=== PATIENT | female | born 1990 | race Caucasian/White ===

== ENCOUNTER 2020-09-14 14:03 | Emergency (ER) | payer OTHER, MEDICAID, SELFPAY ==
[2020-09-14 14:18] VITALS: PULSE 98; RESP 16; TEMP 37.3; O2SAT 99
[2020-09-14 14:22] VITALS: BP 128/81
--- NOTE | 2020-09-14 14:50 | ED.FEMALEGU ---
HPI - Female Genitourinary General Chief complaint: Urogenital-Female Stated complaint: UTI Time Seen by Provider: 09/14/20 14:50 Source: patient Mode of arrival: ambulatory Limitations: no limitations History of Present Illness HPI Narrative: Delroy Cabrera is a 29 yo female with no prior medical history who comes to [facility] with complaints of burning and difficulty emptying bladder; she is around 5 weeks ; she knows the accuracy of this because she has abdominal pain and went to the emergency room where they did an ultrasound and hCG to rule out ectopic and could not see the sac or oval yet on an ultrasound but she had positive hCG. She has had no pain since the emergency room visit. Related Data Allergies Allergy/AdvReac Type Severity Reaction Status Date / Time acetaminophen Allergy Mild Nausea and Verified 10/26/18 17:03 Vomiting hydrocodone Allergy Mild Nausea and Verified 10/26/18 17:03 Vomiting latex Allergy Mild Rash Verified 10/26/18 17:03 Review of Systems Review of Systems: Narrative: CONSTITUTIONAL: Denies fever, chills, sweats. EYES: Denies visual changes, redness, discharge. ENT: Denies rhinorrhea, congestion, sore throat, otalgia. CARDIOVASCULAR: Denies chest pain, palpitations, edema. RESPIRATORY: Denies dyspnea, wheezing, cough GASTROINTESTINAL: Denies abdominal pain, nausea, vomiting, diarrhea. GENITOURINARY: Has dysuria, hematuria, abnormal discharge SKIN: Denies rash or itching. NEUROLOGIC: Denies numbness, or focal weakness. PSYCHIATRIC: Denies anxiety or depression. PMFSH Past Medical History Medical History No acute medical problems Family History Family History Other Diabetes mellitus Heart disease Hypertension Social History Social History (Updated 09/14/20 @ 15:00 by Jessica Haines CNP) Smoking status: Former smoker Alcohol intake: former Comments At time of signature, I agree with nursing past medical, surgical, social and family history. There is no relevant family history pertinent to the presenting complaint. Exam Narrative: Exam Narrative: GENERAL: This is a well-nourished, well-developed patient, in mild distress. HEAD: normocephalic, atraumatic. EYES: Sclera clear/white. Vision is grossly intact. EARS: External ears normal,. Hearing grossly intact. NOSE: External nose normal without nasal discharge, nares without redness, no rhinorrhea. THROAT: Mucous membranes moist, NECK: Neck supple, CARDIOVASCULAR: Regular rate and rhythm without murmurs, gallops, or rubs. RESPIRATORY: Clear to auscultation. Breath sounds equal bilaterally. No wheezes, rales, or rhonchi. GASTROINTESTINAL: Abdomen soft, no abdominal pain SKIN: warm, intact with no suspicious lesions or rash, good texture and turgor. NEURO: awake, alert, and oriented to person, place and time. There were no obvious focal neurologic abnormalities. Steady gait EXTREMITIES: Normal range of motion. BACK: Nontender without deformity Course Course Emergency Course: [facility] of dysuria and is 5 weeks Urine dipstick is essentially negative but is being sent for culture Started on Macrobid, intravaginal metronidazole Vital Signs Vital signs: Vital Signs Temperature 99.2 F 09/14/20 14:18 Pulse Rate 98 09/14/20 14:18 Respiratory Rate 16 09/14/20 14:18 Pulse Oximetry 99 09/14/20 14:18 Temperature 99.2 F 09/14/20 14:18 Pulse Rate 98 09/14/20 14:18 Respiratory Rate 16 09/14/20 14:18 Blood Pressure 128/81 09/14/20 14:22 Pulse Oximetry 99 09/14/20 14:18 MDM - Female Genitourinary Differential Diagnosis Differential diagnosis: Likely urinary tract infection, cystitis and other Lab Data Labs: UCG Bedside Result Positive Reference Range
== END 2020-09-14 15:06 | disposition home or self-care (01) ==
PROVIDERS: Emergency Provider Nurse Practitioner
DX: O26.891 Other specified pregnancy related conditions, first trimester (principal); Z3A.01 Less than 8 weeks gestation of pregnancy; Z87.891 Personal history of nicotine dependence
CPT/HCPCS: 81003; 81025; 87086; 99213; G0463

== ENCOUNTER 2020-09-28 17:04 | Emergency (ER) | payer OTHER, MEDICAID, SELFPAY ==
--- NOTE | ~2020-09-28 | US_ITS ---
EXAMINATION: US OB <=14 wk fetus w TV DATE: 09/28/2020 18:46 INDICATION: Vaginal bleeding during first trimester TECHNIQUE: Real-time pelvic transabdominal and transvaginal ultrasound was performed. COMPARISON: None. FINDINGS: The uterus measures 7.2 x 5.5 x 4.4 cm. There is an intrauterine gestational sac. There is a 1.4 x 1.6 x 1.1 cm hypoechoic area adjacent to the gestational sac. A yolk sac is identified. Feta l heart motion is identified measuring 121 beats per minute (bpm) by M-mode Doppler. The crown rump length measures 7 mm , which correlates with an estimated gestational age of 6 weeks and 4 day(s ) (+/-) 4 day(s). The right ovary measures 3.4 x 3.4 x 2.9 cm. The left ovary measures 3.0 x 3.1 x 1.8 cm. There is nor mal vascular flow in the ovaries. There is no free fluid in the pelvis. IMPRESSION: 1. Live intrauterine with an estimated gestational age of 6 weeks and 4 day(s) (+/-) 4 day( s) and an estimated delivery date of 05/20/2021. 2. Small subchorionic hematoma. Reviewed, dictated and finalized at location A. IMPRESSION: 1. Live intrauterine with an estimated gestational age of 6 weeks and 4 day(s) (+/-) 4 day(s) and an estimated delivery date of 05/20/2021. 2. Small subchorionic hematoma.
[2020-09-28 17:22] VITALS: BP 136/80; PULSE 96; RESP 18; TEMP 36.7; O2SAT 100
[2020-09-28 17:43] LABS: Basophils Percent Auto 0.3 % (0.2-1.2); Eosinophils Absolute Auto 0.1 K/mm3 (0-0.3); Eosinophils Percent Auto 0.8 % (0-4.4); Hematocrit 43.2 % (37.0-47.0); Hemoglobin 14.7 g/dL (12.0-15.0); Immature Granulocyte Absolute 0.04 K/mm3 (0.00-0.031); Immature Granulocyte Percent A 0.3 % (0-0.5); Lymphocytes Absolute Auto 2.82 K/mm3 (0.9-3.2); Lymphocytes Percent Auto 24.3 % (18.3-44.2); Mean Corpuscular Volume 91.1 fl (80-100); Monocytes Absolute Auto 0.6 K/mm3 (0.1-0.6); Monocytes Percent Auto 5.2 % (2.6-8.5); Neutrophils Percent Auto 69.1 % (45.5-73.1); Platelet Count Result 316 k/mm3 (150-375); Red Blood Count 4.74 M/mm3 (4.2-5.4); Red Cell Distribution Width 12.3 % (11.5-14.5); White Blood Count 11.6 K/mm3 (4.5-10.0)
[2020-09-28 20:12] LABS: Add Urine Microscopic? YES; Appearance Urine Clear (Clear); Bilirubin Urine Negative (Negative); Blood Urine Negative (Negative); Color Urine Yellow (Yellow); Glucose Urine UA Negative (Negative); Ketones Urine 1+ mg/dL (Negative); Leukocyte Esterase Ur Negative LEU/UL (Negative); Mucus Urine Rare /lpf; Nitrate Urine Negative (Negative); Protein Urine Negative (Negative); RBC Urine 0-2 /hpf (0-2); Specific Grav Ur 1.017 (1.001-1.035); Squamous Epithelial Cell Urine Rare /hpf (Few); Urobilinogen Urine Negative mg/dL (<2.0); WBC Urine 0-3 /hpf
--- NOTE | 2020-09-28 20:12 | ED.FEMALEGU ---
HPI - Female Genitourinary General Chief complaint: [employer] Stated complaint: vag bleeding/6.5 weeks Time Seen by Provider: 09/28/20 17:08 Source: patient Mode of arrival: ambulatory Limitations: no limitations History of Present Illness HPI Narrative: Patient is a 30 year old female who presents with vaginal spotting x 2 days with heavier bleeding and cramping this pm. 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 She reports appointment to see Dr. Foley on Friday. She denies all other complaints at this time. MD elicited complaint: vaginal bleeding Related Data Home Medications Medication Instructions Recorded Confirmed aspirin [Adult Aspirin EC Low 81 mg PO DAILY 09/28/20 Strength] desvenlafaxine succinate mg PO 09/28/20 lisdexamfetamine [Vyvanse] mg 09/28/20 metformin mg 09/28/20 progesterone micronized mg 09/28/20 Allergies Allergy/AdvReac Type Severity Reaction Status Date / Time acetaminophen Allergy Mild Nausea and Verified 10/26/18 17:03 Vomiting hydrocodone Allergy Mild Nausea and Verified 10/26/18 17:03 Vomiting latex Allergy Mild Rash Verified 10/26/18 17:03 nickel Allergy Swelling Verified 09/28/20 20:17 Review of Systems Review of Systems: CONSTITUTIONAL: Denies fever, chills, or sweats. EYES: Denies visual changes, redness, or discharge. ENT: Denies rhinorrhea, congestion, sore throat, or otalgia. CARDIOVASCULAR: Denies chest pain, palpitations, or edema. RESPIRATORY: Denies cough or dyspnea. GASTROINTESTINAL: Denies abdominal pain, nausea, vomiting, or diarrhea. GENITOURINARY: Reports vaginal bleeding SKIN: Denies rash or itching. MUSCULOSKELETAL: Denies back pain, joint pain, or myalgia. NEUROLOGIC: Denies headache, numbness, dizziness, or weakness. PSYCHIATRIC: Denies anxiety or depression. [facility] Past Medical History Medical History No acute medical problems Family History Family History Other Diabetes mellitus Heart disease Hypertension Social History Social History Smoking status: Former smoker Alcohol intake: former Comments At the time of signature, I have reviewed and agree with nursing past medical, surgical, social, and family history unless otherwise noted. Please see nursing chart for further information. There is no relevant family history pertinent to the presenting complaint. Exam Narrative: GENERAL: Well-appearing, well-nourished, and in no acute distress. HEAD: Normocephalic, atraumatic. EYES: EOMI. No redness or drainage. Conjunctiva are normal. ENT: Mucous membranes pink and moist. CHEST: No respiratory distress. Clear to auscultation. HEART: Regular rate and rhythm. No murmur appreciated. Normal peripheral pulses. GI: Soft, nontender without rebound, or guarding. No distention. : Patient declined pelvic exam at this time. MUSCULOSKELETAL: No bony tenderness. EXTREMITIES: Normal range of motion. No edema. SKIN: Warm, dry, no rash. NEURO: No focal deficits. Alert and oriented x3. Gait steady. PSYCH: Normal affect. No signs of depression or anxiety. Course Consultations Consultation #1: Spoke with Dr. Gudino who reports to have patient follow up with the office in the am. Pelvic rest and no lifting over 10 lbs. Vital Signs Vital signs: Vital Signs Temperature 36.7 C 09/28/20 17:22 Pulse Rate 96 09/28/20 17:22 Respiratory Rate 18 09/28/20 17:22 Blood Pressure 136/80 09/28/20 17:22 Pulse Oximetry 100 09/28/20 17:22 Temperature 36.7 C 09/28/20 17:22 Pulse Rate 96 09/28/20 17:22 Respiratory Rate 18 09/28/20 17:22 Blood Pressure 136/80 09/28/20 17:22 Pulse Oximetry 100 09/28/20 17:22 Reviewed-patient is informed that they may have pre-hypertension or hypertension based on a blood pressure reading. I recommend the pat
== END 2020-09-28 20:35 | disposition home or self-care (01) ==
PROVIDERS: Emergency Medicine; Emergency Provider Nurse Practitioner
DX: O20.9 Hemorrhage in early pregnancy, unspecified (principal); O26.891 Other specified pregnancy related conditions, first trimester; R03.0 Elevated blood-pressure reading, without diagnosis of hypertension; O26.21 Pregnancy care for patient with recurrent pregnancy loss, first trimester; Z87.891 Personal history of nicotine dependence; Z3A.01 Less than 8 weeks gestation of pregnancy
CPT/HCPCS: 36415; 76801; 76817; 81001; 84702; 85025; 85461; 99284

== ENCOUNTER 2020-10-15 12:29 | Emergency (ER) | payer OTHER, MEDICAID, SELFPAY ==
--- NOTE | ~2020-10-15 | US_ITS ---
EXAMINATION: US OB <=14 wk fetus w TV DATE: 10/15/2020 15:33 INDICATION: Vaginal bleeding during first trimester TECHNIQUE: Real-time pelvic ultrasound utilizing both a transvaginal and transabdominal probe was pe rformed. The interpreting radiologist was not present for the study. COMPARISON: 09/28/2020 FINDINGS: The uterus measures 10.9 x 6.9 x 5.9 cm. There is an intrauterine gestational sac. A yolk sac and fe eduardo pole are identified. The crown rump length measures 2.4 cm, which correlates with an estimated ge stational age of 9 weeks and 1 days. No evident heart motion with either color or M-mode Dopple r. Small hypoechoic region measuring 1.7 x 1.0 cm on side the gestational sac suggesting small subcho rionic hemorrhage. There is a 3.7 x 2.9 x 2.6 cm or round hyperechoic region which could represent ei ther additional subchorionic hemorrhage or fibroid at the right side of the uterine fundus. The right ovary measures 3.4 x 3.0 x 2.0 cm. The left ovary measures 3.1 x 2.5 x 2.1 cm. Vascular mabel w is identified in both ovaries on color Doppler. There is no free fluid in the pelvis. IMPRESSION: 1. Single fetus with crown-rump length of 2.4 cm but with no heart motion consistent with demise. 2. 1.7 x 1.0 cm subchorionic hematoma. 3. 3.7 cm oral and hypoechoic region at the right side of the fundus which could represent either add itional subchorionic hemorrhage or a uterine fibroid. Reviewed, dictated and finalized at location A. IMPRESSION: 1. Single fetus with crown-rump length of 2.4 cm but with no heart motion consistent with demise. 2. 1.7 x 1.0 cm subchorionic hematoma. 3. 3.7 cm oral and hypoechoic region at the right side of the fundus which coul d represent either additional subchorionic hemorrhage or a uterine fibroid.
[2020-10-15 12:31] VITALS: BP 130/78; PULSE 90; RESP 18; TEMP 36.4; O2SAT 100
[2020-10-15 13:02] LABS: Basophils Percent Auto 0.4 % (0.2-1.2); Eosinophils Absolute Auto 0.1 K/mm3 (0-0.3); Eosinophils Percent Auto 0.9 % (0-4.4); Hematocrit 44.5 % (37.0-47.0); Hemoglobin 15.1 g/dL (12.0-15.0); Immature Granulocyte Absolute 0.05 K/mm3 (0.00-0.031); Immature Granulocyte Percent A 0.5 % (0-0.5); Lymphocytes Absolute Auto 2.34 K/mm3 (0.9-3.2); Lymphocytes Percent Auto 22.3 % (18.3-44.2); Mean Corpuscular HGB Conc 33.9 g/dl (32-36); Mean Corpuscular Hemoglobin 31.5 pg (26-34); Mean Corpuscular Volume 92.9 fl (80-100); Mean Platelet Volume 10.6 fl (7.4-10.4); Monocytes Absolute Auto 0.6 K/mm3 (0.1-0.6); Monocytes Percent Auto 5.5 % (2.6-8.5); Neutrophils Absolute Auto 7.4 K/mm3 (1.3-6.7); Neutrophils Percent Auto 70.4 % (45.5-73.1); Platelet Count Result 303 k/mm3 (150-375); Red Blood Count 4.79 M/mm3 (4.2-5.4); Red Cell Distribution Width 12.3 % (11.5-14.5); White Blood Count 10.5 K/mm3 (4.5-10.0)
[2020-10-15 14:29] VITALS: BP 130/93; PULSE 105; RESP 18; TEMP 36.6; O2SAT 96
--- NOTE | 2020-10-15 15:03 | PC.NURSE ---
To US at this time.
--- NOTE | 2020-10-15 16:09 | ED.ABDPAIN ---
HPI - Abdominal Pain General Chief Complaint: Vaginal Bleeding Stated Complaint: 9 weeks preg/vaginal bleeding Time Seen by Provider: 10/15/20 15:50 History of Present Illness HPI narrative: 30-year-old female presents with concern for miscarriage. She is G5, P1 approximately 9 weeks by LMP. Reports today she felt she urinated self and when she checked there was a lot of vaginal bleeding. Bleeding is associated with abdominal cramping similar to her menstrual cycle. She reports a history of early miscarriages and this feels similar to her priors so she wanted to come in for evaluation. She denies any lightheadedness or dizziness reports the bleeding is slowing she did not note any major blood clots or tissue. Patient ports she has A+ not required RhoGam in the past Related Data Home Medications Medication Instructions Recorded Confirmed aspirin [Adult Aspirin EC Low 81 mg PO DAILY 09/28/20 Strength] desvenlafaxine succinate mg PO 09/28/20 lisdexamfetamine [Vyvanse] mg 09/28/20 metformin mg 09/28/20 progesterone micronized mg 09/28/20 Allergies Allergy/AdvReac Type Severity Reaction Status Date / Time acetaminophen Allergy Mild Nausea and Verified 10/15/20 12:34 Vomiting hydrocodone Allergy Mild Nausea and Verified 10/15/20 12:34 Vomiting latex Allergy Mild Rash Verified 10/15/20 12:34 nickel Allergy Swelling Verified 10/15/20 12:34 Review of Systems Review of Systems: CONSTITUTIONAL: Denies fever, chills, or sweats. EYES: Denies visual changes, redness, or discharge. ENT: Denies rhinorrhea, congestion, sore throat, or otalgia. CARDIOVASCULAR: Denies chest pain, palpitations, or edema. RESPIRATORY: Denies cough or dyspnea. GASTROINTESTINAL: Denies nausea, vomiting, or diarrhea. GENITOURINARY: Denies dysuria or hematuria. SKIN: Denies rash or itching. MUSCULOSKELETAL: Denies back pain, joint pain, or myalgia. NEUROLOGIC: Denies headache, numbness, dizziness, or weakness. PSYCHIATRIC: Denies anxiety or depression. All systems reviewed & are unremarkable except as noted in HPI and below PMFSH Past Medical History Medical History No acute medical problems Family History Family History Other Diabetes mellitus Heart disease Hypertension Social History Social History Smoking status: Former smoker Alcohol intake: former Gender identity (if verbalized by the patient): Female Exam Narrative: GENERAL: Well-appearing, well-nourished, and in no acute distress. Upset HEAD: Normocephalic, atraumatic. EYES: PERRLA and EOMI. ENT: Nares clear, no rhinorrhea or epistaxis. Mucous membranes moist. NECK: Supple. No masses. No JVD ABDOMEN: Mild tenderness palpation in the lower abdomen nondistended, normal active bowel sounds. EXTREMITIES: Normal range of motion. No edema. SKIN: Warm, dry, no rash. NEURO: No focal deficits. Alert and oriented x3. PSYCH: Normal mood and affect. Course Vital Signs Vital signs: Vital Signs Temperature 36.4 C L 10/15/20 12:31 Pulse Rate 90 10/15/20 12:31 Respiratory Rate 18 10/15/20 12:31 Blood Pressure 130/78 10/15/20 12:31 Pulse Oximetry 100 10/15/20 12:31 Temperature 36.6 C 10/15/20 14:29 Pulse Rate 105 H 10/15/20 14:29 Respiratory Rate 18 10/15/20 14:29 Blood Pressure 130/93 H 10/15/20 14:29 Pulse Oximetry 96 10/15/20 14:29 MDM - Abdominal Pain MDM Narrative Medical decision making narrative: H&P as above, vss, pt looks clinically well, exam mild tenderness of the abdomen, labs anemia. Patient is Rh+ img with evidence of demise, additional labs/img considered, symptomatic relief available as needed is made aware of imaging results she said tearful. She reports she has follow-up with her UX MANAGER this week patient counseled on the importance of
== END 2020-10-15 16:32 | disposition home or self-care (01) ==
PROVIDERS: Emergency Medicine; Emergency Provider Emergency Medicine
DX: O03.9 Complete or unspecified spontaneous abortion without complication (principal); Z87.891 Personal history of nicotine dependence
CPT/HCPCS: 36415; 76801; 76817; 84702; 85025; 85461; 99284

== ENCOUNTER 2020-10-20 04:56 | Day surgery (SDC) | payer OTHER, MEDICAID, SELFPAY ==
[2020-10-18 13:35] VITALS: BMI 26.7
--- NOTE | 2020-10-19 11:10 | WPDANESEPPF ---
Anes - Initial Pre Proc Eval Procedure: Operation Date: 10/20/20 07:30 Proposed Procedures p Suction Dilation and Curettage - Allie Foley MD Date/Time: 10/19/20 11:10 Surgeon: Allie Foley MD Pre Op Diagnosis: miss caba Patient Data Age: 30 Gender: F Height: 1.65 m Weight: 73 kg Allergies Allergy/AdvReac Type Severity Reaction Status Date / Time latex Allergy Mild Rash Verified 10/20/20 05:57 nickel Allergy Mild Swelling Verified 10/20/20 05:57 Home Medications Medication Instructions Recorded Confirmed Type lisdexamfetamine [Vyvanse] 30 mg PO QAM 09/28/20 10/20/20 History metformin 500 mg PO BID 09/28/20 10/20/20 History vit-iron fum-folic ac 1 tablet PO DAILY 10/18/20 10/20/20 History [ Vitamin Formula] venlafaxine 37.5 mg PO HS 10/18/20 10/20/20 History Patient hx anesthesia problems: none Family hx anesthesia problems: none PMFSH Past Medical History Medical History (Updated 10/19/20 @ 11:10 by Chapito Mercado MD) Depression No acute medical problems Family History Family History Other Diabetes mellitus Heart disease Hypertension Social History Social History Smoking packs per day: 1 Smoking cigarettes per day: 20.0 Years smoked: 3 Smoking pack-years: 3.00 Smoking status: Former smoker Tobacco type: cigarettes Smoking end date: 08/31/16 Alcohol intake: never Substance use: never Living arrangements: with family Additional living arrangements comments: HUSB & SON Gender identity (if verbalized by the patient): Female Spiritual care concerns: No Anes - Eval Final PreProcedure Day of Procedure 10/19/20 11:10 Patient weight: normal Heart: regular rate and rhythm Lungs: clear to auscultation Airway: Mallampati scale class II Neurological: alert and oriented Last oral intake: >/= 8 hours ASA classification: II Emergent: no Anesthetic plan: proceed Anesthesia type and monitoring: general GIVS and standard monitoring Informed Consent: The patient's anesthetic plan and its attendant risks and benefits were discussed with the patient/family/POA. Questions were solicited and answers provided to the satisfaction of the patient/family/POA.
[2020-10-20 06:12] VITALS: BP 117/68; PULSE 81; RESP 16; TEMP 36.7; O2SAT 98
[2020-10-20] MEDS: ACETAMINOPHEN 500 MG TABLET 1000 MG PO (06:18)
[2020-10-20] MEDS: LACTATED RINGERS 1,000 ML 30 ML IV CONT (06:20)
--- NOTE | 2020-10-20 07:25 | PM.IMHP ---
H&P: HPI History of Present Illness Date/Time: 10/20/20 07:25 Chief Complaint: miscarriage Narrative: Delroy is a 30yo with missed ab at 8-9 weeks. only brown spotting. We are continuing her work up for recurrent miscarriage, and she desires D and C with chromosomes on POC. Review of Systems Review of Systems: All systems reviewed & are unremarkable except as noted in HPI and below PMFSH Past Medical History Medical History (Updated 10/20/20 @ 07:26 by Allie Foley MD) Depression No acute medical problems Family History Family History Other Diabetes mellitus Heart disease Hypertension Social History Social History Smoking packs per day: 1 Smoking cigarettes per day: 20.0 Years smoked: 3 Smoking pack-years: 3.00 Smoking status: Former smoker Tobacco type: cigarettes Smoking end date: 08/31/16 Alcohol intake: never Substance use: never Living arrangements: with family Additional living arrangements comments: HUSB & SON Gender identity (if verbalized by the patient): Female Spiritual care concerns: No Meds Home Medications and Allergies Home Medications Medication Instructions Recorded Confirmed Type lisdexamfetamine [Vyvanse] 30 mg PO QAM 09/28/20 10/20/20 History metformin 500 mg PO BID 09/28/20 10/20/20 History vit-iron fum-folic ac 1 tablet PO DAILY 10/18/20 10/20/20 History [ Vitamin Formula] venlafaxine 37.5 mg PO HS 10/18/20 10/20/20 History Allergies Allergy/AdvReac Type Severity Reaction Status Date / Time latex Allergy Mild Rash Verified 10/20/20 05:57 nickel Allergy Mild Swelling Verified 10/20/20 05:57 Vital Signs Vital Signs - 24 hr 10/20/20 06:12 Temperature 98.1 F Pulse Rate 81 Respiratory Rate 16 Blood Pressure 117/68 Pulse Oximetry 98 Exam Const: General: no acute distress Resp: Effort & Inspection: normal respiratory effort Auscultation: clear to auscultation bilaterally Cardio: Rate: regular rate Rhythm: regular rhythm GI: GI Palp: Yes Soft to palpation Extrem: General: normal to inspection Assessment and Plan Assessment and plan (1) Missed : Code(s): O02.1 - Missed Status: Acute Additional Plan COnsented for suction D and C will send POC for chromosomes continue HUMPHREY for recurrent miscarriage in office. questions answered.
--- NOTE | 2020-10-20 07:27 | WPDHPUPDATE1 ---
History and Physical Update Update Date/Time: 10/20/20 07:27 History and Physical has been reviewed, including an updated exam of the patient. There are NO changes in the patient's condition. Risks, benefits, and alternatives have been discussed and questions answered. Patient agrees to proceed with procedure.
[2020-10-20] MEDS: BUPIVACAINE/EPINEPHRINE 0.25% 10 ML VIAL INFILTRATE (07:51)
[2020-10-20 07:54] VITALS: BP 113/57; PULSE 82; RESP 12; O2SAT 100
--- NOTE | 2020-10-20 07:54 | P.OP_ITS ---
Procedure Note - Detailed Date of Procedure 10/20/20 Pre-op Diagnosis missed Post-op Diagnosis same Procedure Performed suction D and C Surgeon Allie Foley MD Anesthesia MAC Description of Procedure The patient was taken to the OR and placed in supine position in dorsal lithotomy. She received MAC anesthesia and doxycycline. She was prepped and draped in normal fashion. A speculum was placed and the cervix was grasped with a single tooth tenaculum. A paracervical block was placed with 10cc 0.25% marcaine with epinephrine. The cervix was sequentially dilated to 8 martinez. The suction was tested and then the suction catheter was inserted into the uterine cavity. Several passes were made until no further products of conception were obtained. The tenaculum was removed and hemostasis was obtained with pressure and monsel's solution. The speculum was removed. The patient tolerated the pr ocedure well and was taken to the recovery room in stable condition. Drains No Packing No Pathology yes Complications No immediate complications Condition stable Disposition same day
[2020-10-20 08:20] VITALS: BP 109/65; PULSE 70; RESP 20
[2020-10-20] MEDS: oxyCODONE HCL (*CRX) 5 MG TAB IR PO (08:20)
[2020-10-20 08:50] VITALS: BP 109/70; PULSE 68; RESP 20
[2020-10-20] MEDS: fentaNYL CITRATE INJ (*CRX) 100 MCG/2 ML VIAL 25 MCG IV PUSH ×2 (08:58→09:05)
[2020-10-20 09:20] VITALS: BP 119/75; PULSE 76; RESP 20
== END 2020-10-20 09:22 | disposition home or self-care (01) ==
PROVIDERS: Visit Provider Obstetrics & Gynecology
PROC: (CPT 59820; principal; 2020-10-20 07:30)
DX: O02.1 Missed abortion (principal); F32.9 Major depressive disorder, single episode, unspecified; Z87.891 Personal history of nicotine dependence; Z79.84 Long term (current) use of oral hypoglycemic drugs
CPT/HCPCS: 59820; 88233; 88262; 88305; A9270; J1100; J2250; J2405; J2704; J3010; J7120

== ENCOUNTER 2020-10-24 13:49 | Emergency (ER) | payer OTHER, MEDICAID, SELFPAY ==
--- NOTE | ~2020-10-24 | XR_ITS ---
EXAMINATION: XR chest 2V DATE: 10/24/2020 14:02 INDICATION: Chest pain. Shortness of breath. TECHNIQUE: Frontal and lateral views of the chest were obtained. COMPARISON: None. FINDINGS: The chest demonstrates clear lungs without pneumonia, pleural effusion, or pneumothorax. Th e heart size is normal. IMPRESSION: 1. No acute cardiopulmonary disease. Reviewed, dictated and finalized at location A.
--- NOTE | 2020-10-24 13:52 | ECG_ITS ---
Measurements Intervals [place] Rate: 88 P: 62 VT: 148 QRS: 62 QRSD: 88 T: 21 QT: 333 QTc: 405 Interpretive Statements SINUS RHYTHM NORMAL ECG Electronically Signed On 10-24-2020 17:18:09 CDT by Maurice Mckeon D.O.
[2020-10-24 13:56] VITALS: BP 136/85; PULSE 94; RESP 18; TEMP 36.8; O2SAT 100
[2020-10-24 14:31] LABS: Basophils Absolute Auto 0.1 K/mm3 (0.0-0.1); Basophils Percent Auto 0.8 % (0.2-1.2); Eosinophils Absolute Auto 0.1 K/mm3 (0-0.3); Eosinophils Percent Auto 1.1 % (0-4.4); Hematocrit 43.2 % (37.0-47.0); Hemoglobin 14.3 g/dL (12.0-15.0); Immature Granulocyte Absolute 0.04 K/mm3 (0.00-0.031); Immature Granulocyte Percent A 0.5 % (0-0.5); Lymphocytes Absolute Auto 2.24 K/mm3 (0.9-3.2); Mean Corpuscular HGB Conc 33.1 g/dl (32-36); Mean Corpuscular Hemoglobin 31.5 pg (26-34); Mean Corpuscular Volume 95.2 fl (80-100); Mean Platelet Volume 10.3 fl (7.4-10.4); Monocytes Absolute Auto 0.6 K/mm3 (0.1-0.6); Monocytes Percent Auto 6.9 % (2.6-8.5); Neutrophils Percent Auto 62.7 % (45.5-73.1); Platelet Count Result 305 k/mm3 (150-375); Red Blood Count 4.54 M/mm3 (4.2-5.4); Red Cell Distribution Width 12.6 % (11.5-14.5)
[2020-10-24 14:38] LABS: INR 0.9; Prothrombin Time 11.6 Seconds (11.1-14.7)
[2020-10-24 14:39] LABS: Partial Thromboplastin Time 26.4 SECONDS (22.3-36.8)
[2020-10-24 14:43] LABS: Anion Gap 10 mmol/L (8-16); Blood Urea Nitrogen 12 mg/dL (7-17); Calcium 9.9 mg/dL (8.4-10.2); Carbon Dioxide 22 mmol/L (22-30); Chloride 103 mmol/L (98-107); Estimated CRCL calculation 106 ml/min; Estimated Glomerular Filt Rate > 60; Glucose 96 mg/dL (65-110); Potassium 3.6 mmol/L (3.4-5.0); Sodium 135 mmol/L (137-145)
[2020-10-24 14:55] LABS: Troponin I < 0.012 ng/mL (0.000-0.034)
[2020-10-24 17:11] VITALS: BP 136/87; PULSE 92; RESP 18; O2SAT 100
--- NOTE | 2020-10-24 17:42 | ED.GENADULT ---
HPI - General Adult General Chief complaint: Chest Pain Stated complaint: CP/SOB Time Seen by Provider: 10/24/20 17:06 Source: patient and RN notes reviewed Mode of arrival: ambulatory Limitations: no limitations History of Present Illness HPI narrative: Patient is a 30-year-old female who presented with pleuritic chest discomfort that began today. Patient notes sharp pains when she was breathing think she may have had a panic attack did recently get started on medication for anxiety had recent D&C but notes that her bleeding is improved patient notes protein C deficiency but denies history of PE she denies URI symptoms or other complaints and on arrival is resting comfortably in the room in no distress Related Data Home Medications Medication Instructions Recorded Confirmed lisdexamfetamine [Vyvanse] 30 mg PO QAM 09/28/20 10/20/20 metformin 500 mg PO BID 09/28/20 10/20/20 vit-iron fum-folic ac 1 tablet PO DAILY 10/18/20 10/20/20 [ Vitamin Formula] venlafaxine 37.5 mg PO HS 10/18/20 10/20/20 Allergies Allergy/AdvReac Type Severity Reaction Status Date / Time latex Allergy Mild Rash Verified 10/24/20 17:12 nickel Allergy Mild Swelling Verified 10/24/20 17:12 Review of Systems Review of Systems: All systems reviewed & are unremarkable except as noted in HPI and below PMFSH Past Medical History Medical History Depression No acute medical problems Family History Family History Other Diabetes mellitus Heart disease Hypertension Social History Social History Smoking packs per day: 1 Smoking cigarettes per day: 20.0 Years smoked: 3 Smoking pack-years: 3.00 Smoking status: Former smoker Tobacco type: cigarettes Smoking end date: 08/31/16 Alcohol intake: never Substance use: never Additional living arrangements comments: HUSB & SON Gender identity (if verbalized by the patient): Female Spiritual care concerns: No Exam Narrative: GENERAL: Well-appearing, well-nourished, and in no acute distress. HEAD: Normocephalic, atraumatic. EYES: PERRLA and EOMI. ENT: Nares clear, no rhinorrhea or epistaxis. Mucous membranes moist. CHEST: Clear to auscultation. No respiratory distress. No wheezes rales or rhonchi HEART: Regular rate and rhythm. No murmur heard. Normal peripheral pulses. ABDOMEN: Soft, nontender, nondistended EXTREMITIES: Normal range of motion. No edema. SKIN: Warm, dry, no rash. NEURO: No focal deficits. Alert and oriented x3. Cranial nerves II through XII grossly intact PSYCH: Normal mood and affect. Course Course Emergency Course: Patient evaluated in the emergency department no distress no concerning findings felt appropriate for outpatient reevaluation ABCs and vital signs intact and stable nontoxic-appearing no URI symptoms no pneumonia PE felt unlikely felt appropriate Vital Signs Vital signs: Vital Signs Temperature 98.2 F 10/24/20 13:56 Pulse Rate 94 10/24/20 13:56 Respiratory Rate 18 10/24/20 13:56 Blood Pressure 136/85 10/24/20 13:56 Pulse Oximetry 100 10/24/20 13:56 Temperature 98.2 F 10/24/20 13:56 Pulse Rate 93 10/24/20 18:05 Respiratory Rate 16 10/24/20 18:05 Blood Pressure 122/82 10/24/20 18:05 Pulse Oximetry 100 10/24/20 18:05 Medical Decision Making MDM Narrative Medical decision making narrative: Patients EKGs and labs are without significant high risk changes. Cardiac risk factors were reviewed. Patient is felt likely to be low risk for ACS and reasonable for further risk stratification testing as an outpatient. Pain was not sudden or maximal in onset without tearing or ripping. quality. No other signs or symptoms to suggest aortic dissection. A low-risk Wells criteria is noted. PE is felt to be unlikely. No pneumonia or URI
[2020-10-24 18:03] LABS: Troponin I < 0.012 ng/mL (0.000-0.034)
[2020-10-24 18:05] VITALS: BP 122/82; PULSE 93; RESP 16; O2SAT 100
[2020-10-24 18:31] LABS: D Dimer 0.34 ug/mL (<0.48)
== END 2020-10-24 18:53 | disposition home or self-care (01) ==
PROVIDERS: Emergency Medicine; Emergency Medicine Emergency Medical Services; Emergency Provider Emergency Medicine
DX: R07.81 Pleurodynia (principal); F41.9 Anxiety disorder, unspecified; Z79.84 Long term (current) use of oral hypoglycemic drugs; Z87.891 Personal history of nicotine dependence
CPT/HCPCS: 36415; 71046; 80048; 84484; 85025; 85380; 85610; 85730; 93005; 99284

== ENCOUNTER 2021-04-03 10:42 | Emergency (ER) | payer OTHER, MEDICAID, SELFPAY ==
--- NOTE | ~2021-04-03 | XR_ITS ---
EXAMINATION: XR chest 1V DATE: 04/03/2021 12:07 INDICATION: Palpitations. First trimester of . TECHNIQUE: A single frontal view of the chest was obtained. COMPARISON: Chest 2 views 10/24/2020 FINDINGS: The chest demonstrates clear lungs without pneumonia, pleural effusion, or pneumothorax. Th e heart size is normal. IMPRESSION: 1. No acute cardiopulmonary disease. Reviewed, dictated and finalized at location A. [place] SPECIALIST
--- NOTE | 2021-04-03 10:45 | ECG_ITS ---
Measurements Intervals Welcome Rate: 97 P: 66 CA: 145 QRS: 66 QRSD: 92 T: 20 QT: 326 QTc: 416 Interpretive Statements SINUS RHYTHM BASELINE ARTIFACT- I, II, III, AVR, AVL, AVF NORMAL ECG Electronically Signed On 04-03-2021 11:18:51 DIRECTOR OF BUSINESS SERVICES by Maurice Mckeon D.O.
[2021-04-03 10:52] VITALS: BP 120/83; PULSE 100; RESP 18; TEMP 37.4; O2SAT 99
--- NOTE | 2021-04-03 11:55 | ED.ARRPALP ---
HPI - Arrhythmia/Palpitations General Chief Complaint: Arrhythmia/Palpitations Stated Complaint: Palpitations Time Seen by Provider: 04/03/21 11:16 History of Present Illness HPI narrative: Patient is a 30-year-old female who presents the ER with concerns of heart palpitations. She reports her OB wanted to make sure she did not have a blood clot. She has no chest pain or dyspnea. No pain with deep breath. No hemoptysis. She is without lower extremity swelling. No history of blood clots previously. Patient reports over the last week she has been having fluttering a couple times every hour. No dizziness or confusion. Occasionally worse with leaning forward. Patient is 6 weeks . No lower abdominal pain. No bleeding or discharge. Related Data Home Medications Medication Instructions Recorded Confirmed vit-iron fum-folic ac 1 tablet PO DAILY 10/18/20 10/20/20 [ Vitamin Formula] lisdexamfetamine [Vyvanse] mg 04/03/21 metformin mg PO 04/03/21 progesterone micronized mg 04/03/21 progesterone micronized VAGINAL 04/03/21 [Endometrin] progesterone micronized mg 04/03/21 [Prometrium] venlafaxine mg PO 04/03/21 Allergies Allergy/AdvReac Type Severity Reaction Status Date / Time latex Allergy Mild Rash Verified 04/03/21 12:07 nickel Allergy Mild Swelling Verified 04/03/21 12:07 Review of Systems Review of Systems: All systems reviewed & are unremarkable except as noted in HPI and below Constitutional: Constitutional: Denies chills, Denies fever(s) and Denies weakness ENT: Denies nasal congestion and Denies sore throat Cardiovascular: Cardiovascular: Denies chest pain and Denies radiating jaw, neck or arm pain Comments: Palpitations Respiratory: Respiratory: Denies cough, Denies dyspnea and Denies wheezing Gastrointestinal: Gastrointestinal: Denies abdominal pain, Denies nausea and Denies vomiting Neurologic: Denies dizziness, Denies headache(s), Denies focal weakness and Denies numbness PMF Past Medical History Medical History (Updated 04/03/21 @ 13:19 by Michael Ordaz MD) Anxiety Depression No acute medical problems Surgical History Surgical History (Updated 04/03/21 @ 11:58 by Michael Ordaz MD) History of D&C History of knee surgery History of tonsillectomy Family History Family History Other Diabetes mellitus Heart disease Hypertension Social History Social History Smoking packs per day: 1 Smoking cigarettes per day: 20.0 Years smoked: 3 Smoking pack-years: 3.00 Smoking status: Former smoker Tobacco type: cigarettes Smoking end date: 08/31/16 Alcohol intake: never Substance use: never Additional living arrangements comments: HUSB & SON Gender identity (if verbalized by the patient): Female Spiritual care concerns: No Exam Narrative: GENERAL: Well-appearing, well-nourished, and in no acute distress. HEAD: Normocephalic, atraumatic. EYES: PERRL and EOMI. CHEST: Clear to auscultation. No respiratory distress. HEART: Regular rate and rhythm. No murmur heard. Normal peripheral pulses. ABDOMEN: Soft, nontender, nondistended. EXTREMITIES: Normal range of motion. No edema. Negative Homans' sign. SKIN: Warm, dry, no rash. NEURO: Alert and oriented x3. PSYCH: Normal mood and affect. Course Course Emergency Course: Patient resting comfortably. No palpitations while in the ER. Informed of results. Recommend follow-up with primary OB. Patient likely experiencing some PVCs. Patient may require out patient Holter monitoring and echo be ordered by her physician. Also discussed she could be having some withdrawal symptoms from weaning off of her medical marijuana. Vital Signs Vital signs: Vital Signs Temperature 99.3 F 04/03/21 10:52 Pulse Rate 100 04/03/21 10:52 Respiratory Rate 18 02
[2021-04-03 12:01] LABS: Basophils Percent Auto 0.3 % (0.2-1.2); Eosinophils Absolute Auto 0.1 K/mm3 (0-0.3); Eosinophils Percent Auto 0.5 % (0-4.4); Hematocrit 40.3 % (37.0-47.0); Hemoglobin 14.4 g/dL (12.0-15.0); Immature Granulocyte Absolute 0.04 K/mm3 (0.00-0.031); Immature Granulocyte Percent A 0.4 % (0-0.5); Lymphocytes Absolute Auto 2.21 K/mm3 (0.9-3.2); Mean Corpuscular HGB Conc 35.7 g/dl (32-36); Mean Corpuscular Hemoglobin 32.4 pg (26-34); Mean Corpuscular Volume 90.6 fl (80-100); Mean Platelet Volume 10.3 fl (7.4-10.4); Monocytes Absolute Auto 0.5 K/mm3 (0.1-0.6); Monocytes Percent Auto 5.9 % (2.6-8.5); Neutrophils Absolute Auto 6.3 K/mm3 (1.3-6.7); Neutrophils Percent Auto 68.9 % (45.5-73.1); Platelet Count Result 275 k/mm3 (150-375); Red Blood Count 4.45 M/mm3 (4.2-5.4); Red Cell Distribution Width 12.1 % (11.5-14.5); White Blood Count 9.2 K/mm3 (4.5-10.0)
[2021-04-03 12:09] LABS: Alanine Aminotransferase 16 U/L (4-35); Albumin Level 4.4 g/dL (3.5-5.1); Alkaline Phosphatase 40 U/L (38-126); Anion Gap 5 mmol/L (8-16); Aspartate Amino Transferase 20 U/L (14-36); Bilirubin,Total 0.3 mg/dL (0.2-1.3); Blood Urea Nitrogen 9 mg/dL (7-17); Carbon Dioxide 21 mmol/L (22-30); Chloride 110 mmol/L (98-107); Estimated CRCL calculation 109 ml/min; Estimated Glomerular Filt Rate > 60; Glucose 90 mg/dL (65-110); Magnesium 1.9 mg/dL (1.6-2.3); Potassium 3.9 mmol/L (3.4-5.0); Sodium 136 mmol/L (137-145)
[2021-04-03 12:14] LABS: INR 0.9; Prothrombin Time 12.4 Seconds (11.1-14.7)
[2021-04-03 12:15] LABS: Partial Thromboplastin Time 27.6 SECONDS (22.3-36.8)
[2021-04-03 12:35] LABS: D Dimer < 0.22 ug/mL (<0.48)
[2021-04-03 13:11] VITALS: PULSE 93; RESP 18; O2SAT 100
[2021-04-03 13:15] VITALS: BP 126/78; PULSE 83; RESP 12; O2SAT 100
[2021-04-03 13:16] VITALS: PULSE 80; RESP 18; O2SAT 99
[2021-04-03 13:45] VITALS: BP 120/78; PULSE 80; RESP 18; TEMP 37.2; O2SAT 99
== END 2021-04-03 13:46 | disposition home or self-care (01) ==
PROVIDERS: Emergency Provider Emergency Medicine
DX: R00.2 Palpitations (principal); Z87.891 Personal history of nicotine dependence; F41.9 Anxiety disorder, unspecified; F32.9 Major depressive disorder, single episode, unspecified
CPT/HCPCS: 36415; 71045; 80053; 83735; 85025; 85380; 85610; 85730; 93005; 99284

== ENCOUNTER 2022-01-17 09:59 | Emergency (ER) | payer OTHER, MEDICAID, SELFPAY ==
--- NOTE | ~2022-01-17 | XR_ITS ---
XR finger 2nd LT min 2V DATE: 01/17/2022 10:24 INDICATION: Slammed digit intrahepatic. Pain. TECHNIQUE: 3 views of second digit COMPARISON: None FINDINGS: No fracture or dislocation, periosteal reaction or bone destruction, radiopaque soft tissue foreign body or subcutaneous emphysema. IMPRESSION: Negative Reviewed, dictated and finalized at location B. 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
[2022-01-17 10:14] VITALS: BP 115/77; PULSE 106; RESP 18; TEMP 36.6; O2SAT 98
--- NOTE | 2022-01-17 10:29 | ED.UPPEXIN ---
HPI - Extremity Injury (Upper) General Chief Complaint: Extremity Injury, Upper Stated Complaint: Left Hand Pain Time Seen by Provider: 01/17/22 10:20 Source: patient Mode of arrival: ambulatory Limitations: no limitations History of Present Illness HPI narrative: Delroy is a 31-year-old female patient presenting to clinic today with complaints of left 2nd finger injury. She reports that she smashed it in the trunk of her vehicle approximately 30 minutes ago. Her tetanus shot is up-to-date within the last 5 years that she has just had a baby in November. Has a small cut to her finger. Related Data Home Medications Medication Instructions Recorded Confirmed vit with calcium-iron 1 tablet PO DAILY 10/18/20 10/20/20 fum-folic acid 60 mg-0.8 mg tablet lisdexamfetamine 30 mg capsule mg 04/03/21 (Vyvanse) metformin 500 mg tablet,extended mg PO 04/03/21 release 24 hr progesterone micronized 100 mg mg 04/03/21 capsule progesterone micronized 100 mg mg 04/03/21 capsule (Prometrium) progesterone micronized 100 mg vaginal 04/03/21 vaginal insert (Endometrin) venlafaxine 150 mg mg PO 04/03/21 capsule,extended release 24 hr Allergies Allergy/AdvReac Type Severity Reaction Status Date / Time latex Allergy Mild Rash Verified 04/03/21 12:07 nickel Allergy Mild Swelling Verified 04/03/21 12:07 Review of Systems Review of Systems: Pertinent positives per HPI. Patient denies any fever, chills, rash, headache, visual changes, dizziness, cough, runny nose, sore throat, shortness of breath, chest pain, palpitations, nausea, vomiting, diarrhea, constipation, abdominal pain, or any urinary issues. [facility] Past Medical History Medical History Anxiety Depression No acute medical problems Surgical History Surgical History History of D&C History of knee surgery History of tonsillectomy Family History Family History Other Diabetes mellitus Heart disease Hypertension Social History Social History Smoking packs per day: 1 Smoking cigarettes per day: 20.0 Years smoked: 3 Smoking pack-years: 3.00 Smoking status: Former smoker Tobacco type: cigarettes Smoking end date: 08/31/16 Alcohol intake: never Substance use: never Additional living arrangements comments: HUSB & SON Gender identity (if verbalized by the patient): Female Spiritual care concerns: No Comments At the time of my signature, I reviewed and agree with the nursing past medical, surgical, social, and family history. There is no relevant family history pertinent to the patient complaint. Exam Narrative: General: Well-developed, well nourished, in no apparent distress Head: Normocephalic, atraumatic. Cardio: Regular rate and rhythm, s1 and s2 normal, no murmur appreciated. Resp: Clear to auscultation bilaterally, no rhonchi, rales, wheezing or rubs. Musculoskeletal: No deformity, Small 0.5 cm skin tear/laceration to the left 2nd dorsal lateral distal finger, bleeding is controlled, mild swell and tender to palpation over the distal finger, grossly normal range of motion, muscle strength strong and equal, peripheral pulse strong, no cyanosis, normal gait and station Course Course Emergency Course: Portions of this record may have been created with voice recognition software. Level of Care: Express Care Visit Vital Signs Vital signs: Vital Signs Temperature 36.6 C 01/17/22 10:14 Pulse Rate 106 H 01/17/22 10:14 Respiratory Rate 18 01/17/22 10:14 Blood Pressure 115/77 01/17/22 10:14 Pulse Oximetry 98 01/17/22 10:14 Oxygen Delivery Room Air 01/17/22 10:14 Temperature 36.6 C 01/17/22 10:14 Pulse Rate 106 H 01/17/22 10
== END 2022-01-17 10:47 | disposition home or self-care (01) ==
PROVIDERS: Emergency Provider Nurse Practitioner Family
DX: S67.191A Crushing injury of left index finger, initial encounter (principal); S61.211A Laceration without foreign body of left index finger without damage to nail, initial encounter; X58.XXXA Exposure to other specified factors, initial encounter
CPT/HCPCS: 73140; 99213; G0463

== ENCOUNTER 2022-06-12 13:36 | Emergency (ER) | payer OTHER, MEDICAID, SELFPAY ==
[2022-06-12 13:44] VITALS: BP 133/87; PULSE 109; RESP 16; TEMP 37.2; O2SAT 100
--- NOTE | 2022-06-12 13:45 | ED.GENADULT ---
HPI - General Adult General Chief complaint: Allergic Reaction Stated complaint: Allergic Reaction Time Seen by Provider: 06/12/22 13:48 Source: patient Mode of arrival: ambulatory Limitations: no limitations History of Present Illness HPI narrative: 31-year-old female presented for complaint of an allergic reaction, onset today. Endorses she felt that her tongue is swollen, she took Audelia, and improved the symptoms. She states over the last hour the tongue swelling has returned. She has been drinking water without difficulty, talking, and maintaining secretions. States she feels is hard to catch her breath. Reports concern for grass allergy, and her neighbors have been cutting grass. Also states ?I think I am having a panic attack. ? Endorses bilateral hand tingling. Denies lip swelling, rash, itching, n/v/d, cough or wheezing. Related Data Home Medications Medication Instructions Recorded Confirmed vit with calcium-iron 1 tablet PO DAILY 10/18/20 10/20/20 fum-folic acid 60 mg-0.8 mg tablet duloxetine 30 mg capsule,delayed mg PO 06/12/22 06/12/22 release serdexmethylphenidate 52.3 06/12/22 mg-dexmethylphenidate 10.4 mg capsule (Azstarys) Allergies Allergy/AdvReac Type Severity Reaction Status Date / Time latex Allergy Mild Rash Verified 06/12/22 13:45 nickel Allergy Mild Swelling Verified 06/12/22 13:45 Review of Systems Review of Systems: CONSTITUTIONAL: Denies body aches, fever, chills, or sweats. EYES: Denies visual changes, redness, or discharge. ENT: Reports tongue swelling Denies rhinorrhea, congestion, sore throat, or otalgia. CARDIOVASCULAR: Denies chest pain, palpitations, or edema. RESPIRATORY: Denies cough, sob, wheezing. GASTROINTESTINAL: Denies abdominal pain, nausea, vomiting, or diarrhea. GENITOURINARY: Denies dysuria or hematuria. SKIN: Denies rash, itching MUSCULOSKELETAL: Denies back pain, joint pain, or myalgia. NEUROLOGIC: Reports tingling, Denies headache, numbness, or weakness. PSYCH: Reports depression and anxiety. All systems reviewed & are unremarkable except as noted in HPI and below PMFSH Past Medical History Medical History Anxiety Depression No acute medical problems Surgical History Surgical History History of D&C History of knee surgery History of tonsillectomy Family History Family History Other Diabetes mellitus Heart disease Hypertension Social History Social History Smoking packs per day: 1 Smoking cigarettes per day: 20.0 Years smoked: 3 Smoking pack-years: 3.00 Smoking status: Former smoker Tobacco type: cigarettes Smoking end date: 08/31/16 Alcohol intake: never Substance use: never Living arrangements: with family Additional living arrangements comments: HUSB & SON Gender identity (if verbalized by the patient): Female Spiritual care concerns: No Comments At time of signature, I have reviewed and agree with nursing past medical, surgical, social and family history unless otherwise noted. Please see nursing chart for further information. There is no relevant family history pertinent to the presenting complaint Exam Narrative: GENERAL: Well-appearing, in no acute distress. EYES: EOMI. No redness or drainage. Conjunctivae normal. ENT: Mucous membranes pink and moist. No rhinorrhea. TMs normal bilaterally. Throat normal; no edema. Tongue appears normal. Uvula midline. NECK: Normal AROM. Supple. CHEST: No respiratory distress. Lungs clear to all chaney. Speaks full sentences. HEART: Regular rate and rhythm. No murmur appreciated. ABDOMEN: Soft, nontender, nondistended, normal active bowel sounds. EXTREMITIES: Normal range of motion. No edema. SKIN: Warm, dry, no rash.
[2022-06-12 13:48] VITALS: BP 133/87; PULSE 109; RESP 16; TEMP 37.2; O2SAT 100
[2022-06-12] MEDS: predniSONE 20 MG TABLET 60 MG PO (14:06)
== END 2022-06-12 14:28 | disposition home or self-care (01) ==
PROVIDERS: Emergency Provider Nurse Practitioner Family
DX: R22.0 Localized swelling, mass and lump, head (principal); T78.40XA Allergy, unspecified, initial encounter; Z87.891 Personal history of nicotine dependence
CPT/HCPCS: 99213; G0463; J7512

== ENCOUNTER 2022-06-14 11:58 | Emergency (ER) | payer OTHER, MEDICAID, SELFPAY ==
[2022-06-14 12:04] VITALS: BP 127/78; PULSE 98; RESP 16; TEMP 37; O2SAT 98
--- NOTE | 2022-06-14 12:37 | ED.GENADULT ---
HPI - General Adult General Chief complaint: Allergic Reaction Stated complaint: swelling tongue Time Seen by Provider: 06/14/22 12:27 Source: patient Mode of arrival: ambulatory Limitations: no limitations History of Present Illness HPI narrative: Patient presents today complaining of tongue swelling. She presented to the urgent care 2 days ago as well for same symptoms. She was given a prescription for Pepcid and 40 mg prednisone daily which she has been taking as prescribed. Patient states her symptoms are worse at night after she has been letting her dog in and out of the house, but better in the mornings. States these symptoms began after her neighbors have been mowing the yd and believes this is due to grass. States that at times at night she is short of breath due to the swelling in her mouth, but is not currently short of breath. Two did not have any scratchiness in her throat or swelling of her lips at this time. She states that she had a telemedicine visit today and that provider suggested she come in for steroid injection. She has already taken her 40 mg of prednisone today. She is taking a daily antihistamine as well. States her PCP has referred her to an carbon coater machine operator she is waiting for an appointment. Related Data Home Medications Medication Instructions Recorded Confirmed vit with calcium-iron 1 tablet PO DAILY 10/18/20 06/14/22 fum-folic acid 60 mg-0.8 mg tablet duloxetine 30 mg capsule,delayed 90 mg PO DAILY 06/12/22 06/14/22 release serdexmethylphenidate 52.3 1 cap PO DAILY 06/12/22 06/14/22 mg-dexmethylphenidate 10.4 mg capsule (Azstarys) Allergies Allergy/AdvReac Type Severity Reaction Status Date / Time latex Allergy Mild Rash Verified 06/14/22 12:10 nickel Allergy Mild Swelling Verified 06/14/22 12:10 Review of Systems Review of Systems: CONSTITUTIONAL: Denies body aches, fever, chills, or sweats. EYES: Denies visual changes, redness, or discharge. ENT: Denies rhinorrhea, congestion, sore throat, or otalgia.+ tongue swelling CARDIOVASCULAR: Denies chest pain, palpitations, or edema. RESPIRATORY: Denies cough or dyspnea. GASTROINTESTINAL: Denies abdominal pain, nausea, vomiting, or diarrhea. GENITOURINARY: Denies dysuria or hematuria. SKIN: Denies rash, itching, or wounds. MUSCULOSKELETAL: Denies back pain, joint pain, or myalgia. NEUROLOGIC: Denies headache, numbness, tingling, or weakness. PSYCH: Denies depression or anxiety. [facility]LY [facility], [facility] Past Medical History Medical History Anxiety Depression No acute medical problems Surgical History Surgical History History of D&C History of knee surgery History of tonsillectomy Family History Family History Other Diabetes mellitus Heart disease Hypertension Social History Social History Smoking packs per day: 1 Smoking cigarettes per day: 20.0 Years smoked: 3 Smoking pack-years: 3.00 Smoking status: Former smoker Tobacco type: cigarettes Smoking end date: 08/31/16 Alcohol intake: never Substance use: never Living arrangements: with family Additional living arrangements comments: HUSB & SON Gender identity (if verbalized by the patient): Female Spiritual care concerns: No Comments At time of signature, I have reviewed and agree with nursing past medical, surgical, social and family history unless otherwise noted. Please see nursing chart for further information. There is no relevant family history pertinent to the presenting complaint Exam Narrative: GENERAL: Well-appearing, well-nourished, and in no acute distress. HEAD: Normocephalic, atraumatic. EYES: EOMI. No redness or drainage. Conjunctivae normal. ENT: Mucous membranes pink and moist. Throat n
== END 2022-06-14 13:00 | disposition home or self-care (01) ==
PROVIDERS: Emergency Provider Nurse Practitioner
DX: R22.0 Localized swelling, mass and lump, head (principal); Z87.891 Personal history of nicotine dependence
CPT/HCPCS: 96372; 99213; G0463; J1100

== ENCOUNTER 2022-10-05 10:48 | Emergency (ER) | payer OTHER, MEDICAID, SELFPAY ==
[2022-10-05 10:58] VITALS: BP 128/80; PULSE 75; RESP 16; TEMP 36.9; O2SAT 100
[2022-10-05 11:02] VITALS: BP 128/80; PULSE 75; RESP 16; TEMP 36.9; O2SAT 100
--- NOTE | 2022-10-05 11:18 | ED.GENADULT ---
HPI - General Adult General Chief complaint: Back Pain/Injury Stated complaint: Back Pain Time Seen by Provider: 10/05/22 11:18 Source: patient Mode of arrival: ambulatory Limitations: no limitations History of Present Illness HPI narrative: 32-year-old female patient presents to the [facility] with complaints of low back pain that started about 3 days ago. Patient states that she was lifting up her son and felt a pinch in her lower back. Patient states she has been taking Tylenol for the pain which has helped. Patient states she is now getting some spasming at times. Denies any numbness or tingling down the legs. Denies any numbness in between the legs. Denies any loss of bowel or bladder control. Denies wheezing balance or falling. Related Data Home Medications Medication Instructions Recorded Confirmed duloxetine 30 mg capsule,delayed 90 mg PO DAILY 06/12/22 06/14/22 release methylphenidate HCl 36 mg mg PO 10/05/22 tablet,extended release 24 hr polysaccharide iron complex 150 mg mg 10/05/22 iron capsule (Ferrex) Allergies Allergy/AdvReac Type Severity Reaction Status Date / Time latex Allergy Mild Rash Verified 10/05/22 11:00 nickel Allergy Mild Swelling Verified 10/05/22 11:00 Review of Systems Review of Systems: CONSTITUTIONAL: Denies fever, chills, or sweats. EYES: Denies visual changes, redness, or discharge. ENT: Denies rhinorrhea, congestion, sore throat, or otalgia. CARDIOVASCULAR: Denies chest pain, palpitations, or edema. RESPIRATORY: Denies cough or dyspnea. GASTROINTESTINAL: Denies abdominal pain, nausea, vomiting, or diarrhea. GENITOURINARY: Denies dysuria or hematuria. SKIN: Denies rash or itching. MUSCULOSKELETAL: Positive low back pain, denies joint pain, or myalgia. NEUROLOGIC: Denies headache, numbness, or weakness. PSYCHIATRIC: Denies anxiety or depression. COUNTS INCLUDE 234 BEDS AT THE [facility] Past Medical History Medical History Anxiety Depression No acute medical problems Surgical History Surgical History History of D&C History of knee surgery History of tonsillectomy Family History Family History Other Diabetes mellitus Heart disease Hypertension Social History Social History Smoking packs per day: 1 Smoking cigarettes per day: 20.0 Years smoked: 3 Smoking pack-years: 3.00 Smoking status: Former smoker Tobacco type: cigarettes Smoking end date: 08/31/16 Alcohol intake: never Substance use: never Living arrangements: with family Additional living arrangements comments: HUSB & SON Gender identity (if verbalized by the patient): Female Spiritual care concerns: No Comments At the time of my signature I agree with nursing past medical history, surgical, social, and family history. There is no relevant family history pertinent to the presenting complaint. Exam Narrative: GENERAL: Well-appearing, well-nourished, and in no acute distress. HEAD: Normocephalic, atraumatic. EYES: PERRLA and EOMI. ENT: Nares clear, no rhinorrhea or epistaxis. Mucous membranes moist. NECK: Supple. No lymphadenopathy CHEST: Clear to auscultation. No respiratory distress. HEART: Regular rate and rhythm. No murmur heard. Normal peripheral pulses. ABDOMEN: Soft, nontender, nondistended, normal active bowel sounds. EXTREMITIES: Normal range of motion. No edema. BACK: Patient is able to ambulated without assistance. Pt is seated on the stretcher in no obvious distress. No surface trauma noted. muscle tenderness to Palpation to the L5-L4 area. No obvious spasm or mass. No step-offs or deformity noted to the cervical, thoracic or lumbar spine to firm Palpation at the midline. No CVA tenderness to percussion. No saddle anesthesia. ROM: able to stand erect. Normal flexion,
== END 2022-10-05 11:33 | disposition home or self-care (01) ==
PROVIDERS: Emergency Provider Nurse Practitioner Family
DX: S39.012A Strain of muscle, fascia and tendon of lower back, initial encounter (principal); X50.0XXA Overexertion from strenuous movement or load, initial encounter; X50.9XXA Other and unspecified overexertion or strenuous movements or postures, initial encounter; Z87.891 Personal history of nicotine dependence
CPT/HCPCS: 99213; G0463

== ENCOUNTER 2022-11-05 08:53 | Emergency (ER) | payer OTHER, MEDICAID, SELFPAY ==
[2022-11-05 09:08] VITALS: BP 142/82; PULSE 86; RESP 16; TEMP 37.2; O2SAT 99
--- NOTE | 2022-11-05 09:57 | ED.BACK ---
HPI - Back Pain/Injury General Chief Complaint: Back Pain/Injury Stated Complaint: back pain Time Seen by Provider: 11/05/22 09:58 Source: patient, RN notes reviewed and old records reviewed Mode of arrival: ambulatory Limitations: no limitations History of Present Illness HPI Narrative: 32-year-old female presents to the [facility] with complaints right lower back pain. Has history of back pain and has been taking a steroid pack as well as meloxicam. States the meloxicam gives her an upset stomach and diarrhea. Patient states this morning that she sneezed and developed increased pain to the right lower back. Patient reports that she was seen in the emergency room a week ago, given a shot of Toradol, requesting another shot. Discussed risks with patient to include but not limited to acute renal failure. Related Data Home Medications Medication Instructions Recorded Confirmed duloxetine 30 mg capsule,delayed 90 mg PO DAILY 06/12/22 06/14/22 release methylphenidate HCl 36 mg mg PO 10/05/22 tablet,extended release 24 hr polysaccharide iron complex 150 mg mg 10/05/22 iron capsule (Ferrex) Allergies Allergy/AdvReac Type Severity Reaction Status Date / Time latex Allergy Mild Rash Verified 11/05/22 09:58 nickel Allergy Mild Swelling Verified 11/05/22 09:58 Review of Systems Review of Systems: All systems reviewed & are unremarkable except as noted in HPI and below Constitutional: Constitutional: Reports no additional constitutional complaints Eyes: Eyes: Reports no additional eye complaints ENT: Reports system reviewed and no additional complaints, except as documented Cardiovascular: Cardiovascular: Reports no additional cardiovascular complaints, Denies chest pain and Denies dyspnea Respiratory: Respiratory: Reports no additional respiratory complaints, Denies chest congestion, Denies cough and Denies dyspnea Gastrointestinal: Gastrointestinal: Reports no additional gastrointestinal complaints, Denies abdominal pain, Denies nausea and Denies vomiting Musculoskeletal: Musculoskeletal: Reports as per HPI, Reports back pain (right lower), Denies muscle weakness and Denies numbness Integumentary/Breasts: Skin/Breast: Reports system reviewed and no additional complaints, except as docu Neurologic: Reports system reviewed and no additional complaints, except as documented Psychiatric: Psychiatric: Reports no additional psychiatric complaints Allergic/Immunologic: Allergic/Immunologic: Reports no additional allergic/immunologic complaints PMFSH Past Medical History Medical History Anxiety Depression No acute medical problems Surgical History Surgical History History of D&C History of knee surgery History of tonsillectomy Family History Family History Other Diabetes mellitus Heart disease Hypertension Social History Social History Smoking packs per day: 1 Smoking cigarettes per day: 20.0 Years smoked: 3 Smoking pack-years: 3.00 Smoking status: Former smoker Tobacco type: cigarettes Smoking end date: 08/31/16 Alcohol intake: never Substance use: never Living arrangements: with family Additional living arrangements comments: HUSB & SON Gender identity (if verbalized by the patient): Female Spiritual care concerns: No Comments At the time of my signature, I reviewed and agree with the nursing past medical, surgical, social, and family history. There is no relevant family history pertinent to the patient complaint. Exam Const: General: cooperative, healthy appearing, comfortable, no acute distress, well developed, alert and well nourished Nutritional Appearance: well nourished Orientation/consciousness: patient oriented x3 Limitations: no limitat
== END 2022-11-05 10:19 | disposition home or self-care (01) ==
PROVIDERS: Emergency Provider Nurse Practitioner; PCP Family Medicine
DX: S39.012A Strain of muscle, fascia and tendon of lower back, initial encounter (principal); X50.9XXA Other and unspecified overexertion or strenuous movements or postures, initial encounter; Z87.891 Personal history of nicotine dependence
CPT/HCPCS: 99213; G0463

== ENCOUNTER 2023-10-11 14:51 | Emergency (ER) | payer OTHER, SELFPAY ==
--- NOTE | ~2023-10-11 | XR_ITS ---
EXAMINATION: XR chest 2V DATE: 10/11/2023 15:36 INDICATION: Productive cough. TECHNIQUE: Frontal and lateral views of the chest were obtained. COMPARISON: Chest single views 04/03/2021 FINDINGS: There is no pneumonia, pleural effusion, or pneumothorax. The heart size is normal. Surgica l clips in the right upper quadrant are likely from cholecystectomy. IMPRESSION: 1. No acute cardiopulmonary disease. Reviewed, dictated and finalized at location E.
[2023-10-11 15:06] VITALS: BP 117/81; PULSE 80; RESP 16; TEMP 37.1; O2SAT 99
--- NOTE | 2023-10-11 15:09 | ED.CHESTPAIN ---
HPI - Chest Pain General Chief Complaint: Upper Respiratory Infection Stated Complaint: left side chest pain when breathing in,congestion Time Seen by Provider: 10/11/23 15:10 Source: patient Mode of arrival: ambulatory Limitations: no limitations History of Present Illness HPI narrative: Delroy is a 33 year old male patient presenting to the clinic today with c/o the side chest pain upon inspiration and chest congestion. She reports she had cold symptoms approximately 1 week ago and they got better however yesterday started with the congestion. States the cough feels productive however she is unable to get it up completely. She denies any shortness of breath. History of pleuritic chest pain in the past. Related Data Home Medications Medication Instructions Recorded Confirmed methylphenidate HCl 36 mg 36 mg PO AC 10/05/22 10/11/23 tablet,extended release 24 hr polysaccharide iron complex 150 mg mg 10/05/22 02/05/23 iron capsule (Ferrex) famotidine 40 mg tablet 40 mg PO DAILY 02/05/23 10/11/23 metformin 500 mg tablet,extended 500 mg PO DAILY 02/05/23 10/11/23 release 24 hr Allergies Allergy/AdvReac Type Severity Reaction Status Date / Time latex Allergy Mild Rash Verified 10/11/23 15:22 nickel Allergy Mild Swelling Verified 10/11/23 15:22 Review of Systems Review of Systems: Pertinent positives per HPI. Patient denies any fever, chills, rash, headache, visual changes, dizziness, shortness of breath, palpitations, nausea, vomiting, diarrhea, constipation, abdominal pain, or any urinary issues. [facility] Past Medical History Medical History Abdominal bloating Anxiety Depression Loose stools No acute medical problems RUQ pain Surgical History Surgical History History of D&C History of knee surgery History of tonsillectomy Family History Family History Other Diabetes mellitus Heart disease Hypertension Social History Social History Smoking packs per day: 1 Smoking cigarettes per day: 20.0 Years smoked: 3 Smoking pack-years: 3.00 Smoking status: Former smoker Tobacco type: cigarettes Smoking end date: 08/31/16 Alcohol intake: never Substance use: never Living arrangements: with family Additional living arrangements comments: HUSB & SON Gender identity (if verbalized by the patient): Female Spiritual care concerns: No Comments At the time of my signature, I reviewed and agree with the nursing past medical, surgical, social, and family history. There is no relevant family history pertinent to the patient complaint. Exam Narrative: General: Well-developed, well nourished, in no apparent distress Head: Normocephalic, atraumatic Eyes: Pupils equally round and reactive to light bilaterally, EOM intact, sclera and conjunctive clear, no discharge, lids normal Ears: TMs intact and clear, ear canals clear, no drainage, grossly hearing normal. Nose: Nares patent, clear nasal discharge, no inflammation, no sinus tenderness. Mouth: Oral pharynx without lesions or masses, good dentition, MMM. Neck: Supple, trachea midline, no enlargement of anterior or posterior cervical nodes, no thyroid masses or goiter palpable. Cardio: Regular rate and rhythm, s1 and s2 normal, no murmur appreciated. Resp: Clear to auscultation bilaterally, no rhonchi, rales, wheezing or rubs Course Course Emergency Course: Portions of this record may have been created with voice recognition software. Level of Care: Express Care Visit Vital Signs Vital signs: Vital Signs Temperature 37.1 C 10/11/23 15:06 Pulse Rate 80 10/11/23 15:06 Respiratory Rate 16 10/11/23 15:06 Blood Pressure 117/81 10/11/23 15:06 Pulse Oximetry 99 10/11/23 15:
== END 2023-10-11 16:08 | disposition home or self-care (01) ==
PROVIDERS: Emergency Provider Nurse Practitioner Family; PCP Family Medicine
DX: R07.81 Pleurodynia (principal); Z87.891 Personal history of nicotine dependence
CPT/HCPCS: 71046; 99213; G0463

== ENCOUNTER 2023-11-17 09:41 | Outpatient (CLI) | payer OTHER, SELFPAY ==
--- NOTE | ~2023-11-17 | MMUS_ITS ---
CORRECTED REPORT corrected order description [facility] [place] This report was recreated on 11/19/23. Original report was EXAMINATION: MM diagnostic mell BI w april, US breast RT limited HISTORY: Right nipple discharge x1 year, palpable right breast lump TECHNIQUE: 3-D tomosynthesis images of the bilateral breasts were performed and synthetic 2-D images were generated. CAD analysis was submitted and interpreted. High resolution limited right breast ultrasound was performed. COMPARISON: None BREAST PARENCHYMAL COMPOSITION:Dense: The breasts are heterogeneously dense, which may obscure small masses. FINDINGS: MAMMOGRAPHIC FINDINGS: Parenchymal pattern of the breasts is unremarkable. No suspicious mass lesion or distortion seen. No suspicious microcalcifications seen. ULTRASOUND: Scanning was performed there are probable concern in the right breast subareolar region. No mass lesion or cystic lesion identified. No dilated ducts seen. No sonographic abnormality seen in the region scanned. IMPRESSION: No evidence for malignancy. No mammographic or sonographic correlate seen for the area of palpable concern. BI-RADS Category 1: Negative Reviewed, dictated and finalized at [facility]. MTDD IMPRESSION: No evidence for malignancy. No mammographic or sonographic correlate seen for the area of palpable concern. BI-RADS Category 1: Negative
== END 2023-11-17 09:42 | disposition home or self-care (01) ==
PROVIDERS: Visit Provider Advanced Practice Midwife
DX: N64.52 Nipple discharge (principal)
CPT/HCPCS: 76642; 77061; 77062; 77065; 77066; G0279

== ENCOUNTER 2024-01-02 10:34 | Outpatient (CLI) | payer OTHER, SELFPAY ==
--- NOTE | ~2024-01-02 | MR_ITS ---
EXAMINATION: MR breast BI wo/w con INDICATION: Right nipple discharge TECHNIQUE: Axial VIBRANT pre and dynamic post contrast, Sagittal VIBRANT post contrast, Axial T2 STIR ASSET COMPARISON: 11/17/2023 CONTRAST: Multihance, 15 cc BREAST COMPOSITION: Heterogeneous fibroglandular tissue FINDINGS: RIGHT BREAST: There is mild background parenchymal enhancement. No abnormal enhancement is present af ter contrast administration. No pathologically enlarged axillary or internal mammary lymph nodes are identified. LEFT BREAST: There is mild background parenchymal enhancement. No abnormal enhancement is present aft er contrast administration. No pathologically enlarged axillary or internal mammary lymph nodes are i dentified. IMPRESSION: No evidence for malignancy. No suspicious abnormality seen. BI-RADS Category 1: Negative Reviewed, dictated and finalized at location .
== END 2024-01-02 10:35 | disposition home or self-care (01) ==
PROVIDERS: Visit Provider Surgery
DX: N64.52 Nipple discharge (principal)
CPT/HCPCS: 77049; A9577; C8908

== ENCOUNTER 2024-08-04 00:33 | Day surgery (SDC) | payer OTHER, SELFPAY ==
[2024-07-29 13:08] VITALS: BMI 25.8
--- NOTE | 2024-07-29 13:14 | PC.NURSE ---
Addendum entered by Zuhair Haas RN 07/29/24 15:16: Called patient and requested morning of surgery she also take Oxcarbazepine. Original Note: Report to the Outpatient Waiting Room, entrance under the green pavilion located off [facility], at time _1200_ on date _[id number]_. Planned Procedure Time: _2pm_.? Time changes happen often and if your time is changed the preop area will call you the afternoon before. - You and your visitor will be asked to self-screen and do not enter if you have any COVID symptoms. Please call surgeon if you need to reschedule. - A mask is optional within the hospital at this time. Patients may have clear liquids (water, carbonated beverages, clear teas, apple juice) until 3 hours prior to surgery with a maximum of 20 ounces. - No food from midnight until time of surgery and no smoking, or chewing tobacco (or any form of nicotine). No chewing gum, candy or mints. Take only the following medications with a SIP of water on the morning of surgery: ___Atomoxitine__ DO NOT STOP ANY OF YOUR OTHER PRESCRIPTION MEDICATIONS PRIOR TO SURGERY EXCEPT THE FOLLOWING Hold all vitamins and supplements for 3 days per anesthesiologist. Medications to discontinue per physician Date to take last aeqc___[id number]____ Please no make-up, nail azeri, hairspray, perfume, deodorant, or body powder the day of surgery.? No jewelry (including any body piercings) or valuables the day of surgery, leave them at home.? Please take a shower or bath the night before, or the morning of, surgery with an antibacterial soap.? Wear comfortable, loose fitting clothing. - Jewelry must be removed prior to entering the operating room.? Rings and piercings that are not removed may be cut off. - The hospital will not accept responsibility for valuables.? - Please leave all valuables, including medications, at home the day of surgery. If you are going home after surgery, a licensed driver medic must drive you home.? - NO public transportation without another adult if you receive anesthesia. - We recommend that an adult stay with you for 24 hours following discharge. - We also recommend that you do not drive, make important decision, drink alcoholic beverages, or take any drugs that were not prescribed by your health care provider for at least 24 hours after your discharge time. Follow any additional instructions given to you from your surgeon. Telephone instructions given to ___Delroy__and asked if any additional questions and then verbalized understanding. Patient advised to call surgeon office or pre surgery nurse liaison [phone] if any additional questions.
--- OUTSIDE RECORDS SUMMARY | 2024-08-04 00:37 | XMS_ITS | Data Portability ---
Author Organization [place] - [facility] autoContract - [facility] [place] Address [address] [facility] [address] [place] [address] Assessment Encounter Date Assessment Date Assessment LastModified by Organization Details LastModified Time 04/19/2022 04/19/2022 Pt here with below diagnosis - pt here for evaluation for their condition, evaluation of their medication use, and discussion for alternative treatments. [email or web address] Not available 04/19/2022 15:44:29 04/23/2022 04/23/2022 Pt being seen today for follow up visit. We discussed patients future use of MMJ. We discussed the risks and benefits. Pt understands that we will certify them, but the recommendation does not constitute a prescription for medical cannabis. [email or web address] Not available 04/23/2022 13:57:46 Plan of Treatment Reminders Order Date Submit Date Provider Last Modified By Organization Details Last Modified Time Details Appointments None record ed. Lab None record ed. Referral None record ed. Procedures None record ed. Surgeries None record ed. Imaging None record ed. Medication Orders None record ed. Patient TargetsNo targets recorded. Patient Instructions Encounter Date Encounter Id Patient Instructions Last Modified By Organization Details Last Modified Time 04/19/2022 [id number] I have discussed the risks and benefits of Medical Marijuana. Pt understands I am not prescribing this medication. I am certifying that this patient has a condition that is recognized by the state as qualifying for medical marijuana and this recommendation does not constitute a prescription for medical cannabis. Pt understands that my physician written certification form does not guarantee Medical Marijuana certification nor does it endorse the patient as needing medical marijuana. Patient understands that Medical Marijuana is a drug that the federal government has classified cannabis as a Schedule I controlled substance. Schedule 1 substances are defined, in part, as having (1) a high potential for abuse; (2) no currently accepted medical use in treatment in the [place]; and (3) a lack of accepted Safety for use under medical supervision. Federal law prohibits the manufacture, distribution and possession of cannabis even in states, which have modified their state laws to treat cannabis as a medicine. Pt also agrees that me, and the [facility] are my treating physicians and that we are in charge of treating the patient's conditions and that the patient will make a good domenic effort to remain under my treatment plan and acknowledge there will be follow up visits from this date forward to monitor the patient's condition. Discussed risks and benefits of Medical Marijuana. I have spent time discussing the patients condition, pain/medical management of the patient given their debilitating condition, the risks and benefits of this medication, a history and physical, gathering old medical records to look at the disease processes being evaluated, and answering of all questions. [email or web address] Not available 04/19/2022 15:44:29 04/23/2022 [id number] I have discussed the risks and benefits of Medical Marijuana. Pt understands I am not prescribing this medication. I am certifying that this patient has a condition that is recognized by the state as qualifying for medical marijuana and this recommendation does not constitute a prescription for medical cannabis. Pt understands that my physician written certification form does not guarantee Medical Marijuana certification nor does it endorse the patient as needing medical marijuana. Patient understands that Medical Marijuana is a drug that the federal government has classified cannabis as a Schedule I controlled substance. Schedule 1 substances are defined, in part, as having (1) a high potential for abuse; (2) no currently accepted medical use in treatment in the [place]; and (3) a lack of accepted Safety for use under medical supervision. Federal law prohibits the manufacture, distribution and possession of cannabis even in states, which have modified their state laws to treat cannabis as a medicine. Pt also agrees that me, and the [facility] are my treating physicians and that we are in charge of treating the patient's conditions and that the patient will make a good domenic effort to remain under my treatment plan and acknowledge there will be follow up visits from this date forward to monitor the patient's condition. Discussed risks and benefits of Medical Marijuana. I have spent time discussing the patients condition, pain/medical management of the patient given their debilitating condition, the risks and benefits of this medication, a history and physical, gathering old medical records to look at the disease processes being evaluated, and answering of all questions. Attending Attestation Note I reviewed the chart and I agree with PA note and management plan. I was available via text/email/phone/CloudTalk during the patient's evaluation. I reviewed the patient's pertinent studies (labs/x-rays/EKG/e tc.). [email or web address] Not available 04/24/2022 00:00:58 Reason for Referral None Reported. Medical Equipment None Reported. Medications Name Sig Start Date Stop Date Status Note LastModified by Organization Details LastModified Time venlafaxine ER 37.5 mg capsule,exte nded release 24 hr TAKE 1 CAPSULE BY MOUTH ONCE DAILY WITH BREAKFAST active Not Available Not Available No t Available venlafaxine ER 75 mg capsule,exte nded release 24 hr TAKE 3 CAPSULES BY MOUTH ONCE DAILY active Not Available Not Available No t Available trazodone 50 mg tablet TAKE 1 TABLET BY MOUTH AT BEDTIME active Not Available Not Available No t Available fluconazole 150 mg tablet active Not Available Not Available Not Available hydrocodone 5 mg-acetamino phen 325 mg tablet TAKE 1 TABLET BY MOUTH EVERY 6 HOURS NEEDED active Not Available Not Available No t Available Ferrex 150 mg iron capsule TAKE 1 CAPSULE BY MOUTH ONCE DAILY active Not Available Not Available No t Available venlafaxine ER 150 mg capsule,exte nded release 24 hr TAKE 1 CAPSULE BY MOUTH ONCE DAILY WITH BREAKFAST active Not Available Not Available No t Available meloxicam 7.5 mg tablet TAKE 1 TABLET BY MOUTH ONCE DAILY active Not Available Not Available No t Available Euthyrox 25 mcg tablet TAKE 1 TABLET BY MOUTH ONCE DAILY active Not Available Not Available No t Available levothyroxin e 50 mcg tablet TAKE 1 TABLET BY MOUTH ONCE DAILY BEFORE BREAKFAST active Not Available Not Available No t Available indomethacin 25 mg capsule TAKE 1 CAPSULE BY MOUTH EVERY 6 HOURS FOR 2 DAYS active Not Available Not Available No t Available progesterone micronized 200 mg capsule TAKE 1 CAPSULE BY MOUTH EVERY DAY AT BEDTIME active Not Available Not Available No t Available gabapentin 300 mg capsule TAKE 1 CAPSULE BY MOUTH NIGHTLY active Not Available Not Available No t Available gabapentin 100 mg capsule TAKE 1 CAPSULE BY MOUTH NIGHTLY active Not Available Not Available No t Available ibuprofen 600 mg tablet TAKE 1 TABLET BY MOUTH EVERY 6 HOURS NEEDED FOR PAIN active Not Available Not Available No t Available ondansetron 4 mg disintegrati ng tablet DISSOLVE 1 TABLET IN MOUTH EVERY 6 HOURS NEEDED FOR NAUSEA AND FOR VOMITING ALLOW TABLET TO DISSOLVE ON THE TONGUE active Not Available Not Available N ot Available metformin ER 500 mg tablet,exten ded release 24 hr TAKE 2 TABLETS BY MOUTH ONCE DAILY DIRECTED active Not Available Not Available No t Available duloxetine 20 mg capsule,claudia yed release TAKE 1 CAPSULE BY MOUTH ONCE DAILY FOR 10 DAYS AND 2 ONCE DAILY FOR 10 DAYS AND 3 ONCE DAILY IF TOLERATED WELL active Not Available Not Available No t Available duloxetine 30 mg capsule,claudia yed release TAKE 1 CAPSULE BY MOUTH ONCE DAILY WITH 60 MG CAPSULE TO EQUAL 90 MG DAILY active Not Available Not Available No t Available duloxetine 60 mg capsule,claudia yed release TAKE 1 CAPSULE BY MOUTH TWICE DAILY active Not Available Not Available No t Available Vyvanse 30 mg capsule TAKE 1 CAPSULE BY MOUTH IN THE MORNING active Not Available Not Available Not Available Vyvanse 20 mg capsule active Not Available Not Available N ot Available Vyvanse 40 mg capsule TAKE 1 CAPSULE BY MOUTH IN THE MORNING active Not Available Not Available Not Available OneTouch Verio test strips USE 1 STRIP TO CHECK GLUCOSE 4 TIMES DAILY active Not Available Not Available Not Available Levemir FlexTouch U-100 Insulin 100 unit/mL (3 mL) subcutaneous pen INJECT 15 UNITS SUBCUTANEOU SLY IN THE MORNING AND 15 AT BEDTIME TAKE DOSES APPROXIMATE LY 12 HOURS APART active Not Available Not Available No t Available Basaglar KwikPen U-100 Insulin 100 unit/mL (3 mL) subcutaneous INJECT 26 UNITS IN THE MORNING AND 26 UNITS IN THE EVENING - SPACE DOSES 12 HOURS APART active Not Available Not Available Not Available OneTouch Delica Plus Lancet 33 gauge USE 1 TO CHECK GLUCOSE 4 TIMES DAILY active Not Available Not Available Not Available Baqsimi 3 mg/actuation nasal spray USE 1 SPRAY INTO THE NOSE NEEDED FOR SEVERE HYPOGLYCEMI A active Not Available Not Available No t Available ID NOW COVID-19 Test Kit TEST DIRECTED TODAY active Not Available Not Available No t Available Vitals None Recorded Social History None recorded. Functional Status None recorded. Mental Status None recorded. Family History Nothing Reported. Medical History No medical history recorded. Gynecological HistoryNo gynecological history recorded. Obstetrics History GPAL:G 0 P 0 0 0 0 Past Encounters Encounter ID Performer Location Encounter Start Date Encounter Closed Date Diagnosis/Indication Diagnosis SNOMED-CT Code Diagnosis ICD10 Code Diagnosis Note [id number] Vania Ward MD [facility] [address] [place] [address] 04/19/2022 15:22:57 04/19/2022 15:50:32 Autistic disorder 150582327 F84.0 [id number] ALLIE Rizvi [facility] [address],[address] [place] [address] 04/23/2022 13:50:22 04/23/2022 14:23:13 Autistic disorder 537043691 F84.0 Health Concerns Section Related Observation LastModified by Organization Detai ls LastModified Time None Recorded Concern Status LastModified by Organization Details LastModified Time None Recorded Advance Directives Directive None Recorded Payers Insurance Date Sequence Insurance Name Policy Number Policy Ruiz Covered Member ID Ruiz Member ID Guarantor Name 04/23/2022 1 [employer] (POS II) [id number] Delroy Cabrera [id number] Delroy Cabrera Notes Date Note Type Note Provider Name and Address Organization Details Recorded Time 04/19/2022 text/html The patient woul d like to discuss medications, the disease, and how to handle it. Pt would also like to discuss alternative treatments to this condition. Pt was referred here for further evaluation and treatment if necessary. Patient has a diagnosis of qualifying condition - autistic syndrome Vania Ward MD [address], [place], [address], [facility] - [facility] 04/19/2022 15:45:24 04/23/2022 text/html Pt saw the Provider to discuss medications, the disease, and how to handle it. Also discussed alternative treatments to this condition. Pt was referred here for further evaluation and treatment if necessary. AUTISM Pt now presents for their 2nd visit to discuss the condition and develop a patient-provider relationship. We discussed the above and future use of medical cannabis. MD [address], [place], [address], [facility] 04/24/2022 00:01:05 OBGyn Episode No OBEpisode recorded.
--- OUTSIDE RECORDS SUMMARY | 2024-08-04 00:37 | XMS_ITS | Encounter Summary ---
Author Organization [facility] Address [address] [place] [address] Care Team Providers Care Senior Microsoft Consultant Name Role Phone Dannie Mccullough DO Primary Care Provider Dannie Mccullough DO Unavailable [phone] Paola Carrillo Primary Care Provider [phone] Encounter Details Date Type Department Care Team (Late st Contact Info) Description 01/16/2021 Lab Requisition [facility] [address] [place] [address] Glenna Grewal MD [address] [address] Social History Tobacco Use Types Packs/Day Years Used Date Smoking Tobacco: Former Cigarettes Smokeless Tobacco: Never Alcohol Use Standard Drinks/Week Comments Yes 0 (1 standard drink = 0.6 oz pur e alcohol) rarely Comments No Sex and Gender Information Value Date Recorded Sex Assigned at Female 12/26/2020 9:46 AM CDT Legal Sex Female 8:30 AM RN DIABETES EDUCATOR Gender Identity Gender Non-conforming 12/26/2020 9:46 AM CDT Sexual Orientation Bisexual 12/26/2020 9: 46 AM CDT Occupation Industry Job Start Date Job End Date [employer] Not on file Not on file Not on file documented as of this encounter Plan of Treatment Not on file documented as of this encounter Procedures Procedure Name Priority Date/Time Associated Diagnosis Comments HCG BETA BLOOD QUANTITATIVE STAT 01/16/2021 11:14 AM RN DIABETES EDUCATOR documented in this encounter Results * HCG BETA BLOOD QUANTITATIVE (01/16/2021 11:14 AM RN DIABETES EDUCATOR) hCG Quantitative <1.20 mIU/mL 01/17/20 3:09 PM RN DIABETES EDUCATOR [facility] Blood BLOOD SPECIMEN / Unknown Venipuncture / Unknown 01/16/2021 11:14 AM RN DIABETES EDUCATOR 01/16/2021 2:27 PM RN DIABETES EDUCATOR Narrative [facility] - 01/16/2021 3:09 PM RN DIABETES EDUCATOR hCG Reference Range, mIU/mL: Males 0-2.0 Non Females 0-6.0 Perimenopausal Females ages 41-55* 0-7.7 Postmenopausal Females age >55* 0-14 Females, Weeks after Last Menstrual Period 0.2-1 week 5-50 1 - 2 weeks 50-500 2 - 3 weeks 100-5000 3 - 4 weeks 500-10,000 4 - 5 weeks 1000-50,000 5 - 6 weeks 10,000-100,000 6 - 8 weeks 15,000-200,000 2 - 3 months 10,000-100,000 Trophoblastic Disease >100,000 *In higher than expected hCG in females > age 40, a serum FSH >20 IU/L makes unlikely. us Glenna Grewal MD LAB - CHEMISTRY ORDERABLES Final Result [facility] [address] [place] [address] documented in this encounter Visit Diagnoses Not on filedocumented in this encounter Care Teams Senior Microsoft Consultant Relationship Specialty Start Date End Date Dannie Mccullough DO PCP - General 06/02/18 07/04/21 Paola Carrillo PA [address] [place] [id number] PCP - General Physician Curatorial Specialist 07/05/21 Dannie Mccullough DO Family Medicine 05/21/18 documented as of this encounter
--- OUTSIDE RECORDS SUMMARY | 2024-08-04 00:37 | XMS_ITS | Data Portability ---
Author Organization [facility] [place] Address [address] [place] [address] Care Team Providers Care Wet Sander Name Role Phone ERIBERTO KNOX Primary Care Provider Assessment Encounter Date Assessment Date Assessment LastModified by Organization Details LastModified Time 11/12/2023 11/12/2023 plan labs and imaging. rx printed f/u pending results Not available 11/12/2023 16:38:31 Plan of Treatment Reminders Order Date Submit Date Provider Last Modified By Organization Details Last Modified Time Details Appointments SURG Hysterosc opy 2024 02:00P Lucinda GUDINO MD Not available Not available Not available SURG POST OP 2024 02:30P Lucinda GUDINO MD Not available Not available Not available Lab HbA1c (hemoglob in A1c), blood 2024 025 [facility] (Lab), [address], [place], [address], 04/05/2024 21:34:15 shbg (sex hormone-b inding globulin) , serum 2024 025 [facility] (Lab), [address], [place], [address], 04/05/2024 21:34:15 prolactin , serum 2024 025 [facility] (Lab), [address] [place], [address], 04/05/2024 21:34:15 TSH, serum or plasma 2024 025 [facility] (Lab), [address], [place], [address], 04/05/2024 21:34:15 FSH (follicle -stimulat ing hormone), serum 2024 025 [facility] (Lab), [address], [place], [address], 04/05/2024 21:34:16 estradiol , serum 2024 025 [facility] (Lab), [address], [place], [address], 04/05/2024 21:34:16 lh (luteiniz ing hormone), serum 2024 025 [facility] (Lab), [address], [place], [address], 04/05/2024 21:34:17 testoster one free/test osterone total, ratio, serum 2024 025 [facility] (Lab), [address], [place], [address], 04/05/2024 21:34:17 progester one, serum 2024 025 [facility] (Lab), [address], [place], [address], 04/05/2024 21:34:16 test, urine 2022 023 [place], [address], [address], [place], [address], 01/29/2023 18:32:12 Referral None recorded. Procedures None recorded. Surgeries hysterosc opy, with endometri al ablation (SURG) 2024 025 [facility], [address], [place], [address], 06/22/2024 11:10:57 Imaging None recorded. Medication Orders metformin ER 500 mg tablet,ex tended release 24 hr 2024 025 [facility], [address] [facility], [place], [address], 03/25/2024 18:05:14 Patient TargetsNo targets recorded. Patient InstructionsNo instructions recorded. Reason for Referral None Reported. Results Created Date Observation Date Name Description Value Unit Range Abnormal Flag Note LastModifiedBy Organization Detail LastModifiedTime 01/03/2001/02/2023 CT/GC AND TRICH OMONA S VAGIN TYSON (RRNA ), URINE chlamydia trachomatis, PCR Negati ve negati ve Not Available [facility] (Lab) [address] [facility], [place], [address], 01/03/2023 15:36:43 01/03/20 23 01/02/2023 CT/GC AND TRICH OMONA S VAGIN TYSON (RRNA ), URINE neisseria gonorrhoeae, PCR Negati ve negati ve Not Available [facility] (Lab) [address] [facility], [place], [address], 01/03/2023 15:36:43 01/03/20 23 01/02/2023 CT/GC AND TRICH OMONA S VAGIN TYSON (RRNA ), URINE trichomonas vaginalis ribosomal RNA (rrna) Negati ve negati ve Not Available [facility] (Lab) [address] [facility], [place], [address], 01/03/2023 15:36:43 01/22/20 23 01/21/2023 FREE T3 T3, free 3.94 pg/mL 2.50-3 .90 high This assay is susce ptibl e to inter feren ce from high level s of bioti n which may false ly eleva te resul ts. Pleas e corre late with clini vivienne findi ngs inclu ding TSH and FT4 resul ts. If clini jan indic ated, Free T3 by Luzmail madison Martínez sis LC/MS may be perfo rmed. Not Available [facility] (Lab) [address] [facility], [place], [address], 01/22/2023 06:09:06 01/22/20 23 01/21/2023 TSH TSH 2.40 uIU/m L 0.30-5 .33 Not Available [facility] (Lab) [address] [facility], [place], [address], 01/22/2023 06:09:08 01/22/20 23 01/21/2023 T4 FREE T4, free 0.84 NG/dL 0.60-1 .40 This assay is susce ptibl e to inter fertheo ce from high level s of bioti n which may false ly eleva te resul ts. Plemaude e corre late with clini vivienne findi ngs. Not Available [facility] (Lab) [address] [facility], [place], [address], 01/22/2023 06:09:08 01/22/20 23 01/21/2023 THYRO ID ANTIB CAITLIN PANEL thyroglobuli n antibody <1.0 IU/mL <=3.9 Not Available [facility] (Lab) [address] [facility], [place], [address], 01/22/2023 06:09:08 01/22/20 23 01/21/2023 THYRO ID ANTIB CAITLIN PANEL thyroperoxid ase antibodies <0.3 IU/mL 0.0-9. 0 This assay was perfo rmed using Beckm an Coult er reage nts and test kits. Value s obtai abbey with other assay metho ds or kits canno t be used inter jacobs eably . Not Available [facility] (Lab) [address] [facility], [place], [address], 01/22/2023 06:09:08 01/30/20 23 01/29/2023 pregn stefany test, urine HCG negati ve Not Available [place] [address], [place], [address], 01/29/2023 18:31:29 11/12/19 24 11/12/2023 PROLA CTIN prolactin, total 8.58 NG/mL 4.79-2 3.30 This assay was perfo rmed using [employer] ratio n reage nts and test kits. Value s obtai abbey with other assay metho ds or kits canno t be used inter jacobs eably . Not Available [facility] (Lab) [address] [facility], [place], [address], 11/13/2023 02:04:07 11/12/19 24 11/12/2023 TSH, REFLE X FREE T4 TSH 2.75 uIU/m L 0.30-5 .33 Not Available [facility] (Lab) [address] [facility], [place], [address], 11/13/2023 02:04:10 03/31/1903/31/2024 HEMOG LOBIN A1C hemoglobin A1C 5.0 % 4.0-5. 6 The Ameri can Diabe vel Assoc iatio n recom mends that a prima ry goal of thera py liv d be a HBA1C of < 7% and that physi cians shoul d reeva luate the treat ment regim en in patie nts with HBA1C value s consi stent ly > 8%. <5.7% Ana l 5.7 - 6.4% Incre ased risk for diabe vel >=6.5 % Diagn ostic of diabe vel <7.0% Goal of thera py >8.0% Actio n sugge sted Not Available [facility] (Lab) [address], [place], [address], 04/05/2024 21:34:14 03/31/1903/31/2024 HUMAN SEX HORMO NE OSMANY NG GLOBU MARQUITA sex hormone binding globulin 29.5 nmole s/L 18.2-1 35.5 Not Available [facility] (Lab) [address], [place], [address], 04/05/2024 21:34:15 03/31/1903/3103/31/2024 TSH, REFLE X FREE T4 TSH 1.12 uIU/m L 0.30-5 .33 Not Available [facility] (Lab) [address] [place], [address], 04/05/2024 21:34:15 03/31/19 25 03/31/2024 PROLA CTIN prolactin, total 13.10 NG/mL 4.79-2 3.30 This assay was perfo rmed using [employer] ratio n reage nts and test kits. Value s obtai abbey with other assay metho ds or kits canno t be used inter jacobs eay . Not Available [facility] (Lab) [address] [place], [address], 04/05/2024 21:34:15 03/31/19 25 03/31/2024 ESTRA DIOL estradiol 38.6 pg/mL This assay was perfo rmed using [employer] ratio n reage nts and test kits. Value s obtai abbey with other assay metho ds or kits canno t be used inter jacobs eably . Femal e Estra diol Range s: Folli cular phase 12.4- 233 pg/mL Ovula tion phase 41.0- 398 pg/mL Lutea l phase 22.3- 341 pg/mL Postm enopa usal <5-13 8 pg/mL Healt hy Pregn ant Women 1st Trime ster 154-3 243 pg/mL 2nd Trime ster 1561- 86319 pg/mL 3rd Trime ster 8525- >3000 0 pg/mL Not Available [facility] (Lab) [address] [place], [address], 04/05/2024 21:34:16 03/31/19 25 03/31/2024 PROGE STERO NE progesterone 0.81 NG/mL This assay was perfo rmed using [employer] ratio n reage nts and test kits. Value s obtai abbey with other assay metho ds or kits canno t be used inter jacobs eably . Femal e Proge stero ne Range s: Folli cular phase 0.06- 0.89 ng/mL Ovula tion phase 0.12- 12.00 ng/mL Lutea l phase 1.83- 23.90 ng/mL Postm enopa usal <0.05 -0.13 ng/mL Healt hy Pregn ant Women 1st Trime ster 11.0- 44.30 2nd Trime ster 25.40 -83.3 0 3rd Trime ster 58.70 -214. 00 Not Available [facility] (Lab) [address] [facility], [place], [address], 04/05/2024 21:34:16 03/31/19 25 03/31/2024 FSH FSH 5.2 mIU/m L This assay was perfo rmed using [employer] ratio n reage nts and test kits. Value s obtai abbey with other assay metho ds or kits canno t be used inter jacobs eay . Femal es Folli cular : 3.5-1 2.5 mIU/m L Ovula tion: 4.7-2 1.5 mIU/m L Lutea l: 1.7-7 .7 mIU/m L Postm enopa use: 25.8- 134.8 mIU/m L Not Available [facility] (Lab) [address] [facility], [place], [address], 04/05/2024 21:34:16 03/31/19 25 03/31/2024 LH (LUTE NIZIN G HORMO NE) LH 6.0 mIU/m L This assay was perfo rmed using [employer] ratio n reage nts and test kits. Value s obtai abbey with other assay metho ds or kits canno t be used inter jacobs eably . Femal es Mid-F ollic ular: 2.4-1 2.6 mIU/m L Mid-C ycle: 14.0- 95.6 mIU/m L Mid-L uteal : 1.0-1 1.4 mIU/m L Postm enopa use: 7.7-5 8.5 mIU/m L Not Available [facility] (Lab) [address] [facility], [place], [address], 04/05/2024 21:34:17 03/31/1903/31/2024 TESTO STERO NE, FREE( DIALY SIS) AND TOTAL (LC/M S/MS) testosterone , total 26 NG/dL 2-45 For addit ional infor nila grey e refer to http: //zelalem nickersonque stdia gnost ics.c om/fa q/ Total Testo stero neLCM SMSFA Q165 (This link is being provi ded for infor matio nal/ educa lacho l purpo ses only. ) This test was devel oped and its slime tical perfo rmanc e kendell cteri stics have been deter mined by [employer] [place], [place]. It has not been clear ed or appro mayra by the U.S. Food and Drug Admin istra tion. This assay has been valid ated pursu ant to the CLIA regul ation s and is used for clini vivienne purpo ses. Not Available [facility] (Lab) [address] [facility], [place], [address], 04/05/2024 21:34:17 03/31/1903/31/2024 TESTO STERO NE, FREE( DIALY SIS) AND TOTAL (LC/M S/MS) testosterone , free 3.5 pg/mL 0.1-6. 4 This test was devel oped and its slime tical perfo rmanc e kendell cteri stics have been deter mined by [employer] [place], [place]. It has not been clear ed or appro mayra by the U.S. Food and Drug Admin istra tion. This assay has been valid ated pursu ant to the CLIA regul ation s and is used for clini vivienne purpo ses. Perfo rming Organ izati on Infor hipolitojunito n: Site ID: [id number] Name: [employer] Steve ls LIANAIi edwin Addre ss: [id number] [facility] [place], [place] Direc tor: Cole Baker MD PhD Not Available [facility] (Lab) [address], [place], [address], 04/05/2024 21:34:17 01/15/20 23 01/14/2023 US, pelvi s No observ ation record ed. [facility] [address], [place], [address], 01/14/2023 18:11:47 01/15/20 23 01/14/2023 US, trans vagin al No observ ation record ed. [facility] [address], [place], [address], 01/14/2023 18:12:03 01/15/20 23 01/14/2023 US, pelvi s No observ ation record ed. [address] [facility], [place], [address], 01/15/2023 15:56:28 11/17/19 24 11/17/2023 MAMMO , diagn ostic , digit al, bilat eral No observ ation record ed. [address] [place], [address], 11/17/2023 18:39:07 11/19/19 24 11/17/2023 MAMMO , diagn ostic , digit al, bilat eral No observ ation record ed. [address] [facility] [address] [place], [address], 11/20/2023 11:34:06 11/19/19 24 11/17/2023 MAMMO , diagn ostic , digit al, bilat eral No observ ation record ed. [address] [place], [address], 11/19/2023 11:51:53 Result Notes None recorded. 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 1 13:31:30 Autistic disorder 740750204 Active 2020 high function ing Allie Foley MD [address], [place], [address], [facility] 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 13:31:51 Attentio n deficit hyperact ivity disorder 775076075 Active 2020 decrease d vyvanse, but prob cannot get off of it and remain function al. Maria Antonia benítez, [facility] 4 14:56:33 Protein C deficien cy disease 83881035 Active 2020 no longer has per VIos and MFM. ASA 81mg only. No lovenox. Maria Antonia benítez, [facility] 4 14:56:34 Raynaud' s phenomen on 400150374 Active 2020 Allie Foley MD [address], [place], [address], [facility] 1 13:58:43 High risk pregnanc y due to recurren t pregnanc y loss 6902241291 43854 Active 2021 Allie Foley MD [address], [place], [address], [facility] 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 2 14:18:29 Past pregnanc y history of section 676290720 Active 2021 for LGA, will do repeat unless baby much smaller Maria Antonia Mari null, [facility] 4 14:56:34 Pregnanc y 99517553 Completed 202110/02/2021 Alize triana null, [facility] 2 14:47:59 Past pregnanc y history of section 502350453 Completed 2021 for LGA, will do repeat unless baby much smaller Maria Antonia Mari null, [facility] 4 14:56:34 Barbaraan a user [id number] Completed has stopped. Maria Antonia Mari null, [facility] 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 4 14:56:33 Past pregnanc y history of delivery of macrosom al infant 6846972390 9102 Completed 2021 growth [place] Maria Antonia Mari null, [facility] 4 14:56:34 Subchori onic hematoma 831310466 Completed x2, no bleeding Maria Antonia Mari [facility], [facility] 4 14:56:33 Short cervical length in pregnanc y 738382349 Completed 2021 last preg- but delivere d at 40w. CL at 16 and 20w. Maria Antonia Mari null, [facility] 4 14:56:34 Attentio n deficit hyperact ivity disorder 834009842 Completed 2020 decrease d vyvanse, but prob cannot get off of it and remain function al. Maria Antonia benítez, [facility] 4 14:56:33 Protein C deficien cy disease 97813015 Completed 2020 no longer has per VIos and MFM. ASA 81mg only. No lovenox. Maria Antonia benítez, [facility] 4 14:56:34 Problem Notes None recorded. Procedures Surgical History Date Name Laterality Status Provider Name and Address Organization Details Recorded Time 024 Date of Last Mammogram completed Maria Antonia Mari [facility] 11/18/2023 20:01:16 024 cholecystectomy completed Maria Antonia Mari [facility] 11/18/2023 20:06:13 023 Date of Last Pap Smear completed Robina Huerta [facility] 01/01/2023 18:22:23 021 SUCTION DILATION & CURETTAGE (SURG) completed Milana Manley [facility] 10/23/2020 09:18:52 021 procedure on knee completed Nicole Holman [facility] 10/02/2020 12:49:11 020 Dilation and Curettage completed Maria Antonia Mari [facility] 11/18/2023 20:05:28 019 delivery completed Allie Foley MD [address], [place], [address], [facility] 04/27/2021 12:26:10 017 Dilation and Curettage completed Maria Antonia Mari [facility] 11/18/2023 20:05:22 015 Dilation and Curettage completed Nicole Holman [facility] 10/02/2020 12:41:18 013 Tonsillectomy completed Maria Antonia Mari [facility] 11/18/2023 20:07:33 003 extraction of wisdom tooth completed Maria Antonia Mari [facility] 11/18/2023 20:08:08 Imaging Results None recorded. Procedure Notes None recorded. Medical Equipment None Reported. Allergies Allergen ID Allergen Name Allergen Category Reaction Reaction Severity Criticality Documentation Date Start Date Code Code System Note Provider Name and Address Organization Details Recorded Time 31414 nickel environme nt Not available Not available Not available 10/02/2020 63897 29 RxNorm Nicole River jeyson [facility] 12:42:05 68727 ibuprofen medicatio n Not available Not available Not available 10/02/2020 5640 RxNorm Nicole Maribeldarshan benítez [facility] 12:42:11 90716 letrozole medicatio n hives moderate Not available 10/30/2020 58409 RxNorm Allie Foley MD [address], [place], [address] , [facility] 18:22:10 Medications Name Sig Start Date Stop Date Status Note LastModified by Organization Details LastModified Time cyclobenzap rine 10 mg tablet TAKE 1 TABLET BY MOUTH THREE TIMES DAILY NEEDED FOR MUSCLE SPASM 01/01 completed Not Available Not Available Not Available medroxyprog esterone 10 mg tablet 04/27 completed Not Available Not Available Not Available methocarbam ol 500 mg tablet TAKE 1 TABLET BY MOUTH TWICE DAILY NEEDED FOR MUSCLE SPASM 01/01 completed Not Available Not Available Not Available metformin 500 mg tablet TAKE 1 TABLET BY MOUTH ONCE DAILY AT BEDTIME 03/25 completed Not Available Not Available Not Available oxcarbazepi ne 150 mg tablet active Not Available Not Available Not Available nystatin 100,000 unit/mL oral suspension 10/01 completed Not Available Not Available Not Available venlafaxine ER 37.5 mg capsule,ext ended release 24 hr TAKE 1 CAPSULE BY MOUTH ONCE DAILY 01/29 completed Not Available Not Available Not Available clonidine HCl 0.1 mg tablet TAKE 1 TABLET BY MOUTH THREE TIMES DAILY NEEDED 03/25 completed Not Available Not Available Not Available prednisone 10 mg tablet TAKE 4 TABLETS BY MOUTH ONCE DAILY FOR 5 DAYS THEN 2 ONCE DAILY FOR 5 DAYS THEN 1 ONCE DAILY FOR 5 DAYS WITH FOOD 01/01 completed Not Available Not Available Not Available venlafaxine ER 75 mg capsule,ext ended release 24 hr TAKE 3 CAPSULES BY MOUTH ONCE DAILY 10/01 completed Not Available Not Available Not Available trazodone 50 mg tablet TAKE 1 TABLET BY MOUTH NIGHTLY 03/25 completed Not Available Not Available Not Available alprazolam 1 mg tablet TAKE 1 TABLET BY MOUTH ONE HOUR PRIOR TO APPOINTME NT. MUST HAVE SOMEONE DRIVE YOU TO APPOINTME NT 11/11 completed Not Available Not Available Not Available fluconazole 150 mg tablet TAKE 1 TABLET BY MOUTH ONCE A WEEK 11/11 completed Not Available Not Available Not Available benzonatate 200 mg capsule TAKE 1 CAPSULE BY MOUTH THREE TIMES DAILY 01/01 completed Not Available Not Available Not Available citalopram 10 mg tablet TAKE 1 TABLET BY MOUTH AT BEDTIME 03/25 completed Not Available Not Available Not Available hydrocodone 5 mg-acetamin ophen 325 mg tablet TAKE 1 TABLET BY MOUTH EVERY 6 HOURS NEEDED FOR PAIN 11/11 completed Not Available Not Available Not Available tretinoin 0.025 % topical cream APPLY PEA-SIZED AMOUNT TO ENTIRE FACE NIGHTLY active Not Available Not Available No t Available prazosin 1 mg capsule TAKE 1 CAPSULE BY MOUTH TWICE DAILY 03/25 completed Not Available Not Available Not Available meloxicam 15 mg tablet TAKE 1 TABLET BY MOUTH ONCE DAILY 01/01 completed Not Available Not Available Not Available venlafaxine 25 mg tablet 03/25 completed Not Available Not Available Not Available ondansetron HCl 4 mg tablet 03/25 completed Not Available Not Available Not Available famotidine 40 mg tablet 03/25 completed Not Available Not Available Not Available methylpheni date 5 mg tablet TAKE 1 TABLET BY MOUTH DAILY active Not Available Not Available No t Available prednisone 20 mg tablet TAKE 2 TABLETS BY MOUTH ONCE DAILY FOR 5 DAYS 11/11 completed Not Available Not Available Not Available clonazepam 0.5 mg tablet TAKE 1 TABLET BY MOUTH TWICE DAILY NEEDED FOR PANIC ATTACKS 03/25 completed Not Available Not Available Not Available spironolact one 100 mg tablet TAKE 1 TABLET BY MOUTH ONCE DAILY active Not Available Not Available No t Available Ferrex 150 mg iron capsule TAKE 1 CAPSULE BY MOUTH ONCE DAILY 10/01 completed Not Available Not Available Not Available venlafaxine ER 150 mg capsule,ext ended release 24 hr 01/29 completed Not Available Not Available Not Available methylpheni date ER 54 mg tablet,exte nded release 24 hr TAKE 1 TABLET BY MOUTH IN THE MORNING 01/01 completed Not Available Not Available Not Available hydroxyzine HCl 50 mg tablet TAKE 1 TABLET BY MOUTH AT BEDTIME NEEDED FOR ANXIETY active Not Available Not Available No t Available oxcarbazepi ne 300 mg tablet TAKE 1 TABLET BY MOUTH ONCE DAILY AT BEDTIME active Not Available Not Available No t Available clindamycin 1 %-benzoyl peroxide 5 % topical gel SPOT TREAT ACTIVE LESIONS ONCE EACH MORNING NEEDED active Not Available Not Available No t Available lamotrigine 25 mg tablet 03/25 completed Not Available Not Available Not Available meloxicam 7.5 mg tablet TAKE 1 TABLET BY MOUTH ONCE DAILY 10/01 completed Not Available Not Available Not Available Ritalin 10 mg tablet TAKE 1 TABLET BY MOUTH ONCE DAILY AFTER LUNCH AT 2 PM AFTER YOUR VYVANSE WEARS OFF 10/01 completed Not Available Not Available Not Available oxycodone-a cetaminophe n 5 mg-325 mg tablet 04/27 completed Not Available Not Available Not Available Euthyrox 25 mcg tablet 01/29 completed Not Available Not Available Not Available alprazolam 0.5 mg tablet TAKE 1 TABLET BY MOUTH THREE TIMES DAILY NEEDED 11/11 completed Not Available Not Available Not Available propranolol 10 mg tablet TAKE 1 TABLET BY MOUTH ONCE DAILY IN THE MORNING active Not Available Not Available No t Available famotidine 20 mg tablet TAKE 1 TABLET BY MOUTH TWICE DAILY NEEDED 11/11 completed Not Available Not Available Not Available lorazepam 0.5 mg tablet TAKE 1 TABLET BY MOUTH TWICE DAILY NEEDED FOR PANIC ATTACKS ONLY 03/25 completed Not Available Not Available Not Available dicyclomine 20 mg tablet TAKE 1 TABLET BY MOUTH 4 TIMES DAILY NEEDED FOR ABDOMINAL PAIN 11/11 completed Not Available Not Available Not Available baclofen 10 mg tablet TAKE 1 TABLET BY MOUTH THREE TIMES DAILY NEEDED FOR MUSCLE PAIN active Not Available Not Available No t Available levothyroxi ne 50 mcg tablet TAKE 1 TABLET BY MOUTH ONCE DAILY BEFORE BREAKFAST 10/01 completed Not Available Not Available Not Available buspirone 30 mg tablet TAKE 1/2 (ONE-HALF ) TABLET BY MOUTH TWICE DAILY 03/25 completed Not Available Not Available Not Available dextroamphe tamine-amph etamine 20 mg tablet 04/27 completed Not Available Not Available Not Available metronidazo le 0.75 % topical cream 01/01 completed Not Available Not Available Not Available bupropion HCl 75 mg tablet 03/25 completed Not Available Not Available Not Available progesteron e micronized 200 mg capsule 04/27 completed Not Available Not Available Not Available gabapentin 300 mg capsule TAKE 1 CAPSULE BY MOUTH NIGHTLY 11/11 completed Not Available Not Available Not Available folic acid 1 mg tablet 04/27 completed Not Available Not Available Not Available dextroamphe tamine-amph etamine ER 10 mg 24hr capsule,ext end release TAKE 1 CAPSULE BY MOUTH IN THE MORNING 03/25 completed Not Available Not Available Not Available hydroxyzine HCl 25 mg tablet TAKE 1 TABLET BY MOUTH AT BEDTIME NEEDED FOR ANXIETY active Not Available Not Available No t Available zolpidem 5 mg tablet TAKE 1 TABLET BY MOUTH EVERY NIGHT AT BEDTIME 03/25 completed Not Available Not Available Not Available mirtazapine 15 mg tablet TAKE 1 TABLET BY MOUTH EVERY NIGHT 03/25 completed Not Available Not Available Not Available gabapentin 100 mg capsule TAKE 1 CAPSULE BY MOUTH NIGHTLY 11/11 completed Not Available Not Available Not Available ergocalcife rol (vitamin D2) 1,250 mcg (50,000 unit) capsule 03/25 completed Not Available Not Available Not Available lorazepam 1 mg tablet TAKE 1 TABLET BY MOUTH THREE TIMES DAILY 03/25 completed Not Available Not Available Not Available ibuprofen 600 mg tablet TAKE 1 TABLET BY MOUTH EVERY 6 HOURS NEEDED FOR PAIN 01/01 completed Not Available Not Available Not Available letrozole 2.5 mg tablet 04/27 completed Not Available Not Available Not Available methylpredn isolone 4 mg tablets in a dose pack TAKE BY MOUTH DIRECTED ON INSIDE OF PACKAGE 01/01 completed Not Available Not Available Not Available albuterol sulfate HFA 90 mcg/actuati on aerosol inhaler INHALE 1 PUFF BY MOUTH 4 TIMES DAILY NEEDED 03/25 completed Not Available Not Available Not Available propranolol 20 mg tablet TAKE 1 TABLET BY MOUTH THREE TIMES DAILY NEEDED active Not Available Not Available No t Available hydrocortis one 2.5 % topical ointment APPLY OINTMENT EXTERNALL Y TO RASH ON FACE TWICE DAILY NO MORE THAN 3 CONSECUTI VE DAYS PER WEEK 01/01 completed Not Available Not Available Not Available hydroxyzine HCl 10 mg tablet TAKE 1 TABLET BY MOUTH TWICE DAILY NEEDED FOR ANXIETY (THIS MAY DROP YOUR BLOOD PRESSURE WHEN USED WITH PROPRANOL OL, SO IF YOU FEEL ANY SYMPTOMS DISCONTIN UE USE OF THIS) 11/11 completed Not Available Not Available Not Available ondansetron 4 mg disintegrat ing tablet DISSOLVE 1 TABLET IN MOUTH EVERY 8 HOURS NEEDED 11/11 completed Not Available Not Available Not Available methylpheni date ER 18 mg tablet,exte nded release 24 hr TAKE 1 TABLET BY MOUTH ONCE DAILY active Not Available Not Available No t Available metformin ER 500 mg tablet,exte nded release 24 hr TAKE 2 TABLETS BY MOUTH ONCE DAILY AT BEDTIME active Not Available Not Available No t Available doxycycline hyclate 100 mg tablet 04/27 completed Not Available Not Available Not Available methylpheni date ER 36 mg tablet,exte nded release 24 hr TAKE 1 TABLET BY MOUTH ONCE DAILY 01/01 completed Not Available Not Available Not Available progesteron e micronized 100 mg capsule 01/29 completed Not Available Not Available Not Available amoxicillin 500 mg-potassiu m clavulanate 125 mg tablet TAKE 1 TABLET BY MOUTH EVERY 12 HOURS 01/01 completed Not Available Not Available Not Available oxycodone 5 mg tablet TAKE 1 TABLET BY MOUTH EVERY 6 HOURS NEEDED FOR PAIN 11/11 completed Not Available Not Available Not Available hydroxyzine pamoate 25 mg capsule TAKE 1 CAPSULE BY MOUTH TWICE DAILY NEEDED 11/11 completed Not Available Not Available Not Available clindamycin 1 % lotion APPLY LOTION TOPICALLY TO ACNE TWICE DAILY 01/01 completed Not Available Not Available Not Available escitalopra m 10 mg tablet 11/11 completed Not Available Not Available Not Available escitalopra m 20 mg tablet TAKE 1 TABLET BY MOUTH ONCE DAILY 11/11 completed Not Available Not Available Not Available atomoxetine 25 mg capsule TAKE 1 CAPSULE BY MOUTH ONCE DAILY active Not Available Not Available No t Available atomoxetine 40 mg capsule TAKE 1 CAPSULE BY MOUTH IN THE MORNING active Not Available Not Available No t Available aripiprazol e 5 mg tablet TAKE 1 TABLET BY MOUTH AT BEDTIME 03/25 completed Not Available Not Available Not Available Ovidrel 250 mcg/0.5 mL subcutaneou s syringe 04/27 completed Not Available Not Available Not Available escitalopra m 5 mg tablet TAKE 1 TABLET BY MOUTH ONCE DAILY 11/11 completed Not Available Not Available Not Available mirtazapine 7.5 mg tablet TAKE 1 TABLET BY MOUTH AT BEDTIME active Not Available Not Available No t Available nitrofurant oin monohydrate /macrocryst als 100 mg capsule TAKE 1 CAPSULE BY MOUTH TWICE DAILY FOR 7 DAYS 01/01 completed Not Available Not Available Not Available duloxetine 20 mg capsule,del ayed release TAKE 1 CAPSULE BY MOUTH ONCE DAILY FOR 10 DAYS AND 2 ONCE DAILY FOR 10 DAYS AND 3 ONCE DAILY IF TOLERATED WELL 10/01 completed Not Available Not Available Not Available duloxetine 30 mg capsule,del ayed release TAKE 1 CAPSULE BY MOUTH ONCE DAILY . TAKE WITH 60MG CAPSULE TO GET A TOTAL DAILY DOSE OF 90MG ONCE DAILY 01/29 completed Not Available Not Available Not Available duloxetine 60 mg capsule,del ayed release TAKE 1 CAPSULE BY MOUTH ONCE DAILY TAKE WITH 30MG CAPSULES TO MAKE A TOTAL OF 90MG ONCE DAILY 01/29 completed Not Available Not Available Not Available aspirin active Not Available Not Avail able Not Available Effexor 10/01 completed Not Available Not Available Not Available magnesium carbonate 10/01 completed Not Available Not Available Not Available metformin 04/27 completed Not Available Not Available Not Available 10/01 completed Not Available Not Available Not Available collagen 03/25 completed Not Available Not Available Not Available atomoxetine 80 mg capsule 01/29 completed Not Available Not Available Not Available aripiprazol e 2 mg tablet 03/25 completed Not Available Not Available Not Available lisdexamfet amine 30 mg capsule TAKE 1 CAPSULE BY MOUTH ONCE DAILY AT 7AM WITH FOOD active Not Available Not Available No t Available Vyvanse 04/27 completed Not Available Not Available Not Available Endometrin 100 mg vaginal insert 01/29 completed Not Available Not Available Not Available Vyvanse 20 mg capsule TAKE 1 CAPSULE BY MOUTH ONCE DAILY IN THE MORNING 11/11 completed Not Available Not Available Not Available Vyvanse 40 mg capsule TAKE 1 CAPSULE BY MOUTH IN THE MORNING 10/01 completed Not Available Not Available Not Available desvenlafax ine succinate ER 50 mg tablet,exte nded release 24 hr 04/27 completed Not Available Not Available Not Available lurasidone 40 mg tablet TAKE 1 TABLET BY MOUTH ONCE DAILY WITH MEALS 03/25 completed Not Available Not Available Not Available lurasidone 20 mg tablet 03/25 completed Not Available Not Available Not Available desvenlafax ine 04/27 completed Not Available Not Available Not Available lisdexamfet amine 10 mg capsule 11/11 completed Not Available Not Available Not Available desvenlafax ine succinate ER 25 mg tablet,exte nded release 24 hr TAKE 1 TABLET BY MOUTH ONCE DAILY active Not Available Not Available No t Available naloxone 4 mg/actuatio n nasal spray 1 SPRAY BY NASAL ROUTE NEEDED FOR OPIOID REVERSAL 03/25 completed Not Available Not Available Not Available Basaglcaitlyn WaldropikPen U-100 Insulin 100 unit/mL (3 mL) subcutaneou s INJECT 26 UNITS IN THE MORNING AND 26 UNITS IN THE EVENING - SPACE DOSES 12 HOURS APART 10/01 completed Not Available Not Available Not Available baclofen 5 mg tablet TAKE 1 TO 2 TABLETS BY MOUTH THREE TIMES DAILY NEEDED FOR MUSCLE SPASM 03/25 completed Not Available Not Available Not Available Jornay PM 20 mg capsule,del ayed release,ext ended release sprinkle TAKE 1 CAPSULE BY MOUTH EVERY DAY 10/01 completed Not Available Not Available Not Available Qelbree 100 mg capsule,ext ended release TAKE 1 CAPSULE BY MOUTH ONCE DAILY 03/25 completed Not Available Not Available Not Available Azstarys 39.2 mg-7.8 mg capsule TAKE 1 CAPSULE BY MOUTH ONCE DAILY 10/01 completed Not Available Not Available Not Available Azstarys 52.3 mg-10.4 mg capsule TAKE 1 CAPSULE BY MOUTH ONCE DAILY 10/01 completed Not Available Not Available Not Available Paxlovid 300 mg (150 mg x 2)-100 mg tablets in a dose pack TAKE 3 TABLETS TOGETHER (TWO 150 MG NIRMATREL VIR TABLETS AND ONE 100 MG RITONAVIR TABLET) BY MOUTH TWICE DAILY FOR 5 DAYS. 11/11 completed Not Available Not Available Not Available Caplyta 10.5 mg capsule TAKE 1 CAPSULE BY MOUTH ONCE DAILY AT BEDTIME 03/25 completed Not Available Not Available Not Available Vitals Date Recorded Body height Body mass index (BMI) Body weight Systolic blood pressure Diastolic blood pressure Provider Name and Address Organization Details Last Updated DateTime 03/25/2024 165.1 cm 29.3 kg/m2 39622.54 g 115 mm[Hg] 73 mm[Hg] Peggy Hardy [facility] 5 17:50:20 Date Recorded Body height Body mass index (BMI) Body weight Systolic blood pressure Diastolic blood pressure Provider Name and Address Organization Details Last Updated DateTime 06/11/2024 165.1 cm 28.1 kg/m2 68887.11 g 114 mm[Hg] 80 mm[Hg] Robina Huerta [facility] 5 16:29:37 Date Recorded Body height Body mass index (BMI) Body weight Systolic blood pressure Diastolic blood pressure Provider Name and Address Organization Details Last Updated DateTime 11/12/2023 165.1 cm 26 kg/m2 00597.41 g 113 mm[Hg] 75 mm[Hg] Maria Antonia Mari [facility] 4 16:02:27 Date Recorded Body height Body mass index (BMI) Body weight Systolic blood pressure Diastolic blood pressure Provider Name and Address Organization Details Last Updated DateTime 01/16/2023 165.1 cm 28.1 kg/m2 82202.11 g 131 mm[Hg] 87 mm[Hg] Sonja Gaitan [facility] 3 16:03:08 Date Recorded Systolic blood pressure Diastolic blood pressure Provider Name and Address Organization Details Last Updated DateTime 01/29/2023 122 mm[Hg] 78 mm[Hg] Laurie Moreno, [facility]- [address], [place], [address], [facility] 01/30/2023 15:28:00 Date Recorded Body height Body mass index (BMI) Body weight Systolic blood pressure Diastolic blood pressure Provider Name and Address Organization Details Last Updated DateTime 01/29/2023 165.1 cm 28.1 kg/m2 72215.11 g 125 mm[Hg] 86 mm[Hg] Robina Bradley [facility] 18:27:27 Social History Question Answer Notes LastModified by Organizat ion Details LastModified Time Tobacco Smoking Status Never Smoker Yamile Donovan [email or web address], [facility] 01/16/2023 15:59:01 Do You Have An Advance Directive? No [email or web address] Information n ot available 03/25/2024 Are You Blind Or Do You Have Difficulty Seeing? No [email or web address] Information n ot available 11/12/2023 What Is Your Level Of Caffeine Consumption? None Information not available 03/25/2024 How Much Tobacco Do You Chew? None [email or web address] Information not available 03/24/2024 In The 14 Days Before Symptom Onset, Have You Had Close Contact With A Laboratory-confirm ed COVID-19 While That Case Was Ill? No Information n ot available 10/01/2022 In The 14 Days Before Symptom Onset, Have You Had Close Contact With A Person Who Is Under Investigation For COVID-19 While That Person Was Ill? No Information not available 10/01/2022 Have You Been To An Area Known To Be High Risk For COVID-19? No Information not available 10/01/2022 Are You Deaf Or Do You Have Serious Difficulty Hearing? No [email or web address] Information not available 11/12/2023 What Type Of Diet Are You Following? REGULAR [email or web address] Information n ot available 11/12/2023 Which Illicit Or Recreational Drugs Have You Used? Marijuana [email or web address] Information not available 01/16/2023 What Is The Highest Grade Or Level Of School You Have Completed Or The Highest Degree You Have Received? [id number] [email or web address] Information not available 11/12/2023 Are There Any Guns Present In Your Home? No [email or web address] Information not available 11/12/2023 Do You Use Protection During Sex? No [email or web address] Information not available 03/24/2024 Do You Use Your Seat Belt Or Car Seat Routinely? Yes [email or web address] Information not available 11/12/2023 Do You Have Smoke And Carbon Monoxide Detectors In Your Home? Yes [email or web address] Information not available 11/12/2023 How Much Tobacco Do You Smoke? No [email or web address] Information not available 11/12/2023 Do You Use Sunscreen Routinely? No [email or web address] Information not available 03/24/2024 Has Tobacco Cessation Counseling Been Provided? No [email or web address] Information not available 01/16/2023 Have You Used IV Drugs? No Information not available 11/12/2023 Do You Have Difficulty Walking Or Climbing Stairs? No [email or web address] Information not available 11/18/2023 Sex: Unknown Functional Status Question Answer Note LastModified by Organizat ion Details LastModified Time Do you use any illicit or recreational drugs? Yes [email or web address] Information not available 03/24/2024 Do you or have you ever used any other forms of tobacco or nicotine? No Information not available 01/16/2023 What is your level of alcohol consumption? None [email or web address] Information not available 10/02/2020 Are you able to walk? YESASSIST [email or web address] Information not available 03/25/2024 Are you able to care for yourself? 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 No Information not available 11/18/2023 What is your exercise level? Moderate [email or web address] Information not available 03/24/2024 Mental Status Question Answer Note LastModified by Organization D etails LastModified Time Do you feel stressed (tense, restless, nervous, or anxious, or unable to sleep at night)? [id number] [email or web address] Information not available 03/24/2024 Family History Relationship Description Onset Age of this Age Resolved Age Notes LastModified by Organization Details LastModified Time Sister Genetic disease [email or web address] Not available 06/01 15:47:38 Sister Disorder of thyroid gland [email or web address] Not available 06/01 15:47:39 Sister Mental disorder [email or web address] Not available 06/01 15:47:39 Mother Female infertility [email or web address] Not available 15:47:39 Mother Cyst of ovary [email or web address] Not available 06/01 15:47:39 Mother Polycystic ovary syndrome [email or web address] Not available 06/01 15:47:39 Mother Hypercholest erolemia [email or web address] Not available 2024 11:28:19 Mother Hypertensive disorder [email or web address] Not available 2024 11:28:19 Mother Diabetes mellitus [email or web address] Not available 2024 11:28:19 Mother Mental disorder [email or web address] Not available 06/01 15:47:39 Father Hypercholest erolemia [email or web address] Not available 06/01 15:47:39 Father Hypertensive disorder [email or web address] Not available 06/01 15:47:39 Father Mental disorder [email or web address] Not available 06/01 15:47:39 Medical History Condition Response Allergies (Food, seasonal, environmental ) N Other N Drug/Latex Allergies/Reactions Y Blood Transfusion N Breast Cancer N Dermatologic Disorders N Lung Disease N Defects or Inherited Disease N Breast Problem N Gestational Diabetes N Hematologic disorders N Anesthesia Complications N History of STI N Deep Vein Thrombosis N Polycystic ovary syndrome Y Anxiety Disorder Y Autoimmune disease N Arthritis N Polyps N Infertility Y Acid Reflux (GERD) N History of abnormal pap N Cancer N Varicosities N Stroke N Neurologic/Epilepsy N Endometriosis N High Cholesterol N Fibromyalgia N Headaches N Kidney Disease N Heart Problems N Thyroid Problems Y Kidney or Bladder Problems N GI Problems N Eating Disorder N Anemia N Art (IVF or FET) N Psychiatric Illness N Ovarian Cancer N Diabetes N Pulmonary (TB, Asthma) N Hepatitis/Liver Disease N No Past Medical History N Eczema N Urinary Tract Infection N Abuse/Domestic Violence N Asthma N Trauma/Violence N Depression/ depression Y Heart Disease N Pre-Eclampsia N Hypertension N Osteoporosis N Thrombophilias N Gynecological History Statement/Question Response Date of Last Mammogram 11/17/2023 Flow Heavy Date of LMP 06/10/2024 N Was last menstrual period normal N STIs/STDs N Date of Last Colonoscopy BCPs Desired Control Method Ablation Abnormal Pap N On BCP's at Conception? N HPV Vaccine Y Duration of Flow (days) 10 Current Control Method Partner Vas ectomy Age at First Child 29 Are cycles usually normal Y Frequency of Cycle (Q days) 31 Sexually Active? Y Menses Monthly Y Date of DEXA bone scan Age of first menstrual cycle 13 Date of Last Pap Smear 10/02/2022 Sexual Problems? N LMP Definite N Obstetrics History GPAL:G 6 P 2 0 4 2 Type Value Full Term 2 Spontaneous 4 Living 2 Total 6 Past Encounters Encounter ID Performer Location Encounter Start Date Encounter Closed Date Diagnosis/Indication Diagnosis SNOMED-CT Code Diagnosis ICD10 Code Diagnosis Note [id number] Jazmin Gaona CNM [place] [address] [address] 10/02/2020 12:28:52 10/03/2020 16:12:15 Gynecologic examination 56937589 Z01.419 test positive 450558252 Z32.01 Risk factors addressed: Tobacco Cessation, Safe Sexual Practices, environmen eduardo, work hazards, travel restrictio ns, seat belt use.Eat a health well balanced diet, avoid alcohol, tobacco, and street drugs.Enga ge in daily low impact exercise, avoid temperatur e extremes, and cat, rodent, and bird feces.Avoi d travel to areas where zika virus is a concern.Of fered cf/sma/nip t. Pt desires NIPT and AFP. Pt is cf carrier but is not. Handouts given and discussed with patient. ildbirth classes recommende d.New OB sheet given.If previous , counseling . MFM consult marcie d/t medical history. Protein def, questionab le diabetes, venlafaxin e use, and multiple early loss.Pt verbalizes that she understand s the importance of above instructio ns.All questions were answered.P atient reminded to have annual well woman examinatio n and address preventati ve healthcare . Polycystic ovary syndrome 414414604 E28.2 Attention deficit hyperactivity disorder 902512354 F90.9 Autistic disorder 772609 003 F84.0 Protein C deficiency disease 93474957 D68.59 Depressive disorder 3548 9007 F32.9 Amenorrhea 88803617 N91. 2 [id number] Allie Foley MD [place] [address],[place] [address] 10/02/2020 13:38:39 10/03/2020 09:03:07 [id number] Ronnie Gudino MD [place] [address],[place] [address] 10/05/2020 13:44:24 10/05/2020 14:38:29 Threatened miscarriage 32851635 O20.0 Z3A.01 [id number] Allie Foley MD [place] [address],[place] [address] 10/18/2020 10:27:45 10/18/2020 11:18:39 Missed miscarriage 28882657 O02.1 Recurrent miscarriage 10 0636826 N96 Autistic disorder 086567 003 F84.0 high functionin g Polycystic ovary syndrome 196346354 E28.2 Attention deficit hyperactivity disorder 661991594 F90.9 Protein C deficiency disease 35491405 D68.59 [id number] Allie Foley MD [place] [address],[place] [address] 10/18/2020 10:27:45 10/18/2020 11:18:39 Missed miscarriage 46582839 O02.1 [id number] Allie Foley MD [place] [address],[place] [address] 10/23/2020 08:51:19 10/23/2020 08:52:22 [id number] Allie Foley MD [place] [address] [place] [address] 10/30/2020 17:54:20 10/31/2020 15:36:52 Postoperative visit 861806246 Z09 Panic disorder 566395615 F41.0 Recurrent miscarriage 10 1460229 N96 Protein C deficiency disease 55031386 D68.59 Polycystic ovary syndrome 566316638 E28.2 [id number] Allie Foley MD [place] [address],[place] [address] 04/19/2021 13:20:04 04/19/2021 13:53:07 Threatened miscarriage 70788120 O20.0 Z3A.09 [id number] Allie Foley MD [place] [address],[place] [address] 04/27/2021 11:49:31 04/27/2021 12:15:09 [id number] Allie Foley MD [place] [address],[place] [address] 04/27/2021 11:50:01 04/27/2021 16:15:45 test positive 139268594 Z32.01 Attention deficit hyperactivity disorder 960920342 F90.9 High risk due to recurrent loss 7012891177 93148 O26.21 Short cerv ical length in 763437271 O26.879 Hypothyroi dism in 995891574 E03.9 Past pregn stefany history of section 868020385 Z98.890 Past pregn stefany history of delivery of macrosomal 2761185976 9102 Z87.59 Anxiety in 224 1820644 9109 F41.9 [id number] Allie Foley MD [place] [address],[place] [address] 05/07/2021 09:37:41 05/07/2021 10:14:56 screening 966100583 Z36.82 [id number] Allie Foley MD [place] [address],[place] [address] 05/10/2021 15:51:28 05/10/2021 16:41:09 Spotting per vagina in 027523349 O26.859 Z3A.12 [id number] Allie Foley MD [place] [address],[place] [address] 05/18/2021 09:56:51 05/18/2021 17:13:00 Routine care 693705587 Z34.91 Attention deficit hyperactivity disorder 760198187 F90.9 High risk due to recurrent loss 3951920897 16376 O26.21 Past pregn stefany history of section 659977152 Z98.890 Past pregn stefany history of delivery of macrosomal 9975985597 9102 Z87.59 Short cerv ical length in 967679452 O26.879 [id number] Laurie Moreno [facility] [place] [address],[facility] [place] [address] 10/01/2022 17:53:59 10/03/2022 10:41:35 Gynecologic examination 56332643 Z01.419 Z11.51 Take Calcium with Vitamin D 1200mg daily if not receiving in daily diet. It is strongly advised to have an annual flu shot and up can obtain at most pharmacies . If you have not had a TDap shot in the last 10 years you should obtain one as well. Discussed with patient & provided with informatio n regarding Gardisil vaccine to prevent the 4 strains for HPV that cause cervical cancer if under age 26. Encourage safe sexual practices, to use condoms and limit partners if not already in a monogamous relationsh ip. Do monthly self breast exams. Have mammogram yearly or every other year depending on family history. BRCA testing is now available for patients with strong genetic history of female cancer. If interested contact the office. Engage in daily exercise of low impact aerobic exercise 45-60 minutes 4-5 times weekly. Avoid tobacco and illicit drugs as well as using moderation with alcohol intake less than 1-2 8 oz beverages daily. This lifestyle behavior pattern will lead to less health conditions and longer life span. If BMI greater than 25 weight watchers or dietary consult advised. Patient received above instructio ns, and questions have been answered. If you have any questions please call or respond to this email. Patient was made aware of the patient portal and may obtain a paper copy of today's plan if desired. Pap/hpv sentSTD Screen declinedGe netic Screen discussedC olon Screen naDexa Screen [facility] pcp [id number] Laurie Moreno [facility] [address] [address] 01/01/2023 18:08:41 01/02/2023 09:08:24 Chronic pelvic pain of female 988663258 R10.2 N92.0 Today we discussed chronic pelvic pain.She has heavy menorrhagi a with her cycles along with severe dysmenorrh ea, dyspareuni a, and wax/wane of UTI like sx's in the absence of positive urine cx's.She is questionin g if she has possible endometrio sis.We discussed endometrio sis/chroni c pelvic pain and it's associated conditions that often are multifacto rial. I have given her a handout from pelvic pain society to review.Enc ouraged her to write her questions down prior to her MD consult.We will update US and she has had recently labs that will be sent over.We will continue SLYND for now even though still having some spotting with this method despite consistent use. She is not a candidate for estrogen due to migraines with aura/Hx of mood disorder. POC reviewed & she is agreeable to pursuing recommenda tions. Time spent in visit is a total of 30 mins with at least 50% of visit consisting of counseling and review of plan of care. Urinary symptoms 3043716 08 R39.9 Urine dip is negSuspect CIC-handou t given for additional reviewCons ider referral to Urologist that manages IC if needed. Polycystic ovary syndrome 263949401 E28.2 RF of metformin used for PCOS sent per pt requestLab s recently updated by PCP will have sent [id number] Ronnie Gudino MD [place] [address] [address] 01/14/2023 16:01:23 01/14/2023 16:30:20 Abnormal uterine bleeding 4348204959 9100 N93.9 R10.2 [id number] Ronnie Gudino MD [place] [address] [address] 01/16/2023 15:58:52 01/16/2023 16:28:22 Menorrhagia 691530433 N92.0 Dysmenorrhea 570875401 N 94.6 this patient is a 32-year-ol d female who presents for severe menorrhagi a and severe dysmenorrh ea. . She has longstandi ng very heavy bleeding. Her menses are regular. However, they require double protection . Patient has accidents, getting blood on her bedding and clothing. Is affected work. She changes a pad or tampon every hour. She leaks blood around the pad and tampon. This bleeding has a profound impact on her quality of life and her activities of daily living. She is severe dysmenorrh ea. She misses work because of the pain at the time of her menses. We talked about treatment. Talked about medical options, we talked about procedures . We agreed to Mirena IUD insertion. She is going to abstain until we get the IUD inserted. We spent more than 20 minutes face-to-fa ce. More 50 50% was counseling . [id number] [facility] [address] [address] 01/29/2023 18:14:54 01/30/2023 15:54:06 Contraception care management [id number] Z30.9 Today we discussed IUD and other progestero ne only options. She Opts to decline IUD insertion. Does not feel comfortabl e with this option.[place] led SLYND trial.Deci ded she would prefer to hold off on contracept ion for now.Due to see cardiologi st to ensure no issues with random tachycardi a & will decide if wants to pursue anything after this time. Body mass index 25-29 - overweight [id number] Z68.28 Frustrated with weight loss.Goes to gym combo cardio/janel ghts 3-4x a week.Made nutritiona l changes.On ly able to lose 2-3lbsMetf ormin has not assisted weight loss/PCOS. She agreed to see what her insurance covers in regards to weight loss medication s/dieticia n.Will reach out with this informatio n. Time spent in visit is a total of 26 mins with at least 50% of visit consisting of counseling and review of plan of care. [id number] Dory Dale CNM [place] [address] [address] 11/12/2023 15:47:32 11/12/2023 16:41:15 Breast lump [id number] N63.0 Discharge from nipple 54 255836 N64.52 [id number] Ronnie Gudino MD [place] [address] [address] 03/25/2024 17:40:41 03/29/2024 04:08:13 Irregular periods 34284872 N92.6 Will check hormone levels; hx PCOSPatien t to call office if she does not have a period at least every 3 monthsDisc ussed potential risks of endometria l hyperplasi aDiscussed progestero ne only hormonal BC options to regulate cycles; pt cannot have estrogen contained products d/t migraines with aura. Pt declined BC at this time. Polycystic ovary syndrome [id number] E28.2 RF of metformin filled for PCOS. Pt to increase to 2 tablets of metformin ER 500 mg at bedtime.Soledad sanders/jackie ts reviewed.R TO in 3 months for med check. [id number] Ronnie Gudino MD [place] [address] [address] 06/11/2024 15:47:28 06/12/2024 11:11:32 Polycystic ovary syndrome [id number] E28.2 Menorrhagia 234794095 N9 2.0 This patient is a 33-year-ol d female presents for heavy vaginal bleeding. She has longstandi ng very heavy bleeding. Her menses are regular. However, they require double protection . Patient has accidents, getting blood on her bedding and clothing. Is affected work. She changes a pad or tampon every hour. She leaks blood around the pad and tampon. This bleeding has a profound impact on her quality of life and her activities of daily living. treatment option. Patient is interested in endometria l ablation. We agreed to proceed with endometria l ablation. The patient understand s the procedure. The procedure was described to the patient in great detail. the patient also understand s the risks. The risks were also explained in detail. She understand s that injuries May occur during surgery. She understand s these injuries can result in hospitaliz ation, more surgery, and severe illness. She understand s there is risk of hemorrhage and infection. I spent more than 30 minutes on her care in total. Health Concerns Section Related Observation LastModified by Organization Detai ls LastModified Time None Recorded Concern Status LastModified by Organization Details LastModified Time None Recorded Advance Directives Directive N: Payers Encounter Date Sequence Insurance Name Policy Number Policy Ruiz Covered Member ID Ruiz Member ID Guarantor Name 01/16/2023 2 [place] [facility] Delroy Cabrera [id number] Delroy Cabrera 01/16/2023 1 [employer] (POS II) [id number] Delroy Pereiraensman [id number] Delroy Clarosman 01/29/2023 2 [place] [facility] Delroy Cabrera [id number] Delroy Cabrera 01/29/2023 1 [employer] (POS II) [id number] Delroy Carole Luensman [id number] Delroy Luensman 11/12/2023 1 [employer] (POS II) [id number] Delroy E Luensman [id number] Delroy Luensman 03/25/2024 1 [employer] (POS II) [id number] Delroy Carole Luensman [id number] Delroy Luensman 06/11/2024 1 [employer] (POS II) [id number] Delroy Carole Luensman [id number] Delroy Clarosman Notes Date Note Type Note Provider Name and Address Organization Details Recorded Time 01/16/2023 text/html this patient is a 32-year-old female who presents for severe menorrhagia and severe dysmenorrhea. . She has longstanding very heavy bleeding. Her menses are regular. However, they require double protection. Patient has accidents, getting blood on her bedding and clothing. Is affected work. She changes a pad or tampon every hour. She leaks blood around the pad and tampon. This bleeding has a profound impact on her quality of life and her activities of daily living. She is severe dysmenorrhea. She misses work because of the pain at the time of her menses. We talked about treatment. Talked about medical options, we talked about procedures. We agreed to Mirena IUD insertion. She is going to abstain until we get the IUD inserted. We spent more than 20 minutes [id number]. More 50 50% was counseling. Ronnie Gudino MD [address], [place], [address], [facility] 01/16/2023 16:27:34 01/29/2023 text/html Patient presents to discuss contraception/destiny gement of menses. Laurie Moreno, NP-BC [address], [place], [address], [facility] 01/30/2023 15:34:18 11/12/2023 text/html right breast yellow d/c last couple of weeks, noticed yesterday a small mass behind nipple on right, no pain, no blood Dory Dale, BETHEL [address], [place], [address], [facility] 11/12/2023 16:38:47 03/25/2024 text/html Patient here for med check of metformin that she is taking for PCOS.Patient requests that her hormones be checked.Patient still having irregular periods, every 1-2 months, lasting 7 days with mod to heavy flow.Partner has vasectomy; pt does not want to be on hormonal BC JAYLEN MILNER, [employer] [address], [place], [address], [facility] 03/25/2024 18:12:06 06/11/2024 text/html This patient is a 33-year-old female presents for heavy vaginal bleeding. She has longstanding very heavy bleeding. Her menses are regular. However, they require double protection. Patient has accidents, getting blood on her bedding and clothing. Is affected work. She changes a pad or tampon every hour. She leaks blood around the pad and tampon. This bleeding has a profound impact on her quality of life and her activities of daily living. treatment option. Patient is interested in endometrial ablation. We agreed to proceed with endometrial ablation. The patient understands the procedure. The procedure was described to the patient in great detail. the patient also understands the risks. The risks were also explained in detail. She understands that injuries May occur during surgery. She understands these injuries can result in hospitalization, more surgery, and severe illness. She understands there is risk of hemorrhage and infection. I spent more than 30 minutes on her care in total. Ronnie Gudino MD [address], [place], [address], [facility] 06/11/2024 17:15:07 OBGyn Episode Ob Episode Information Episode Created Date Number of Fetuses Patient Bloodtype Patient rh Status Prepregnancy Weight lbs Domestic Partner Domestic Partner Phone Father Name [employer] Status 10/03/19 21 1 CLOSED Fetus Data First Name Last Name Admitted to NICU Weight (g) Sex Living Outcome Pediatric Complications Fetus ID Race Codes Race Delivery Type , [place]us [address]49 [place] Calculation Initial [place] Date Initial Exam Date Initial Exam Provider Initial Ultrasound Date Last Menstrual Period Date Ultra Sound Weeks Gestation 0 Eighteen To Twenty Week [place] Update Ultra Sound Date Fundal Height At Umbil Quickening Date Ultra Sound Latest Weeks Gestation Final [place] Confirmed By Final [place] Confirmed Date Final [place] Date Ultra Sound Latest Days Gestation 0 0 Menstrual History Last Menstrual Date Menses Monthly On Bcp Conception Prior Menses Frequency Hcg Plus Date Menarche Onset Age Delivery Information Delivery Date Delivery Type Labor Anesthesia Weeks Gestation Incision Type Labor Labor Length Hrs Delivered By Post Complications Tubal Sterilization Discharge Date Comments 7 Discharge Information Feeding Method Contraceptive Method Maternal HG B and HCT Levels Ob Episode Information Episode Created Date Number of Fetuses Patient Bloodtype Patient rh Status Prepregnancy Weight lbs Domestic Partner Domestic Partner Phone Father Name [employer] Status 10/03/19 21 1 CLOSED Fetus Data First Name Last Name Admitted to NICU Weight (g) Sex Living Outcome Pediatric Complications Fetus ID Race Codes Race Delivery Type , [place] o[place] [address]15 [place] Calculation Initial [place] Date Initial Exam Date Initial Exam Provider Initial Ultrasound Date Last Menstrual Period Date Ultra Sound Weeks Gestation 0 Eighteen To Twenty Week [place] Update Ultra Sound Date Fundal Height At Umbil Quickening Date Ultra Sound Latest Weeks Gestation Final [place] Confirmed By Final [place] Confirmed Date Final [place] Date Ultra Sound Latest Days Gestation 0 0 Menstrual History Last Menstrual Date Menses Monthly On Bcp Conception Prior Menses Frequency Hcg Plus Date Menarche Onset Age Delivery Information Delivery Date Delivery Type Labor Anesthesia Weeks Gestation Incision Type Labor Labor Length Hrs Delivered By Post Complications Tubal Sterilization Discharge Date Comments 6 Discharge Information Feeding Method Contraceptive Method Maternal HG B and HCT Levels Ob Episode Information Episode Created Date Number of Fetuses Patient Bloodtype Patient rh Status Prepregnancy Weight lbs Domestic Partner Domestic Partner Phone Father Name [employer] Status 10/03/19 21 1 CLOSED Fetus Data First Name Last Name Admitted to NICU Weight (g) Sex Living Outcome Pediatric Complications Fetus ID Race Codes Race Delivery Type , [place] o[place] 14807 [place] Calculation Initial [place] Date Initial Exam Date Initial Exam Provider Initial Ultrasound Date Last Menstrual Period Date Ultra Sound Weeks Gestation 0 Eighteen To Twenty Week [place] Update Ultra Sound Date Fundal Height At Umbil Quickening Date Ultra Sound Latest Weeks Gestation Final [place] Confirmed By Final [place] Confirmed Date Final [place] Date Ultra Sound Latest Days Gestation 0 0 Menstrual History Last Menstrual Date Menses Monthly On Bcp Conception Prior Menses Frequency Hcg Plus Date Menarche Onset Age Delivery Information Delivery Date Delivery Type Labor Anesthesia Weeks Gestation Incision Type Labor Labor Length Hrs Delivered By Post Complications Tubal Sterilization Discharge Date Comments 5 Discharge Information Feeding Method Contraceptive Method Maternal HG B and HCT Levels Ob Episode Information Episode Created Date Number of Fetuses Patient Bloodtype Patient rh Status Prepregnancy Weight lbs Domestic Partner Domestic Partner Phone Father Name [employer] Internship Status 10/03/19 21 1 CLOSED Fetus Data First Name Last Name Admitted to NICU Weight (g) Sex Living Outcome Pediatric Complications Fetus ID Race Codes Race Delivery Type 4053.75 1704 M Full Term [id number] Primary [place] Calculation Initial [place] Date Initial Exam Date Initial Exam Provider Initial Ultrasound Date Last Menstrual Period Date Ultra Sound Weeks Gestation 0 Eighteen To Twenty Week [place] Update Ultra Sound Date Fundal Height At Umbil Quickening Date Ultra Sound Latest Weeks Gestation Final [place] Confirmed By Final [place] Confirmed Date Final [place] Date Ultra Sound Latest Days Gestation 0 0 Menstrual History Last Menstrual Date Menses Monthly On Bcp Conception Prior Menses Frequency Hcg Plus Date Menarche Onset Age Delivery Information Delivery Date Delivery Type Labor Anesthesia Weeks Gestation Incision Type Labor Labor Length Hrs Delivered By Post Complications Tubal Sterilization Discharge Date Comments 9 40 short cervix Discharge Information Feeding Method Contraceptive Method Maternal HG B and HCT Levels Ob Episode Information Episode Created Date Number of Fetuses Patient Bloodtype Patient rh Status Prepregnancy Weight lbs Domestic Partner Domestic Partner Phone Father Name [employer] Status 05/19/19 22 1 166 CLOSED Fetus Data First Name Last Name Admitted to NICU Weight (g) Sex Living Outcome Pediatric Complications Fetus ID Race Codes Race Delivery Type , [place]ont[place] o[place] [id number] Problems Problem Notes Problem Name Start Date End Date Resolution Snomed Code Not e Past history of section 04/27/2021 [id number] for LGA, will do repeat unless baby much smaller Marijuana user [id number] has s topped. Subclinical hypothyroidism [id number] TSH 05/18 Past history of delivery of macrosomal infant 04/27/2021 [id number] growth U S Subchorionic hematoma 71829102 4 x2, no bleeding Short cervical length in 04/27/2021 [id number] last preg- but delivered at 40w. CL at 16 and 20w. Protein C deficiency disease 10/18/2020 [id number] no longer has p er VIos and MFM. ASA 81mg only. No lovenox. Attention deficit hyperactivity disorder 10/18/2020 969718449 decre ased vyvanse, but prob cannot get off of it and remain functional. [place] Calculation Initial [place] Date Initial Exam Date Initial Exam Provider Initial Ultrasound Date Last Menstrual Period Date Ultra Sound Weeks Gestation 11/22/2021 05/18/2021 04/27/2021 10 Eighteen To Twenty Week [place] Update Ultra Sound Date Fundal Height At Umbil Quickening Date Ultra Sound Latest Weeks Gestation Final [place] Confirmed By Final [place] Confirmed Date Final [place] Date Ultra Sound Latest Days Gestation 0 [email or web address] 05/18/2021 11/23/19 22 0 Pre- Flowsheet Flowsheet Date 05/18/2021 Donovan Score Blood Edema Fundus Height Fundus Units Glucose Ketones Leukocytes Nitrite Labor Signs Protein Cervic Dilation Cervic Effacement Cervic Station neg none none trace Type Weight in lbs Pre/Post Dialysis Refused Weight 167.148875175588 BP Diastolic BP Location Tested BP Systolic BP Type 85 136 Fetus Heart Rate Present A 155 Fetus Movement A No Comments Delroy is a 30yo who presents for care. Her history is complicated by 3 miscarriages, subclnical hypothyroidism, on vyvanse or ADHD, history of CS for macrosomia, and history of cervical shortening but 40w delivery. She had care with [facility], still awaiting records. Will plan growth US and repeat CS unless baby much smaller. Has 2 SCHs on US but no bleeding. TSh today. She cut down her vyvanse to lower dose and is barely ok. She is aware of risks of this. She has stopped using MJ. Per MFM and [facility] she no longer has protein C deficiency. Will take ASA. CL at 16 and 20w. Menstrual History Last Menstrual Date Menses Monthly On Bcp Conception Prior Menses Frequency Hcg Plus Date Menarche Onset Age Genetic Screening And Infection History Question Response Note Mental Retardation/Autism false Patient's Age Will Be 35 Years Or Older At Estim ated Date of Delivery false Thalassemia (Wolof, Wolof, Mediterranean, Or Background): MCV < 80 false Neural Tube Defect (Meningomyelocele, Spina Bifi da, Or Anencephaly) false Congenital Heart Defect false Down Syndrome false Marcus-Sachs (eg, Temple, Cajun, Montserratian-[place]) f alse Millicent Disease false Sickle Cell Disease Or Trait () false Hemophilia Or Other Blood Disorders false Muscular Dystrophy false Cystic Fibrosis false Southold's Chorea false Intellectual Disability/Autism false If Yes, Was Person Tested For Fragile X? false Other Inherited Genetic Or Chromosomal Disorder false Maternal Metabolic Disorder (eg, Type 1 Diabetes , PKU) false Patient Or Baby's Father Had A Child With Defects Not Listed Above false Recurrent Loss, Or A Stillbirth false Medications (including Suppl ements, Vitamins, Herbs, OTC Drugs), Illicit/Recreational Drugs, Alcohol false If Yes, Agent(s) And Strength/Dosage false Any Other Genetic History false Live With Someone With TB Or Exposed To TB false Patient Or Partner Has History Of Genital Herpes false Rash Or Viral Illness Since Last Menstrual Perio d false History Of STD, Gonorrhea, Chlamydia, HPV, Syphi lis false Other Infection History false History of HIV false History of Hepatitis false Prior GBS-infected child false Hemoglobinopathy Or Carrier false Other Structural Defect false Recent Travel History Outside of Country false Delivery Information Delivery Date Delivery Type Labor Anesthesia Weeks Gestation Incision Type Labor Labor Length Hrs Delivered By Post Complications Tubal Sterilization Discharge Date Comments 1 .1 Allie Foley MD patient had suction D&C Discharge Information Feeding Method Contraceptive Method Maternal HG B and HCT Levels Ob Episode Information Episode Created Date Number of Fetuses Patient Bloodtype Patient rh Status Prepregnancy Weight lbs Domestic Partner Domestic Partner Phone Father Name [employer] Status 11/18/19 24 1 CLOSED Fetus Data First Name Last Name Admitted to NICU Weight (g) Sex Living Outcome Pediatric Complications Fetus ID Race Codes Race Delivery Type Full Term [id number] V Back [place] Calculation Initial [place] Date Initial Exam Date Initial Exam Provider Initial Ultrasound Date Last Menstrual Period Date Ultra Sound Weeks Gestation 0 Eighteen To Twenty Week [place] Update Ultra Sound Date Fundal Height At Umbil Quickening Date Ultra Sound Latest Weeks Gestation Final [place] Confirmed By Final [place] Confirmed Date Final [place] Date Ultra Sound Latest Days Gestation 0 0 Menstrual History Last Menstrual Date Menses Monthly On Bcp Conception Prior Menses Frequency Hcg Plus Date Menarche Onset Age Delivery Information Delivery Date Delivery Type Labor Anesthesia Weeks Gestation Incision Type Labor Labor Length Hrs Delivered By Post Complications Tubal Sterilization Discharge Date Comments 2 Discharge Information Feeding Method Contraceptive Method Maternal HG B and HCT Levels Ob Episode Information Episode Created Date Number of Fetuses Patient Bloodtype Patient rh Status Prepregnancy Weight lbs Domestic Partner Domestic Partner Phone Father Name [employer] Status 11/12/19 24 1 DELETED [place] Calculation Initial [place] Date Initial Exam Date Initial Exam Provider Initial Ultrasound Date Last Menstrual Period Date Ultra Sound Weeks Gestation 0 Eighteen To Twenty Week [place] Update Ultra Sound Date Fundal Height At Umbil Quickening Date Ultra Sound Latest Weeks Gestation Final [place] Confirmed By Final [place] Confirmed Date Final [place] Date Ultra Sound Latest Days Gestation 0 0 Menstrual History Last Menstrual Date Menses Monthly On Bcp Conception Prior Menses Frequency Hcg Plus Date Menarche Onset Age Delivery Information Delivery Date Delivery Type Labor Anesthesia Weeks Gestation Incision Type Labor Labor Length Hrs Delivered By Post Complications Tubal Sterilization Discharge Date Comments 1 Discharge Information Feeding Method Contraceptive Method Maternal HG B and HCT Levels
--- OUTSIDE RECORDS SUMMARY | 2024-08-04 00:37 | XMS_ITS | Clinical Summary ---
Author Organization [facility] Address [address] [place] [address] Care Team Providers Care Well Services Operator Name Role Phone Dannie Mccullough DO Unavailable [phone] Paola Carrillo Primary Care Provider [phone] Source Comments [facility],non-owned Affiliates and Associated Physician Practices is amultiple site organization consisting of ambulatory clinics and hospital sitesin [place], [place], [place] and [place]. This disclosure is being madepursuant to the Care Everywhere program and may not contain all information available regarding this patient. Last updated 17.[facility] Allergies Active Allergy Reactions Criticality Noted Date Comments Latex Rash Medium 10/12/2018 Nickel Rash,Palpitations Medium 07/05/2021 Medications * This document contains information received from the source organization and may not represent a complete record from that organization. * Be aware that medications may not be up to date on this document. Alwaysverify current medications with the patient. levothyroxine (SYNTHROID) 50 MCG tablet Take 50 mcg by mouth daily before breakfast Active Melatonin 5 MG Activ e ondansetron, disintegrating, (ZOFRAN ODT) 4 MG tablet Take 1 (one) tablet by mouth every 6 hours as needed for Nausea/Vomiting Allow tablet to dissolve on the tongue 30 tablet 2 08/17/19 22 Active Additional Information Patient not taking.Reported on 10/18/2021 traZODone (DESYREL) 50 MG tabletIndications:I nsomnia, unspecified type Take 1 (one) tablet by mouth at bedtime 30 tablet 09/21/19 Active Additional Information Patient not taking.Reported on 11/08/2021 lisdexamfetamine (Vyvanse) 30 MG capsule Take 1 (one) capsule by mouth every morning 30 capsule 10/16/19 Active acetaminophen (Tylenol) 325 MG tablet Take 2 (two) tablets by mouth every 6 hours as needed Maximum allowable Acetaminophen amount = 4 Grams (4000 mg) / 24 hours. 30 tablet 2 11/05/19 Active Additional Information Patient not taking.Reported on 11/08/2021 calcium carbonate (Tums) 500 MG chew tablet Take 2 (two) tablets by mouth every 4 hours as needed 11/05/19 Active Additional Information Patient not taking.Reported on 11/08/2021 ibuprofen (Motrin) 600 MG tablet Take 1 (one) tablet by mouth every 6 hours as needed for Pain 30 tablet 2 11/05/19 Active Additional Information Patient not taking.Reported on 12/20/2021 iron polysaccharides (Niferex 150) 150 MG capsule Take 1 (one) capsule by mouth once daily 30 capsule 2 11/05/19 Active Additional Information Patient not taking.Reported on 12/20/2021 docusate sodium (Colace) 100 MG capsule Take 1 (one) capsule by mouth 2 times daily 30 capsule 2 11/05/19 Active Additional Information Patient not taking.Reported on 11/08/2021 polyethylene glycol 3350 (Miralax) 17 g packet Take 17 (seventeen) g by mouth once daily as needed for Constipation 11/05/19 Active Additional Information Patient not taking.Reported on 11/08/2021 simethicone (Mylicon) 80 MG chew tablet Take 2 (two) tablets by mouth 4 times daily as needed after meals/at bedtime for Gas Pain 11/05/19 Active Additional Information Patient not taking.Reported on 11/08/2021 Vit-DSS-Fe Fum-FA ( vitamin with iron) tablet Take 1 (one) tablet by mouth once daily 30 tablet 2 11/06/19 Active venlafaxine XR 24hr (Effexor XR) 75 MG capsule Take 3 (three) capsules by mouth daily with breakfast 30 capsule 3 11/06/19 Active Active Problems Patient Care Coordination No te Formatting of this note migh t be different from the original. [employer] form completed. Diapers given. 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 Partners carrier screening test not in patient's records from [employer]. Will ask patient to have partner check records. Marijuana use 07/26/2021 Overview (07/26/2021): Using nightly per pt report previously - now working on cutting back Advised cessation in PCOS (polycystic ovarian syndrome) 07/26/2021 Overview (07/26/2021): On Metformin 500mg BID Prediabetes 07/12/2021 Short cervix 07/05/2021 Asperger's syndrome 12/14/2020 Attention deficit disorder 12/10/2008 Overview (08/16/2021): On Vyvanse Refilled 08/16 Assessment & Plan (07/26/2021 4:11 PM CDT): On Vyvanse 30mg QD OK for high risk clinic to prescribe during per Dr. He. Pt aware she will need to return to having her PCP prescribe it after delivery. Migraine 10/27/2007 Eating disorder 08/17/2007 Depression 04/23/2007 Overview (08/16/2021): On Venlafaxine 187.5 mg Assessment & Plan (07/26/2021 4:10 PM CDT): Patient with history of depression - treatment resistant per her report Concerned about depression and would like to make a plan before to handle it EDPS 5 on 07/26 (DARELL appt to [facility]) On Venlafaxine XR 150mg QD Referral to Dr. Whitt given today. Allergic rhinitis 07/17/1998 GDM, class A2 Resolved Problems Problem Noted Date Diagnosed Date Resolved Date Supervision of high risk pre gnancy in third trimester 11/01/2021 12/21/2021 Uterine contractions 10/29/2021 022 Leakage of amniotic fluid 10/22/2021 Supervision of high-risk 07/26/2021 12/21/2021 Overview (07/26/2021): Datinst trimester US Per pt report PNL: A+/I/-/-, NR Ab: neg HIV: neg HCV:neg Hgb Elec: UDS: CF: SMA: Genetics: Pap: NILM 10/2020 Gc/Chl/Trich: neg/neg/neg UCx: Anatomy: 3T labs: GBS: Breast/Bottle: Plans breast and bottle Family Planning: Considering IUD bridging to partner vasectomy. 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 EAB x1 Prior testing for Prothromin, Antithrombin, Protein C and Protein S, and APLAS all negative Maternal karyotype wnl Antepartum cervical shortening 10/12/2018 12/21/2021 Overview (12/14/2020): G4 - resulted in C/S Problems related to high-risk sexual behavior 06/10/19 11 08/30/2021 Abdominal pain 06/09/2010 12/14/2020 Injury, other and unspecifie d, hand, except finger 11/27/2009 07/26/2021 Major depressive disorder, recurrent episode 0 07/26/2021 Pain in soft tissues of limb 11/06/2000 12/14/2020 Pain in joint, lower leg 11/06/2000 Urinary incontinence 08/22/1998 021 Immunizations Immunization Administration Dates Next Due Covid Moderna primary monova lent 12+ yr 0.5mL 03/28/2020,02/29/2020 DTAP 5 PERTUSSIS ANTIGENS 10/14/1996,,03/31/1992,01/13 DTAP, HISTORIC VACCINE 10/14/1996,1993,03/31/1992,01/13 HEP A PEDS 2 DOSE 04/22/2006,11/14/2004 HEP B VACCINE, PED/ADOL 01/26/1993,1991, HIB-PRP-T 4 DOSE 01/26/1993, 3,01/14/1992,11/21 HPV VACCINE 01/04/2008,09/02/2007,07/04/2007 Human Papilloma Virus Savi valent Vaccine 01/04/2008,09/02/2007,07/04/2007 INFLUENZA VACCINE 12/02/2019,12/10/2008 INFLUENZA VACCINE, QUADR. (F LUZONE; FLULAVAL; FLUARIX; AFLURIA QUADRIVALENT; 6MO+), 0.5 ML (IIV4) 12/22/2019,02/05/2019 MENINGOCOCCAL ACWY (MCV4P) VAC IM 11/14/2004 MMR 11/03/2021(Deferred: See Comments - pt is rubella immune),10/14/1996,01/29/1993 MMR/VARICELLA 10/14/1996,01/29/1993 POLIO OPV 10/14/1996, 4,01/14/1992,11/21 TDAP (7yrs+) 11/03/2021(Deferred: See Comments - pt has already received),08/30/2021,01/20/2019,2004 Family History Medical History Relation Name Comments Alcohol abuse Father Arthritis - Osteo Father COPD - Chronic Obstructive Pulmonary Disease Father CVA Father Depression Father Hypertension Father Cancer - Other Maternal Grandfather throa t Early Maternal Grandfather Other - Defects Maternal Grandfather Alcohol abuse Maternal Grandmother Depression Maternal Grandmother Early Maternal Grandmother Alcohol abuse Mother CVA Mother Depression Mother Diabetes - Type 2 Mother Hypertension Mother Stillbirth/Multiple Miscarriages/Infertility Mother Relation Name Status Comments Father Maternal Grandfather Maternal Grandmother Mother Alive Paternal Grandfather Alive Paternal Grandmother Sister Alive elizalde syndrome Social History Tobacco Use Types Packs/Day Years Used Date Smoking Tobacco: Former Cigarettes Smokeless Tobacco: Never Alcohol Use Standard Drinks/Week Comments Not Currently 0 (1 standard drink = 0.6 oz pur e alcohol) rarely Overall Financial Resource Strain (CARDIA) Answe r Date Recorded How hard is it for you to pa y for the very basics like food, housing, medical care, and heating? Not hard at all 11/01/2021 PHQ-2 Answer Date Recorded PHQ2 TOTAL SCORE 4 09/27/2021 Hunger Vital Sign Answer Date Recorded Within the past 12 months, y ou worried that your food would run out before you got the money to buy more. Never true 11/02/19 22 Within the past 12 months, t he food you bought just didn't last and you didn't have money to get more. Never true 11/01/2021 PRAPARE - Transportation Answer Date Re corded In the past 12 months, has l ack of transportation kept you from medical appointments or from getting medications? No 03/2021 In the past 12 months, has l ack of transportation kept you from meetings, work, or from getting things needed for daily living? No 11/01/2021 Housing Stability Vital Sign Answer Mario e Recorded In the last 12 months, was t here a time when you were not able to pay the mortgage or rent on time? No 11/01/2021 Number of Places Lived in the Last Year Not on f ile 11/01/2021 In the last 12 months, was t here a time when you did not have a steady place to sleep or slept in a detention (including now)? No 11/01/2021 [place] Depression Scale Answer Date Recorded RETIRED: Total Score 7 12/20/2021 Last EPDS Self Harm Result Not on file 12/20 Comments No Sex and Gender Information Value Date Recorded Sex Assigned at Female 12/26/2020 9:46 AM CDT Legal Sex Female 8:30 AM [employer] Gender Identity Gender Non-conforming 12/26/2020 9:46 AM CDT Sexual Orientation Bisexual 12/26/2020 9: 46 AM CDT Occupation Industry Job Start Date Job End Date [employer] Not on file Not on file Not on file Last Filed Vital Signs Vital Sign Reading Time Taken Comments Blood Pressure 135/87 12/20/2021 8:18 AM CDT Pulse 67 12/20/2021 8:18 AM CDT Temperature 36.6 C (97.8 F) 11/04/2021 8:55 AM CDT Respiratory Rate 16 11/04/2021 8:55 AM CDT Oxygen Saturation 100% 11/04/2021 8:55 AM CDT Inhaled Oxygen Concentration - - Weight 78.9 kg (174 lb) 12/20/2021 8:18 AM CDT Height 165.1 cm (5' 5) 11/01/2021 1:14 PM CDT Body Mass Index 28.96 11/01/2021 1:14 PM CDT Plan of Treatment Health Maintenance Due Date Last Done Comments HEPATITIS C SCREENING 09/19/2009 PAP SMEAR 10/03/2023 10/02/2020 COVID-19 VACCINE ( season) 2023 02/03/2021, 03/28/2020, 02/29/2020 DEPRESSION SCREENING 03/03/2024 12/20/2021, 11/08/2021, 11/06/2021, Additional history exists INFLUENZA VACCINE (Season Ended) 2024 12/22/2019, 12/02/2019, 02/05/2019, Additional history exists DTAP/TDAP/TD VACCINES (8 - Td or Tdap) 08/31/2031 08/30/2021, 01/20/2019, 11/14/2004, Additional history exists ZOSTER VACCINE (1 of 2) 09/23/2041 HEPATITIS B VACCINE Completed 01/26/1993, 1991, 1991 HIB VACCINE Completed 01/26/1993, 03/04, 01/14/1992, Additional history exists MENINGOCOCCAL GROUPS A/C/Y/W VACCINE Aged Out 11/14/2004 No longer eligible based on patient's age to complete this topic HPV VACCINE Completed 01/04/2008, 05/2007, 09/02/2007, Additional history exists HIV SCREENING Completed 08/30/2021, 04/04, 11/18/2018, Additional history exists MENINGOCOCCAL (Group B) VACCINE SHARED DECISION-MAKING Aged Out No longer eligible based on patient's age to complete this topic PNEUMOCOCCAL VACCINE Aged Out No long er eligible based on patient's age to complete this topic Procedures Procedure Name Priority Date/Time Associated Diagnosis Comments HIV-1 HIV-2 ANTIBODY + HIV P24 AG PANEL Routine 08/30/2021 1:27 PM CDT Supervision of high-risk of young multigravida from Last 3 Months or Most Recently Relevant to Health Maintenance Results * HIV-1 HIV-2 ANTIBODY + HIV P24 AG PANEL (08/30/2021 1:27 PM CDT) HIV1/2 Ab + P24 Ag Non Reactive Non Reactive 08/30/2021 2:30 PM CDT [facility] Blood BLOOD SPECIMEN / Unknown Venipuncture / Unknown 08/30/2021 1:27 PM CDT 08/30/2021 1:39 PM CDT Narrative [facility] - 08/30/2021 2:30 PM CDT No Laboratory evidence of HIV infection. us Mark Porter MD LAB - CHEMISTRY ORDERABLES Natalie triana Result [facility] [address] [place] [address] from Last 3 Months or Most Recently Relevant to Health Maintenance Insurance MEDICAID - [place] AET MEDICAID - [facility] Advance Directives * Full Code (Latest Code Status on File) Date Activated Date Inactivated Comments 11/01/2021 1:24 PM 11/04/2021 1:22 PM * Full Code Date Activated Date Inactivated Comments 07/05/2021 4:45 PM 07/06/2021 5:06 PM Care Teams Well Services Operator Relationship Specialty Start Date End Date Paola Carrillo PA [address] [facility] [address] [address] PCP - General Physician [employer] 07/05/21 Dannie Mccullough DO Family Medicine 05/21/18
--- OUTSIDE RECORDS SUMMARY | 2024-08-04 00:37 | XMS_ITS | Referral Summary ---
Author Organization [facility] Building Address [address] [place] [address] Care Team Providers Care Hedge Fund Principal Name Role Phone Salinas Massey PA Unavailable [phone] Shruthi Roberts PA Unavailable [phone] Noreen Stoll NP Unavailable [phone] Noreen Stoll NP Primary Care Provider [phone] Allergies Active Allergy Reactions Criticality Noted Date Comments Latex Rash Medium 06/17/2018 Nickel Agitation,Hives,Palp itations,Shortness of breath,Other (See comments) High 06/30/2020 Medications albuterol HFA (PROVENTIL HFA,VENTOLIN HFA,PROAIR HFA) 90 mcg/actuation inhaler INHALE 1 PUFF BY MOUTH 4 TIMES DAILY NEEDED 3 Active cetirizine (ZyrTEC) 10 mg tablet Take 1 tablet (10 mg total) by mouth daily Active famotidine (PEPCID) 20 mg tablet Take 1 tablet (20 mg total) by mouth 2 (two) times a day as needed Active L. acidophilus/Bif id. animalis 32 billion cell capsule Take 1 capsule by mouth daily Active escitalopram (LEXAPRO) 20 mg tablet Take 1.5 tablets (30 mg total) by mouth daily Active dextroamphetami ne-amphetamine XR (ADDERALL XR) 10 mg 24 hr capsule Take 1 capsule (10 mg total) by mouth every morning Active hydrOXYzine (ATARAX) 25 mg tabletIndicatio ns:anxiety Take 2 tablets (50 mg total) by mouth every 8 (eight) hours as needed for anxiety 4 Active LORazepam (ATIVAN) 0.5 mg tablet Take by mouth daily as needed 4 Active metFORMIN XR (GLUCOPHAGE XR) 500 mg 24 hr tablet Take 1 tablet (500 mg total) by mouth nightly 4 Active traZODone (DESYREL) 50 mg tablet Take 1 tablet by mouth nightly 30 tablet 4 Active Additional Information Patient not taking.Reported on 03/24/2024 propranoloL (INDERAL) 10 mg tabletIndicatio ns:Palpitations Take 2 tablets (20 mg total) by mouth 3 (three) times a day 180 tablet 4 Active baclofen (LIORESAL) 10 mg tablet Take 1 tablet (10 mg total) by mouth 3 (three) times a day as needed for muscle spasms 60 tablet 5 Active Active Problems Problem Noted Date Diagnosed Date Dyslipidemia 01/16/2024 Visual changes 08/05/2023 Assessment & Plan (08/05/2023 5:34 PM CDT): Patient is evaluated by ophthalmology but was found to have no issues with optic nerve. Due to visual changes, incontinence, and gait instability we will refer to neuro and order MRI. Fibromyalgia 06/10/2023 Assessment & Plan (07/08/2023 4:47 PM CDT): Pt reports pain is worse after increase Lexapro to 20 mg daily. She requests to increase to Gabapentin 600 mg 3x day. I discussed with her possible increase in fatigue. She would like to continue with a trial of increasing medication. Orders sent to patients pharmacy. Assessment & Plan (06/10/2023 3:25 PM CDT): Can not tolerate Cymbalta. Will continue Gabapentin 300mg TID. I told patient I am hesitant to increase dose because of her chronic fatigue. Recommend steady exercise including yoga and healthy diet. Cholecystitis 03/23/2023 Overview (03/31/2023): S/P cholecystectomy 03/24. Follow up is 04/17/23. Assessment & Plan (04/02/2023 11:36 PM READY TO WEAR DEPARTMENT MANAGER): Laparoscopic incision above navel is healing well. Edges are approximated. Will continue to monitor. She denies any pain. Sinus tachycardia 11/29/2022 Palpitations 11/29/2022 Assessment & Plan (03/31/2023 4:08 PM READY TO WEAR DEPARTMENT MANAGER): Managed previously by cardiology. Is on propranolol 20 mg daily. 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 Partners carrier screening test not in patient's records from [facility]. Will ask patient to have partner check records. Cystic fibrosis carrier 07/26/2021 Overview (10/27/2022): FOB negative Marijuana use 07/26/2021 Overview (10/27/2022): Using nightly per pt report previously - now working on cutting back Advised cessation in has stopped. Assessment & Plan (03/31/2023 4:09 PM READY TO WEAR DEPARTMENT MANAGER): Daily edible use, helps with anxiety. Raynaud's phenomenon 11/01/2020 Assessment & Plan (04/02/2023 11:38 PM READY TO WEAR DEPARTMENT MANAGER): Asymptomatic. PCOS (polycystic ovarian syndrome) 10/18/2020 Overview (10/27/2022): On Metformin 500mg BID Assessment & Plan (06/10/2023 3:24 PM CDT): Insulin resistant PCOS, Metformin 500mg daily. Managed by tire specialist. Assessment & Plan (03/31/2023 4:07 PM READY TO WEAR DEPARTMENT MANAGER): Insulin resistant PCO, Metformin 500mg daily. Protein C deficiency 10/18/2020 Overview (10/27/2022): no longer has per [facility] and MFM. ASA 81mg only. No lovenox. no longer has per [facility] and MFM. ASA 81mg only. No lovenox. Subclinical hypothyroidism 06/22/2018 Overview (03/31/2023): On Levothyroxine 50mcg QD 06/22: TSH 3.3 07/26: TSH 1.75 TSH 05/18 TSH 05/18 Assessment & Plan (04/02/2023 11:39 PM READY TO WEAR DEPARTMENT MANAGER): Normal TSH recently. Will monitor. Major depressive disorder, recurrent episode Assessment & Plan (07/08/2023 4:48 PM CDT): Would like to decrease Lexapro again to 10 mg. She reports that since increasing to 20 she has had an increase in her fibromyalgia symptoms. Advised that she can decrease to 10 mg. I have advised her to schedule with Psychiatry. She is advised to seek treatment in the ER if she develops any SI. Assessment & Plan (06/10/2023 3:22 PM CDT): Pt reports symptoms of anxiety we will increase the Lexapro to 20 mg to help with patient's anxiety and overall depression. She is advised to seek treatment in the ER if she develops any SI. She currently denies any SI/HI. Assessment & Plan (05/06/2023 5:29 PM READY TO WEAR DEPARTMENT MANAGER): PHQ has improved today. We will increase the Lexapro to 10 mg to help with patient's anxiety and overall depression. She is advised to seek treatment in the ER if she develops any SI. She currently denies any SI/HI. Assessment & Plan (03/31/2023 4:10 PM READY TO WEAR DEPARTMENT MANAGER): PHQ elevated at 11. Started Lexapro 5 mg today. Has follow up with psych soon. She would like for me to take over prescribing her medication. We will plan to increase at next visit. Attention deficit disorder 12/10/2008 Overview (10/27/2022): On Vyvanse Refilled 08/16 Last Assessment & Plan: On Vyvanse 30mg QD OK for high risk clinic to prescribe during per Dr. He. Pt aware she will need to return to having her PCP prescribe it after delivery. decreased vyvanse, but prob cannot get off of it and remain functional. decreased vyvanse, but prob cannot get off of it and remain functional. Assessment & Plan (07/08/2023 4:45 PM CDT): Continue Vyvanse 30mg daily. Orders have been sent to patients pharmacy. Assessment & Plan (06/10/2023 3:26 PM CDT): Pt reports ADHD is poorly controlled. 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 She would like to increase Vyvanse to 30mg daily. Orders sent to patients pharmacy. Assessment & Plan (05/06/2023 5:30 PM READY TO WEAR DEPARTMENT MANAGER): I discussed with patient decreasing the Vyvanse to 10 mg and seeing how she does on the lower dose. I discussed with her how stimulants can increase anxiety. We will see how she does on this medication. She will reach out if it isn't controlling her symptoms. Assessment & Plan (03/31/2023 4:13 PM READY TO WEAR DEPARTMENT MANAGER): Would like to switch back to Vyvanse off of Concerta d/t anxiety. Will discuss at next appt. Migraine 10/27/2007 Assessment & Plan (03/31/2023 4:09 PM READY TO WEAR DEPARTMENT MANAGER): Less than 15 per month. Reports they are few and far between. Ibuprofen or tylenol works for relief. Allergic rhinitis 07/17/1998 Overview (03/31/2023): Dust mites, cock roaches, and dogs. Had testing. Assessment & Plan (03/31/2023 4:16 PM READY TO WEAR DEPARTMENT MANAGER): Chronic, controlled. Zyrtec, flonase, albuterl PRN. She does take benadryl at night as needed. Resolved Problems Problem Noted Date Diagnosed Date Resolved Date GDM, class A2 10/27/2022 03/31/2023 depression 09/02/20222023 Cervical insufficiency durin g , antepartum 07/26/2021 03/31/2023 Overview (10/27/2022): H/o cervical shortening in G4 - treated with vaginal progesterone with full term delivery Current - short cervix (0.8cm) with cervical dilation of 1/50/-3. Cerclage performed 07/06/21 with merseline stitch - knot at 12 o'clock 07/26: CL 2.2cm On Vaginal progesterone 200mg nightly Prediabetes 07/12/2021 10/21/2023 Assessment & Plan (04/02/2023 11:38 PM READY TO WEAR DEPARTMENT MANAGER): Will repeat labs. Short cervix 07/05/2021 03/31/2023 Short cervical length during 04/26/2021 03/31/2023 Overview (10/27/2022): last preg- but delivered at 40w. CL at 16 and 20w. last preg- but delivered at 40w. CL at 16 and 20w. Asperger's syndrome 12/14/2020 06/23/19 25 Recurrent loss 10/18/2020 Elevated BP without diagnosis of hypertension 08/25/19 21 03/31/2023 Assessment & Plan (08/24/2020 8:45 PM CDT): BP normal in office Low salt Monitor daily at home and keep log Will call back/send [employer] message with readings in a few weeks May also bring in home BP machine to office to check accuracy of readings. Closed dislocation of right patella 04/11/2020 03/31/2023 Overview (04/11/2020): Added automatically from request for surgery [id number] Closed dislocation of left patella 12/29/2019 03/31/2023 Overview (12/29/2019): Added automatically from request for surgery [id number] Closed patellar dislocation, left, initial encounter 12/17/2019 12/18/2022 Closed patellar dislocation, right, initial encounter 12/17/2019 12/18/2022 Anxiety in in firs t trimester, antepartum 12/10/2016 03/31/2023 Depression affecting pregnan cy in first trimester, antepartum 12/10/2016 03/31/2023 Attention deficit disorder 12/10/2008 1 Immunizations Immunization Administration Dates Next Due DTaP 5 Pertussis 10/14/1996, 4,03/31/1992,01/13 DTaP, Unspecified 10/14/1996, 4,03/31/1992,01/13 HPV, Quadrivalent 01/04/2008,09/02/2007,07/04/19 08 HPV, Unspecified 01/04/2008,09/02/2007, 8 Hep A, Pediatric 04/22/2006,11/14/2004 Hep B, Adolescent or Pediatric 01/26/1993,1991,1991 Hib (PRP-T) 01/26/1993, 3,01/14/1992,11/21 Influenza LAIV (Nasal) 12/10/2008 Influenza, Quadrivalent, Spl it, Preservative Free, Intramuscular 01/16/2022,12/22/2019,02/05/2019 Influenza, Unspecified 03/06/2023,12/02/2019,12/2008 MMR 10/14/1996,01/29/1993 MMRV 10/14/1996,01/29/1993 Meningococcal MCV4P (Menactra) 11/14/2004 Moderna SARS-CoV-2 Monovalen t Vaccination (12+ YRS) 03/28/2020,02/29/2020 OPV 10/14/1996, 4,01/14/1992,11/21 OPV, Unspecified 10/14/1996, 4,01/14/1992,11/21 Tdap 08/30/2021,01/20/2019,11/14/2004 Social History Tobacco Use Types Packs/Day Years Used Date Smoking Tobacco: Former Cigarettes Q uit: 2017 Smokeless Tobacco: Never Tobacco Cessation:Counseling Given: Not Answered Alcohol Use Standard Drinks/Week Comments Not Currently 0 (1 standard drink = 0.6 oz pur e alcohol) Social Connection and Isolation Panel [NHANES] A nswer Date Recorded In a typical week, how many times do you talk on the phone with family, friends, or neighbors? Twice a week 09/02/2022 How often do you get together with friends or re latives? Twice a week 09/02/2022 How often do you attend mosque or religion serv ices? Never 09/02/2022 Active Member of Clubs or Organizations Not on f ile 09/02/2022 How often do you attend meet ings of the clubs or organizations you belong to? Never 09/02/2022 Are you , , di vorced, , never , or living with a partner? 09/02/2022 AUDIT-C Answer Date Recorded Q1: How often do you have a drink containing alcohol? Never 05/05/2023 Q2: How many drinks containi ng alcohol do you have on a typical day when you are drinking? Patient does not drink Q3: How often do you have si x or more drinks on one occasion? Never 05/05/2023 Overall Financial Resource Strain (CARDIA) Answe r Date Recorded How hard is it for you to pa y for the very basics like food, housing, medical care, and heating? Not hard at all 09/02/2022 PHQ-2 Answer Date Recorded PHQ-2 Total Score (If total score is 3 or more points, staff should administer the PHQ-9) 2 07/08/2023 [facility] [place] - Occupational Stress Questionnaire Answer Date Recorded Do you feel stress - tense, restless, nervous, or anxious, or unable to sleep at night because your mind is troubled all the time - these days? Very much 09/02/2022 Exercise Vital Sign Answer Date Recorde d On average, how many days pe r week do you engage in moderate to strenuous exercise (like a brisk walk)? 0 days 09/02/2022 On average, how many minutes do you engage in exercise at this level? 0 min 09/02/2022 Hunger Vital Sign Answer Date Recorded Within the past 12 months, y ou worried that your food would run out before you got the money to buy more. Never true 09/03/19 23 Within the past 12 months, t he food you bought just didn't last and you didn't have money to get more. Never true 09/02/2022 PRAPARE - Transportation Answer Date Re corded In the past 12 months, has l ack of transportation kept you from medical appointments or from getting medications? No 05/2022 In the past 12 months, has l ack of transportation kept you from meetings, work, or from getting things needed for daily living? No 09/02/2022 Housing Stability Vital Sign Answer Mario e Recorded In the last 12 months, was t here a time when you were not able to pay the mortgage or rent on time? No 09/02/2022 Number of Places Lived in the Last Year Not on f ile 09/02/2022 In the last 12 months, was t here a time when you did not have a steady place to sleep or slept in a usp (including now)? No 09/02/2022 Exeter Depression Scale Answer Date Recorded Exeter Depression Scale Total 5 09/16/2022 The thought of harming myself has occurred to me . Never 09/16/2022 Housing Stability Vital Sign Answer Mario e Recorded In the last 12 months, was t here a time when you were not able to pay the mortgage or rent on time? No 09/02/2022 Number of Times Moved in the Last Year Not on fi le 09/02/2022 Homeless in the Last Year Not on file 2022 Personal Safety Answer Date Recorded Have you ever been in or are you currently in a harmful physical or emotional relationship or is someone making you feel afraid or unsafe? Denies 08/05/2023 Comments Unknown Sex and Gender Information Value Date Recorded Sex Assigned at Not on file Legal Sex Female 8:16 PM READY TO WEAR DEPARTMENT MANAGER Gender Identity Genderqueer, neither exclusively Male nor Female 06/07/2020 6:57 AM CDT Sexual Orientation Bisexual 06/07/2020 6: 57 AM CDT Last Filed Vital Signs Vital Sign Reading Time Taken Comments Blood Pressure 114/59 03/24/2024 10:51 AM READY TO WEAR DEPARTMENT MANAGER Pulse 63 03/24/2024 10:51 AM READY TO WEAR DEPARTMENT MANAGER Temperature 36.8 C (98.2 F) 08/05/2023 1:10 PM CDT Respiratory Rate 15 08/05/2023 5:38 PM CDT Oxygen Saturation 99% 01/16/2024 10:01 AM READY TO WEAR DEPARTMENT MANAGER Inhaled Oxygen Concentration - - Weight 78.5 kg (173 lb) 03/24/2024 10:51 AM READY TO WEAR DEPARTMENT MANAGER Height 167.6 cm (5' 6) 03/24/2024 10:51 AM READY TO WEAR DEPARTMENT MANAGER Body Mass Index 27.92 03/24/2024 10:51 AM READY TO WEAR DEPARTMENT MANAGER Plan of Treatment Not on file Medical Devices Implanted Type Area Buttonholer Device Identifier Shelf Expiration Date Model / Serial / Lot [employer] [id number] Swivelock Tenodesis 7mm 19.5mm Fork Eyelet Shoulder Biceps Ortley - [id number] Implanted:Qty: 1 on 01/04/2020 by Geo Campbell MD at [facility] Left: Knee [employer] 05/01/2023 AR-1662BC-7 / / [id number] Allosource [id number] Frozen Aseptic Graft Soft Tissue Posterior Tibialis Tendon - [id number] Implanted:Qty: 1 on 01/04/2020 by Geo Campbell MD at [facility] Left: Knee [employer] [id number] / / Description:Single diameter 6mm, folded diameter 9.5mm Fastthread Biocomposite Interference Screw, 9 X20mm, With Disposable Sheath Implanted:Qty: 1 on 01/04/2020 by Geo Campbell MD at [facility] Left: Knee [employer] [id number] 08/01/2023 AR-4020C-09 / NA / [id number] Description:[facility] ITEM # [id number] FLAGGED IN [facility] 01/05/2020 CHARGE CODE ASSIGNED [id number] COST EA. 295.00 [facility] [id number] Graft Soft Tissue Posterior Tibialis Tendon - [id number] - [id number] Implanted:Qty: 1 on 04/27/2020 by Geo Campbell MD at [facility] Right: Knee [facility] 12/09/2020 [id number] / [id number] / [employer] Ar-1360c-Cp 4.5mm 6mm Cannulated Drill Guidepin Interference Screw Reamer - [id number] Implanted:Qty: 1 on 04/27/2020 by Geo Campbell MD at [facility] Right: Knee [employer] 01/31/2024 AR-1360C-CP / / [id number] Procedures Procedure Name Priority Date/Time Associated Diagnosis Comments EGFR STAT 08/05/2023 4:11 PM CDT LIPID PANEL Routine 05/30/2023 11:24 AM CDT HEMOGLOBIN A1C Routine 04/17/2023 7:57 AM READY TO WEAR DEPARTMENT MANAGER Prediabetes ALBUMIN CREATININE RATIO, URINE Routine 04/17/2023 7:57 AM READY TO WEAR DEPARTMENT MANAGER Prediabetes from Last 3 Months or Most Recently Relevant to Health Maintenance Results * eGFR (08/05/2023 4:11 PM CDT) eGFR >90 >=60 mL/min/1. 73 m2 Comment: Interpretive Data Reference Interval Normal >/= 90 mL/min/1.73m2 Mildly decreased* 60 - 89 mL/min/1.73m2 Mildly to moderately decreased 45 - 59 mL/min/1.73m2 Moderately to severely decreased 30 - 44 mL/min/1.73m2 Severely decreased 15 - 29 mL/min/1.73m2 Kidney Failure < 15 mL/min/1.73m2 *Relative to young adult level Estimated glomerular filtration rate is determined by the 2020 CKD-EPI equation recommended by the National Kidney Foundation (A Unifying Approach to GFR Estimation: Recommendations of the NKF-ASK Task Force on Reassessing the Inclusion of Race in Diagnosing Kidney Disease, JASN 2020). The CKD-EPI equation should not be used for patients with unstable renal function and has not been validated in children and those over 70. Current interpretive data was last reviewed 2021. Blood 08/05/2023 4:11 PM CDT 08/05/2023 4:20 PM CDT us Ernesto Fleming MD LAB BLOOD ORDERABLES Fi nal Result [facility] [id number] [facility] Department of Laboratories [place], [place] [id number] * (ABNORMAL) Lipid panel (05/30/2023 11:24 AM CDT) Pathologist [facility] Cholesterol 214(H) <200 mg/dL [facility] [place] HDL 49(L) > OR = 50 mg/dL [facility] Triglycerides 200(H) <150 mg/dL [facility] Comment: If a non-fasting specimen was collected, consider repeat triglyceride testing on a fasting specimen if clinically indicated. Kofi et al. J. of Clin. Lipidol. 2015;9:129-169. LDL 131(H) mg/dL (calc) [facility] Comment: Reference range: <100 Desirable range <100 mg/dL for primary prevention; <70 mg/dL for patients with CHD or diabetic patients with > or = 2 CHD risk factors. LDL-C is now calculated using the Frankie calculation, which is a validated novel method providing better accuracy than the Friedewald equation in the estimation of LDL-C. Isaías WELLINGTON et al. DAKOTAH. 2013;310(19): 3473-1617 (http://education.Platypus TV/faq/MRS981) Chol/HDL ratio 4.4 <5.0 (calc) [facility] Non-HDL, (LDL+VLDL) 165(H) <130 mg/dL (calc) [facility] Comment: For patients with diabetes plus 1 major ASCVD risk factor, treating to a non-HDL-C goal of <100 mg/dL (LDL-C of <70 mg/dL) is considered a therapeutic option. 05/30/2023 11:2 4 AM CDT 05/30/2023 11:26 AM CDT Narrative [facility] - 05/31/2023 7:08 AM CDT FASTING:YES FASTING: YES Noreen Stoll LOMBARDI DEVELOPER LAB BLOOD ORDERABLES Final Re sult Performing Organization Address [facility]/ZIP Co de Phone Number [facility] [address] [place] [address] * Albumin Creatinine Ratio, Urine (04/17/2023 7:57 AM READY TO WEAR DEPARTMENT MANAGER) Creatinine, ur 22 20 - 275 mg/dL [facility] Microalbumin, ur 0.2 See Note: mg/dL [facility] Comment: Reference Range: Reference Range Not established Microalbumin/creat ratio 9 <30 mcg/mg creat [facility] Comment: The ADA defines abnormalities in albumin excretion as follows: Albuminuria Category Result (mcg/mg creatinine) Normal to Mildly increased <30 Moderately increased 30-299 Severely increased > OR = 300 The ADA recommends that at least two of three specimens collected within a 3-6 month period be abnormal before considering a patient to be within a diagnostic category. Urine 04/17/2023 7:57 AM READY TO WEAR DEPARTMENT MANAGER 04/17/2023 7:59 AM READY TO WEAR DEPARTMENT MANAGER Narrative [facility] - 04/18/2023 4:19 PM READY TO WEAR DEPARTMENT MANAGER FASTING:YES FASTING: YES Noreen Stoll LOMBARDI DEVELOPER LAB URINE ORDERABLES Final Re sult Performing Organization Address City/[facility]/ZIP Co de Phone Number [facility] [address] [phone] * Hemoglobin A1c (04/17/2023 7:57 AM READY TO WEAR DEPARTMENT MANAGER) Hgb A1C 4.7 <5.7 % of total Hgb [facility] Comment: For the purpose of screening for the presence of diabetes: <5.7% Consistent with the absence of diabetes 5.7-6.4% Consistent with increased risk for diabetes (prediabetes) > or =6.5% Consistent with diabetes This assay result is consistent with a decreased risk of diabetes. Currently, no consensus exists regarding use of hemoglobin A1c for diagnosis of diabetes in children. According to [place] Diabetes Association (ADA) guidelines, hemoglobin A1c <7.0% represents optimal control in non- diabetic patients. Different metrics may apply to specific patient populations. Standards of Medical Care in Diabetes(ADA). HbA1c performed on SPHARES platform. Blood 04/17/2023 7:57 AM READY TO WEAR DEPARTMENT MANAGER 04/17/2023 7:59 AM READY TO WEAR DEPARTMENT MANAGER Narrative [facility] - 04/18/2023 4:19 PM READY TO WEAR DEPARTMENT MANAGER FASTING:YES FASTING: YES Noreen Stlol NP LAB BLOOD ORDERABLES Final Re sult [facility] [address] [place] [address] from Last 3 Months or Most Recently Relevant to Health Maintenance Insurance [facility] Advance Directives For more information, please contact: [phone] * Full Code (Latest Code Status on File) Date Activated Date Inactivated Comments 09/02/2022 8:40 AM 09/05/2022 1:44 PM Care Teams Hedge Fund Principal Relationship Specialty Start Date End Date Noreen Stoll NP [address] [place] [address] [place] [address] PCP - General Internal Medicine 03/31/23 Salinas Massey PA [address] [place] [address] [place] [address] Physician Cooling Tower Operator Orthopedic Surgery 01/04/20 Shruthi Roberts PA [address] [place] [address] [place] [address] Physician Cooling Tower Operator Orthopedic Surgery 04/27/20 Noreen Stoll NP [address] [place] [address] [place] [address] Nurse Practitioner Internal Medicine 03/31/23
--- OUTSIDE RECORDS SUMMARY | 2024-08-04 00:37 | XMS_ITS | Clinical Summary ---
Author Organization [facility] Building Address [address] [place] [address] Care Team Providers Care Local Area Network Administrator Name Role Phone Salinas Massey PA Unavailable [phone] Shruthi Roberts PA Unavailable [phone] Noreen Stoll NP Unavailable [phone] Noreen Stoll NP Primary Care Provider [phone] Allergies Active Allergy Reactions Criticality Noted Date [...] 04/17/23. Assessment & Plan (04/02/2023 11:36 PM FORWARD AIR CONTROLLER/AIR OFFICER): Laparoscopic incision above navel is healing well. Edges are approximated. Will continue to monitor. She denies any pain. Sinus tachycardia 11/29/2022 Palpitations 11/29/2022 Assessment & Plan (03/31/2023 4:08 PM FORWARD AIR CONTROLLER/AIR OFFICER): Managed previously by cardiology. Is on propranolol 20 mg daily. 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 Partners carrier screening test not in patient's records from [employer] [facility]. Will ask patient to have partner check records. Cystic fibrosis carrier 07/26/2021 Overview (10/27/2022): FOB negative Marijuana use 07/26/2021 Overview (10/27/2022): Using nightly per pt report previously - now working on cutting back Advised cessation in has stopped. Assessment & Plan (03/31/2023 4:09 PM FORWARD AIR CONTROLLER/AIR OFFICER): Daily edible use, helps with anxiety. Raynaud's phenomenon 11/01/2020 Assessment & Plan (04/02/2023 11:38 PM FORWARD AIR CONTROLLER/AIR OFFICER): Asymptomatic. PCOS (polycystic ovarian syndrome) 10/18/2020 Overview (10/27/2022): On Metformin 500mg BID Assessment & Plan (06/10/2023 3:24 PM CDT): Insulin resistant PCOS, Metformin 500mg daily. Managed by warrant server. Assessment & Plan (03/31/2023 4:07 PM FORWARD AIR CONTROLLER/AIR OFFICER): Insulin resistant PCO, Metformin 500mg daily. Protein C deficiency 10/18/2020 Overview (10/27/2022): no longer has per [facility] and MFM. ASA 81mg only. No lovenox. no longer has per [facility] and MFM. ASA 81mg only. No lovenox. Subclinical hypothyroidism 06/22/2018 Overview (03/31/2023): On Levothyroxine 50mcg QD 06/22: TSH 3.3 07/26: TSH 1.75 TSH 05/18 TSH 05/18 Assessment & Plan (04/02/2023 11:39 PM FORWARD AIR CONTROLLER/AIR OFFICER): Normal TSH recently. Will monitor. Major depressive [...] SI/HI. Assessment & Plan (05/06/2023 5:29 PM FORWARD AIR CONTROLLER/AIR OFFICER): PHQ has improved today. We will increase the Lexapro to 10 mg to help with patient's anxiety and overall depression. She is advised to seek treatment in the ER if she develops any SI. She currently denies any SI/HI. Assessment & Plan (03/31/2023 4:10 PM FORWARD AIR CONTROLLER/AIR OFFICER): PHQ elevated at 11. Started Lexapro 5 [...] pharmacy. Assessment & Plan (05/06/2023 5:30 PM FORWARD AIR CONTROLLER/AIR OFFICER): I discussed with patient decreasing the Vyvanse to 10 mg and seeing how she does on the lower dose. I discussed with her how stimulants can increase anxiety. We will see how she does on this medication. She will reach out if it isn't controlling her symptoms. Assessment & Plan (03/31/2023 4:13 PM FORWARD AIR CONTROLLER/AIR OFFICER): Would like to switch back to Vyvanse off of Concerta d/t anxiety. Will discuss at next appt. Migraine 10/27/2007 Assessment & Plan (03/31/2023 4:09 PM FORWARD AIR CONTROLLER/AIR OFFICER): Less than 15 per month. Reports they are few and far between. Ibuprofen or tylenol works for relief. Allergic rhinitis 07/17/1998 Overview (03/31/2023): Dust mites, cock roaches, and dogs. Had testing. Assessment & Plan (03/31/2023 4:16 PM FORWARD AIR CONTROLLER/AIR OFFICER): Chronic, controlled. Zyrtec, flonase, albuterl PRN. She [...] 10/21/2023 Assessment & Plan (04/02/2023 11:38 PM FORWARD AIR CONTROLLER/AIR OFFICER): Will repeat labs. Short cervix 07/05/2021 03/31/2023 [...] home and keep log Will call back/send [employer] message with readings in a few weeks May also bring in home BP machine to office to check accuracy of readings. Closed dislocation of right patella 04/11/2020 03/31/2023 Overview (04/11/2020): Added automatically from request for surgery [id number] Closed dislocation of left patella 12/29/2019 03/31/2023 Overview (12/29/2019): Added automatically from request for surgery [id number] Closed patellar dislocation, left, initial encounter 12/17/2019 [...] 4,01/14/1992,11/21 OPV, Unspecified 10/14/1996, 4,01/14/1992,11/21 Tdap 08/30/2021,01/20/2019,11/14/2004 Surgical History Surgery Date Site/Laterality Comments DILATION AND CURETTAGE OF UTERUS TONSILLECTOMY TONSILLECTOMY DILATION AND CURETTAGE, DIAG NOSTIC / THERAPEUTIC KNEE ARTHROSCOPY Left CHOLECYSTECTOMY 03/03/2023 - 03/02/2024 ERCP 04/05/2023 Medical History Medical History Date Comments Depression Anxiousness Adhd OCD (obsessive compulsive disorder) PTSD (post-traumatic stress disorder) Miscarriage ADHD (attention deficit hype ractivity disorder) Migraines Irritable bowel syndrome GDM, class A2 10/27/2022 Anxiety in in firs t trimester, antepartum 12/10/2016 Cervical insufficiency durin g , antepartum 07/26/2021 Formatting of this note migh t be different from the original. H/o cervical shortening in G4 - treated with vaginal progesterone with full term delivery Current - short cervix (0.8cm) with cervical dilation of 1/50/-3. Cerclage performed 07/06/21 with merseline stitch - knot at 12 o'clock 07/26: CL 2.2cm On Vaginal progesterone 200mg nightly Elevated BP without diagnosi s of hypertension 08/24/2020 depression 09/02/2022 Depression affecting pregnan cy in first trimester, antepartum 12/10/2016 Prediabetes 07/12/2021 Family History Medical History Relation Name Comments Coronary artery disease Father Depression Father Emphysema Father Hypertension Father Stroke Father Bipolar disorder Mother Brain Aneurysm Mother Stroke Mother Rodriguez syndrome Sister Relation Name Status Comments Father Mother Sister Social History Tobacco Use Types Packs/Day Years [...] week 09/02/2022 How often do you attend rastafarian or oriental orthodox serv ices? Never 09/02/2022 Active Member of [...] staff should administer the PHQ-9) 2 07/08/2023 [facility] - Occupational Stress Questionnaire Answer Date Recorded [...] place to sleep or slept in a [place] health care facility (including now)? No 09/02/2022 Geneva Depression Scale Answer Date Recorded Geneva Depression Scale Total 5 09/16/2022 The thought [...] on file Legal Sex Female 8:16 PM FORWARD AIR CONTROLLER/AIR OFFICER Gender Identity Genderqueer, neither exclusively Male nor Female 06/07/2020 6:57 AM CDT Sexual Orientation Bisexual 06/07/2020 6: 57 AM CDT Obstetrics History Para Term AB IAB SAB Ectopic Multiple Livin g Live Births 6 2 2 0 4 0 2 Date Outcome GA Total Labor Labor/2nd/3rd Weight Sex Type Anes PTL Margarita A1 A5 Name Clin Term AB AB AB AB Term Comments SAB x 3, all first trimester Last Filed Vital Signs Vital Sign Reading Time Taken Comments Blood Pressure 114/59 03/24/2024 10:51 AM FORWARD AIR CONTROLLER/AIR OFFICER Pulse 63 03/24/2024 10:51 AM FORWARD AIR CONTROLLER/AIR OFFICER Temperature 36.8 C (98.2 F) 08/05/2023 1:10 PM CDT Respiratory Rate 15 08/05/2023 5:38 PM CDT Oxygen Saturation 99% 01/16/2024 10:01 AM FORWARD AIR CONTROLLER/AIR OFFICER Inhaled Oxygen Concentration - - Weight 78.5 kg (173 lb) 03/24/2024 10:51 AM FORWARD AIR CONTROLLER/AIR OFFICER Height 167.6 cm (5' 6) 03/24/2024 10:51 AM FORWARD AIR CONTROLLER/AIR OFFICER Body Mass Index 27.92 03/24/2024 10:51 AM FORWARD AIR CONTROLLER/AIR OFFICER Plan of Treatment Health Maintenance Due Date Last Done Comments Cervical Cancer Screening 1991 Hepatitis C Screening 1991 Foot Exam 1991 Regular Well Visit/Exam 18-64 09/23/2009 Pneumococcal vaccine <65 (1 of 2 - PCV) 09/23/2010 Hemoglobin A1C 10/16/2023 04/17/2023 Covid-19 Vaccine (5 - 2023-2 5 season) 2023 05/04/2022, 02/03/2021, 03/28/2020, Additional history exists Albumin Creatinine Ratio, Urine 04/17/2024 Lipid Panel 05/29/2024 05/30/2023 Depression Screening 07/07/2024 07/08/2023, 05/05/2023, 03/31/2023, Additional history exists Dilated Eye Exam 07/29/2024 07/30/2023 eGFR 08/04/2024 08/05/2023, 0511/2023, 04/17/2023, Additional history exists Influenza Vaccine (Season Ended) 2024 03/06/2023, 01/16/2022, 12/22/2019, Additional history exists DTaP/Tdap/Td Vaccine (8 - Td or Tdap) 08/31/2031 08/30/2021, 01/20/2019, 11/14/2004, Additional history exists Hepatitis B Screening Completed 01/26/1993 , 1991, 1991 Varicella Vaccines Completed 10/14/1996, 01/29/1993 HPV Vaccines Completed 01/04/2008, 05/2007, 09/02/2007, Additional history exists Medical Devices Implanted Type Area Beverage Steward Device Identifier Shelf Expiration Date Model / Serial / Lot [employer] [id number] Swivelock Tenodesis 7mm 19.5mm Fork Eyelet Shoulder Biceps [place] - [id number] Implanted:Qty: 1 on 01/04/2020 by Geo Campbell MD at [facility] Left: Knee [employer] 05/01/2023 AR-1662BC-7 / / [id number] Allosource [id number] Frozen Aseptic Graft Soft Tissue Posterior Tibialis Tendon - [id number] Implanted:Qty: 1 on 01/04/2020 by Geo Campbell MD at [facility] Left: Knee [employer] [id number] / / Description:Single diameter 6mm, folded diameter 9.5mm Fastthread Biocomposite Interference Screw, 9 X20mm, With Disposable Sheath Implanted:Qty: 1 on 01/04/2020 by Geo Campbell MD at [facility] Left: Knee [employer] [id number] 08/01/2023 AR-4020C-09 / NA / [id number] Description:[employer] ITEM # [id number] FLAGGED [facility] 01/05/2020 CHARGE CODE ASSIGNED [id number] COST EA. 295.00 [facility] [id number] Graft Soft Tissue Posterior Tibialis Tendon - [id number] - [id number] Implanted:Qty: 1 on 04/27/2020 by Geo Campbell MD at [facility] Right: Knee [facility] 12/09/2020 [id number] / [id number] / [employer] Ar-1360c-Cp 4.5mm 6mm Cannulated Drill Guidepin Interference Screw Reamer - [id number] Implanted:Qty: 1 on 04/27/2020 by Geo Campbell MD at [facility] Right: Knee [employer] 01/31/2024 AR-1360C-CP / / [id number] Procedures Procedure Name Priority Date/Time Associated Diagnosis Comments EGFR STAT 08/05/2023 4:11 PM CDT LIPID PANEL Routine 05/30/2023 11:24 AM CDT HEMOGLOBIN A1C Routine 04/17/2023 7:57 AM FORWARD AIR CONTROLLER/AIR OFFICER Prediabetes ALBUMIN CREATININE RATIO, URINE Routine 04/17/2023 7:57 AM FORWARD AIR CONTROLLER/AIR OFFICER Prediabetes from Last 3 Months or Most [...] MD LAB BLOOD ORDERABLES Fi nal Result [facility] [address] [facility] [place] [address] * (ABNORMAL) Lipid panel (05/30/2023 11:24 AM CDT) Cholesterol 214(H) <200 mg/dL [facility] HDL 49(L) > OR = 50 mg/dL [facility] [place] Triglycerides 200(H) <150 mg/dL [facility] Comment: If a non-fasting specimen was collected, consider repeat triglyceride testing on a fasting specimen if clinically indicated. Kofi et al. J. of Clin. Lipidol. 2015;9:129-169. LDL 131(H) mg/dL (calc) [facility] Comment: Reference range: <100 Desirable range <100 mg/dL for primary prevention; <70 mg/dL for patients with CHD or diabetic patients with > or = 2 CHD risk factors. LDL-C is now calculated using the Frankie calculation, which is a validated novel method providing better accuracy than the Friedewald equation in the estimation of LDL-C. Isaías SS et al. DAKOTAH. 2013;310(19): 4258-0655 (http://education.PT [employer]/faq/ZOF071) Chol/HDL ratio 4.4 <5.0 (calc) [facility] Non-HDL, (LDL+VLDL) 165(H) <130 mg/dL (calc) [facility] Comment: For patients with diabetes plus 1 major ASCVD risk factor, treating to a non-HDL-C goal of <100 mg/dL (LDL-C of <70 mg/dL) is considered a therapeutic option. 05/30/2023 11:2 4 AM CDT 05/30/2023 11:26 AM CDT Narrative [facility] - 05/31/2023 7:08 AM CDT FASTING:YES FASTING: YES us Noreen Stoll CARDIAC NURSE PRACTITIONER LAB BLOOD ORDERABLES Final Re sult [facility] [address] [place] [address] * Albumin Creatinine Ratio, Urine (04/17/2023 7:57 AM FORWARD AIR CONTROLLER/AIR OFFICER) Creatinine, ur 22 20 - 275 mg/dL [...] a diagnostic category. Urine 04/17/2023 7:57 AM FORWARD AIR CONTROLLER/AIR OFFICER 04/17/2023 7:59 AM FORWARD AIR CONTROLLER/AIR OFFICER Narrative [facility] - 04/18/2023 4:19 PM FORWARD AIR CONTROLLER/AIR OFFICER FASTING:YES FASTING: YES [employer] CARDIAC NURSE PRACTITIONER LAB URINE ORDERABLES Final Re sult Performing Organization Address [facility]/ZIP Co de Phone Number [facility] [address] [place] [address] * Hemoglobin A1c (04/17/2023 7:57 AM FORWARD AIR CONTROLLER/AIR OFFICER) Hgb A1C 4.7 <5.7 % of total Hgb [facility] Comment: For the purpose of screening for the presence of diabetes: <5.7% Consistent with the absence of diabetes 5.7-6.4% Consistent with increased risk for diabetes (prediabetes) > or =6.5% Consistent with diabetes This assay result is consistent with a decreased risk of diabetes. Currently, no consensus exists regarding use of hemoglobin A1c for diagnosis of diabetes in children. According to [place] Diabetes Association (ADA) guidelines, hemoglobin A1c <7.0% represents optimal control in non- diabetic patients. Different metrics may apply to specific patient populations. Standards of Medical Care in Diabetes(ADA). HbA1c performed on Jaime platform. Blood 04/17/2023 7:57 AM FORWARD AIR CONTROLLER/AIR OFFICER 04/17/2023 7:59 AM FORWARD AIR CONTROLLER/AIR OFFICER Narrative [facility] - 04/18/2023 4:19 PM FORWARD AIR CONTROLLER/AIR OFFICER FASTING:YES FASTING: YES [employer] CARDIAC NURSE PRACTITIONER LAB BLOOD ORDERABLES Final Re sult Performing Organization Address City/[facility]/ZIP Co de Phone Number [facility] [address] [place] [address] from Last 3 Months or Most Recently Relevant to Health Maintenance Insurance [facility] Advance Directives For more information, please contact: [phone] * Full Code (Latest Code Status on File) Date Activated Date Inactivated Comments 09/02/2022 8:40 AM 09/05/2022 1:44 PM Care Teams Local Area Network Administrator Relationship Specialty Start Date End Date Noreen Stoll NP [address] [place] [address] [address] [place] [address] PCP - General Internal Medicine 03/31/23 Salinas Massey PA [address] [place] [address] [place] [place] [address] Physician Boat Hoist Operator Helper Orthopedic Surgery 01/04/20 Shruthi Roberts PA [address] [place] [address] [address] [place] [address] Physician Boat Hoist Operator Helper Orthopedic Surgery 04/27/20 Noreen Stoll NP [address] [place] [address] [address] [place] [address] Nurse Practitioner Internal Medicine 03/31/23
--- OUTSIDE RECORDS SUMMARY | 2024-08-04 00:37 | XMS_ITS ---
Author Organization Unknown Allergies, Adverse Reactions, Alerts Substance Reaction Status Noinformation - Inactive Medications Medication Instructions Effective Dates (start - sto p) Status NoInformation Completed Problems Problem Status Start date Recorded date Problem Inactive Procedures Procedure Date NoInformation Results No information Plan of Treatment Patient Care team information Name Category Status Period Participants - Episode of care-focused care team Proposed 27-03-27 - now - - - Proposed period not known - Notes Author - Date Note - no notes - no notes - no notes - No Information - no notes
--- OUTSIDE RECORDS SUMMARY | 2024-08-04 00:37 | XMS_ITS | Encounter Summary ---
Author Organization [facility] Healthcare Address [address] [place] [address] Care Team Providers Care Assistant Front Office Manager Name Role Phone Paola Carrillo Primary Care Provider + Raheem Ponce MD Unavailable [phone] Salinas Massey Unavailable [phone] Shruthi Roberts Unavailable [phone] Noreen Stoll NP Unavailable [phone] Noreen Stoll NP Primary Care Provider [phone] Encounter Details Date Type Department Care Team (Latest Contact Info) Description 09/16/2022 Telephone Psychiatry Adali Rivas LCSW Social History Tobacco Use Types Packs/Day Years Used Date Smoking Tobacco: Former Smokeless Tobacco: Never Alcohol Use Standard Drinks/Week [...] week 09/02/2022 How often do you attend cheondoism or taoism serv ices? Never 09/02/2022 Active Member of Clubs or Organizations Not on f ile 09/02/2022 How often do you attend meet ings of the clubs or organizations you belong to? Never 09/02/2022 Are you , , di vorced, , never , or living with a partner? 09/02/2022 AUDIT-C Answer Date Recorded Q1: How often do you have a drink containing alcohol? Never 01/16/2022 Q2: How many drinks containi ng alcohol do you have on a typical day when you are drinking? Patient does not drink Frequency of Binge Drinking Not on file 01/01 Overall Financial Resource Strain (CARDIA) Answe r Date Recorded How hard is it for you to pa y for the very basics like food, housing, medical care, and heating? Not hard at all 09/02/2022 PHQ-2 Answer Date Recorded PHQ-2 Total Score (If total score is 3 or more points, staff should administer the PHQ-9) 6 09/02/2022 [facility] - Occupational Stress Questionnaire Answer Date [...] place to sleep or slept in a [facility]cc (including now)? No 09/02/2022 [place] Depression Scale Answer Date Recorded [place] Depression Scale Total 5 09/16/2022 The thought [...] the Last Year Not on file 2022 Comments No Sex and Gender Information Value Date Recorded Sex Assigned at Not on file Legal Sex Female 8:16 PM PATIENT CARE Gender Identity Genderqueer, neither exclusively Male nor Female 06/07/2020 6:57 AM CDT Sexual Orientation Bisexual 06/07/2020 6: 57 AM CDT documented as of this encounter Plan of Treatment Not on file documented as of this encounter Visit Diagnoses Not on filedocumented in this encounter Care Teams Assistant Front Office Manager Relationship Specialty Start Date End Date Paola Carrillo PA PCP - General Family Medicine 09/06/21 03/30/23 Noreen Stoll NP [address] [place] [address] [place] [address] PCP - General Internal Medicine 03/31/23 Raheem Ponce MD Family Medicine 09/06/21 03/30/23 Salinas Massey PA [address] [place] [address] [place] [address] Physician Respiratory Technician Orthopedic Surgery 01/04/20 Shruthi Roberts PA [address] [place] [address] [place] [address] Physician Respiratory Technician Orthopedic Surgery 04/27/20 Noreen Stoll NP [address] [place] [address] [address] [address] Nurse Practitioner Internal Medicine 03/31/23 documented as of this encounter
--- OUTSIDE RECORDS SUMMARY | 2024-08-04 00:37 | XMS_ITS | Encounter Summary ---
Author Organization [facility] Address [address] [facility] [place] [address] Care Team Providers Care Dry Cell Tester Name Role Phone Jb Harrington MD Primary Care Provider [phone] Dannie Mccullough DO Primary Care Provider Jb Harrington MD Primary Care Provider [phone] Dannie Mccullough DO Primary Care Provider Dannie Mccullough DO Unavailable [phone] Paola Carrillo Primary Care Provider [phone] Encounter Details Date Type Department Care Team (Late st Contact Info) Description 11/03/2013 [facility] Outpatient Visit [facility] - Family Medicine [address] [place] [address] [place] [address] [place] [address] Social History Tobacco Use Types Packs/Day Years Used Date Smoking Tobacco: Passive Smo ke Exposure - Never Smoker Cigarettes Alcohol Use Standard Drinks/Week Comments Yes 0 (1 standard drink = 0.6 oz pur e alcohol) rarely Comments No Sex and Gender Information Value Date Recorded Sex Assigned at Female 12/26/2020 9:46 AM CDT Legal Sex Female 8:30 AM COMMUNICATIONS WRITER Gender Identity Gender Non-conforming 12/26/2020 9:46 AM CDT Sexual Orientation Bisexual 12/26/2020 9: 46 AM CDT documented as of this encounter Plan of Treatment Not on file documented as of this encounter Visit Diagnoses Not on filedocumented in this encounter Care Teams Dry Cell Tester Relationship Specialty Start Date End Date Jb Harrington MD PCP - General Family Medicine 11/03/13 12/02/13 Dannie Mccullough DO PCP - General Family Medicine 06/23/16 05/20/18 Jb Harrington MD PCP - General 05/21/18 06/01/18 Dannie Mccullough DO PCP - General 06/02/18 07/04/21 Paola Carrillo PA [address] [facility] [place] [address] PCP - General Physician Sexual Assault Response Coordinator 07/05/21 Dannie Mccullough DO Family Medicine 05/21/18 documented as of this encounter
--- OUTSIDE RECORDS SUMMARY | 2024-08-04 00:37 | XMS_ITS | Continuity of Care Document ---
Author Organization [facility] Address [address] [facility] [address] [place] [address] Phone Care Team Providers Care Chair Inspector And Leveler Name Role Phone Devin Chisholm PT Unavailable [...] Diagnoses Date Provider Providers Copied on Encounter [facility], [id number], tel:[phone] [place] No Information 5 Kathrine Beltran. . [facility], [id number], tel:[phone] [place] No Information 5 Kathrine Beltran. . Referring Provider: Salinas Massey, [address] [facility] [place], [address]. tel:[phone] [facility] [address], [id number], tel:[phone] [place] No Information 5 Kathrine Beltran. . Referring Provider: Salinas Massey, [address] [facility] [address], [place], [address]. tel:[phone] [employer] [place], [address] [facility] [address], [place], [place], [id number], tel:[phone] [place] No Information 5 Kathrine Beltran. . Referring Provider: Salinas Massey, [address] [facility] [address], [place], [address]. tel:[phone] Family History Family Member Type Diagnosis Age At Onset No Information Payers Payer name Insurance type Covered green party ID [place] lira(s) [employer] CI [id number] Social History Type Description Quantity Date Captured [...]
[2024-08-04 12:30] VITALS: BP 116/79; PULSE 75; RESP 16; TEMP 36.6; O2SAT 98; BMI 26.2
[2024-08-04] MEDS: ACETAMINOPHEN 500 MG TABLET 1000 MG PO (12:45)
--- NOTE | 2024-08-04 14:21 | PM.IMHP ---
H&P: HPI History of Present Illness Date/Time: 08/04/24 14:21 Chief Complaint: Heavy vaginal bleeding Narrative: This patient is a 33-year-old female severe menorrhagia. We have agreed for endometrial ablation with hysteroscopy. She understands risks, benefits, and alternatives. She has completed informed consent process and is ready to proceed. The patient understands the details of the procedure. The procedure has been explained in detail. She understands the risks. She understands that injuries may occur that result in hospitalization, more surgery, and severe illness. She understands risk of hemorrhage and infection. She denies any chest pain or shortness of breath. She denies any nausea, vomiting, fever, chills. Review of Systems Review of Systems: All systems reviewed & are unremarkable except as noted in HPI and below Constitutional: Constitutional: Denies chills, Denies fatigue, Denies fever(s) and Denies weakness Eyes: Eyes: Denies blurry vision, Denies change in vision, Denies loss of peripheral vision, Denies loss of vision, Denies other visual disturbances and Denies eye pain ENT: Denies vertigo, Denies dizziness, Denies hearing loss, Denies mouth pain, Denies nasal obstruction, Denies neck mass and Denies neck pain Cardiovascular: Cardiovascular: Denies chest pain, Denies diaphoresis, Denies syncope, Denies leg edema and Denies dyspnea Respiratory: Respiratory: Denies chest congestion, Denies cough, Denies hemoptysis, Denies dyspnea and Denies wheezing Gastrointestinal: Gastrointestinal: Denies abdominal pain, Denies constipation, Denies diarrhea, Denies nausea and Denies vomiting Genitourinary: Genitourinary: Denies hematuria, Denies change in libido, Denies nocturia, Denies genital lesions, Denies flank pain and Denies urinary urgency Musculoskeletal: Musculoskeletal: Denies abnormal gait, Denies back pain, Denies myalgias, Denies arthralgias, Denies joint swelling, Denies muscle weakness and Denies neck pain Integumentary/Breasts: Skin/Breast: Denies swelling, Denies breast pain, Denies breast mass, Denies dry skin, Denies nipple discharge, Denies unusual bruising and Denies jaundice Neurologic: Denies Neuro-related abnormal movements, Denies Abnormal speech present, Denies abnormal gait, Denies behavioral changes, Denies confusion, Denies vertigo, Denies dizziness, Denies syncope, Denies loss of vision, Denies memory loss, Denies convulsions and Denies weakness Psychiatric: Psychiatric: Denies abnormal sleep pattern, Denies behavioral changes, Denies change in libido, Denies confusion, Denies depression, Denies anhedonia and Denies memory loss Endocrine: Endocrine: Reports no additional endocrine complaints, Denies change in libido and Denies fatigue Hematologic/Lymphatic: Hematologic/Lymphatic: Reports no additional hematologic/lymphatic complaints Allergic/Immunologic: Allergic/Immunologic: Reports no additional allergic/immunologic complaints and Denies wheezing PMFSH Past Medical History Medical History (Updated 08/04/24 @ 14:23 by Ronnie Gudino MD) Panic attack IBS (irritable bowel syndrome) Asthma RUQ pain Loose stools Abdominal bloating Anxiety Depression No acute medical problems Surgical History Surgical History History of tonsillectomy History of D&C History of knee surgery Family History Family History Other Diabetes mellitus Heart disease Hypertension Social History Social History Smoking packs per day: 1 Smoking cigarettes per day: 20.0 Years smoked: 3 Smoking pack-years: 3.00 Smoking status: Never smoker Tobacco type: cigarettes Smoking end date: 08/31/16 Alcohol intake: never Substance use: current Substance use type: marijuana Other substance usage details: Occasionally Do You Feel Safe in your Home?: Yes Lack of Transportation: No Lack of Food: Never True Current Housing: I Have Housing Concerned About Future Housing: No Difficulty Paying Gas/Electric Bills: No Difficulty Paying for Meds: No Currently Unemployed: No Education: Bachelor's Degree Difficulty w/ Childcare or Family Care: YES Living arrangements: with family Additional living arrangements comments: HUSB & SON Gender identity (if verbalized by the patient): Female Spiritual care concerns: No Meds Home Medications and Allergies Home Medications ?Medication ?Instructions ?Recorded ?Confirmed ?Type metformin 500 mg tablet,extended 500 mg PO DAILY 02/05/23 07/29/24 History release 24 hr oxcarbazepine 150 mg tablet 150 mg PO DAILY 12/08/23 08/04/24 History hydroxyzine HCl 50 mg tablet 50 mg PO Q6H 03/13/24 07/29/24 History oxcarbazepine 300 mg tablet 300 mg PO .QD 03/13/24 07/29/24 History atomoxetine 40 mg capsule 40 mg PO DAILY 07/29/24 08/04/24 History cholecalciferol (vitamin D3) 25 25 mcg PO DAILY 07/29/24 08/04/24 History mcg (1,000 unit) capsule (Vitamin D3) desvenlafaxine succinate 25 mg 25 mg PO DAILY 07/29/24 07/29/24 History tablet,extended release 24 hr magnesium 200 mg tablet 400 mg PO DAILY 07/29/24 08/04/24 History Allergies Allergy/AdvReac Type Severity Reaction Status Date / Time latex Allergy Mild Rash Verified 08/04/24 12:55 nickel Allergy Mild Swelling Verified 08/04/24 12:55 Exam Const: General: cooperative, healthy appearing, comfortable and no acute distress Orientation/consciousness: oriented to person, oriented to place and oriented to time HENMT: Head: normal to inspection Ears: external ears normal Face/Nose/Sinus: Normal external nose present and normal facial exam Face and sinus: normal facial exam Eyes: General: appearance normal, both eyes and all related structures Neck: Neck: normal visual inspection, trachea midline and supple Resp: Auscultation: clear to auscultation bilaterally, no crackles, no rales, no rhonchi and no wheezes Cardio: Rate: regular rate Rhythm: regular rhythm Heart sounds: no click, no murmurs and no rubs GI: GI Palp: No abdominal tenderness, No Soft to palpation, No Tenderness to palpation present (GI) and No Palpable mass present Auscultation: normal bowel sounds Skin: General skin exam: normal color and no rashes or lesions noted Neuro: General: oriented to person, oriented to place and oriented to time Extrem: General: normal to inspection, no joint enlargement, no clubbing, cyanosis or edema, no pedal edema and no calf tenderness Psych: Appearance: grossly normal Mental Status: mental status grossly normal Speech and movement: Normal speech and movement present Assessment and Plan Assessment and plan (1) Menorrhagia: Code(s): N92.0 - Excessive and frequent menstruation with regular cycle Status: Acute Plan This patient is a 33-year-old female severe menorrhagia. We have agreed for endometrial ablation with hysteroscopy. She understands risks, benefits, and alternatives. She has completed informed consent process and is ready to proceed.
--- NOTE | 2024-08-04 14:23 | WPDHPUPDATE1 ---
History and Physical Update Update Date/Time: 08/04/24 14:23 History and Physical has been reviewed, including an updated exam of the patient. There are NO changes in the patient's condition. Risks, benefits, and alternatives have been discussed and questions answered. Patient agrees to proceed with procedure.
--- NOTE | 2024-08-04 14:48 | P.PNAN_ITS ---
Anes - Initial Pre Proc Eval Procedure: Operation Date: 08/04/24 14:00 Proposed Procedures p Hysteroscopy with Kala Endometrial Ablation - Ronnie Gudino MD Date/Time: 08/04/24 14:48 Surgeon: Ronnie Gudino MD Pre Op Diagnosis: Menorrhagia Patient Data Age: 33 Gender: F Height: 1.65 m Weight: 71.6 kg Last Vital Signs Temp 36.6 C 08/04/24 12:30 Pulse 75 08/04/24 12:30 Resp 16 08/04/24 12:30 BP 116/79 08/04/24 12:30 Pulse Ox 98 08/04/24 12:30 O2 Del Method Room Air 08/04/24 12:30 Allergies Allergy/AdvReac Type Severity Reaction Status Date / Time latex Allergy Mild Rash Verified 08/04/24 12:55 nickel Allergy Mild Swelling Verified 08/04/24 12:55 Home Medications ?Medication ?Instructions ?Recorded ?Confirmed ?Type metformin 500 mg tablet,extended 500 mg PO DAILY 02/05/23 07/29/24 History release 24 hr oxcarbazepine 150 mg tablet 150 mg PO DAILY 12/08/23 08/04/24 History hydroxyzine HCl 50 mg tablet 50 mg PO Q6H 03/13/24 07/29/24 History oxcarbazepine 300 mg tablet 300 mg PO .QD 03/13/24 07/29/24 History atomoxetine 40 mg capsule 40 mg PO DAILY 07/29/24 08/04/24 History cholecalciferol (vitamin D3) 25 25 mcg PO DAILY 07/29/24 08/04/24 History mcg (1,000 unit) capsule (Vitamin D3) desvenlafaxine succinate 25 mg 25 mg PO DAILY 07/29/24 07/29/24 History tablet,extended release 24 hr magnesium 200 mg tablet 400 mg PO DAILY 07/29/24 08/04/24 History Patient hx anesthesia problems: none Family hx anesthesia problems: none Results Review: All pre-operative results and documents have been reviewed as part of the pre- operative evaluation. [facility] Past Medical History Medical History (Updated 08/04/24 @ 14:23 by Ronnie Gudino MD) Panic attack IBS (irritable bowel syndrome) Asthma RUQ pain Loose stools Abdominal bloating Anxiety Depression No acute medical problems Surgical History Surgical History History of tonsillectomy History of D&C History of knee surgery Family History Family History Other Diabetes mellitus Heart disease Hypertension Social History Social History (Updated 08/04/24 @ 14:48 by Ziyad Sullivan, ) Smoking packs per day: 1 Smoking cigarettes per day: 20.0 Years smoked: 3 Smoking pack-years: 3.00 Smoking status: Never smoker Tobacco type: cigarettes Smoking end date: 08/31/16 Alcohol intake: never Substance use: current Substance use type: marijuana Other substance usage details: daily Do You Feel Safe in your Home?: Yes Lack of Transportation: No Lack of Food: Never True Current Housing: I Have Housing Concerned About Future Housing: No Difficulty Paying Gas/Electric Bills: No Difficulty Paying for Meds: No Currently Unemployed: No Education: Bachelor's Degree Difficulty w/ Childcare or Family Care: YES Living arrangements: with family Additional living arrangements comments: HUSB & SON Gender identity (if verbalized by the patient): Female Spiritual care concerns: No Anes - Eval Final PreProcedure Day of Procedure 08/04/24 14:48 Patient weight: overweight Heart: regular rate and rhythm Lungs: clear to auscultation Airway: Mallampati scale class II Neurological: alert and oriented Last oral intake: >/= 8 hours ASA classification: III Emergent: no Anesthetic plan: proceed Anesthesia type and monitoring: general GIVS and standard monitoring Results Review: All pre-operative results and documents have been reviewed as part of the pre- operative evaluation. Informed Consent: The patient's anesthetic plan and its attendant risks and benefits were discussed with the patient/family/POA. Questions were solicited and answers provided to the satisfaction of the patient/family/POA.
[2024-08-04] MEDS: LACTATED RINGERS 1,000 ML 30 ML IV CONT (14:57)
[2024-08-04 15:27] VITALS: BP 118/71; PULSE 60; RESP 14; O2SAT 100
--- NOTE | 2024-08-04 15:37 | W.PM.PROC2 ---
Procedure Note - Detailed Date of Procedure 08/04/24 Pre-op Diagnosis Menorrhagia Post-op Diagnosis Same Procedure Performed endometrial ablation with hysteroscopy d&c Surgeon Ronnie Gudino MD Anesthesia MAC Indications Severe menorrhagia Findings Normal vulva vagina and cervix. Normal endometrium. Description of Procedure The patient was taken to the operating room. She was prepped and draped in the dorsal lithotomy position after induction of mac anesthesia. A speculum was placed in the vagina. Cervix grasped with a tenaculum. The cervix was dilated to about 1 cm. The hysteroscope was inserted. The above findings were noted. Endometrial curettage was performed with a medium-size curette. All surfaces of the endometrium were affected by the curettage. The specimens were collected and sent to pathology. Measurements were taken of the uterus and cervix. The uterine length was then entered into the hand piece of the Kala device. The device was inserted into the intrauterine cavity. The array of the device was expanded. The balloon cuff was inflated. A good seal was achieved. The energy and safety cycles were initiated and completed. The array was collapsed and the instrument was withdrawn after deflating the balloon cuff. Hysteroscope was reinserted. Above findings were noted. The hysteroscope was removed. The patient tolerated the procedure well. The speculum and tenaculum were removed. She was taken to recovery in stable condition. Sponge lap and needle counts were correct x2. Estimated Blood Loss 15 Pathology Yes Complications No immediate complications Condition Stable Disposition Same day
--- NOTE | 2024-08-04 15:40 | SUR.PHASEII ---
RN entered the room to find patient crying hysterically, rocking back and forth. Patients IV access had been pulled out by the patient.
[2024-08-04] MEDS: oxyCODONE HCL (*CRX) 5 MG TAB IR PO (15:44)
[2024-08-04] MEDS: KETOROLAC 30 MG/ML VIAL (*BKC) IM (15:51)
[2024-08-04 15:57] VITALS: BP 121/89; PULSE 75; RESP 16
[2024-08-04 16:27] VITALS: BP 133/81; PULSE 77; RESP 16
--- NOTE | 2024-08-04 16:38 | SUR.PHASEII ---
MD assessed patient at bedside at this time. Ordering IM Morphine 5mg.
[2024-08-04] MEDS: MORPHINE SULFATE INJ (*CRX) 10 MG/ML AMP 5 MG IM (16:48)
[2024-08-04 16:57] VITALS: BP 119/68; PULSE 50; RESP 18
== END 2024-08-04 17:12 | disposition home or self-care (01) ==
PROVIDERS: PCP Nurse Practitioner; Visit Provider Obstetrics & Gynecology
PROC: 0U5B8ZZ Destruction of Endometrium, Via Natural or Artificial Opening Endoscopic (ICD-10-PCS; CPT 58563; principal; 2024-08-04 14:00)
DX: N92.0 Excessive and frequent menstruation with regular cycle (principal); K58.9 Irritable bowel syndrome, unspecified; J45.909 Unspecified asthma, uncomplicated; F41.9 Anxiety disorder, unspecified; F41.0 Panic disorder [episodic paroxysmal anxiety]; F32.A Depression, unspecified; Z79.84 Long term (current) use of oral hypoglycemic drugs; Z98.890 Other specified postprocedural states; Z82.49 Family history of ischemic heart disease and other diseases of the circulatory system
CPT/HCPCS: 58563; A9270; J1885; J2003; J2250; J2270; J2405; J2704; J3010; J7120

== ENCOUNTER 2024-11-11 18:19 | Emergency (ER) | payer OTHER, SELFPAY ==
--- OUTSIDE RECORDS SUMMARY | 2024-05-05 05:20 | XMS_ITS | Continuity of Care Document ---
Author Organization [facility] Address [address] [facility] [address] [place] [address] Phone Care Team Providers Care Supply Chain Logistics Manager Name Role Phone Devin Chisholm PT Unavailable Unavailable Procedures Procedure Date Therapeutic Activities Neuromuscular Re-Ed Therapeutic Exercise Therapeutic Activities Neuromuscular Re-Ed Therapeutic Exercise Hot or Cold Pack PT Evaluation Moderate Complexity Therapeutic Activities Neuromuscular Re-Ed Therapeutic Exercise Advance Directives Directive Yes / No Effective Date File Name No Information Encounters Encounter Description Practice Location Reason(s) For Visit Diagnoses Date Provider Providers Copied on Encounter [facility], [id number], tel:[phone] [facility] No Information 5 Kathrine Beltran. . [facility], [id number], tel:[phone] [facility] No Information 5 Kathrine Beltran. . Referring Provider: Salinas Massey, [address] [facility] [address], [place], [address]. tel:[phone] [facility] [address], [id number], tel:[phone] [facility] No Information 5 Kathrine Beltran. . Referring Provider: Salinas Massey, [address] [facility] [address], [place], [address]. tel:[phone] [facility] [place], [address] [facility] [address], [place], [place], [id number], tel:[phone] [facility] No Information 5 Kathrine Beltran. . Referring Provider: Salinas Massey, [address] [facility] [address], [place], [address]. tel:[phone] Family History Family Member Type Diagnosis Age At Onset No Information Payers Payer name Insurance type Covered democrat ID Palak lira(s) Aetna CI [id number] Social History Type Description Quantity Date Captured Comments Sex Female Smoking Status No Information Chief Complaint And Reason For Visit No Information Reason For Referral Reason For Referral No Information History Of Present Illness Encounter Date Complaint History Of Prese nt Illness No Information Functional Status Date Functional Assessmen t No Information Instructions Date Instruction Additional Infor mation No Information Assessments Type Assessment Date No Information Patient Care Teams Name Effective Dates (start - stop) Status Members No Information
--- OUTSIDE RECORDS SUMMARY | 2024-05-05 05:20 | XMS_ITS | Continuity of Care Document ---
Author Organization [facility] Address [address] [facility] [address] [place] [address] Phone Care Team Providers Care Ammonia Refrigeration Worker Name Role Phone Devin Chisholm PT Unavailable [...] Diagnoses Date Provider Providers Copied on Encounter [facility], [id number], tel:[phone] [place] No Information 5 Kathrine Beltran. . [facility], [id number], tel:[phone] [place] No Information 5 Kathrine Beltran. . Referring Provider: Salinas Massey, [address] [facility] [address], [place], [address]. tel:[phone] [facility] [address], [id number], tel:[phone] [place] No Information 5 Kathrine Beltran. . Referring Provider: Salinas Massey, [address] [facility] [address], [place], [address]. tel:[phone] [facility] [place], [address] [facility] [address], [place], [place], [id number], tel:[phone] [place] No Information 5 Kathrine Beltran. . Referring Provider: Salinas Massey, [address] [facility] [address], [place], [address]. tel:[phone] Family History Family Member Type Diagnosis Age At Onset No Information Payers Payer name Insurance type Covered democrat ID Palak lira(s) Aetna CI [id number] Social History Type Description Quantity Date Captured [...]
--- NOTE | ~2024-11-11 | XR_ITS ---
EXAMINATION: XR chest 2V 11/11/2024 19:09 INDICATION: Chest pain and shortness of breath PROCEDURE: 2 view chest COMPARISON: 10/11/2023 FINDINGS: The lungs are clear. The cardiomediastinal silhouette is within normal limits. There are no pleural effusions. There is no pneumothorax suspected. IMPRESSION: 1: NO ACUTE CARDIOPULMONARY DISEASE. Reviewed, dictated and finalized at location O.
--- NOTE | 2024-11-11 18:20 | ECG_ITS ---
Test Date: 2024-11-11 18:24:54 Measurements Intervals [place] Rate: 88 P: 69 KS: 169 QRS: 75 QRSD: 85 T: -11 QT: 348 QTc: 423 Interpretive Statements SINUS RHYTHM NONSPECIFIC ST & T-WAVE ABNORMALITY No previous ECG available for comparison Electronically Signed On 11-12-2024 15:16:36 CDT by Gurmeet Cordova M.D.
--- OUTSIDE RECORDS SUMMARY | 2024-11-11 18:21 | XMS_ITS | Encounter Summary ---
Author Organization [facility] Address [address] [place] [address] Care Team Providers Care Acquisition Professional Name Role Phone Karrie Herman NP Primary Care Provider [phone] Paola Alexander-C Primary Care Provider + Noreen StollP Primary Care Provider [phone] Encounter Details Date Type Department Care Team (Late st Contact Info) Description 03/07/2020 MyCZonbo Mediat Message Enc [facility] Family Medicine - [place] [address] [place] [address] Karrie Herman NP [address] [place] [address] Referral Request Social History Tobacco Use Types Packs/Day Years Used Date Smoking Tobacco: Former Cigarettes 0 10/31/2010 - 10/31/2013 Smokeless Tobacco: Never Alcohol Use Standard Drinks/Week Comments No 0 (1 standard drink = 0.6 oz pur e alcohol) Humiliation, Afraid, Rape, and Kick questionnair e Answer Date Recorded Fear of Current or Ex-Partner No Emotionally Abused No 11/21/2018 Physically Abused No 11/21/2018 Sexually Abused No 11/21/2018 AUDIT-C Answer Date Recorded Frequency of Alcohol Consumption Never 08/13/2018 Average Number of Drinks Not on file 019 Frequency of Binge Drinking Not on file 08/01 Overall Financial Resource Strain (CARDIA) Answe r Date Recorded Difficulty of Paying Living Expenses Not hard at all 02/03/2019 PHQ-2 Answer Date Recorded PHQ-2 Score - If the patient scores above 3, please move on to questions 3-9 6 03/01/2020 [facility] - Occupational Stress Questionnaire Answer Date Recorded Feeling of Stress To some extent 02/03/2019 Hunger Vital Sign Answer Date Recorded Worried About Running Out of Food in the Last Ye ar Never true 02/03/2019 Ran Out of Food in the Last Year Never true 02/03/2019 PRAPARE - Transportation Answer Date Re corded Lack of Transportation (Medical) No 02/03/2019 Lack of Transportation (Non-Medical) No 02/03/2019 Education Answer Date Recorded What is the highest level of school you have completed or the highest degree you have received? Bachelor's degree (e.g., BA, AB, BS) 02/03/2019 Comments No Sex and Gender Information Value Date Recorded Sex Assigned at Female 04/03/2024 11:56 AM NET SOFTWARE ARCHITECT Legal Sex Female 3:13 PM CDT Gender Identity Not on file Sexual Orientation Not on file COVID-19 Exposure Response Date Recorded In the last month, have you been in contact with someone who was confirmed or suspected to have Coronavirus / COVID-19? No / Unsure 03/01/2020 10:24 AM NET SOFTWARE ARCHITECT documented as of this encounter Functional Status * RETIRED Are you deaf or do you have serious difficulty hearing Answer Date of Assessment Author Status No 02/07/2019 10:19 AM NET SOFTWARE ARCHITECT Acti ve * RETIRED Are you blind or do you have serious difficulty seeing, even when wearing glasses? Answer Date of Assessment Author Status No 02/07/2019 10:19 AM NET SOFTWARE ARCHITECT Acti ve * Do you have serious difficulty walking or climbing stairs? Answer Date of Assessment Author Status No 02/07/2019 10:19 AM NET SOFTWARE ARCHITECT Lisbeth Ramos RN Active * Do you have difficulty dressing or bathing? Answer Date of Assessment Author Status No 02/07/2019 10:19 AM Lisbeth Krueger RN Active * Because of a physical, mental, or emotional condition, do you have difficulty doing errands alone such as visiting a doctor's office or shopping? Answer Date of Assessment Author Status No 02/07/2019 10:19 AM NET SOFTWARE ARCHITECT Lisbeth Ramos RN Active documented as of this encounter Mental Status * Because of a physical, mental, or emotional condition, do you have serious difficulty concentrating, remembering, or making decisions? Answer Entry Date Author Status No 02/07/2019 10:19 AM NET SOFTWARE ARCHITECT Lisbeth Ramos RN Active documented in this encounter Progress Notes * Karrie Herman NP - 03/08/2020 12:42 PM CST I spoke to pt She is not going to see the psychiatrist anymore and would like a different referral Needs med changed from extended release because she can not eat with this and is losing weight. Discussed adderall to detail, verbal contract that she will not pick previously ordered medication Take 10 mg in am and 5 mg in the afternoon F/u in 3 weeks SOFTWARE ARCHITECT * Lamont Tam RN - 03/07/2020 10:34 AM CST Please advise. Thanks SOFTWARE ARCHITECT documented in this encounter Plan of Treatment Not on file documented as of this encounter Visit Diagnoses Not on filedocumented in this encounter Additional Health Concerns Infection Onset Date Last Indicated Resolved Time COVID-19 Rule Out 03/29/2023 03/29/2023 03/29/2023 12:21 PM NET SOFTWARE ARCHITECT COVID-19 Rule Out 04/10/2023 04/10/2023 04/10/2023 10:23 AM NET SOFTWARE ARCHITECT COVID-19 Confirmed 04/10/2023 04/10/2023 12:32 AM NET SOFTWARE ARCHITECT Assessment Noted Time PHQ-9 Depression Total Score: 19 03/01/ 020 10:45 AM NET SOFTWARE ARCHITECT documented as of this encounter Care Teams Acquisition Professional Relationship Specialty Start Date End Date Karrie Herman [place] [address] PCP - General NURSE PRACTITIONER 11/17/19 04/16/21 Paola Alexander PA-C [facility] Family Medicine [place] [id number] [facility] [address] [facility] [address] [place] [address] PCP - General PHYSICIAN LOCOMOTIVE OBSERVER 04/17/21 07/31/23 Noreen Stoll FNP [address] [place] [address], [address] [place] [id number] PCP - General 08/01/23 documented as of this encounter
--- OUTSIDE RECORDS SUMMARY | 2024-11-11 18:21 | XMS_ITS | Encounter Summary ---
Author Organization [facility] Address [address] [place] [address] Care Team Providers Care Nursing Department Chairperson Name Role Phone Karrie Herman NP Primary Care Provider [phone] Paola Alexander PA-C Primary Care Provider + Noreen StollP Primary Care Provider [phone] Encounter Details Date Type Department Care Team (Late st Contact Info) Description 03/06/2020 MyCPoikost Message Enc [facility] Family Medicine - [place] [address] [place] [address] Karrie Herman NP [address] [place] [address] RE: Medication Questions Social History Tobacco Use Types Packs/Day Years [...] move on to questions 3-9 6 03/01/2020 [facility] - Occupational Stress [...] Sex Assigned at Female 04/03/2024 11:56 AM GENERAL MACHINE OPERATOR Legal Sex Female 3:13 PM CDT Gender Identity Not on file Sexual Orientation Not on file COVID-19 Exposure Response Date Recorded In the last month, have you been in contact with someone who was confirmed or suspected to have Coronavirus / COVID-19? No / Unsure 03/01/2020 10:24 AM GENERAL MACHINE OPERATOR documented as of this encounter Functional Status * RETIRED Are you deaf or do you have serious difficulty hearing Answer Date of Assessment Author Status No 02/07/2019 10:19 AM GENERAL MACHINE OPERATOR Acti ve * RETIRED Are you blind or do you have serious difficulty seeing, even when wearing glasses? Answer Date of Assessment Author Status No 02/07/2019 10:19 AM GENERAL MACHINE OPERATOR Acti ve * Do you have serious difficulty walking or climbing stairs? Answer Date of Assessment Author Status No 02/07/2019 10:19 AM GENERAL MACHINE OPERATOR Lisbeth Ramos RN Active * Do you have difficulty dressing or bathing? Answer Date of Assessment Author Status No 02/07/2019 10:19 AM Lisbeth Krueger RN Active * Because of a physical, mental, or emotional condition, do you have difficulty doing errands alone such as visiting a doctor's office or shopping? Answer Date of Assessment Author Status No 02/07/2019 10:19 AM GENERAL MACHINE OPERATOR Lisbeth Ramos RN Active documented as of this encounter Mental Status * Because of a physical, mental, or emotional condition, do you have serious difficulty concentrating, remembering, or making decisions? Answer Entry Date Author Status No 02/07/2019 10:19 AM Lisbeth Krueger RN Active documented in this encounter Plan of Treatment Not on file documented as of this encounter Visit Diagnoses Not on filedocumented in this encounter Additional Health Concerns Infection Onset Date Last Indicated Resolved Time COVID-19 Rule Out 03/29/2023 03/29/2023 03/29/2023 12:21 PM GENERAL MACHINE OPERATOR COVID-19 Rule Out 04/10/2023 04/10/2023 04/10/2023 10:23 AM GENERAL MACHINE OPERATOR COVID-19 Confirmed 04/10/2023 04/10/2023 12:32 AM GENERAL MACHINE OPERATOR Assessment Noted Time PHQ-9 Depression Total Score: 19 020 10:45 AM GENERAL MACHINE OPERATOR documented as of this encounter Care Teams Nursing Department Chairperson Relationship Specialty Start Date End Date Karrie Herman [place] [address] PCP - General NURSE PRACTITIONER 11/17/19 04/16/21 Paola Alexander PA-C [facility] Family [address]RE [address] [place] [id number] PCP - General PHYSICIAN WAREHOUSE ORDER PULLER 04/17/21 07/31/23 Noreen Stoll FNP [address] [place] [address], [address] [place] [id number] PCP - General 08/01/23 documented as of this encounter
--- OUTSIDE RECORDS SUMMARY | 2024-11-11 18:22 | XMS_ITS | Patient Health Record ---
Author Organization [facility] Address [address] [facility] [address] [place] [address] Care Team Providers Care Home Health Travel Pt Name Role Phone OTF BLAKELY-Joe, MICHAEL Primary Care Provide r Unavailable Kim Duarte Unavailable [phone] Geovany Rivas Unavailable [phone] Jewels Lisaily Unavailable [phone] Curt Wesley Unavailable [phone] Allergies No Known Allergies Results Component Value Reference Range Flag Notes UDT Reviewed date:11/27/2023 03:44:37 PM Interpretation: Performing Lab: Notes/Report: THC POS 0 - 50 ng/ml Cocaine NEG 0 - 300 ng/ml Amphetamine NEG 0 - 1000 ng/ml Buprenorphine (BUP) NEG 0 - 10 ng/ml Secobarbital (Bar) NEG 0 - 300 ng/ml Oxazepam (BZO) NEG 0 - 300 ng/ml 1-uvsdqtahkb-6,4-jqumlnqe-2, 3-diphen ylpyrrolidine (EDDP) NEG 0 - 300 ng/ml Methamphetamine (MET) NEG 0 - 1000 ng/ml Methylenedioxymethamphetamine (MDMA) NEG 0 - 500 ng /ml Morphine (MOP 300/KKL3132) NEG 0 - 300 ng/ml Methadone (MTD) NEG 0 - 300 ng/ml Phencyclidine (PCP) NEG 0 - 25 ng/ml Nortriptyline (TCA) NEG 0 - 1000 ng/ml Oxycodone NEG 0 - 300 ng/ml x NEG 0 - 300 ng/ml UDT Reviewed date:12/15/2023 03:56:35 PM Interpretation: Performing Lab: Notes/Report: THC p 0 - 50 ng/ml Cocaine n 0 - 300 ng/ml Amphetamine n 0 - 1000 ng/ml Buprenorphine (BUP) n 0 - 10 ng/ml Secobarbital (Bar) n 0 - 300 ng/ml Oxazepam (BZO) p 0 - 300 ng/ml 2-mhmyrtqomn-0,6-lrjjudiw-1, 3-diphen ylpyrrolidine (EDDP) n 0 - 300 ng/ml Methamphetamine (MET) n 0 - 1000 ng/ml Methylenedioxymethamphetamine (MDMA) n 0 - 500 ng /ml Morphine (MOP 300/AWR8156) n 0 - 300 ng/ml Methadone (MTD) n 0 - 300 ng/ml Phencyclidine (PCP) n 0 - 25 ng/ml Nortriptyline (TCA) n 0 - 1000 ng/ml Oxycodone n 0 - 300 ng/ml x n 0 - 300 ng/ml LIPID PANEL, STANDARD (7600) Reviewed date:12/25/2023 08:33:19 AM Interpretation: Performing Lab:NAKUL [email or web address] [place] [address] [address] Naima Sweeney [id number] [facility] Notes/Report: FASTING:NO FASTING: NO CHOLESTEROL, TOTAL 228 <200 mg/dL H HDL CHOLESTEROL 55 > OR = 50 mg/dL N TRIGLYCERIDES 93 <150 mg/dL N LDL-CHOLESTEROL 153 H Reference range: <100 Desirable range <100 mg/dL for primary prevention; <70 mg/dL for patients with CHD or diabetic patients with > or = 2 CHD risk factors. LDL-C is now calculated using the Isaías-Rosas calculation, which is a validated novel method providing better accuracy than the Friedewald equation in the estimation of LDL-C. Isaías SS et al. DAKOTAH. 2013;310(19): 2106-8909 (http://education. QuestDiagnostics.c om/faq/JKK736) CHOL/HDLC RATIO 4.1 <5.0 (calc) N NON HDL CHOLESTEROL 173 <130 mg/dL (calc) H For patients with diabetes plus 1 major ASCVD risk factor, treating to a non-HDL-C goal of <100 mg/dL (LDL-C of <70 mg/dL) is considered a therapeutic option. COMPREHENSIVE METABOLIC PANE L (38036) Reviewed date:12/25/2023 05:10:59 PM Interpretation: Performing Lab:NAKUL [place] [address] [address] Naima Sweeney [id number] [facility] Notes/Report: FASTING:NO FASTING: NO GLUCOSE 101 65-139 mg/dL N Non-fasting reference interval UREA NITROGEN (BUN) 11 7-25 mg/dL N CREATININE 0.68 0.50-0.97 mg/dL N EGFR 119 > OR = 60 mL/min/1.73m2 N BUN/CREATININE RATIO SEE NOTE: 6-22 (calc) Not Reported: BUN and Creatinine are within reference range. SODIUM 138 135-146 mmol/L N POTASSIUM 4.6 3.5-5.3 mmol/L N CHLORIDE 103 98-110 mmol/L N CARBON DIOXIDE 29 20-32 mmol/L N CALCIUM 9.9 8.6-10.2 mg/dL N PROTEIN, TOTAL 7.5 6.1-8.1 g/dL N ALBUMIN 4.8 3.6-5.1 g/dL N GLOBULIN 2.7 1.9-3.7 g/dL (calc) N ALBUMIN/GLOBULIN RATIO 1.8 1.0-2.5 (calc) N BILIRUBIN, TOTAL 0.9 0.2-1.2 mg/dL N ALKALINE PHOSPHATASE 41 31-125 U/L N AST 15 10-30 U/L N ALT 16 6-29 U/L N HEPATIC FUNCTION PANEL (1025 6) Reviewed date:12/25/2023 08:37:32 AM Interpretation: Performing Lab:NAKUL, [place] [address] [address] Naim[address] Sweeney [id number] [facility] Notes/Report: FASTING:NO FASTING: NO PROTEIN, TOTAL 7.5 6.1-8.1 g/dL N ALBUMIN 4.8 3.6-5.1 g/dL N GLOBULIN 2.7 1.9-3.7 g/dL (calc) N ALBUMIN/GLOBULIN RATIO 1.8 1.0-2.5 (calc) N BILIRUBIN, TOTAL 0.9 0.2-1.2 mg/dL N BILIRUBIN, DIRECT 0.2 < OR = 0.2 mg/dL N BILIRUBIN, INDIRECT 0.7 0.2-1.2 mg/d L (calc) N ALKALINE PHOSPHATASE 41 31-125 U/L N AST 15 10-30 U/L N ALT 16 6-29 U/L N CBC (INCLUDES DIFF/PLT) (639 9) Reviewed date:12/25/2023 08:37:27 AM Interpretation: Performing Lab:NA[place]UL [place] [id number] Administration Naima Sweeney [id number] [facility] Notes/Report: FASTING:NO FASTING: NO WHITE BLOOD CELL COUNT 6.8 3.8-10.8 Thousand/uL N RED BLOOD CELL COUNT 4.66 3.80-5.10 Million/uL N HEMOGLOBIN 15.1 11.7-15.5 g/dL N HEMATOCRIT 44.8 35.0-45.0 % N MCV 96.1 80.0-100.0 fL N MCH 32.4 27.0-33.0 pg N MCHC 33.7 32.0-36.0 g/dL N For adults, a slight decrease in the calculated MCHC value (in the range of 30 to 32 g/dL) is most likely not clinically significant; however, it should be interpreted with caution in correlation with other red cell parameters and the patient's clinical condition. RDW 11.8 11.0-15.0 % N PLATELET COUNT 287 140-400 Thousand/uL N MPV 11.0 7.5-12.5 fL N ABSOLUTE NEUTROPHILS 4420 8462-4291 cells/uL N ABSOLUTE LYMPHOCYTES 1849 191-2314 cells/uL N ABSOLUTE MONOCYTES 415 200-950 cells/uL N ABSOLUTE EOSINOPHILS 177 15-500 cells/uL N ABSOLUTE BASOPHILS 41 0-200 cells/uL N NEUTROPHILS 65 N LYMPHOCYTES 25.7 N MONOCYTES 6.1 N EOSINOPHILS 2.6 N BASOPHILS 0.6 N HEMOGLOBIN A1c (496) Reviewed date:12/25/2023 08:37:09 AM Interpretation: Performing Lab:NAKUL [place] [address] [address] Naima Sweeney [id number] [facility] Notes/Report: FASTING:NO FASTING: NO HEMOGLOBIN A1c 5.1 <5.7 % of total Hgb N For the purpose of screening for the presence of diabetes: <5.7% Consistent with the absence of diabetes 5.7-6.4% Consistent with increased risk for diabetes (prediabetes) > or =6.5% Consistent with diabetes This assay result is consistent with a decreased risk of diabetes. Currently, no consensus exists regarding use of hemoglobin A1c for diagnosis of diabetes in children. According to [place] [employer] (ADA) guidelines, hemoglobin A1c <7.0% represents optimal control in non- diabetic patients. Different metrics may apply to specific patient populations. Standards of Medical Care in Diabetes(ADA). Your request to have a duplicate copy faxed has been acknowledged. Queued to: [id number] VITAMIN B12 (927) Reviewed date:12/25/2023 08:37:22 AM Interpretation: Performing Lab:Rebecca LEE-[id number] Valarie [id number] Anastacia Copeland MD Notes/Report: FASTING:NO FASTING: NO VITAMIN B12 220 527-2897 pg/mL N VITAMIN D,25-OH,TOTAL,IA (17 306) Reviewed date:12/25/2023 08:37:16 AM Interpretation: Performing Lab:Rebecca LEE-[id number] Enrike EnglandaKS[address] Anastacia Copeland MD Notes/Report: FASTING:NO FASTING: NO VITAMIN D,25-OH,TOTAL,IA 29 30-100 ng/mL L Vitamin D Status 25-OH Vitamin D: Deficiency: <20 ng/mL Insufficiency: 20 - 29 ng/mL Optimal: > or = 30 ng/mL For 25-OH Vitamin D testing on patients on D2-supplementation and patients for whom quantitation of D2 and D3 fractions is required, the QuestAssureD(TM) 25-OH VIT D, (D2,D3), LC/MS/MS is recommended: order code 20964 (patients >2yrs). See Note 1 Note 1 For additional information, please refer to http://education.Q uestDiagnostics.co m/faq/TIK332 (This link is being provided for informational/ educational purposes only.) Reason For Referral No Information Medications Medication SIG (Take, Route, Frequency, Duration) Notes Start Date End Date Status hydrOXYzine HCl 50 MG Tablet 1 tablet as needed Orally Once a day; Duration: 30 days 02/02/2024 Unknown Mirtazapine 7.5 MG Tablet 1 tablet at be dtime Orally Once a day; Duration: 90 days Unknown Propranolol HCl 20 MG Tablet 1 tablet Orally three times a day; Duration: 30 days As needed Unknown Social History Tobacco Use: Social History Observation Description Date Details (start date - stop date) Former Smoker NA - NA Sex Assigned At : Social History Observation Description Sex Assigned At Female Social History Miscellaneous: Social Info Question Answer Notes Advance Care Planning Are you your own decision-maker Yes Do you have Power of Care Program Director for Health or [facility]? No Safety issues: Are there any firearms in the house? No Social History Social Info Question Answer Notes Household: Marital Status: Number of Adults in household: 2 Number of Children in Household: 2 Level of Education: Finished College Drug/Alcohol: Social Info Question Answer Notes Drugs Have you used drugs other than those for medical reasons in the past 12 months? Yes Methamphetamine? No Crack? No LSD? No Ecstacy? No Prescription opiates? No Marijuana? Yes Ketamine? No PCP? No Is there a minor (18 years or younger) at risk at home? No Are you still using? No AUDIT-C (Standard) Did you have a drink containing alcohol in the past year? No Tobacco Use: Social Info Question Answer Notes Tobacco Control (Standard) Tobacco use: Former smoker How long has it been since you last smoked? 5-10 years Additional Details Category Social Info Options Details Miscellaneous: Occupation: [employer] Drug/Alcohol: Do you smoke marijuana? rec ently stopped smoking marijuana x 2 days Problems Problem Type SNOMED Code ICD Code Onset Dates Problem Status W/U Status Risk Notes Problem Generalized anxiety disorder (88525558) Generalized anxiety disorder (F41.1) Active confirmed Problem Attention deficit hyperactivity disorder, combined type (11867730) Attention-deficit hyperactivity disorder, combined type (F90.2) Active confirmed Problem Generalized anxiety disorder (48915799) STEVO (generalized anxiety disorder) (F41.1) Active confirmed Problem Moderate recurrent major depression (19207787) MDD (major depressive disorder), recurrent episode, moderate (F33.1) Active confirmed Problem Nondependent cannabis abuse (050201679) Marijuana use (F12.90) Active confirmed Problem Vitamin D deficiency (81436759) Vitamin D deficiency (E55.9) Active confirmed Problem Anxiety (24704742) Anxiety (F41.9) Active confirmed Problem Severe major depression, single episode, without psychotic features (41405031) MDD (major depressive disorder), severe (F32.2) Active confirmed Problem Suicidal thoughts (6127947) Suicidal thoughts (R45.851) Active confirmed Problem Sleep disturbance (47120907) Sleep disturbance (G47.9) Active confirmed Problem Attention deficit hyperactivity disorder (566294229) ADHD (attention deficit hyperactivity disorder) evaluation (Z13.39) Active confirmed Problem Bizarre thoughts (918812912) Bizarre thoughts (F48.9) Active confirmed Vital Signs Heart Rate 72 /min 12/25/2023 Temperature 98.5 degrees Fahrenheit 11/27/2023 Height-cm 165.1 cm 12/25/2023 Blood pressure diastolic 82 mm Hg 12/25/2023 Weight-kg 71.3 kg 12/24/2023 Height 65 in 12/25/2023 Blood pressure systolic 105 mm Hg 12/25/2023 Weight 157.2 lbs 12/24/2023 BMI 26.16 kg/m2 12/24/2023 Encounters Encounter Location Date Provider Diagnosis [employer] [facility] [facility] [address] [place] [address] 11/27/2023 Curt Clubb MDD (major depressiv e disorder), severe F32.2 and Marijuana use F12.90 [employer] [facility] [place] [address] 12/02/2023 Curt Clubb MDD (major depressiv e disorder), severe F32.2 ; Marijuana use F12.90 and Anxiety F41.9 [employer] [facility] [place] [address] 12/08/2023 Curt Clubb MDD (major depressiv e disorder), severe F32.2 ; Marijuana use F12.90 and Anxiety F41.9 [employer] [facility] [place] [address] 12/10/2023 Curt Clubb ADHD (attention deficit hyperactivity disorder) evaluation Z13.39 ; STEVO (generalized anxiety disorder) F41.1 ; Marijuana use F12.90 and MDD (major depressive disorder), recurrent episode, moderate F33.1 [employer] [address] [place] [address] 12/11/2023 Curt Clubb MDD (major depressiv e disorder), severe F32.2 ; STEVO (generalized anxiety disorder) F41.1 and Suicidal thoughts R45.851 [employer] [address] [place] [address] 12/15/2023 Kim Kurilla MDD (major depressiv e disorder), severe F32.2 ; STEVO (generalized anxiety disorder) F41.1 and Attention-deficit hyperactivity disorder, combined type F90.2 [facility] [employer] [facility], [facility] [address] [place] [address] 12/24/2023 Curt Clubb MDD (major depressiv e disorder), severe F32.2 ; STEVO (generalized anxiety disorder) F41.1 and Attention-deficit hyperactivity disorder, combined type F90.2 [facility] [employer] [facility], [facility] [address] [place] [address] 12/25/2023 Curt Clubb Vitamin D deficiency E55.9 ; STEVO (generalized anxiety disorder) F41.1 ; MDD (major depressive disorder), severe F32.2 ; Sleep disturbance G47.9 and Marijuana use F12.90 [facility] [employer] [facility] [address] [place] [address] 01/21/2024 Kim Kurilla MDD (major depressiv e disorder), severe F32.2 ; STEVO (generalized anxiety disorder) F41.1 and Attention-deficit hyperactivity disorder, combined type F90.2 [facility] [employer] [facility], [facility] [address] [place] [address] 01/21/2024 Almaz Hinderliter Generalized anxiety disorder F41.1 [facility] [employer] [facility], [facility] [address] [place] [address] 02/04/2024 Almaz Hinderliter Generalized anxiety disorder F41.1 [facility] [employer] [facility], [facility] [address] [place] [address] 02/11/2024 Almaz Hinderliter Generalized anxiety disorder F41.1 [facility] [employer] [facility], [facility] [address] [place] [address] 02/18/2024 Almaz Hinderliter Generalized anxiety disorder F41.1 [facility] [employer] [facility], [facility] [address] [place] [address] 02/26/2024 Almaz Hinderliter [facility] [employer] [facility], [facility] [address] [place] [address] 03/10/2024 Almaz Hinderliter Generalized anxiety disorder F41.1 [facility] [employer] [facility] [address] [place] [address] 03/17/2024 Almaz Hinderliter Generalized anxiety disorder F41.1 [facility], [facility] [address] [place] [address] 03/24/2024 Almaz Hinderliter Generalized anxiety disorder F41.1 [facility] [employer] 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 [address] [place] [address] 04/07/2024 Almaz Hinderliter Generalized anxiety disorder F41.1 [facility] [employer] [facility] [address] [place] [address] 04/08/2024 Almaz Hinderliter MDD (major depressiv e disorder), severe F32.2 ; Generalized anxiety disorder F41.1 ; Attention-deficit hyperactivity disorder, combined type F90.2 and Marijuana use F12.90 [facility] [employer] [facility] [address] [place] [address] 04/15/2024 Almaz Hinderliter MDD (major depressiv e disorder), severe F32.2 ; Generalized anxiety disorder F41.1 ; Attention-deficit hyperactivity disorder, combined type F90.2 and Marijuana use F12.90 [facility] [employer] [facility] [address] [place] [address] 04/29/2024 Almaz Hinderliter MDD (major depressiv e disorder), severe F32.2 ; Generalized anxiety disorder F41.1 ; Attention-deficit hyperactivity disorder, combined type F90.2 and Marijuana use F12.90 [facility] [address] [place] [address] 05/20/2024 Almaz Lisa Generalized anxiety disorder F41.1 ; MDD (major depressive disorder), severe F32.2 ; Attention-deficit hyperactivity disorder, combined type F90.2 and Encounter for screening for depression Z13.31 [facility] [address] [place] [address] 11/27/2023 Geovany Rivas [facility], [facility] [address] [place] [address] 11/28/2023 Geovany Rivas [facility], [facility] [address] [place] [address] 12/17/2023 Kim Duarte [facility], [facility] [address] [place] [address] 12/17/2023 Kim Duarte [facility], [facility] [address] [place] [address] 12/24/2023 Curt Clubb [facility], [facility] [address] [place] [address] 01/12/2024 Kim Duarte STEVO (generalized anxiety disorder) F41.1 [facility] [address] [place] [address] 01/28/2024 Almaz Lisa [facility], [facility] [address] [place] [address] 02/12/2024 Kim Duarte [facility], [facility] [address] [place] [address] 03/30/2024 Kim Duarte [facility], [facility] [address] [place] [address] 03/30/2024 Kim Duarte STEVO (generalized anxiety disorder) F41.1 [facility] [address] [place] [address] 03/30/2024 Kim Duarte [facility], [facility] [address] [place] [address] 12/22/2023 Kim Duarte [facility], [facility] [address] [place] [address] 12/22/2023 Kim Duarte [facility], [facility] [address] [place] [address] 01/14/2024 Kim Duarte [facility], [facility] [address] [place] [address] 02/02/2024 Kim Duarte [facility], [facility] [address] [place] [address] 02/02/2024 Kim Duarte [facility], [facility] [address] [place] [address] 02/02/2024 Kim Duarte [facility], [facility] [address] [place] [address] 02/02/2024 Kim Duarte [facility], [facility] [address] [place] [address] 02/05/2024 Kim Duarte [facility], [facility] [address] [place] [address] 02/05/2024 Kim Duarte [facility], [facility] [address] [place] [address] 04/01/2024 Almaz Lisa [facility], [facility] [address] [place] [address] 04/02/2024 Kim Duarte [facility], [facility] [address] [place] [address] 04/02/2024 Kim Duarte [facility], [facility] [address] [place] [address] 04/06/2024 Kim Duarte [facility], [facility] [address] [place] [address] 04/08/2024 Kim Duarte MDD (major depressiv e disorder), severe F32.2 [facility], [facility] [address] [place] [address] 04/26/2024 Kim Duarte [facility], [facility] [address] [place] [address] 04/26/2024 Kim Duarte [facility], [facility] [address] [place] [address] 04/26/2024 Kim Duarte Assessments Encounter Date Diagnosis (ICD Code) Assessment Notes Treatment Notes Treatment Clinical Notes Section Notes 12/02/2023 MDD (major depressive disorder), severe (ICD-10 - F32.2) 1. Anxiety and Irritability - Continue venlafaxine 12.5mg daily, monitor for improvement. - Start oxcarbazepine 75mg at night, assess effectiveness. - Discontinue latuda after 1 week to avoid exacerbating anxiety. - Patient reports anxiety and overstimulation through the roof despite improved SI. 2. Insomnia - Monitor sleep quality/duration on current medications. - Encourage good sleep hygiene practices. - Patient reports 6-7 hours sleep per night. 3. Suicidal Ideation (SI) - Continue venlafaxine 12.5mg daily as it improved SI. - Monitor for mood/SI changes. - Patient reports SI as all gone with venlafaxine. 4. Propranolol for Anxiety Attacks - Schedule propranolol BID and third dose as needed. - Instruct checking HR, if <=60bpm do not take. - Patient reports a couple anxiety attacks per day. 5. Lorazepam Discontinuation - Support decision to stop lorazepam. - Monitor for withdrawal symptoms or increased anxiety. 6. Marijuana Use - Encourage cessation of marijuana smoking. - Assess impact on mental health and anxiety levels. - Patient reports recent use but desire to quit. 7. Safety Assessment - No current SI, delusions, paranoia or hallucinations. - Monitor mental status and safety concerns at follow-ups. 9. Depression - Patient rates current depression 05/10, significant improvement.. Patient had reduction in suicidal ideation and/or behavior upon follow-up assessment within 120 days of index assessment (M1357) 12/15/2023 MDD (major depressive disorder), severe (ICD-10 - F32.2) Electronic Prior Authorization was requested for Caplyta 10.5 MG Capsule. Provider can order medication once approval received. 12/11/2023 MDD (major depressive disorder), severe (ICD-10 - F32.2) 1. Major Depressive Disorder - Start aripiprazole (Abilify) and monitor for improvement - Discuss restarting fluoxetine (Prozac) or considering sertraline (Zoloft) in higher doses - Consider TMS or esketamine (Spravato) for treatment-resist ant depression - Encourage therapy sessions - Patient reports being really sad all day and unable to play with daughter 2. Generalized Anxiety Disorder - Continue lorazepam as prescribed - Continue oxcarbazepine 75mg - Continue propranolol 20mg three times a day, scheduled or as needed - Encourage discussing anxiety management strategies in therapy - Patient rates current anxiety as 8/10 3. Obsessive-Compul sive Disorder (OCD) - Address OCD symptoms in therapy - Monitor aripiprazole response and consider regimen adjustment if needed - Patient reports pure OCD symptoms when anxiety high 4. Insomnia - Encourage discussing sleep hygiene and relaxation techniques in therapy - Patient reports difficulty sleeping 5. Attention Deficit Hyperactivity Disorder (ADHD) - Follow up with Rhiannon on Friday to discuss ADHD medications 6. Patient Education and Safety - Provide Spravato (esketamine) information and discuss benefits/risks - Remind of crisis hotline (804) for emergencies - Patient reports suicidal thoughts Follow-up: - Follow up with Rhiannon for ADHD management and depression treatment options - Monitor aripiprazole response and side effects - Reevaluate treatment plan based on progress with therapy/medicati ons - Consider starting Prozac or discussing further at next appointment 11/27/2023 Marijuana use (ICD-10 - F12.90) 1. Anxiety and Dissociation - Plan: Decrease Latuda dosage to 20 mg daily with dinner and initiate venlafaxine at 25 mg once daily for 14 days, with close monitoring for side effects. Schedule a follow-up in one week to evaluate her response. 2. Insomnia and Night Sweats - Plan: Adjust medication regimen by decreasing Latuda and starting venlafaxine. Encourage the patient to monitor and report any exacerbation of her insomnia or night sweats. 3. Depression and History of Serotonin Syndrome - Plan: Given the patient's sensitivity to medications affecting serotonin, avoid SSRIs and closely monitor the effects of venlafaxine, an SNRI, on her. 4. Fibromyalgia - Plan: Continue to assess symptoms related to fibromyalgia and consider exploring alternative treatment options if necessary, taking into account her anxiety and trauma history. 5. PTSD and Possible Borderline Personality Disorder - Plan: Refer the patient to therapy 6. Medication Management - Plan: Monitor the patient's reaction to the current medication regimen, including Latuda, venlafaxine, and propranolol. Arrange a follow-up appointment in one week to review her progress and adjust treatment as needed. 7. Labs and Thyroid Function - Plan: Order a comprehensive panel from [facility] to include thyroid function tests, aiming to keep track of the patient's overall health status. 8. FMLA Paperwork - Plan: Assist the patient with completing and submitting the necessary FMLA paperwork as requested. 9. Therapy Referral - Plan: Facilitate a referral for the patient to see in-house therapist for an initial consultation and potential ongoing therapy sessions. 11/27/2023 MDD (major depressive disorder), severe (ICD-10 - F32.2) 1. Anxiety and Dissociation - Plan: Decrease Latuda dosage to 20 mg daily with dinner and initiate venlafaxine at 25 mg once daily for 14 days, with close monitoring for side effects. Schedule a follow-up in one week to evaluate her response. 2. Insomnia and Night Sweats - Plan: Adjust medication regimen by decreasing Latuda and starting venlafaxine. Encourage the patient to monitor and report any exacerbation of her insomnia or night sweats. 3. Depression and History of Serotonin Syndrome - Plan: Given the patient's sensitivity to medications affecting serotonin, avoid SSRIs and closely monitor the effects of venlafaxine, an SNRI, on her. 4. Fibromyalgia - Plan: Continue to assess symptoms related to fibromyalgia and consider exploring alternative treatment options if necessary, taking into account her anxiety and trauma history. 5. PTSD and Possible Borderline Personality Disorder - Plan: Refer the patient to therapy 6. Medication Management - Plan: Monitor the patient's reaction to the current medication regimen, including Latuda, venlafaxine, and propranolol. Arrange a follow-up appointment in one week to review her progress and adjust treatment as needed. 7. Labs and Thyroid Function - Plan: Order a comprehensive panel from [facility] to include thyroid function tests, aiming to keep track of the patient's overall health status. 8. FMLA Paperwork - Plan: Assist the patient with completing and submitting the necessary FMLA paperwork as requested. 9. Therapy Referral - Plan: Facilitate a referral for the patient to see in-house therapist for an initial consultation and potential ongoing therapy sessions. 04/08/2024 MDD (major depressive disorder), severe (ICD-10 - F32.2) Assessment and Plan: 1. Sensory Overload The patient experiences difficulty coping with sensory overload triggered by their child's screaming and tantrums. Plan: Recommend the use of earbuds or noise-canceling headphones to mitigate the impact of noise. Introduce exposure therapy techniques, including the gradual increase of volume in recordings of the child's tantrums, potentially involving the patient's in the process. 2. Parenting and Coping Strategies The patient faces challenges in managing their child's tantrums and identifying effective soothing methods. Plan: Suggest taking the child outside during tantrums, employing temperature-base d soothing techniques, and practicing deep breathing exercises during moments of calm. Explore the use of weighted blankets or stretchy sacks for the child's comfort. 3. Self-Care and Self-Love The patient acknowledges difficulties in practicing self-love and self-care. Plan: Encourage participation in self-care activities, such as visiting the sauna post-physical therapy. Emphasize the importance of self-love and offer support in cultivating self-compassion. 4. Trauma Therapy Preparation The patient expresses interest in trauma therapy but requires development in grounding techniques, distress tolerance, and establishing a support system beforehand. Plan: Prioritize managing the child's screaming and preparing for trauma therapy in the next three months. Assist in finding a trauma therapist aligned with the patient's preferences for effective session leadership. 5. Involvement in Social and Political Issues The patient wishes to engage in social and political issues but feels constrained by parental responsibilities . Plan: Encourage exploring alternative methods of involvement, such as contacting their union president to offer support within manageable capacities. 6. Virtual Therapy Sessions The patient prefers to continue with virtual therapy sessions. Plan: Arrange for weekly virtual appointments on , preferably at 9 AM or later. 04/08/2024 MDD (major depressive disorder), severe (ICD-10 - F32.2) 04/15/2024 Generalized anxiety disorder (ICD-10 - F41.1) Assessment and Plan: 1. ADHD: The patient has recently started medication for ADHD and has noted an improvement in anxiety levels and a reduction in yelling. Plan: Maintain the current ADHD medication regimen and continue to assess the patient's progress. Reevaluate the necessity of medication as changes occur in the patient's circumstances, such as improved sleep or changes in family dynamics. 2. Anxiety: The patient has observed a slight improvement in anxiety symptoms since beginning consultations. Plan: Persist with Cognitive Behavioral Therapy sessions and monitor the patient's improvement. Advise the patient to establish a sensory regulation space and allocate time specifically for relaxation activities. 3. Sexual Relationship Difficulties: The patient experiences overstimulation due to daytime activities with children, which adversely affects nighttime sexual engagement. Plan: Recommend strategies for calming stimulation and emphasize the importance of self-care. Advise scheduling child-free time to enhance intimacy with their partner, focusing on non-sexual touch and comfort. 4. Trauma-related Symptoms: The patient exhibits anxiety and involuntary scared facial expressions, which may be linked to past trauma. Plan: Consider exploring alternative trauma therapy options, such as somatic experiencing, and provide referrals to local therapists specialized in these methods. 5. Substance Use (Marijuana): The patient recognizes the need to reduce marijuana consumption but finds cessation challenging. Plan: Support the patient's efforts to decrease marijuana use. 6. Trust Issues: The patient has expressed difficulties in trusting others and hesitancy towards engaging with local organizations. Plan: Suggest involvement in reputable organizations such as [employer], [employer], and [employer], to foster trust and community connection. Follow-up: A follow-up appointment is scheduled for April 29, after 9 am to review the patient's progress and adjust the treatment plan as necessary. 04/15/2024 MDD (major depressive disorder), severe (ICD-10 - F32.2) Assessment and Plan: 1. ADHD: The patient has recently started medication for ADHD and has noted an improvement in anxiety levels and a reduction in yelling. Plan: Maintain the current ADHD medication regimen and continue to assess the patient's progress. Reevaluate the necessity of medication as changes occur in the patient's circumstances, such as improved sleep or changes in family dynamics. 2. Anxiety: The patient has observed a slight improvement in anxiety symptoms since beginning consultations. Plan: Persist with Cognitive Behavioral Therapy sessions and monitor the patient's improvement. Advise the patient to establish a sensory regulation space and allocate time specifically for relaxation activities. 3. Sexual Relationship Difficulties: The patient experiences overstimulation due to daytime activities with children, which adversely affects nighttime sexual engagement. Plan: Recommend strategies for calming stimulation and emphasize the importance of self-care. Advise scheduling child-free time to enhance intimacy with their partner, focusing on non-sexual touch and comfort. 4. Trauma-related Symptoms: The patient exhibits anxiety and involuntary scared facial expressions, which may be linked to past trauma. Plan: Consider exploring alternative trauma therapy options, such as somatic experiencing, and provide referrals to local therapists specialized in these methods. 5. Substance Use (Marijuana): The patient recognizes the need to reduce marijuana consumption but finds cessation challenging. Plan: Support the patient's efforts to decrease marijuana use. 6. Trust Issues: The patient has expressed difficulties in trusting others and hesitancy towards engaging with local organizations. Plan: Suggest involvement in reputable organizations such as [employer], [employer], and [employer], to foster trust and community connection. Follow-up: A follow-up appointment is scheduled for April 29, after 9 am to review the patient's progress and adjust the treatment plan as necessary. 04/29/2024 Generalized anxiety disorder (ICD-10 - F41.1) Assessment and Plan: Depression The patient has recently transitioned from mirtazapine to Pristiq for antidepressant treatment. Plan to monitor the patient's reaction to Pristiq, evaluating both side effects and any improvements in depressive symptoms. It is important for the patient to communicate any changes in mood or concerns. Anxiety and ADHD The patient has noted that while previous use of Pristiq aided ADHD symptoms, it did not alleviate anxiety. The plan includes ongoing observation of the patient's response to Pristiq concerning ADHD symptoms. Additional treatment options for anxiety may be considered and discussed with the patient if deemed necessary. Sensory Regulation The patient has expressed a need to acquire yellow lights for their sensory setup. Encourage the patient to proceed with purchasing yellow lights and to implement sensory regulation strategies. Progress and the effectiveness of these sensory regulation techniques will be monitored. Exposure Therapy for Child's Crying The patient has yet to record their child's crying for the purposes of exposure therapy. The patient is encouraged to continue to utilize previously discussed emotion regulation, distress tolerance, and sensory regulation techniques. Support will be provided as needed, and the patient's progress will be monitored. Self-care Activities The patient engages in swimming, microneedling, and uses cortisol manager farm supplements as part of their self-care regimen. The patient is encouraged to maintain these self-care activities and to consider additional self-care strategies. Monitoring will continue regarding the patient's overall well-being and stress levels. Somatic Experiencing Therapy The patient has shown interest in somatic experiencing therapy. Information on local somatic experiencing therapists (Erendira and Karrie) will be provided to the patient, along with a discussion on the potential benefits of this therapy. The patient's interest and progress in pursuing this treatment will be monitored. Follow-up Appointment A follow-up appointment is scheduled for three weeks from now, on May 20 at 11:00 AM. The plan is to continue with virtual appointments and to monitor the patient's progress across the various treatment areas. The patient is encouraged to reach out with any concerns or needs that may arise before the next scheduled appointment. 04/29/2024 MDD (major depressive disorder), severe (ICD-10 - F32.2) Assessment and Plan: Depression The patient has recently transitioned from mirtazapine to Pristiq for antidepressant treatment. Plan to monitor the patient's reaction to Pristiq, evaluating both side effects and any improvements in depressive symptoms. It is important for the patient to communicate any changes in mood or concerns. Anxiety and ADHD The patient has noted that while previous use of Pristiq aided ADHD symptoms, it did not alleviate anxiety. The plan includes ongoing observation of the patient's response to Pristiq concerning ADHD symptoms. Additional treatment options for anxiety may be considered and discussed with the patient if deemed necessary. Sensory Regulation The patient has expressed a need to acquire yellow lights for their sensory setup. Encourage the patient to proceed with purchasing yellow lights and to implement sensory regulation strategies. Progress and the effectiveness of these sensory regulation techniques will be monitored. Exposure Therapy for Child's Crying The patient has yet to record their child's crying for the purposes of exposure therapy. The patient is encouraged to continue to utilize previously discussed emotion regulation, distress tolerance, and sensory regulation techniques. Support will be provided as needed, and the patient's progress will be monitored. Self-care Activities The patient engages in swimming, microneedling, and uses cortisol manager farm supplements as part of their self-care regimen. The patient is encouraged to maintain these self-care activities and to consider additional self-care strategies. Monitoring will continue regarding the patient's overall well-being and stress levels. Somatic Experiencing Therapy The patient has shown interest in somatic experiencing therapy. Information on local somatic experiencing therapists (Erendira and Karrie) will be provided to the patient, along with a discussion on the potential benefits of this therapy. The patient's interest and progress in pursuing this treatment will be monitored. Follow-up Appointment A follow-up appointment is scheduled for three weeks from now, on May 20 at 11:00 AM. The plan is to continue with virtual appointments and to monitor the patient's progress across the various treatment areas. The patient is encouraged to reach out with any concerns or needs that may arise before the next scheduled appointment. 05/20/2024 Generalized anxiety disorder (ICD-10 - F41.1) 1. Anxiety and Depression Assessment: - Patient reports experiencing anxiety and depression related to a potential move and working long hours - Currently taking antidepressant (Pristiq) with some positive effects after three weeks - Experiencing side effects including fatigue, feeling wired, anxiety, and palpitations - Anxiety linked to concerns about leaving friends and impact of [place] on children Plan: - Continue Pristiq for at least 3 more weeks to assess full effects - Monitor side effects, particularly palpitations and anxiety - Implement coping strategies such as ice therapy/dive reflex for managing anxiety and palpitations - Consider blood pressure monitoring at home - Follow up with prescribing provider if side effects persist or worsen - Explore exercise options, such as using a walking pad under desk 2. Unresolved Trauma Assessment: - Recently recognized unresolved trauma related to mother's sudden departure at age 21, after father's - Triggered by in-laws' move causing emotional distress - Experiencing feelings of loss of connection and panic attacks - Expresses uncertainty about processing these emotions Plan: - Refer to Erendira Jacobo in [place] for trauma-focused therapy, including EMDR, internal family systems, and somatic therapies - Consider alternative referral to [facility] in [place] for brain spotting therapy - Encourage patient to explore these options and report back on decision - Continue to process trauma-related emotions in current therapy sessions as needed 3. Work-Life Balance and Self-Care Assessment: - Reports working 54 hours per week - Work schedule contributing to stress and limiting time for self-care and family - Potential move and associated decisions impacting sense of balance and well-being Plan: - Encourage implementation of sensory regulation time for self-care - Advise balancing time with children and setting boundaries with in-laws - Recommend prioritizing quality time with family - Suggest exploring options for maintaining a larger, more inclusive community 03/30/2024 MDD (major depressive disorder), severe (ICD-10 - F32.2) Assessment and Plan: Anxiety and Panic Attacks Continue with the current mood stabilizer medication and engage in discussions with the psychiatrist for possible adjustments. Explore the option of alternative medications with the psychiatrist, especially if issues like weight gain continue. Promote the practice of regular meditation and relaxation techniques, including meditating in the sauna, to help manage symptoms. Anger Management Utilize DBT (Dialectical Behavior Therapy) skills to address anger issues and enhance communication with children. Investigate the underlying triggers of anger and devise coping strategies to manage these triggers effectively. Consider the integration of anger management strategies into individual therapy sessions for more focused intervention. Trauma Evaluate the patient's readiness for engaging in trauma therapy and initiate when deemed appropriate. Ensure the establishment of adequate coping mechanisms prior to commencing trauma-focused work. Continuously monitor the patient's therapeutic progress and make necessary adjustments to the therapy approach as required. Weight Management Support the patient in continuing with physical therapy and encourage the exploration of alternative exercises, such as rowing, for weight management. Discuss the possibility of weight loss medications with the psychiatrist, taking into account the patient's preferences and concerns. Physical Health Address any issues the patient has with physical therapy, including discussing these concerns with the therapist or considering a change if needed. Encourage open communication between the patient and healthcare providers regarding any persistent pain or discomfort. Family and Relationship Dynamics Assist the patient in maintaining open and effective communication with their children and spouse. Support efforts towards creating a balanced and supportive home environment. Focus on addressing any marriage and parenting concerns within individual therapy sessions. Social and Environmental Stressors Help the patient develop coping strategies for managing external stressors, such as conflicts with neighbors and financial worries. Encourage seeking support from community resources or support groups as necessary. 05/20/2024 MDD (major depressive disorder), severe (ICD-10 - F32.2) 1. Anxiety and Depression Assessment: - Patient reports experiencing anxiety and depression related to a potential move and working long hours - Currently taking antidepressant (Pristiq) with some positive effects after three weeks - Experiencing side effects including fatigue, feeling wired, anxiety, and palpitations - Anxiety linked to concerns about leaving friends and [place] children Plan: - Continue Pristiq for at least 3 more weeks to assess full effects - Monitor side effects, particularly palpitations and anxiety - Implement coping strategies such as ice therapy/dive reflex for managing anxiety and palpitations - Consider blood pressure monitoring at home - Follow up with prescribing provider if side effects persist or worsen - Explore exercise options, such as using a walking pad under desk 2. Unresolved Trauma Assessment: - Recently recognized unresolved trauma related to mother's sudden departure at age 21, after father's - Triggered by in-laws' move causing emotional distress - Experiencing feelings of loss of connection and panic attacks - Expresses uncertainty about processing these emotions Plan: - Refer to rEendira Jacobo in [place] for trauma-focused therapy, including EMDR, internal family systems, and somatic therapies - Consider alternative referral to [facility] in [place] for brain spotting therapy - Encourage patient to explore these options and report back on decision - Continue to process trauma-related emotions in current therapy sessions as needed 3. Work-Life Balance and Self-Care Assessment: - Reports working 54 hours per week - Work schedule contributing to stress and limiting time for self-care and family - Potential move and associated decisions impacting sense of balance and well-being Plan: - Encourage implementation of sensory regulation time for self-care - Advise balancing time with children and setting boundaries with in-laws - Recommend prioritizing quality time with family - Suggest exploring options for maintaining a larger, more inclusive community 12/11/2023 STEVO (generalized anxiety disorder) (ICD-10 - F41.1) 1. Major Depressive Disorder - Start aripiprazole (Abilify) and monitor for improvement - Discuss restarting fluoxetine (Prozac) or considering sertraline (Zoloft) in higher doses - Consider TMS or esketamine (Spravato) for treatment-resist ant depression - Encourage therapy sessions - Patient reports being really sad all day and unable to play with daughter 2. Generalized Anxiety Disorder - Continue lorazepam as prescribed - Continue oxcarbazepine 75mg - Continue propranolol 20mg three times a day, scheduled or as needed - Encourage discussing anxiety management strategies in therapy - Patient rates current anxiety as 10 3. Obsessive-Compul sive Disorder (OCD) - Address OCD symptoms in therapy - Monitor aripiprazole response and consider regimen adjustment if needed - Patient reports pure OCD symptoms when anxiety high 4. Insomnia - Encourage discussing sleep hygiene and relaxation techniques in therapy - Patient reports difficulty sleeping 5. Attention Deficit Hyperactivity Disorder (ADHD) - Follow up with Rhiannon on Friday to discuss ADHD medications 6. Patient Education and Safety - Provide Spravato (esketamine) information and discuss benefits/risks - Remind of crisis hotline (461) for emergencies - Patient reports suicidal thoughts Follow-up: - Follow up with Rhiannon for ADHD management and depression treatment options - Monitor aripiprazole response and side effects - Reevaluate treatment plan based on progress with therapy/medicati ons - Consider starting Prozac or discussing further at next appointment 12/15/2023 STEVO (generalized anxiety disorder) (ICD-10 - F41.1) 12/24/2023 MDD (major depressive disorder), severe (ICD-10 - F32.2) Electronic Prior Authorization was requested for Caplyta 10.5 MG Capsule. Provider can order medication once approval received. Patient had reduction in suicidal ideation and/or behavior upon follow-up assessment within 120 days of index assessment ([id number]) 1. Anxiety - Patient reports increased anxiety, rating 9/10. - Currently on propranolol, oxcarbazepine and lorazepam (Ativan). - Possible contributing factor: recent discontinuation of marijuana use. - Refill lorazepam - continue therapy - discussed probably spike of anxiety is r/t marijuana discontinuation - encouraged continued abstinence and provide support. 2. Depression - Patient reports improvement in symptoms, rating 2-3/10. - PHQ-9 score decreased from 19 to 6. - Continue caplyta for depression management. - Monitor for any changes in depression symptoms. 3. ADHD - Currently off ADHD medications due to difficulty contacting prescribing psychiatrist. - Plans to switch back to previous psychiatrist, Rhiannon. - Encourage discussion of ADHD medication concerns with Rhiannon. - Reassess ADHD management after one month, post-marijuana clearance. 4. Blood work - Initial blood work completed, not all results received. - Thyroid levels within normal limits. - Obtain and review missing blood work results (CBC, lipid, A1c, LFT, vitamin D, vitamin B). - Monitor liver function due to history of fatty liver. 5. Therapy - Started with new therapist - Reports dissatisfaction with current therapist's 30-minute sessions. - Encourage continuation of therapy sessions, either with current therapist or with [facility]- walk in clinician. - Monitor progress in therapy and adjust treatment plan as needed. - discussed group therapy for BPD. 6. Medication adjustments - Patient reports increased anxiety possibly due to caplyta *discussed that the probable cause of increased anxiety is r/t marijuana d/c - Consider adjusting oxcarbazepine dosage. - Continue current medications and monitor for improvement. - Discuss potential medication adjustments at next follow-up. 7. Substance use - Patient reports recent discontinuation of marijuana use. - Provide support and education on managing withdrawal symptoms. - Reassess impact on anxiety and overall mental health in 2 weeks 12/25/2023 STEVO (generalized anxiety disorder) (ICD-10 - F41.1) 1. Anxiety - Anxiety level reported at 07/10. - Discontinue Caplyta due to side effects and patient request. - Continue lorazepam as prescribed. - Monitor anxiety levels and adjust medications as needed. - Patient reported palpitations and feeling unable to calm down, leading to hospital visit. 2. Depression - Depression level reported at 07/10. - Discontinue Caplyta due to side effects and patient request. - Start mirtazapine (Remeron) 7.5 mg for antidepressant effects, sleep improvement, and appetite stimulation. - Monitor depression levels and adjust medications as needed. - Patient noted Caplyta helped with suicidal thoughts and depression but caused sickness. 3. Insomnia - Poor sleep quality reported. - Start mirtazapine (Remeron) 7.5 mg to improve sleep. - Monitor sleep quality and adjust medications as needed. 4. High Cholesterol - Elevated cholesterol levels (total cholesterol 228, LDL 153). - Encourage lifestyle modifications, including healthy diet and avoiding fried foods and jimenez. - Recheck cholesterol levels in one year. - Patient reports eating healthy and drinking hibiscus tea. 5. Vitamin D Deficiency - Low vitamin D level (29). - Discontinue [id number] vitamin D supplements. - Prescribe weekly vitamin D medication for three months. - Recheck vitamin D levels after three months of treatment. 6. Transition of Care - Patient moving to [place], [place] in three months. - Encourage scheduling appointment with new psychiatrist as soon as possible. - Recommend creating medication history notebook for new psychiatrist. 7. Substance Use - Patient reported two days without smoking marijuana. - Encourage continued abstinence from smoking. - Monitor for changes in mental health symptoms related to substance use. 8. Medication Changes - Discontinue Caplyta due to side effects. - Continue oxcarbazepine, propranolol, and lorazepam as prescribed. - Start mirtazapine (Remeron) 7.5 mg, with instructions to halve pill if side effects occur. - Advised against taking Valium with lorazepam. 9. patient education - discussed caplyta side effects would subside over time - discussed the improvement while on caplyta and suggested a different antipsychotic medication - pt refused to continue caplyta - pt refused to change to an alternative antipsychotic - pt requested to start mirtazapine. 12/25/2023 Vitamin D deficiency (ICD-10 - E55.9) 1. Anxiety - Anxiety level reported at 07/10. - Discontinue Caplyta due to side effects and patient request. - Continue lorazepam as prescribed. - Monitor anxiety levels and adjust medications as needed. - Patient reported palpitations and feeling unable to calm down, leading to hospital visit. 2. Depression - Depression level reported at 07/10. - Discontinue Caplyta due to side effects and patient request. - Start mirtazapine (Remeron) 7.5 mg for antidepressant effects, sleep improvement, and appetite stimulation. - Monitor depression levels and adjust medications as needed. - Patient noted Caplyta helped with suicidal thoughts and depression but caused sickness. 3. Insomnia - Poor sleep quality reported. - Start mirtazapine (Remeron) 7.5 mg to improve sleep. - Monitor sleep quality and adjust medications as needed. 4. High Cholesterol - Elevated cholesterol levels (total cholesterol 228, LDL 153). - Encourage lifestyle modifications, including healthy diet and avoiding fried foods and jimenez. - Recheck cholesterol levels in one year. - Patient reports eating healthy and drinking hibiscus tea. 5. Vitamin D Deficiency - Low vitamin D level (29). - Discontinue [id number] vitamin D supplements. - Prescribe weekly vitamin D medication for three months. - Recheck vitamin D levels after three months of treatment. 6. Transition of Care - Patient moving to [place], [place] in three months. - Encourage scheduling appointment with new psychiatrist as soon as possible. - Recommend creating medication history notebook for new psychiatrist. 7. Substance Use - Patient reported two days without smoking marijuana. - Encourage continued abstinence from smoking. - Monitor for changes in mental health symptoms related to substance use. 8. Medication Changes - Discontinue Caplyta due to side effects. - Continue oxcarbazepine, propranolol, and lorazepam as prescribed. - Start mirtazapine (Remeron) 7.5 mg, with instructions to halve pill if side effects occur. - Advised against taking Valium with lorazepam. 9. patient education - discussed caplyta side effects would subside over time - discussed the improvement while on caplyta and suggested a different antipsychotic medication - pt refused to continue caplyta - pt refused to change to an alternative antipsychotic - pt requested to start mirtazapine. 12/02/2023 Marijuana use (ICD-10 - F12.90) 1. Anxiety and Irritability - Continue venlafaxine 12.5mg daily, monitor for improvement. - Start oxcarbazepine 75mg at night, assess effectiveness. - Discontinue latuda after 1 week to avoid exacerbating anxiety. - Patient reports anxiety and overstimulation through the roof despite improved SI. 2. Insomnia - Monitor sleep quality/duration on current medications. - Encourage good sleep hygiene practices. - Patient reports 6-7 hours sleep per night. 3. Suicidal Ideation (SI) - Continue venlafaxine 12.5mg daily as it improved SI. - Monitor for mood/SI changes. - Patient reports SI as all gone with venlafaxine. 4. Propranolol for Anxiety Attacks - Schedule propranolol BID and third dose as needed. - Instruct checking HR, if <=60bpm do not take. - Patient reports a couple anxiety attacks per day. 5. Lorazepam Discontinuation - Support decision to stop lorazepam. - Monitor for withdrawal symptoms or increased anxiety. 6. Marijuana Use - Encourage cessation of marijuana smoking. - Assess impact on mental health and anxiety levels. - Patient reports recent use but desire to quit. 7. Safety Assessment - No current SI, delusions, paranoia or hallucinations. - Monitor mental status and safety concerns at follow-ups. 9. Depression - Patient rates current depression 3/10, significant improvement.. Patient had reduction in suicidal ideation and/or behavior upon follow-up assessment within 120 days of index assessment (M1357) 12/08/2023 MDD (major depressive disorder), severe (ICD-10 - F32.2) Patient had reduction in suicidal ideation and/or behavior upon follow-up assessment within 120 days of index assessment (M1357) 1. Anxiety - STEVO score 13 (moderate), improved from 15 at last visit. - Plan: a. Continue propranolol as needed, up to 3 times daily (patient using up to 4 times some nights). b. Encourage reduced marijuana use. c. Taper lorazepam by cutting middle dose in half to 0.5 mg. 2. Depression - Patient rates depression 2/10, improved from last visit. - Plan: a. Discontinue venlafaxine due to adverse effects. b. Discontinue Latuda due to previous adverse effects. c. Start bupropion 37.5mg daily for depression. 3. ADHD - Bupropion 37.5 mg daily initiated for ADHD symptoms. - Monitor for improvement in attention and focus. 4. Insomnia - Address contributing anxiety and depression. - Patient reports ~6 hours of sleep. - encourage sleep hygeine - encouraged to monitor caffeine intake. 5. Oxcarbazepine - Continue oxcarbazepine 75mg daily for mood stabilization. - Instruct to avoid lorazepam concurrently. 6. Breast Biopsy and Potential Cancer - Validate patient's concerns and fears. - Encourage follow up with PCP and specialists as needed. - biopsy scheduled for later today. 7. Follow-Up - Schedule 2 week follow up to assess medication changes and symptom management progress. 12/10/2023 STEVO (generalized anxiety disorder) (ICD-10 - F41.1) Assessment and plan reviewed with patient Call for problems with medication, side effects or need for dosage change Compliance issues reviewed Discussed the risks/benefits of this medication Discussed medication side effects Return if symptoms worsen Treatment options reviewed. discussed that it can take weeks to see full therapeutic effects of psychotropic medications. discussed when to seek emergency services. discussed crisis prevention hotline [phone]. 1. Anxiety - Reports reduced anxiety after discontinuing bupropion. - Currently taking propranolol 2-3 times daily and lorazepam 0.5mg mid-day. - Plan: a. Continue propranolol as prescribed. b. Gradually taper lorazepam over 6 weeks, monitoring for increased anxiety. 2. ADHD - Previous success with Ritalin but insurance stopped coverage. - Negative experiences with Strattera and bupropion. - Interested in non-stimulant options. 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 - Plan: a. Obtain previous ADHD assessment results. b. Appointment to discuss patch. c. Consider Quillivant XR, discussing potential side effects. 3. Depression - Unsure if symptoms due to depression or untreated ADHD. - Discontinued bupropion due to side effects. - Reports lack of motivation and easily frustrated. - Plan: a. Monitor mood during follow-ups. b. Reassess depression after addressing ADHD and adjusting medications. 4. Insomnia - Reports 5-6 hours sleep per night. - Plan: a. Reduce magnesium to 200mg to improve REM sleep without GI side effects. b. Monitor sleep quality. 5. TMS Therapy Consideration - Initially feared TMS worsening anxiety but showed interest after explanation. - No implanted metal objects or seizure history. - Plan: a. Encourage considering TMS for depression. b. If pursuing TMS, ensure criteria met. 6. Follow-up - Schedule follow-ups to monitor progress, medication adjustments, mental health. - Obtain documentation/re cords to support treatment, including previous Vyvanse/stimulan t history. - Request patient bring ADHD assessment results and relevant records. 12/10/2023 ADHD (attention deficit hyperactivity disorder) evaluation (ICD-10 - Z13.39) 1. Anxiety - Reports reduced anxiety after discontinuing bupropion. - Currently taking propranolol 2-3 times daily and lorazepam 0.5mg mid-day. - Plan: a. Continue propranolol as prescribed. b. Gradually taper lorazepam over 6 weeks, monitoring for increased anxiety. 2. ADHD - Previous success with Ritalin but insurance stopped coverage. - Negative experiences with Strattera and bupropion. - Interested in non-stimulant options. 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 - Plan: a. Obtain previous ADHD assessment results. b. Appointment to discuss patch. c. Consider Quillivant XR, discussing potential side effects. 3. Depression - Unsure if symptoms due to depression or untreated ADHD. - Discontinued bupropion due to side effects. - Reports lack of motivation and easily frustrated. - Plan: a. Monitor mood during follow-ups. b. Reassess depression after addressing ADHD and adjusting medications. 4. Insomnia - Reports 5-6 hours sleep per night. - Plan: a. Reduce magnesium to 200mg to improve REM sleep without GI side effects. b. Monitor sleep quality. 5. TMS Therapy Consideration - Initially feared TMS worsening anxiety but showed interest after explanation. - No implanted metal objects or seizure history. - Plan: a. Encourage considering TMS for depression. b. If pursuing TMS, ensure criteria met. 6. Follow-up - Schedule follow-ups to monitor progress, medication adjustments, mental health. - Obtain documentation/re cords to support treatment, including previous Vyvanse/stimulan t history. - Request patient bring ADHD assessment results and relevant records. 01/21/2024 MDD (major depressive disorder), severe (ICD-10 - F32.2) 1. MDD stable; PHQ9=6 today -cont oxcarbazepine 150mg daily 2. 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 ADHD -start Qelbree 100mg daily, increase as tolerated for symptom management. LABS: 12/202301/21/2024 Generalized anxiety disorder (ICD-10 - F41.1) 02/04/2024 Generalized anxiety disorder (ICD-10 - F41.1) 02/11/2024 Generalized anxiety disorder (ICD-10 - F41.1) 02/18/2024 Generalized anxiety disorder (ICD-10 - F41.1) 03/10/2024 Generalized anxiety disorder (ICD-10 - F41.1) 03/17/2024 Generalized anxiety disorder (ICD-10 - F41.1) 03/24/2024 Generalized anxiety disorder (ICD-10 - F41.1) 03/30/2024 STEVO (generalized anxiety disorder) (ICD-10 - F41.1) 03/30/2024 Generalized anxiety disorder (ICD-10 - F41.1) Assessment and Plan: Anxiety and Panic Attacks Continue with the current mood stabilizer medication and engage in discussions with the psychiatrist for possible adjustments. Explore the option of alternative medications with the psychiatrist, especially if issues like weight gain continue. Promote the practice of regular meditation and relaxation techniques, including meditating in the sauna, to help manage symptoms. Anger Management Utilize DBT (Dialectical Behavior Therapy) skills to address anger issues and enhance communication with children. Investigate the underlying triggers of anger and devise coping strategies to manage these triggers effectively. Consider the integration of anger management strategies into individual therapy sessions for more focused intervention. Trauma Evaluate the patient's readiness for engaging in trauma therapy and initiate when deemed appropriate. Ensure the establishment of adequate coping mechanisms prior to commencing trauma-focused work. Continuously monitor the patient's therapeutic progress and make necessary adjustments to the therapy approach as required. Weight Management Support the patient in continuing with physical therapy and encourage the exploration of alternative exercises, such as rowing, for weight management. Discuss the possibility of weight loss medications with the psychiatrist, taking into account the patient's preferences and concerns. Physical Health Address any issues the patient has with physical therapy, including discussing these concerns with the therapist or considering a change if needed. Encourage open communication between the patient and healthcare providers regarding any persistent pain or discomfort. Family and Relationship Dynamics Assist the patient in maintaining open and effective communication with their children and spouse. Support efforts towards creating a balanced and supportive home environment. Focus on addressing any marriage and parenting concerns within individual therapy sessions. Social and Environmental Stressors Help the patient develop coping strategies for managing external stressors, such as conflicts with neighbors and financial worries. Encourage seeking support from community resources or support groups as necessary. 01/12/2024 STEVO (generalized anxiety disorder) (ICD-10 - F41.1) 04/01/2024 MDD (major depressive disorder), severe (ICD-10 - F32.2) LABS: 12/202304/07/2024 Generalized anxiety disorder (ICD-10 - F41.1) 04/08/2024 Generalized anxiety disorder (ICD-10 - F41.1) Assessment and Plan: 1. Sensory Overload The patient experiences difficulty coping with sensory overload triggered by their child's screaming and tantrums. Plan: Recommend the use of earbuds or noise-canceling headphones to mitigate the impact of noise. Introduce exposure therapy techniques, including the gradual increase of volume in recordings of the child's tantrums, potentially involving the patient's in the process. 2. Parenting and Coping Strategies The patient faces challenges in managing their child's tantrums and identifying effective soothing methods. Plan: Suggest taking the child outside during tantrums, employing temperature-base d soothing techniques, and practicing deep breathing exercises during moments of calm. Explore the use of weighted blankets or stretchy sacks for the child's comfort. 3. Self-Care and Self-Love The patient acknowledges difficulties in practicing self-love and self-care. Plan: Encourage participation in self-care activities, such as visiting the sauna post-physical therapy. Emphasize the importance of self-love and offer support in cultivating self-compassion. 4. Trauma Therapy Preparation The patient expresses interest in trauma therapy but requires development in grounding techniques, distress tolerance, and establishing a support system beforehand. Plan: Prioritize managing the child's screaming and preparing for trauma therapy in the next three months. Assist in finding a trauma therapist aligned with the patient's preferences for effective session leadership. 5. Involvement in Social and Political Issues The patient wishes to engage in social and political issues but feels constrained by parental responsibilities . Plan: Encourage exploring alternative methods of involvement, such as contacting their union president to offer support within manageable capacities. 6. Virtual Therapy Sessions The patient prefers to continue with virtual therapy sessions. Plan: Arrange for weekly virtual appointments on , preferably at 9 AM or later. 04/08/2024 Attention-defic it hyperactivity disorder, combined type (ICD-10 - F90.2) Assessment and Plan: 1. Sensory Overload The patient experiences difficulty coping with sensory overload triggered by their child's screaming and tantrums. Plan: Recommend the use of earbuds or noise-canceling headphones to mitigate the impact of noise. Introduce exposure therapy techniques, including the gradual increase of volume in recordings of the child's tantrums, potentially involving the patient's in the process. 2. Parenting and Coping Strategies The patient faces challenges in managing their child's tantrums and identifying effective soothing methods. Plan: Suggest taking the child outside during tantrums, employing temperature-base d soothing techniques, and practicing deep breathing exercises during moments of calm. Explore the use of weighted blankets or stretchy sacks for the child's comfort. 3. Self-Care and Self-Love The patient acknowledges difficulties in practicing self-love and self-care. Plan: Encourage participation in self-care activities, such as visiting the sauna post-physical therapy. Emphasize the importance of self-love and offer support in cultivating self-compassion. 4. Trauma Therapy Preparation The patient expresses interest in trauma therapy but requires development in grounding techniques, distress tolerance, and establishing a support system beforehand. Plan: Prioritize managing the child's screaming and preparing for trauma therapy in the next three months. Assist in finding a trauma therapist aligned with the patient's preferences for effective session leadership. 5. Involvement in Social and Political Issues The patient wishes to engage in social and political issues but feels constrained by parental responsibilities . Plan: Encourage exploring alternative methods of involvement, such as contacting their union president to offer support within manageable capacities. 6. Virtual Therapy Sessions The patient prefers to continue with virtual therapy sessions. Plan: Arrange for weekly virtual appointments on , preferably at 9 AM or later. 12/24/2023 STEVO (generalized anxiety disorder) (ICD-10 - F41.1) Patient had reduction in suicidal ideation and/or behavior upon follow-up assessment within 120 days of index assessment (M1357) 1. Anxiety - Patient reports increased anxiety, rating 9/10. - Currently on propranolol, oxcarbazepine and lorazepam (Ativan). - Possible contributing factor: recent discontinuation of marijuana use. - Refill lorazepam - continue therapy - discussed probably spike of anxiety is r/t marijuana discontinuation - encouraged continued abstinence and provide support. 2. Depression - Patient reports improvement in symptoms, rating 2-3/10. - PHQ-9 score decreased from 19 to 6. - Continue caplyta for depression management. - Monitor for any changes in depression symptoms. 3. ADHD - Currently off ADHD medications due to difficulty contacting prescribing psychiatrist. - Plans to switch back to previous psychiatrist, Rhiannon. - Encourage discussion of ADHD medication concerns with Rhiannon. - Reassess ADHD management after one month, post-marijuana clearance. 4. Blood work - Initial blood work completed, not all results received. - Thyroid levels within normal limits. - Obtain and review missing blood work results (CBC, lipid, A1c, LFT, vitamin D, vitamin B). - Monitor liver function due to history of fatty liver. 5. Therapy - Started with new therapist - Reports dissatisfaction with current therapist's 30-minute sessions. - Encourage continuation of therapy sessions, either with current therapist or with [facility]- walk in clinician. - Monitor progress in therapy and adjust treatment plan as needed. - discussed group therapy for BPD. 6. Medication adjustments - Patient reports increased anxiety possibly due to caplyta *discussed that the probable cause of increased anxiety is r/t marijuana d/c - Consider adjusting oxcarbazepine dosage. - Continue current medications and monitor for improvement. - Discuss potential medication adjustments at next follow-up. 7. Substance use - Patient reports recent discontinuation of marijuana use. - Provide support and education on managing withdrawal symptoms. - Reassess impact on anxiety and overall mental health in 2 weeks 01/21/2024 STEVO (generalized anxiety disorder) (ICD-10 - F41.1) 1. MDD stable; PHQ9=6 today -cont oxcarbazepine 150mg daily 2. 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 ADHD -start Qelbree 100mg daily, increase as tolerated for symptom management. LABS: 12/2023 03/30/2024 Attention-defic it hyperactivity disorder, combined type (ICD-10 - F90.2) Assessment and Plan: Anxiety and Panic Attacks Continue with the current mood stabilizer medication and engage in discussions with the psychiatrist for possible adjustments. Explore the option of alternative medications with the psychiatrist, especially if issues like weight gain continue. Promote the practice of regular meditation and relaxation techniques, including meditating in the sauna, to help manage symptoms. Anger Management Utilize DBT (Dialectical Behavior Therapy) skills to address anger issues and enhance communication with children. Investigate the underlying triggers of anger and devise coping strategies to manage these triggers effectively. Consider the integration of anger management strategies into individual therapy sessions for more focused intervention. Trauma Evaluate the patient's readiness for engaging in trauma therapy and initiate when deemed appropriate. Ensure the establishment of adequate coping mechanisms prior to commencing trauma-focused work. Continuously monitor the patient's therapeutic progress and make necessary adjustments to the therapy approach as required. Weight Management Support the patient in continuing with physical therapy and encourage the exploration of alternative exercises, such as rowing, for weight management. Discuss the possibility of weight loss medications with the psychiatrist, taking into account the patient's preferences and concerns. Physical Health Address any issues the patient has with physical therapy, including discussing these concerns with the therapist or considering a change if needed. Encourage open communication between the patient and healthcare providers regarding any persistent pain or discomfort. Family and Relationship Dynamics Assist the patient in maintaining open and effective communication with their children and spouse. Support efforts towards creating a balanced and supportive home environment. Focus on addressing any marriage and parenting concerns within individual therapy sessions. Social and Environmental Stressors Help the patient develop coping strategies for managing external stressors, such as conflicts with neighbors and financial worries. Encourage seeking support from community resources or support groups as necessary. 12/15/2023 Attention-defic it hyperactivity disorder, combined type (ICD-10 - F90.2) Consider stimulant when off cannabis 12/02/2023 Anxiety (ICD-10 - F41.9) 1. Anxiety and Irritability - Continue venlafaxine 12.5mg daily, monitor for improvement. - Start oxcarbazepine 75mg at night, assess effectiveness. - Discontinue latuda after 1 week to avoid exacerbating anxiety. - Patient reports anxiety and overstimulation through the roof despite improved SI. 2. Insomnia - Monitor sleep quality/duration on current medications. - Encourage good sleep hygiene practices. - Patient reports 6-7 hours sleep per night. 3. Suicidal Ideation (SI) - Continue venlafaxine 12.5mg daily as it improved SI. - Monitor for mood/SI changes. - Patient reports SI as all gone with venlafaxine. 4. Propranolol for Anxiety Attacks - Schedule propranolol BID and third dose as needed. - Instruct checking HR, if <=60bpm do not take. - Patient reports a couple anxiety attacks per day. 5. Lorazepam Discontinuation - Support decision to stop lorazepam. - Monitor for withdrawal symptoms or increased anxiety. 6. Marijuana Use - Encourage cessation of marijuana smoking. - Assess impact on mental health and anxiety levels. - Patient reports recent use but desire to quit. 7. Safety Assessment - No current SI, delusions, paranoia or hallucinations. - Monitor mental status and safety concerns at follow-ups. 9. Depression - Patient rates current depression 3/10, significant improvement.. Patient had reduction in suicidal ideation and/or behavior upon follow-up assessment within 120 days of index assessment (M1357) 12/08/2023 Marijuana use (ICD-10 - F12.90) Patient had reduction in suicidal ideation and/or behavior upon follow-up assessment within 120 days of index assessment (M1357) 1. Anxiety - STEVO score 13 (moderate), improved from 15 at last visit. - Plan: a. Continue propranolol as needed, up to 3 times daily (patient using up to 4 times some nights). b. Encourage reduced marijuana use. c. Taper lorazepam by cutting middle dose in half to 0.5 mg. 2. Depression - Patient rates depression 2/10, improved from last visit. - Plan: a. Discontinue venlafaxine due to adverse effects. b. Discontinue Latuda due to previous adverse effects. c. Start bupropion 37.5mg daily for depression. 3. ADHD - Bupropion 37.5 mg daily initiated for ADHD symptoms. - Monitor for improvement in attention and focus. 4. Insomnia - Address contributing anxiety and depression. - Patient reports ~6 hours of sleep. - encourage sleep hygeine - encouraged to monitor caffeine intake. 5. Oxcarbazepine - Continue oxcarbazepine 75mg daily for mood stabilization. - Instruct to avoid lorazepam concurrently. 6. Breast Biopsy and Potential Cancer - Validate patient's concerns and fears. - Encourage follow up with PCP and specialists as needed. - biopsy scheduled for later today. 7. Follow-Up - Schedule 2 week follow up to assess medication changes and symptom management progress. 12/25/2023 MDD (major depressive disorder), severe (ICD-10 - F32.2) Electronic Prior Authorization was requested for Caplyta 10.5 MG Capsule. Provider can order medication once approval received. 1. Anxiety - Anxiety level reported at 07/10. - Discontinue Caplyta due to side effects and patient request. - Continue lorazepam as prescribed. - Monitor anxiety levels and adjust medications as needed. - Patient reported palpitations and feeling unable to calm down, leading to hospital visit. 2. Depression - Depression level reported at 07/10. - Discontinue Caplyta due to side effects and patient request. - Start mirtazapine (Remeron) 7.5 mg for antidepressant effects, sleep improvement, and appetite stimulation. - Monitor depression levels and adjust medications as needed. - Patient noted Caplyta helped with suicidal thoughts and depression but caused sickness. 3. Insomnia - Poor sleep quality reported. - Start mirtazapine (Remeron) 7.5 mg to improve sleep. - Monitor sleep quality and adjust medications as needed. 4. High Cholesterol - Elevated cholesterol levels (total cholesterol 228, LDL 153). - Encourage lifestyle modifications, including healthy diet and avoiding fried foods and jimenez. - Recheck cholesterol levels in one year. - Patient reports eating healthy and drinking hibiscus tea. 5. Vitamin D Deficiency - Low vitamin D level (29). - Discontinue [id number] vitamin D supplements. - Prescribe weekly vitamin D medication for three months. - Recheck vitamin D levels after three months of treatment. 6. Transition of Care - Patient moving to [place], [place] in three months. - Encourage scheduling appointment with new psychiatrist as soon as possible. - Recommend creating medication history notebook for new psychiatrist. 7. Substance Use - Patient reported two days without smoking marijuana. - Encourage continued abstinence from smoking. - Monitor for changes in mental health symptoms related to substance use. 8. Medication Changes - Discontinue Caplyta due to side effects. - Continue oxcarbazepine, propranolol, and lorazepam as prescribed. - Start mirtazapine (Remeron) 7.5 mg, with instructions to halve pill if side effects occur. - Advised against taking Valium with lorazepam. 9. patient education - discussed caplyta side effects would subside over time - discussed the improvement while on caplyta and suggested a different antipsychotic medication - pt refused to continue caplyta - pt refused to change to an alternative antipsychotic - pt requested to start mirtazapine. 12/10/2023 Marijuana use (ICD-10 - F12.90) 1. Anxiety - Reports reduced anxiety after discontinuing bupropion. - Currently taking propranolol 2-3 times daily and lorazepam 0.5mg mid-day. - Plan: a. Continue propranolol as prescribed. b. Gradually taper lorazepam over 6 weeks, monitoring for increased anxiety. 2. ADHD - Previous success with Ritalin but insurance stopped coverage. - Negative experiences with Strattera and bupropion. - Interested in non-stimulant options. 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 - Plan: a. Obtain previous ADHD assessment results. b. Appointment to discuss patch. c. Consider Quillivant XR, discussing potential side effects. 3. Depression - Unsure if symptoms due to depression or untreated ADHD. - Discontinued bupropion due to side effects. - Reports lack of motivation and easily frustrated. - Plan: a. Monitor mood during follow-ups. b. Reassess depression after addressing ADHD and adjusting medications. 4. Insomnia - Reports 5-6 hours sleep per night. - Plan: a. Reduce magnesium to 200mg to improve REM sleep without GI side effects. b. Monitor sleep quality. 5. TMS Therapy Consideration - Initially feared TMS worsening anxiety but showed interest after explanation. - No implanted metal objects or seizure history. - Plan: a. Encourage considering TMS for depression. b. If pursuing TMS, ensure criteria met. 6. Follow-up - Schedule follow-ups to monitor progress, medication adjustments, mental health. - Obtain documentation/re cords to support treatment, including previous Vyvanse/stimulan t history. - Request patient bring ADHD assessment results and relevant records. 05/20/2024 Attention-defic it hyperactivity disorder, combined type (ICD-10 - F90.2) 1. Anxiety and Depression Assessment: - Patient reports experiencing anxiety and depression related to a potential move and working long hours - Currently taking antidepressant (Pristiq) with some positive effects after three weeks - Experiencing side effects including fatigue, feeling wired, anxiety, and palpitations - Anxiety linked to concerns about leaving friends and impact of [place] children Plan: - Continue Pristiq for at least 3 more weeks to assess full effects - Monitor side effects, particularly palpitations and anxiety - Implement coping strategies such as ice therapy/dive reflex for managing anxiety and palpitations - Consider blood pressure monitoring at home - Follow up with prescribing provider if side effects persist or worsen - Explore exercise options, such as using a walking pad under desk 2. Unresolved Trauma Assessment: - Recently recognized unresolved trauma related to mother's sudden departure at age 22, after father's - Triggered by in-laws' move causing emotional distress - Experiencing feelings of loss of connection and panic attacks - Expresses uncertainty about processing these emotions Plan: - Refer to Erendira Jacobo in [place] for trauma-focused therapy, including EMDR, internal family systems, and somatic therapies - Consider alternative referral to [facility] in [place] for brain spotting therapy - Encourage patient to explore these options and report back on decision - Continue to process trauma-related emotions in current therapy sessions as needed 3. Work-Life Balance and Self-Care Assessment: - Reports working 54 hours per week - Work schedule contributing to stress and limiting time for self-care and family - Potential move and associated decisions impacting sense of balance and well-being Plan: - Encourage implementation of sensory regulation time for self-care - Advise balancing time with children and setting boundaries with in-laws - Recommend prioritizing quality time with family - Suggest exploring options for maintaining a larger, more inclusive community 04/29/2024 Attention-defic it hyperactivity disorder, combined type (ICD-10 - F90.2) Assessment and Plan: Depression The patient has recently transitioned from mirtazapine to Pristiq for antidepressant treatment. Plan to monitor the patient's reaction to Pristiq, evaluating both side effects and any improvements in depressive symptoms. It is important for the patient to communicate any changes in mood or concerns. Anxiety and ADHD The patient has noted that while previous use of Pristiq aided ADHD symptoms, it did not alleviate anxiety. The plan includes ongoing observation of the patient's response to Pristiq concerning ADHD symptoms. Additional treatment options for anxiety may be considered and discussed with the patient if deemed necessary. Sensory Regulation The patient has expressed a need to acquire yellow lights for their sensory setup. Encourage the patient to proceed with purchasing yellow lights and to implement sensory regulation strategies. Progress and the effectiveness of these sensory regulation techniques will be monitored. Exposure Therapy for Child's Crying The patient has yet to record their child's crying for the purposes of exposure therapy. The patient is encouraged to continue to utilize previously discussed emotion regulation, distress tolerance, and sensory regulation techniques. Support will be provided as needed, and the patient's progress will be monitored. Self-care Activities The patient engages in swimming, microneedling, and uses cortisol manager farm supplements as part of their self-care regimen. The patient is encouraged to maintain these self-care activities and to consider additional self-care strategies. Monitoring will continue regarding the patient's overall well-being and stress levels. Somatic Experiencing Therapy The patient has shown interest in somatic experiencing therapy. Information on local somatic experiencing therapists (Erendira and Karrie) will be provided to the patient, along with a discussion on the potential benefits of this therapy. The patient's interest and progress in pursuing this treatment will be monitored. Follow-up Appointment A follow-up appointment is scheduled for three weeks from now, on May 20 at 11:00 AM. The plan is to continue with virtual appointments and to monitor the patient's progress across the various treatment areas. The patient is encouraged to reach out with any concerns or needs that may arise before the next scheduled appointment. 04/15/2024 Attention-defic it hyperactivity disorder, combined type (ICD-10 - F90.2) Assessment and Plan: 1. ADHD: The patient has recently started medication for ADHD and has noted an improvement in anxiety levels and a reduction in yelling. Plan: Maintain the current ADHD medication regimen and continue to assess the patient's progress. Reevaluate the necessity of medication as changes occur in the patient's circumstances, such as improved sleep or changes in family dynamics. 2. Anxiety: The patient has observed a slight improvement in anxiety symptoms since beginning consultations. Plan: Persist with Cognitive Behavioral Therapy sessions and monitor the patient's improvement. Advise the patient to establish a sensory regulation space and allocate time specifically for relaxation activities. 3. Sexual Relationship Difficulties: The patient experiences overstimulation due to daytime activities with children, which adversely affects nighttime sexual engagement. Plan: Recommend strategies for calming stimulation and emphasize the importance of self-care. Advise scheduling child-free time to enhance intimacy with their partner, focusing on non-sexual touch and comfort. 4. Trauma-related Symptoms: The patient exhibits anxiety and involuntary scared facial expressions, which may be linked to past trauma. Plan: Consider exploring alternative trauma therapy options, such as somatic experiencing, and provide referrals to local therapists specialized in these methods. 5. Substance Use (Marijuana): The patient recognizes the need to reduce marijuana consumption but finds cessation challenging. Plan: Support the patient's efforts to decrease marijuana use. 6. Trust Issues: The patient has expressed difficulties in trusting others and hesitancy towards engaging with local organizations. Plan: Suggest involvement in reputable organizations such as [employer], [employer], and [employer], to foster trust and community connection. Follow-up: A follow-up appointment is scheduled for , April 29, after 9 am to review the patient's progress and adjust the treatment plan as necessary. 12/11/2023 Suicidal thoughts (ICD-10 - R45.851) 1. Major Depressive Disorder - Start aripiprazole (Abilify) and monitor for improvement - Discuss restarting fluoxetine (Prozac) or considering sertraline (Zoloft) in higher doses - Consider TMS or esketamine (Spravato) for treatment-resist ant depression - Encourage therapy sessions - Patient reports being really sad all day and unable to play with daughter 2. Generalized Anxiety Disorder - Continue lorazepam as prescribed - Continue oxcarbazepine 75mg - Continue propranolol 20mg three times a day, scheduled or as needed - Encourage discussing anxiety management strategies in therapy - Patient rates current anxiety as 8/10 3. Obsessive-Compul sive Disorder (OCD) - Address OCD symptoms in therapy - Monitor aripiprazole response and consider regimen adjustment if needed - Patient reports pure OCD symptoms when anxiety high 4. Insomnia - Encourage discussing sleep hygiene and relaxation techniques in therapy - Patient reports difficulty sleeping 5. Attention Deficit Hyperactivity Disorder (ADHD) - Follow up with Rhiannon on Friday to discuss ADHD medications 6. Patient Education and Safety - Provide Spravato (esketamine) information and discuss benefits/risks - Remind of crisis hotline (301) for emergencies - Patient reports suicidal thoughts Follow-up: - Follow up with Rhiannon for ADHD management and depression treatment options - Monitor aripiprazole response and side effects - Reevaluate treatment plan based on progress with therapy/medicati ons - Consider starting Prozac or discussing further at next appointment 04/01/2024 STEVO (generalized anxiety disorder) (ICD-10 - F41.1) LABS: 12/202304/15/2024 Marijuana use (ICD-10 - F12.90) Assessment and Plan: 1. ADHD: The patient has recently started medication for ADHD and has noted an improvement in anxiety levels and a reduction in yelling. Plan: Maintain the current ADHD medication regimen and continue to assess the patient's progress. Reevaluate the necessity of medication as changes occur in the patient's circumstances, such as improved sleep or changes in family dynamics. 2. Anxiety: The patient has observed a slight improvement in anxiety symptoms since beginning consultations. Plan: Persist with Cognitive Behavioral Therapy sessions and monitor the patient's improvement. Advise the patient to establish a sensory regulation space and allocate time specifically for relaxation activities. 3. Sexual Relationship Difficulties: The patient experiences overstimulation due to daytime activities with children, which adversely affects nighttime sexual engagement. Plan: Recommend strategies for calming stimulation and emphasize the importance of self-care. Advise scheduling child-free time to enhance intimacy with their partner, focusing on non-sexual touch and comfort. 4. Trauma-related Symptoms: The patient exhibits anxiety and involuntary scared facial expressions, which may be linked to past trauma. Plan: Consider exploring alternative trauma therapy options, such as somatic experiencing, and provide referrals to local therapists specialized in these methods. 5. Substance Use (Marijuana): The patient recognizes the need to reduce marijuana consumption but finds cessation challenging. Plan: Support the patient's efforts to decrease marijuana use. 6. Trust Issues: The patient has expressed difficulties in trusting others and hesitancy towards engaging with local organizations. Plan: Suggest involvement in reputable organizations such as [employer], [facility], and [employer], to foster trust and community connection. Follow-up: A follow-up appointment is scheduled for April 29, after 9 am to review the patient's progress and adjust the treatment plan as necessary. 04/29/2024 Marijuana use (ICD-10 - F12.90) Assessment and Plan: Depression The patient has recently transitioned from mirtazapine to Pristiq for antidepressant treatment. Plan to monitor the patient's reaction to Pristiq, evaluating both side effects and any improvements in depressive symptoms. It is important for the patient to communicate any changes in mood or concerns. Anxiety and ADHD The patient has noted that while previous use of Pristiq aided ADHD symptoms, it did not alleviate anxiety. The plan includes ongoing observation of the patient's response to Pristiq concerning ADHD symptoms. Additional treatment options for anxiety may be considered and discussed with the patient if deemed necessary. Sensory Regulation The patient has expressed a need to acquire yellow lights for their sensory setup. Encourage the patient to proceed with purchasing yellow lights and to implement sensory regulation strategies. Progress and the effectiveness of these sensory regulation techniques will be monitored. Exposure Therapy for Child's Crying The patient has yet to record their child's crying for the purposes of exposure therapy. The patient is encouraged to continue to utilize previously discussed emotion regulation, distress tolerance, and sensory regulation techniques. Support will be provided as needed, and the patient's progress will be monitored. Self-care Activities The patient engages in swimming, microneedling, and uses cortisol manager farm supplements as part of their self-care regimen. The patient is encouraged to maintain these self-care activities and to consider additional self-care strategies. Monitoring will continue regarding the patient's overall well-being and stress levels. Somatic Experiencing Therapy The patient has shown interest in somatic experiencing therapy. Information on local somatic experiencing therapists (Erendira and Karrie) will be provided to the patient, along with a discussion on the potential benefits of this therapy. The patient's interest and progress in pursuing this treatment will be monitored. Follow-up Appointment A follow-up appointment is scheduled for three weeks from now, on May 20 at 11:00 AM. The plan is to continue with virtual appointments and to monitor the patient's progress across the various treatment areas. The patient is encouraged to reach out with any concerns or needs that may arise before the next scheduled appointment. 05/20/2024 Encounter for screening for depression (ICD-10 - Z13.31) 1. Anxiety and Depression Assessment: - Patient reports experiencing anxiety and depression related to a potential move and working long hours - Currently taking antidepressant (Pristiq) with some positive effects after three weeks - Experiencing side effects including fatigue, feeling wired, anxiety, and palpitations - Anxiety linked to concerns about leaving friends and impact of [place] children Plan: - Continue Pristiq for at least 3 more weeks to assess full effects - Monitor side effects, particularly palpitations and anxiety - Implement coping strategies such as ice therapy/dive reflex for managing anxiety and palpitations - Consider blood pressure monitoring at home - Follow up with prescribing provider if side effects persist or worsen - Explore exercise options, such as using a walking pad under desk 2. Unresolved Trauma Assessment: - Recently recognized unresolved trauma related to mother's sudden departure at age 22, after father's - Triggered by in-laws' move causing emotional distress - Experiencing feelings of loss of connection and panic attacks - Expresses uncertainty about processing these emotions Plan: - Refer to Erendira Jacobo in [place] for trauma-focused therapy, including EMDR, internal family systems, and somatic therapies - Consider alternative referral to [facility] in [place] for brain spotting therapy - Encourage patient to explore these options and report back on decision - Continue to process trauma-related emotions in current therapy sessions as needed 3. Work-Life Balance and Self-Care Assessment: - Reports working 54 hours per week - Work schedule contributing to stress and limiting time for self-care and family - Potential move and associated decisions impacting sense of balance and well-being Plan: - Encourage implementation of sensory regulation time for self-care - Advise balancing time with children and setting boundaries with in-laws - Recommend prioritizing quality time with family - Suggest exploring options for maintaining a larger, more inclusive community 04/01/2024 Attention-defic it hyperactivity disorder, combined type (ICD-10 - F90.2) LABS: 12/202304/01/2024 Other long-term (current) drug therapy (ICD-10 - Z79.899) LABS: 12/202312/24/2023 Attention-defic it hyperactivity disorder, combined type (ICD-10 - F90.2) Consider stimulant when off cannabis Patient had reduction in suicidal ideation and/or behavior upon follow-up assessment within 120 days of index assessment (M1357) 1. Anxiety - Patient reports increased anxiety, rating 9/10. - Currently on propranolol, oxcarbazepine and lorazepam (Ativan). - Possible contributing factor: recent discontinuation of marijuana use. - Refill lorazepam - continue therapy - discussed probably spike of anxiety is r/t marijuana discontinuation - encouraged continued abstinence and provide support. 2. Depression - Patient reports improvement in symptoms, rating 2-3/10. - PHQ-9 score decreased from 19 to 6. - Continue caplyta for depression management. - Monitor for any changes in depression symptoms. 3. ADHD - Currently off ADHD medications due to difficulty contacting prescribing psychiatrist. - Plans to switch back to previous psychiatrist, Rhiannon. - Encourage discussion of ADHD medication concerns with Rhiannon. - Reassess ADHD management after one month, post-marijuana clearance. 4. Blood work - Initial blood work completed, not all results received. - Thyroid levels within normal limits. - Obtain and review missing blood work results (CBC, lipid, A1c, LFT, vitamin D, vitamin B). - Monitor liver function due to history of fatty liver. 5. Therapy - Started with new therapist - Reports dissatisfaction with current therapist's 30-minute sessions. - Encourage continuation of therapy sessions, either with current therapist or with LINDA- walk in clinician. - Monitor progress in therapy and adjust treatment plan as needed. - discussed group therapy for BPD. 6. Medication adjustments - Patient reports increased anxiety possibly due to caplyta *discussed that the probable cause of increased anxiety is r/t marijuana d/c - Consider adjusting oxcarbazepine dosage. - Continue current medications and monitor for improvement. - Discuss potential medication adjustments at next follow-up. 7. Substance use - Patient reports recent discontinuation of marijuana use. - Provide support and education on managing withdrawal symptoms. - Reassess impact on anxiety and overall mental health in 2 weeks 12/25/2023 Sleep disturbance (ICD-10 - G47.9) discussed sleep hygiene 1. Anxiety - Anxiety level reported at 07/10. - Discontinue Caplyta due to side effects and patient request. - Continue lorazepam as prescribed. - Monitor anxiety levels and adjust medications as needed. - Patient reported palpitations and feeling unable to calm down, leading to hospital visit. 2. Depression - Depression level reported at 07/10. - Discontinue Caplyta due to side effects and patient request. - Start mirtazapine (Remeron) 7.5 mg for antidepressant effects, sleep improvement, and appetite stimulation. - Monitor depression levels and adjust medications as needed. - Patient noted Caplyta helped with suicidal thoughts and depression but caused sickness. 3. Insomnia - Poor sleep quality reported. - Start mirtazapine (Remeron) 7.5 mg to improve sleep. - Monitor sleep quality and adjust medications as needed. 4. High Cholesterol - Elevated cholesterol levels (total cholesterol 228, LDL 153). - Encourage lifestyle modifications, including healthy diet and avoiding fried foods and jimenez. - Recheck cholesterol levels in one year. - Patient reports eating healthy and drinking hibiscus tea. 5. Vitamin D Deficiency - Low vitamin D level (29). - Discontinue [id number] vitamin D supplements. - Prescribe weekly vitamin D medication for three months. - Recheck vitamin D levels after three months of treatment. 6. Transition of Care - Patient moving to [place], [place] in three months. - Encourage scheduling appointment with new psychiatrist as soon as possible. - Recommend creating medication history notebook for new psychiatrist. 7. Substance Use - Patient reported two days without smoking marijuana. - Encourage continued abstinence from smoking. - Monitor for changes in mental health symptoms related to substance use. 8. Medication Changes - Discontinue Caplyta due to side effects. - Continue oxcarbazepine, propranolol, and lorazepam as prescribed. - Start mirtazapine (Remeron) 7.5 mg, with instructions to halve pill if side effects occur. - Advised against taking Valium with lorazepam. 9. patient education - discussed caplyta side effects would subside over time - discussed the improvement while on caplyta and suggested a different antipsychotic medication - pt refused to continue caplyta - pt refused to change to an alternative antipsychotic - pt requested to start mirtazapine. 12/08/2023 Anxiety (ICD-10 - F41.9) Patient had reduction in suicidal ideation and/or behavior upon follow-up assessment within 120 days of index assessment (M1357) 1. Anxiety - STEVO score 13 (moderate), improved from 15 at last visit. - Plan: a. Continue propranolol as needed, up to 3 times daily (patient using up to 4 times some nights). b. Encourage reduced marijuana use. c. Taper lorazepam by cutting middle dose in half to 0.5 mg. 2. Depression - Patient rates depression 2/, improved from last visit. - Plan: a. Discontinue venlafaxine due to adverse effects. b. Discontinue Latuda due to previous adverse effects. c. Start bupropion 37.5mg daily for depression. 3. ADHD - Bupropion 37.5 mg daily initiated for ADHD symptoms. - Monitor for improvement in attention and focus. 4. Insomnia - Address contributing anxiety and depression. - Patient reports ~6 hours of sleep. - encourage sleep hygeine - encouraged to monitor caffeine intake. 5. Oxcarbazepine - Continue oxcarbazepine 75mg daily for mood stabilization. - Instruct to avoid lorazepam concurrently. 6. Breast Biopsy and Potential Cancer - Validate patient's concerns and fears. - Encourage follow up with PCP and specialists as needed. - biopsy scheduled for later today. 7. Follow-Up - Schedule 2 week follow up to assess medication changes and symptom management progress. 12/10/2023 MDD (major depressive disorder), recurrent episode, moderate (ICD-10 - F33.1) 1. Anxiety - Reports reduced anxiety after discontinuing bupropion. - Currently taking propranolol 2-3 times daily and lorazepam 0.5mg mid-day. - Plan: a. Continue propranolol as prescribed. b. Gradually taper lorazepam over 6 weeks, monitoring for increased anxiety. 2. ADHD - Previous success with Ritalin but insurance stopped coverage. - Negative experiences with Strattera and bupropion. - Interested in non-stimulant options. 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 - Plan: a. Obtain previous ADHD assessment results. b. Appointment to discuss patch. c. Consider Quillivant XR, discussing potential side effects. 3. Depression - Unsure if symptoms due to depression or untreated ADHD. - Discontinued bupropion due to side effects. - Reports lack of motivation and easily frustrated. - Plan: a. Monitor mood during follow-ups. b. Reassess depression after addressing ADHD and adjusting medications. 4. Insomnia - Reports 5-6 hours sleep per night. - Plan: a. Reduce magnesium to 200mg to improve REM sleep without GI side effects. b. Monitor sleep quality. 5. TMS Therapy Consideration - Initially feared TMS worsening anxiety but showed interest after explanation. - No implanted metal objects or seizure history. - Plan: a. Encourage considering TMS for depression. b. If pursuing TMS, ensure criteria met. 6. Follow-up - Schedule follow-ups to monitor progress, medication adjustments, mental health. - Obtain documentation/re cords to support treatment, including previous Vyvanse/stimulan t history. - Request patient bring ADHD assessment results and relevant records. 01/21/2024 Attention-defic it hyperactivity disorder, combined type (ICD-10 - F90.2) 1. MDD stable; PHQ9=6 today -cont oxcarbazepine 150mg daily 2. 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 ADHD -start Qelbree 100mg daily, increase as tolerated for symptom management. LABS: 12/202304/08/2024 Marijuana use (ICD-10 - F12.90) Assessment and Plan: 1. Sensory Overload The patient experiences difficulty coping with sensory overload triggered by their child's screaming and tantrums. Plan: Recommend the use of earbuds or noise-canceling headphones to mitigate the impact of noise. Introduce exposure therapy techniques, including the gradual increase of volume in recordings of the child's tantrums, potentially involving the patient's in the process. 2. Parenting and Coping Strategies The patient faces challenges in managing their child's tantrums and identifying effective soothing methods. Plan: Suggest taking the child outside during tantrums, employing temperature-base d soothing techniques, and practicing deep breathing exercises during moments of calm. Explore the use of weighted blankets or stretchy sacks for the child's comfort. 3. Self-Care and Self-Love The patient acknowledges difficulties in practicing self-love and self-care. Plan: Encourage participation in self-care activities, such as visiting the sauna post-physical therapy. Emphasize the importance of self-love and offer support in cultivating self-compassion. 4. Trauma Therapy Preparation The patient expresses interest in trauma therapy but requires development in grounding techniques, distress tolerance, and establishing a support system beforehand. Plan: Prioritize managing the child's screaming and preparing for trauma therapy in the next three months. Assist in finding a trauma therapist aligned with the patient's preferences for effective session leadership. 5. Involvement in Social and Political Issues The patient wishes to engage in social and political issues but feels constrained by parental responsibilities . Plan: Encourage exploring alternative methods of involvement, such as contacting their union president to offer support within manageable capacities. 6. Virtual Therapy Sessions The patient prefers to continue with virtual therapy sessions. Plan: Arrange for weekly virtual appointments on , preferably at 9 AM or later. 12/25/2023 Marijuana use (ICD-10 - F12.90) Assessment and plan reviewed with patient Call for problems with medication, side effects or need for dosage change Compliance issues reviewed Discussed the risks/benefits of this medication Discussed medication side effects Return if symptoms worsen Treatment options reviewed. discussed that it can take weeks to see full therapeutic effects of psychotropic medications. discussed when to seek emergency services. discussed crisis prevention hotline [phone]. discussed marijuana use and its risks r/t mental health and drug metabolism 1. Anxiety - Anxiety level reported at 07/10. - Discontinue Caplyta due to side effects and patient request. - Continue lorazepam as prescribed. - Monitor anxiety levels and adjust medications as needed. - Patient reported palpitations and feeling unable to calm down, leading to hospital visit. 2. Depression - Depression level reported at 07/10. - Discontinue Caplyta due to side effects and patient request. - Start mirtazapine (Remeron) 7.5 mg for antidepressant effects, sleep improvement, and appetite stimulation. - Monitor depression levels and adjust medications as needed. - Patient noted Caplyta helped with suicidal thoughts and depression but caused sickness. 3. Insomnia - Poor sleep quality reported. - Start mirtazapine (Remeron) 7.5 mg to improve sleep. - Monitor sleep quality and adjust medications as needed. 4. High Cholesterol - Elevated cholesterol levels (total cholesterol 228, LDL 153). - Encourage lifestyle modifications, including healthy diet and avoiding fried foods and jimenez. - Recheck cholesterol levels in one year. - Patient reports eating healthy and drinking hibiscus tea. 5. Vitamin D Deficiency - Low vitamin D level (29). - Discontinue [id number] vitamin D supplements. - Prescribe weekly vitamin D medication for three months. - Recheck vitamin D levels after three months of treatment. 6. Transition of Care - Patient moving to [place], [place] in three months. - Encourage scheduling appointment with new psychiatrist as soon as possible. - Recommend creating medication history notebook for new psychiatrist. 7. Substance Use - Patient reported two days without smoking marijuana. - Encourage continued abstinence from smoking. - Monitor for changes in mental health symptoms related to substance use. 8. Medication Changes - Discontinue Caplyta due to side effects. - Continue oxcarbazepine, propranolol, and lorazepam as prescribed. - Start mirtazapine (Remeron) 7.5 mg, with instructions to halve pill if side effects occur. - Advised against taking Valium with lorazepam. 9. patient education - discussed caplyta side effects would subside over time - discussed the improvement while on caplyta and suggested a different antipsychotic medication - pt refused to continue caplyta - pt refused to change to an alternative antipsychotic - pt requested to start mirtazapine. 11/27/2023 Other Assessment and plan reviewed with patient Call for problems with medication, side effects or need for dosage change Compliance issues reviewed Discussed the risks/benefits of this medication Discussed medication side effects Return if symptoms worsen Treatment options reviewed. discussed that it can take weeks to see full therapeutic effects of psychotropic medications. discussed when to seek emergency services. discussed crisis prevention hotline 988. , Venlafaxine Oral Tablet (VENLAFAXINE - ORAL) material was published, Lurasidone Oral Tablet (LURASIDONE - ORAL) material was published Learning About Depression Screening material was printed 1. Anxiety and Dissociation - Plan: Decrease Latuda dosage to 20 mg daily with dinner and initiate venlafaxine at 25 mg once daily for 14 days, with close monitoring for side effects. Schedule a follow-up in one week to evaluate her response. 2. Insomnia and Night Sweats - Plan: Adjust medication regimen by decreasing Latuda and starting venlafaxine. Encourage the patient to monitor and report any exacerbation of her insomnia or night sweats. 3. Depression and History of Serotonin Syndrome - Plan: Given the patient's sensitivity to medications affecting serotonin, avoid SSRIs and closely monitor the effects of venlafaxine, an SNRI, on her. 4. Fibromyalgia - Plan: Continue to assess symptoms related to fibromyalgia and consider exploring alternative treatment options if necessary, taking into account her anxiety and trauma history. 5. PTSD and Possible Borderline Personality Disorder - Plan: Refer the patient to therapy 6. Medication Management - Plan: Monitor the patient's reaction to the current medication regimen, including Latuda, venlafaxine, and propranolol. Arrange a follow-up appointment in one week to review her progress and adjust treatment as needed. 7. Labs and Thyroid Function - Plan: Order a comprehensive panel from [facility] to include thyroid function tests, aiming to keep track of the patient's overall health status. 8. FMLA Paperwork - Plan: Assist the patient with completing and submitting the necessary FMLA paperwork as requested. 9. Therapy Referral - Plan: Facilitate a referral for the patient to see in-house therapist for an initial consultation and potential ongoing therapy sessions. 12/02/2023 Other Assessment and plan reviewed with patient Call for problems with medication, side effects or need for dosage change Compliance issues reviewed Discussed the risks/benefits of this medication Discussed medication side effects Return if symptoms worsen Treatment options reviewed. discussed that it can take weeks to see full therapeutic effects of psychotropic medications. discussed when to seek emergency services. discussed crisis prevention hotline [phone]. 1. Anxiety and Irritability - Continue venlafaxine 12.5mg daily, monitor for improvement. - Start oxcarbazepine 75mg at night, assess effectiveness. - Discontinue latuda after 1 week to avoid exacerbating anxiety. - Patient reports anxiety and overstimulation through the roof despite improved SI. 2. Insomnia - Monitor sleep quality/duration on current medications. - Encourage good sleep hygiene practices. - Patient reports 6-7 hours sleep per night. 3. Suicidal Ideation (SI) - Continue venlafaxine 12.5mg daily as it improved SI. - Monitor for mood/SI changes. - Patient reports SI as all gone with venlafaxine. 4. Propranolol for Anxiety Attacks - Schedule propranolol BID and third dose as needed. - Instruct checking HR, if <=60bpm do not take. - Patient reports a couple anxiety attacks per day. 5. Lorazepam Discontinuation - Support decision to stop lorazepam. - Monitor for withdrawal symptoms or increased anxiety. 6. Marijuana Use - Encourage cessation of marijuana smoking. - Assess impact on mental health and anxiety levels. - Patient reports recent use but desire to quit. 7. Safety Assessment - No current SI, delusions, paranoia or hallucinations. - Monitor mental status and safety concerns at follow-ups. 9. Depression - Patient rates current depression 3/10, significant improvement.. Patient had reduction in suicidal ideation and/or behavior upon follow-up assessment within 120 days of index assessment (M1357) 12/10/2023 Other TMS is a non-invasive treatment that uses magnetic chaney to stimulate nerve cells in the brain, particularly those involved in mood regulation. TMS has been shown to be effective in alleviating symptoms of depression when other treatments have not provided sufficient relief. patient is not interested in TMS after education was provided. 1. Anxiety - Reports reduced anxiety after discontinuing bupropion. - Currently taking propranolol 2-3 times daily and lorazepam 0.5mg mid-day. - Plan: a. Continue propranolol as prescribed. b. Gradually taper lorazepam over 6 weeks, monitoring for increased anxiety. 2. ADHD - Previous success with Ritalin but insurance stopped coverage. - Negative experiences with Strattera and bupropion. - Interested in non-stimulant options. 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 - Plan: a. Obtain previous ADHD assessment results. b. Appointment to discuss patch. c. Consider Quillivant XR, discussing potential side effects. 3. Depression - Unsure if symptoms due to depression or untreated ADHD. - Discontinued bupropion due to side effects. - Reports lack of motivation and easily frustrated. - Plan: a. Monitor mood during follow-ups. b. Reassess depression after addressing ADHD and adjusting medications. 4. Insomnia - Reports 5-6 hours sleep per night. - Plan: a. Reduce magnesium to 200mg to improve REM sleep without GI side effects. b. Monitor sleep quality. 5. TMS Therapy Consideration - Initially feared TMS worsening anxiety but showed interest after explanation. - No implanted metal objects or seizure history. - Plan: a. Encourage considering TMS for depression. b. If pursuing TMS, ensure criteria met. 6. Follow-up - Schedule follow-ups to monitor progress, medication adjustments, mental health. - Obtain documentation/re cords to support treatment, including previous Vyvanse/stimulan t history. - Request patient bring ADHD assessment results and relevant records. 12/11/2023 Other SPRAVATO is contraindicated in patients with: Aneurysmal vascular disease (including thoracic and abdominal aorta, intracranial and peripheral arterial vessels) or arteriovenous malformation No History of intracerebral hemorrhage No Hypersensitivity to Esketamine, ketamine, or any of the ingredients No UNCONTROLLED HYPERTENSION No Hypertension is not an absolute contraindication 1. Major Depressive Disorder - Start aripiprazole (Abilify) and monitor for improvement - Discuss restarting fluoxetine (Prozac) or considering sertraline (Zoloft) in higher doses - Consider TMS or esketamine (Spravato) for treatment-resist ant depression - Encourage therapy sessions - Patient reports being really sad all day and unable to play with daughter 2. Generalized Anxiety Disorder - Continue lorazepam as prescribed - Continue oxcarbazepine 75mg - Continue propranolol 20mg three times a day, scheduled or as needed - Encourage discussing anxiety management strategies in therapy - Patient rates current anxiety as /10 3. Obsessive-Compul sive Disorder (OCD) - Address OCD symptoms in therapy - Monitor aripiprazole response and consider regimen adjustment if needed - Patient reports pure OCD symptoms when anxiety high 4. Insomnia - Encourage discussing sleep hygiene and relaxation techniques in therapy - Patient reports difficulty sleeping 5. Attention Deficit Hyperactivity Disorder (ADHD) - Follow up with Rhiannon valdez Friday to discuss ADHD medications 6. Patient Education and Safety - Provide Spravato (esketamine) information and discuss benefits/risks - Remind of crisis hotline (988) for emergencies - Patient reports suicidal thoughts Follow-up: - Follow up with Rhiannon for ADHD management and depression treatment options - Monitor aripiprazole response and side effects - Reevaluate treatment plan based on progress with therapy/medicati ons - Consider starting Prozac or discussing further at next appointment 12/15/2023 Other Discontinue Abilify Start Caplyta 10.5mg daily for mood. Continue taper off of lorazepam. Patient educated on all medications including potential benefits, side effects, risks. Educated on proper dosing schedule and importance of compliance. Start PA for Spravato 12/24/2023 Other Assessment and plan reviewed with patient Call for problems with medication, side effects or need for dosage change Compliance issues reviewed Discussed the risks/benefits of this medication Discussed medication side effects Return if symptoms worsen Treatment options reviewed. discussed that it can take weeks to see full therapeutic effects of psychotropic medications. discussed when to seek emergency services. discussed crisis prevention hotline [phone]. Patient had reduction in suicidal ideation and/or behavior upon follow-up assessment within 120 days of index assessment (M1357) 1. Anxiety - Patient reports increased anxiety, rating 9/10. - Currently on propranolol, oxcarbazepine and lorazepam (Ativan). - Possible contributing factor: recent discontinuation of marijuana use. - Refill lorazepam - continue therapy - discussed probably spike of anxiety is r/t marijuana discontinuation - encouraged continued abstinence and provide support. 2. Depression - Patient reports improvement in symptoms, rating 2-3/10. - PHQ-9 score decreased from 19 to 6. - Continue caplyta for depression management. - Monitor for any changes in depression symptoms. 3. ADHD - Currently off ADHD medications due to difficulty contacting prescribing psychiatrist. - Plans to switch back to previous psychiatrist, Rhiannon. - Encourage discussion of ADHD medication concerns with Rhiannon. - Reassess ADHD management after one month, post-marijuana clearance. 4. Blood work - Initial blood work completed, not all results received. - Thyroid levels within normal limits. - Obtain and review missing blood work results (CBC, lipid, A1c, LFT, vitamin D, vitamin B). - Monitor liver function due to history of fatty liver. 5. Therapy - Started with new therapist - Reports dissatisfaction with current therapist's 30-minute sessions. - Encourage continuation of therapy sessions, either with current therapist or with [facility]- walk in clinician. - Monitor progress in therapy and adjust treatment plan as needed. - discussed group therapy for BPD. 6. Medication adjustments - Patient reports increased anxiety possibly due to caplyta *discussed that the probable cause of increased anxiety is r/t marijuana d/c - Consider adjusting oxcarbazepine dosage. - Continue current medications and monitor for improvement. - Discuss potential medication adjustments at next follow-up. 7. Substance use - Patient reports recent discontinuation of marijuana use. - Provide support and education on managing withdrawal symptoms. - Reassess impact on anxiety and overall mental health in 2 weeks 12/25/2023 Other Consider stimulant when off cannabis 1. Anxiety - Anxiety level reported at 07/10. - Discontinue Caplyta due to side effects and patient request. - Continue lorazepam as prescribed. - Monitor anxiety levels and adjust medications as needed. - Patient reported palpitations and feeling unable to calm down, leading to hospital visit. 2. Depression - Depression level reported at 07/10. - Discontinue Caplyta due to side effects and patient request. - Start mirtazapine (Remeron) 7.5 mg for antidepressant effects, sleep improvement, and appetite stimulation. - Monitor depression levels and adjust medications as needed. - Patient noted Caplyta helped with suicidal thoughts and depression but caused sickness. 3. Insomnia - Poor sleep quality reported. - Start mirtazapine (Remeron) 7.5 mg to improve sleep. - Monitor sleep quality and adjust medications as needed. 4. High Cholesterol - Elevated cholesterol levels (total cholesterol 228, LDL 153). - Encourage lifestyle modifications, including healthy diet and avoiding fried foods and jimenez. - Recheck cholesterol levels in one year. - Patient reports eating healthy and drinking hibiscus tea. 5. Vitamin D Deficiency - Low vitamin D level (29). - Discontinue [id number] vitamin D supplements. - Prescribe weekly vitamin D medication for three months. - Recheck vitamin D levels after three months of treatment. 6. Transition of Care - Patient moving to [place], [place] in three months. - Encourage scheduling appointment with new psychiatrist as soon as possible. - Recommend creating medication history notebook for new psychiatrist. 7. Substance Use - Patient reported two days without smoking marijuana. - Encourage continued abstinence from smoking. - Monitor for changes in mental health symptoms related to substance use. 8. Medication Changes - Discontinue Caplyta due to side effects. - Continue oxcarbazepine, propranolol, and lorazepam as prescribed. - Start mirtazapine (Remeron) 7.5 mg, with instructions to halve pill if side effects occur. - Advised against taking Valium with lorazepam. 9. patient education - discussed caplyta side effects would subside over time - discussed the improvement while on caplyta and suggested a different antipsychotic medication - pt refused to continue caplyta - pt refused to change to an alternative antipsychotic - pt requested to start mirtazapine. 01/21/2024 Other Start Qelbree 100mg qd for ADHD symptoms Patient educated on all medications including potential benefits, side effects, risks. Educated on proper dosing schedule and importance of compliance. 1. MDD stable; PHQ9=6 today -cont oxcarbazepine 150mg daily 2. 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 ADHD -start Qelbree 100mg daily, increase as tolerated for symptom management. LABS: 12/202304/01/2024 Other Discontinue lorazepam, successfully tapered off 2 weeks ago Discontinue Qelbree per pt Cont oxcarbazepine 450mg daily, propranolol PRN, mirtazapine 7.5mg qHS Patient educated on all medications including potential benefits, side effects, risks. Educated on proper dosing schedule and importance of compliance. Labs ordered today -Assessment and treatment plan reviewed with patient. -Compliance with treatment plan importance discussed. -Discussed the risks/benefit s of this medication -Discussed medication side effects. -Contact office if symptoms worsen. -Discussed that it can take up to 6-8 weeks to see full therapeutic effects of psychotropic medications. -Crisis prevention hotline [phone]. LABS: 12/2023 Plan Of Treatment Pending Test Test Name Order Date TSH+Free T4 11/27/2023 CBC 11/27/2023 Liver Function Test (LFT) 12/24/2023 LIPID PANEL, STANDARD (7600) 11/27/2023 COMPREHENSIVE METABOLIC PANEL (07506) COMPREHENSIVE METABOLIC PANEL (80450) CBC (H/H, RBC, INDICES, WBC, PLT) (1759) 04/01/2024 HEMOGLOBIN A1c (496) 04/01/2024 HEMOGLOBIN A1c (496) 11/27/2023 VITAMIN B12 (927) 11/27/2023 TSH W/REFLEX TO FT4 (20369) 04/01/2024 VITAMIN D,25-OH,TOTAL,IA (77675) 024 VITAMIN D,25-OH,TOTAL,IA (51044) 025 Insurance Providers Payer Name Payer Address Payer Phone Subscriber Number Group Number Insured Name Patient Relationship to Insured Coverage Start Date Coverage End Date [employer] [address] [place] [address] [id number] JAIR CASTILLO Self - patient is the insured Medical (General) History Medical History History ICD Code Past Psychiatric History: An xiety Disorder,Panic Disorder,PTSD,Major Depressive Episode abdominal aortic aneurysm: No atrial fibrillation: No chronic fatigue syndrome: No essential tremor: No hyperlipidemia: No hypertension: No Parkinson's disease: No restless leg syndrome: Yes stroke: No subdural hematoma: No type 1 diabetes mellitus: No type 2 diabetes mellitus: No vitamin B12 deficiency: No vitamin D deficiency: Yes Past Psychiatric History: Anxiety Disord er,Panic Disorder,PTSD undefined restless leg syndrome: No vitamin D deficiency Hospitalization History Reason Date(Month/Year) multiple ER visits for anxiety prior inpatient psychiatric hospitalizat ion
--- OUTSIDE RECORDS SUMMARY | 2024-11-11 18:22 | XMS_ITS | Encounter Summary ---
Author Organization [facility] Healthcare Address [address] [place] [address] Care Team Providers Care Volleyball Assembler Name Role Phone Paola Carrillo Primary Care Provider + Raheem Ponce MD Unavailable [phone] Massey Unavailable [phone] Shruthi Roberts Unavailable [phone] Noreen Stoll NP Unavailable [phone] Noreen Stoll NP Primary Care Provider [phone] Encounter Details Date Type Department Care Team (Latest Contact Info) Description 09/16/2022 Telephone Psychiatry Adali Rivas LCSW Social History Tobacco Use Types Packs/Day Years Used Date Smoking Tobacco: Former Smokeless Tobacco: Never Alcohol Use Standard Drinks/Week Comments Not Currently 0 (1 standard drink = 0.6 oz pur e alcohol) Social Connection and Isolation Panel Answer Date Recorded In a typical week, how many times do you talk on the phone with family, friends, or neighbors? Twice a week 09/02/2022 How often do you get together with friends or re latives? Twice a week 09/02/2022 How often do you attend voodoo or adventism serv ices? Never 09/02/2022 Active Member of [...] staff should administer the PHQ-9) 6 09/02/2022 [facility] - Occupational Stress Questionnaire Answer [...] place to sleep or slept in a fdc (including now)? 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 Gender Identity Genderqueer, neither exclusively Male nor Female 06/07/2020 6:57 AM CDT Sexual Orientation Bisexual 06/07/2020 6: 57 AM CDT documented as of this encounter Plan of Treatment Not on file documented as of this encounter Visit Diagnoses Not on filedocumented in this encounter Care Teams Volleyball Assembler Relationship Specialty Start Date End Date Paola Carrillo PA PCP - General Family Medicine 09/06/21 03/30/23 Noreen Stoll NP [address] [place] [address] [place] [address] PCP - General Internal Medicine 03/31/23 Raheem Ponce MD Family Medicine 09/06/21 03/30/23 Salinas Massey PA [address] [place] [address] [place] [address] Physician [employer] Orth[facility] 01/04/20 Shruthi Roberts PA [address] [place] [address] [place] [address] Physician [employer] Orth[facility] Surgery 04/27/20 Noreen Stoll NP [address] [facility] [address] [facility] [address] [place] [address] Nurse Practitioner Internal Medicine 03/31/23 documented as of this encounter
--- OUTSIDE RECORDS SUMMARY | 2024-11-11 18:22 | XMS_ITS | Clinical Summary ---
Author Organization [facility] Building Address [address] [place] [phone] Care Team Providers Care Cloth Bleaching Range Back Tender Name Role Phone Salinas Massey PA Unavailable [phone] Shruthi Roberts PA Unavailable [phone] Noreen Stoll NP Unavailable [phone] Noreen Stoll NP Primary Care Provider [phone] Allergies Active Allergy Reactions Criticality Noted Date Comments Latex Rash Medium 06/17/2018 Nickel Agitation,Hives,Palp itations,Shortness of breath,Other (See comments) High 06/30/2020 Medications albuterol HFA (PROVENTIL HFA,VENTOLIN HFA,PROAIR HFA) 90 mcg/actuation inhaler 11/24/19 23 Active cetirizine (ZyrTEC) 10 mg tablet Take 1 tablet (10 mg total) by mouth daily Active escitalopram (LEXAPRO) 20 mg tablet Take 1.5 tablets (30 mg total) by mouth daily Active hydrOXYzine (ATARAX) 25 mg tabletIndications :anxiety Take 2 tablets (50 mg total) by mouth every 8 (eight) hours as needed for anxiety 08/01/19 24 Active metFORMIN XR (GLUCOPHAGE XR) 500 mg 24 hr tablet Take 1 tablet (500 mg total) by mouth nightly 07/20/19 24 Active propranoloL (INDERAL) 10 mg tabletIndications :Palpitations Take 2 tablets (20 mg total) by mouth 3 (three) times a day 180 tablet 11/10/19 24 Active OXcarbazepine (TRILEPTAL) 150 mg tablet Take 1 tablet (150 mg total) by mouth daily Active OXcarbazepine (TRILEPTAL) 300 mg tablet Take 1 tablet (300 mg total) by mouth daily Active desvenlafaxine ER 50 mg 24 hr tablet Take 25 mg by mouth daily Active atomoxetine (STRATTERA) 40 mg capsuleIndication s:Attention-Defic it Hyperactivity Disorder Take 1 capsule (40 mg total) by mouth daily Active methylphenidate HCl (RITALIN) 5 mg tablet Take 1 tablet (5 mg total) by mouth daily Active spironolactone (ALDACTONE) 100 mg tablet Take 1 tablet (100 mg total) by mouth daily Active naltrexone (LOW DOSE) 1 mg capsule 0.5 mg compounded tabs daily 30 capsule 2 10/23/19 25 Active famotidine (PEPCID) 20 mg tablet Take 1 tablet (20 mg total) by mouth 2 (two) times a day as needed Discontin ued(Thera py completed ) L. acidophilus/Bifid . animalis 32 billion cell capsule Take 1 capsule by mouth daily 025 Discontin ued(Thera py completed ) dextroamphetamine -amphetamine XR (ADDERALL XR) 10 mg 24 hr capsule Take 1 capsule (10 mg total) by mouth every morning 025 Discontin ued(Thera py completed ) LORazepam (ATIVAN) 0.5 mg tablet Take by mouth daily as needed 07/28/19 24 025 Discontin ued(Thera py completed ) traZODone (DESYREL) 50 mg tablet Take 1 tablet by mouth nightly 30 tablet 09/23/19 24 025 Discontin ued(Thera py completed ) baclofen (LIORESAL) 10 mg tablet Take 1 tablet (10 mg total) by mouth 3 (three) times a day as needed for muscle spasms 60 tablet 03/18/19 25 025 Discontin ued(Thera py completed ) celecoxib (CeleBREX) 100 mg capsule Take 1 capsule (100 mg total) by mouth 2 (two) times a day as needed for pain 60 capsule 08/19/19 25 025 Discontin ued(Thera py completed ) naltrexone (LOW DOSE) 4.5 mg capsule Take 1 capsule (4.5 mg total) by mouth daily 025 Discontin ued(Alter lakhwinder therapy) Active Problems Problem Noted Date Diagnosed Date Cervical radiculopathy 08/18/2024 Lumbar radiculopathy 08/18/2024 Polyarthralgia 08/18/2024 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 Assessment & Plan (04/02/2023 11:36 PM MEDICAL DIRECTOR OCCUPATIONAL HEALTH): Laparoscopic incision above navel is healing well. Edges are approximated. Will continue to monitor. She denies any pain. Sinus tachycardia 11/29/2022 Palpitations 11/29/2022 Assessment & Plan (03/31/2023 4:08 PM MEDICAL DIRECTOR OCCUPATIONAL HEALTH): Managed previously by cardiology. Is on propranolol 20 mg daily. 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 Partners carrier screening test not in patient's records from [facility]. Will ask patient to have partner check records. Cystic fibrosis carrier 07/26/2021 Overview (10/27/2022): FOB negative Marijuana use 07/26/2021 Overview (10/27/2022): Using nightly per pt report previously - now working on cutting back Advised cessation in has stopped. Assessment & Plan (03/31/2023 4:09 PM MEDICAL DIRECTOR OCCUPATIONAL HEALTH): Daily edible use, helps with anxiety. Raynaud's phenomenon 11/01/2020 Assessment & Plan (04/02/2023 11:38 PM MEDICAL DIRECTOR OCCUPATIONAL HEALTH): Asymptomatic. PCOS (polycystic ovarian syndrome) 10/18/2020 Overview (10/27/2022): On Metformin 500mg BID Assessment & Plan (06/10/2023 3:24 PM CDT): Insulin resistant PCOS, Metformin 500mg daily. Managed by psych therapist. Assessment & Plan (03/31/2023 4:07 PM MEDICAL DIRECTOR OCCUPATIONAL HEALTH): Insulin resistant PCO, Metformin 500mg daily. Protein C deficiency 10/18/2020 Overview (10/27/2022): no longer has per [facility] and [facility]. ASA 81mg only. No lovenox. no longer has per [facility] and [facility]. ASA 81mg only. No lovenox. Subclinical hypothyroidism 06/22/2018 Overview (03/31/2023): On Levothyroxine 50mcg QD 06/22: TSH 3.3 07/26: TSH 1.75 TSH 05/18 TSH 05/18 Assessment & Plan (04/02/2023 11:39 PM MEDICAL DIRECTOR OCCUPATIONAL HEALTH): Normal TSH recently. Will monitor. Major depressive [...] SI/HI. Assessment & Plan (05/06/2023 5:29 PM MEDICAL DIRECTOR OCCUPATIONAL HEALTH): PHQ has improved today. We will increase the Lexapro to 10 mg to help with patient's anxiety and overall depression. She is advised to seek treatment in the ER if she develops any SI. She currently denies any SI/HI. Assessment & Plan (03/31/2023 4:10 PM MEDICAL DIRECTOR OCCUPATIONAL HEALTH): PHQ elevated at 11. Started Lexapro 5 [...] pharmacy. Assessment & Plan (05/06/2023 5:30 PM MEDICAL DIRECTOR OCCUPATIONAL HEALTH): I discussed with patient decreasing the Vyvanse to 10 mg and seeing how she does on the lower dose. I discussed with her how stimulants can increase anxiety. We will see how she does on this medication. She will reach out if it isn't controlling her symptoms. Assessment & Plan (03/31/2023 4:13 PM MEDICAL DIRECTOR OCCUPATIONAL HEALTH): Would like to switch back to Vyvanse off of Concerta d/t anxiety. Will discuss at next appt. Migraine 10/27/2007 Assessment & Plan (03/31/2023 4:09 PM MEDICAL DIRECTOR OCCUPATIONAL HEALTH): Less than 15 per month. Reports they are few and far between. Ibuprofen or tylenol works for relief. Allergic rhinitis 07/17/1998 Overview (03/31/2023): Dust mites, cock roaches, and dogs. Had testing. Assessment & Plan (03/31/2023 4:16 PM MEDICAL DIRECTOR OCCUPATIONAL HEALTH): Chronic, controlled. Zyrtec, flonase, albuterl PRN. She does take benadryl at night as needed. Resolved Problems Problem Noted Date Diagnosed Date Resolved Date GDM, class A2 10/27/2022 03/31/2023 depression 09/02/20222023 Cervical insufficiency durin g , antepartum 07/26/2021 03/31/2023 Overview (10/27/2022): H/o cervical shortening in G4 - treated with vaginal progesterone with full term delivery Current - short cervix (0.8cm) with cervical dilation of 150/-3. Cerclage performed 07/06/21 with merseline stitch - knot at 12 o'clock 07/26: CL 2.2cm On Vaginal progesterone 200mg nightly Prediabetes 07/12/2021 10/21/2023 Assessment & Plan (04/02/2023 11:38 PM MEDICAL DIRECTOR OCCUPATIONAL HEALTH): Will repeat labs. Short cervix 07/05/2021 03/31/2023 [...] home and keep log Will call back/send Lagiar message with readings in a few weeks May also bring in home BP machine to office to check accuracy of readings. Closed dislocation of right patella 04/11/2020 03/31/2023 Overview (04/11/2020): Added automatically from request for surgery [id number] Closed dislocation of left patella 12/29/2019 03/31/2023 Overview (12/29/2019): Added automatically from request for surgery [id number] Closed patellar dislocation, left, initial encounter 12/17/2019 12/18/2022 Closed patellar dislocation, right, initial encounter 12/17/2019 12/18/2022 Anxiety in in firs t trimester, antepartum 12/10/2016 03/31/2023 Depression affecting pregnan cy in first trimester, antepartum 12/10/2016 03/31/2023 Attention deficit disorder 12/10/2008 1 Encounters Date Type Department Care Team Description 10/19/2024 1:52 PM CDT - 10/19/2024 11:59 PM CDT Hospital Encounter [facility] [address] [place] [address] Kailee Ibanez MD Polyarthralgia (Primary Dx); Fibromyalgia; Generalized articular hypermobility; Chronic bilateral low back pain without sciatica Discharge Disposition: Discharge to home or self care 09/08/2024 Telephone [facility] [address] [place] [phone] Sana Proctor RN PMC Intake Assessment 09/06/2024 Orders Only [facility] [address] [place] [address] [address] [place] [address] Salinas Massey PA Hypermobility syndrome (Primary Dx) 08/26/2024 Orders Only [facility] [address] [place] [address] [address] [place] [address] Salinas Massey PA Hypermobility syndrome (Primary Dx) 08/25/2024 Telephone [facility] [address] [place] [address] Elly Patel 08/18/2024 7:05 AM CDT - 08/18/2024 11:59 PM CDT Hospital Encounter [facility] [address] [place] [address] [address] [place] [address] Ignacio Pena NP Chronic pain syndrome (Primary Dx); Low back pain, unspecified back pain laterality, unspecified chronicity, unspecified whether sciatica present; Raynaud's phenomenon without gangrene; Cervical radiculopathy; Generalized articular hypermobility; Lumbar radiculopathy Discharge Disposition: Discharge to home or self care 08/13/2024 Orders Only [facility] [address] [place] [phone] Salinas Masesy PA Low back pain, unspecified back pain laterality, unspecified chronicity, unspecified whether sciatica present (Primary Dx); Acute pain of both knees 08/13/2024 Documentation [facility] Primary Care at [address] [phone] Noreen Stoll NP from Last 3 Months Immunizations Immunization Administration Dates Next Due DTaP [...] week 09/02/2022 How often do you attend quaker or tenriism serv ices? Never 09/02/2022 Active Member of [...] staff should administer the PHQ-9) 2 07/08/2023 [facility] - Occupational Stress [...] in a fdc (including now)? No 09/02/2022 [place] Depression Scale Answer Date Recorded [place] Depression Scale Total 5 09/16/2022 The thought [...] feel afraid or unsafe? Denies 08/05/2023 Comments No Sex and Gender Information Value Date Recorded Sex Assigned at Not on file Legal Sex Female 8:16 PM MEDICAL DIRECTOR OCCUPATIONAL HEALTH Gender Identity Genderqueer, neither exclusively Male nor [...] Sign Reading Time Taken Comments Blood Pressure 118/72 10/19/2024 2:17 PM CDT Pulse 74 10/19/2024 2:17 PM CDT Temperature 36.6 C (97.8 F) 10/19/2024 2:17 PM CDT Respiratory Rate 16 10/19/2024 2:17 PM CDT Oxygen Saturation 99% 10/19/2024 2:17 PM CDT Inhaled Oxygen Concentration - - Weight 71.7 kg (158 lb) 10/19/2024 2:17 PM CDT Height 165.1 cm (5' 5) 10/19/2024 2:17 PM CDT Body Mass Index 26.29 10/19/2024 2:17 PM CDT Plan of Treatment Health Maintenance Due Date Last Done Comments Cervical Cancer Screening 1991 Hepatitis C Screening 1991 Foot Exam 1991 Regular Well Visit/Exam 18-64 09/23/2009 Pneumococcal vaccine <65 (1 of 2 - PCV) 09/23/2010 Hemoglobin A1C 10/16/2023 04/17/2023 Albumin Creatinine Ratio, Urine 04/17/2024 Depression Screening 07/07/2024 07/08/2023, 05/05/2023, 03/31/2023, Additional history exists Dilated Eye Exam 07/29/2024 07/30/2023 eGFR 08/04/2024 08/05/2023, 07/02, 04/17/2023, Additional history exists Covid-19 Vaccine ( - 2024-2 6 season) 2024 05/04/2022, 02/03/2021, 03/28/2020, Additional history exists Influenza Vaccine (#1) 2024 , 01/16/2022, 12/22/2019, Additional history exists Lipid Panel 08/19/2025 08/19/2024, 05/30/2023 DTaP/Tdap/Td Vaccine (8 - Td or Tdap) 08/31/2031 08/30/2021, 01/20/2019, 11/14/2004, Additional history exists Hepatitis B Screening Completed 01/26/1993 , 1991, 1991 Varicella Vaccines Completed 10/14/1996, 01/29/1993 HPV Vaccines Completed 01/04/2008, 1105/2007, 09/02/2007, Additional history exists Goals Goal Patient Goal Type Associated Problems Recent Progress Patient-Stated? Author CCM Chronic Pain Care Plan Chronic Care Management No Yamile Velazco, RN Note: Problem: Chronic Pain Goals: 1. Minimize further functional decline 2. Maximize quality of life 3. Control pain Strategies: - Activity/exercise program recommendation - Conservative stepwise pain medicine strategy with multi-disciplinary approach - Recommend healthy lifestyle strategies and compensatory methods as needed Reduce the likelihood of falling Lifestyle No Yamile Velazco, RN Note: Below are four things you can do to prevent falls: Begin an exercise program to improve your leg strength & balance Ask your doctor or pharmacist to review your medicines Get annual eye check-ups & update your eyeglasses Make your home safer by: Removing clutter & tripping hazards Putting railings on all stairs & adding grab bars in the bathroom Having good lighting, especially on stairs Contact your local community or guardian hospital for information on exercise, fall prevention programs, or options for improving home safety. Medical Devices Implanted Type Area Cadd Operator Device Identifier Shelf Expiration Date Model / Serial / Lot [employer] [id number] Swivelock Tenodesis 7mm 19.5mm Fork Eyelet Shoulder Biceps [place] - [id number] Implanted:Qty: 1 on 01/04/2020 by Geo Campbell MD at [facility] Left: Knee [employer] 05/01/2023 AR-1662BC-7 / / [id number] Allosource [id number] Frozen Aseptic Graft Soft Tissue Posterior Tibialis Tendon - [id number] Implanted:Qty: 1 on 01/04/2020 by Geo Campbell MD at [facility] Left: Knee [employer] [id number] / / Description:Single diameter 6mm, folded diameter 9.5mm Fastthread Biocomposite Interference Screw, 9 X20mm, With Disposable Sheath Implanted:Qty: 1 on 01/04/2020 by Geo Campbell MD at [facility] Left: Knee [employer] [id number] 08/01/2023 AR-4020C-09 / NA / [id number] Description:[facility] ITEM # [id number] FLAGGED IN [facility] 01/05/2020 CHARGE CODE ASSIGNED [id number] COST EA. 295.00 [facility] [id number] Graft Soft Tissue Posterior Tibialis Tendon - [id number] - [id number] Implanted:Qty: 1 on 04/27/2020 by Geo Campbell MD at [facility] Right: Knee [facility] 12/09/2020 [id number] / [id number] / [employer] Ar-1360c-Cp 4.5mm 6mm Cannulated Drill Guidepin Interference Screw Reamer - [id number] Implanted:Qty: 1 on 04/27/2020 by Geo Campbell MD at [facility] Right: Knee [employer] 01/31/2024 AR-1360C-CP / / [id number] Procedures Procedure Name Priority Date/Time Associated Diagnosis Comments LIPID PANEL Routine 08/19/2024 10:33 AM CDT Dyslipidemia EGFR STAT 08/05/2023 4:11 PM CDT HEMOGLOBIN A1C Routine 04/17/2023 7:57 AM MEDICAL DIRECTOR OCCUPATIONAL HEALTH Prediabetes ALBUMIN CREATININE RATIO, URINE Routine 04/17/2023 7:57 AM MEDICAL DIRECTOR OCCUPATIONAL HEALTH Prediabetes from Last 3 Months or Most Recently Relevant to Health Maintenance Results * (ABNORMAL) Lipid panel (08/19/2024 10:33 AM CDT) Cholesterol 201(H) <200 mg/dL [facility] HDL 53 > OR = 50 mg/dL [facility] Triglycerides 198(H) <150 mg/dL [facility] LDL 116(H) mg/dL (calc) [facility] Comment: Reference range: <100 Desirable range <100 mg/dL for primary prevention; <70 mg/dL for patients with CHD or diabetic patients with > or = 2 CHD risk factors. LDL-C is now calculated using the Frankie calculation, which is a validated novel method providing better accuracy than the Friedewald equation in the estimation of LDL-C. Isaías SS et al. DAKOTAH. 2013;310(19): 7318-4089 (http://education.[employer]/faq/MJB983) Chol/HDL ratio 3.8 <5.0 (calc) [facility] Non-HDL, (LDL+VLDL) 148(H) <130 mg/dL (calc) [facility] Comment: For patients with diabetes plus 1 major ASCVD risk factor, treating to a non-HDL-C goal of <100 mg/dL (LDL-C of <70 mg/dL) is considered a therapeutic option. Blood 08/19/2024 10:3 3 AM CDT 08/19/2024 10:33 AM CDT Narrative [facility] - 08/19/2024 8:28 PM CDT FASTING:YES FASTING: YES Flaca Freed NP LAB BLOOD ORDERABLES Final Result [facility] [address] [place] [address] * eGFR (08/05/2023 4:11 PM CDT) eGFR [...] 4:11 PM CDT 08/05/2023 4:20 PM CDT Ernesto Fleming MD LAB BLOOD ORDERABLES Fi nal Result [facility] [address] [facility] [place] [address] * Albumin Creatinine Ratio, Urine (04/17/2023 7:57 AM MEDICAL DIRECTOR OCCUPATIONAL HEALTH) Creatinine, ur 22 20 - 275 mg/dL [...] a diagnostic category. Urine 04/17/2023 7:57 AM MEDICAL DIRECTOR OCCUPATIONAL HEALTH 04/17/2023 7:59 AM MEDICAL DIRECTOR OCCUPATIONAL HEALTH Narrative [facility] - 04/18/2023 4:19 PM MEDICAL DIRECTOR OCCUPATIONAL HEALTH FASTING:YES FASTING: YES Noreen Stoll NP LAB URINE ORDERABLES Final Re sult [facility] [address] [place] [address] * Hemoglobin A1c (04/17/2023 7:57 AM MEDICAL DIRECTOR OCCUPATIONAL HEALTH) Hgb A1C 4.7 <5.7 % of total Hgb [facility] Comment: For the purpose of screening for the presence of diabetes: <5.7% Consistent with the absence of diabetes 5.7-6.4% Consistent with increased risk for diabetes (prediabetes) > or =6.5% Consistent with diabetes This assay result is consistent with a decreased risk of diabetes. Currently, no consensus exists regarding use of hemoglobin A1c for diagnosis of diabetes in children. According to [place] Diabetes Association (ADA) guidelines, hemoglobin A1c <7.0% represents optimal control in non- diabetic patients. Different metrics may apply to specific patient populations. Standards of Medical Care in Diabetes(ADA). HbA1c performed on Jaime platform. Blood 04/17/2023 7:57 AM MEDICAL DIRECTOR OCCUPATIONAL HEALTH 04/17/2023 7:59 AM MEDICAL DIRECTOR OCCUPATIONAL HEALTH Narrative [facility] - 04/18/2023 4:19 PM MEDICAL DIRECTOR OCCUPATIONAL HEALTH FASTING:YES FASTING: YES us Noreen Stoll NP LAB BLOOD ORDERABLES Final Re sult [facility] [address] [place] [address] from Last 3 Months or Most Recently Relevant to Health Maintenance Insurance [facility] Advance Directives For more information, please contact: [phone] * Full Code (Latest Code Status on File) Date Activated Date Inactivated Comments 09/02/2022 8:40 AM 09/05/2022 1:44 PM Care Teams Cloth Bleaching Range Back Tender Relationship Specialty Start Date End Date Noreen Stoll NP [address] [place] [address] PCP - General Internal Medicine 03/31/23 Salinas Massey PA [address] [place] [address] Physician Hard Hat Diver Orthopedic Surgery 01/04/20 Shruthi Roberts PA [address] [address] Physician Hard Hat Diver Orthopedic Surgery 04/27/20 Noreen Stoll NP [address] [place] [address] [place] [address] Nurse Practitioner Internal Medicine 03/31/23
--- OUTSIDE RECORDS SUMMARY | 2024-11-11 18:22 | XMS_ITS | Clinical Summary ---
Author Organization [facility] Address [address] [place] [address] Care Team Providers Care Regulatory Coordinator Name Role Phone Noreen Stoll OCC THERAPIST Primary Care Provider [phone] Allergies Active Allergy Reactions Criticality Noted Date Comments Latex Rash Low 06/17/2018 Nickel Hives,Anxiety,Palpit ations,Shortness of Breath High 06/30/2020 Medications famotidine (PEPCID) 20 MG tablet Take 1 tablet (20 mg total) by mouth 2 (two) times daily as needed. 20 tablet 03/19/2023 Active metFORMIN ER, OSM, (FORTAMET) 500 MG 24 hr tablet Take 1 tablet (500 mg total) by mouth nightly at bedtime. Active dicyclomine (BENTYL) 20 MG tablet Take 1 tablet (20 mg total) by mouth 4 (four) times daily as needed (abdominal pain). Active probiotic (FLORAJEN3) Cap capsule Take 1 capsule by mouth daily with breakfast. Active cetirizine (ZYRTEC) 10 MG tablet Take 1 tablet (10 mg total) by mouth daily. Active diphenhydrAMINE (BENADRYL) 25 MG capsule Take 1 capsule (25 mg total) by mouth nightly as needed for Itching or Sleep. Active fluticasone propionate (FLONASE) 50 MCG/ACT nasal spray 1 spray by Each Nostril route 2 (two) times daily. Active escitalopram (LEXAPRO) 5 MG tablet Take 1 tablet (5 mg total) by mouth daily. 03/26/2023 Active traZODone (DESYREL) 50 MG tablet Take 1 tablet (50 mg total) by mouth daily as needed. 04/04/2023 Active LORazepam (ATIVAN) 0.5 MG tablet Take 0.5 tablets (0.25 mg total) by mouth 3 (three) times daily as needed for Anxiety. 03/28/2023 Active hydrOXYzine (ATARAX) 10 MG tablet Take 1 tablet (10 mg total) by mouth 2 (two) times daily as needed for Anxiety. 03/27/2023 Active propranolol (INDERAL) 10 MG tablet Take 1 tablet (10 mg total) by mouth 3 (three) times daily. 03/24/2023 Active insulin detemir (LEVEMIR FLEXPEN) 100 UNIT/ML PEN Inject 15 Units into the skin 2 (two) times a day. Active naloxone (NARCAN) 4 MG/0.1ML nasal spray 1 spray by Nasal route as needed for Opioid reversal. 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 Resolved Problems Problem Noted Date Diagnosed Date Resolved Date ([facility]) 02/03/2019 11/04/19 20 Immunizations Immunization Administration Dates Next Due Afluria 36 MONTHS+ (Prefille d Syringe IIV4) 02/05/2019 Dtap (Generic) 10/14/1996, 4,03/31/1992,01/13 Fluzone 6 Months+ Quad (0.5 mL Prefilled Syringe) 03/25/2023(Deferred: Other),12/22/2019 HPV 01/04/2008,09/02/2007,07/04/2007 Hepatitis A Vaccine - 2 Dose 04/22/2006,11/15/19 05 Hepatitis B Pediatric 01/26/1993,1991,10/01 Hib Vaccine, Prp-T 01/26/1993, 3,01/14/1992,11/21 Influenza (Generic) 12/10/2008 Influenza Adult (Generic) 02/05/2019 MMR (Generic) 10/14/1996,01/29/1993 MODERNA COVID-19 (12+) MRNA, LNP-S, PF, 100 MCG/ 0.5 ML DOSE 03/28/2020,02/29/2020 Meningococcal Vac A,C,Y,W-135 Sc 11/14/2004 Opv 10/14/1996, 4,01/14/1992,11/21 Tdap (Adacel) 01/20/2019 Tdap (Generic) 01/20/2019,11/14/2004 Family History Medical History Relation Comments No Known Problems Brother COPD Father Cancer Maternal Grandfather Sudden Maternal Grandmother Aneurysm Mother Liver Disease Mother Stroke Mother pcos Mother Alzheimers Paternal Grandfather AL Paternal Grandmother Rodriguez's Syndrome Sister 1 No Known Problems Sister 2 No Known Problems Son Relation Status Comments Brother Alive Father Maternal Grandfather Maternal Grandmother Mother Alive Paternal Grandfather Paternal Grandmother Sister 1 Alive Sister 2 Alive Son Alive Social History Tobacco Use Types Packs/Day Years Used Date Smoking Tobacco: Former Cigarettes 0 10/31/2010 - 10/31/2013 Smokeless Tobacco: Never Tobacco Cessation:Counseling Given: Not Answered Alcohol Use Standard Drinks/Week Comments Not Currently 1.7 (1 standard drink = 0.6 oz p ure alcohol) [facility] YETI Groupities Answer Date Recorded In the past 12 months has e [employer], gas, oil, or water [employer] threatened to shut off services in your home? Patient declined 04/07/2023 Humiliation, Afraid, Rape, and Kick questionnair e Answer Date Recorded Within the last year, have y ou been afraid of your partner or ex-partner? Patient declined 04/07/2023 Within the last year, have y ou been humiliated or emotionally abused in other ways by your partner or ex-partner? Patient declined 04/07/2023 Within the last year, have y ou been kicked, hit, slapped, or otherwise physically hurt by your partner or ex-partner? Patient declined 04/07/2023 Within the last year, have y ou been raped or forced to have any kind of sexual activity by your partner or ex-partner? Patient declined 04/07/2023 Social Connection and Isolation Panel [NHANES] A nswer Date Recorded In a typical week, how many times do you talk on the phone with family, friends, or neighbors? Patient declined 04/07/2023 How often do you get togethe r with friends or relatives? Patient declined 04/07/2023 How often do you attend confucianism or temple serv ices? Patient declined 04/07/2023 Do you belong to any clubs o r organizations such as confucianism groups, unions, fraternal or athletic groups, or school groups? Patient declined 04/07/2023 How often do you attend meet ings of the clubs or organizations you belong to? Patient declined 04/07/2023 Are you , , di vorced, , never , or living with a partner? Patient declined 04/07/2023 AUDIT-C Answer Date Recorded Q1: How often do you have a drink containing alc ohol? Patient declined 04/07/2023 Q2: How many drinks containi ng alcohol do you have on a typical day when you are drinking? Patient declined 04/07/2023 Q3: How often do you have si x or more drinks on one occasion? Patient declined 04/07/2023 Overall Financial Resource Strain (CARDIA) Answe r Date Recorded How hard is it for you to pa y for the very basics like food, housing, medical care, and heating? Patient declined 04/07/2023 PHQ-2 Answer Date Recorded PHQ-2 Score - If the patient scores above 3, please move on to questions 3-9 6 03/01/2020 [facility] - Occupational Stress Questionnaire Answer Date Recorded Do you feel stress - tense, restless, nervous, or anxious, or unable to sleep at night because your mind is troubled all the time - these days? Patient declined 04/07/2023 Hunger Vital Sign Answer Date Recorded Within the past 12 months, y ou worried that your food would run out before you got the money to buy more. Patient declined Within the past 12 months, t he food you bought just didn't last and you didn't have money to get more. Patient declined 07/2023 PRAPARE - Transportation Answer Date Re corded In the past 12 months, has l ack of transportation kept you from medical appointments or from getting medications? Patient declined 04/07/2023 In the past 12 months, has l ack of transportation kept you from meetings, work, or from getting things needed for daily living? Patient declined 04/07/2023 Housing Stability Vital Sign Answer Mario e Recorded In the last 12 months, was t here a time when you were not able to pay the mortgage or rent on time? Patient declined 04/07/19 24 In the last 12 months, how many places have you lived? 1 04/07/2023 In the last 12 months, was t here a time when you did not have a steady place to sleep or slept in a long-term (including now)? Patient declined 04/07/2023 Education Answer Date Recorded What is the highest level of school you have completed or the highest degree you have received? Bachelor's degree (e.g., BA, AB, BS) 02/03/2019 Comments No Sex and Gender Information Value Date Recorded Sex Assigned at Female 04/03/2024 11:56 AM RADIO NEWS ANCHOR Legal Sex Female 3:13 PM CDT Gender Identity Not on file Sexual Orientation Not on file Last Filed Vital Signs Vital Sign Reading Time Taken Comments Blood Pressure 128/87 04/03/2024 11:37 AM RADIO NEWS ANCHOR Pulse 74 04/03/2024 11:37 AM RADIO NEWS ANCHOR Temperature 36 C (96.8 F) 04/03/2024 11:37 AM RADIO NEWS ANCHOR Respiratory Rate 22 04/03/2024 11:37 AM RADIO NEWS ANCHOR Oxygen Saturation 100% 04/03/2024 11:37 AM RADIO NEWS ANCHOR Inhaled Oxygen Concentration - - Weight 74.8 kg (165 lb) 04/03/2024 11:37 AM RADIO NEWS ANCHOR Height 165.1 cm (5' 5) 04/03/2024 11:37 AM RADIO NEWS ANCHOR Body Mass Index 27.46 04/03/2024 11:37 AM RADIO NEWS ANCHOR Plan of Treatment Health Maintenance Due Date Last Done Comments Annual Physical 09/23/1994 COVID-19 Vaccine ( season) 2024 03/28/2020, 02/29/2020 Cervical Cancer Screening Pap Smear (Age 30 to 64) Every 3 Years 01/02/2026 01/02/2023, 10/02/2022, 07/05/2021, Additional history exists Cervical Cancer Screening Pap with HPV Testing (Age 30 to 64) Every 5 Years 01/03/2028 01/02/2023, 07/05/2021, 04/27/2021 Cervical Cancer Screening with HPV 01/03/2028 DTaP, Tdap and Td Vaccines (9 - Td or Tdap) 08/31/2031 08/30/2021, 01/20/2019, 01/20/2019, Additional history exists Hepatitis B Vaccines Completed 01/26/1993, 1991, 1991 Meningococcal Vaccine Aged Out 11/14/2004 No tab william eligible based on patient's age to complete this topic HPV Vaccines Completed 01/04/2008, 04/2007, 07/04/2007 Hepatitis C Completed 04/27/2021, 04/27/2021 Meningococcal B Vaccine Aged Out No l onger eligible based on patient's age to complete this topic Pneumococcal Vaccine: Pediatrics (0 to 5 Years) and At-Risk Patients (6 to 49 Years) Aged Out No longer eligible based on patient's age to complete this topic RSV Immunizations Under 20 Months Aged Out No longer eligible based on patient's age to complete this topic Goals Goal Patient Goal Type Associated Problems Recent Progress Patient-Stated? 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
--- OUTSIDE RECORDS SUMMARY | 2024-11-11 18:22 | XMS_ITS | Encounter Summary ---
Author Organization [facility] Address [address] [place] [address] Care Team Providers Care Claim Specialist Name Role Phone Karrie Herman NP Primary Care Provider [phone] Paola Alexander PA-C Primary Care Provider + Noreen StollP Primary Care Provider [phone] Encounter Details Date Type Department Care Team (Late st Contact Info) Description 03/15/2020 MyCHumanoidt Message Enc [facility] Family Medicine - [place] [address] [place] [address] Karrie Herman NP [address] [place] [address] RE: Medication Questions Social History [...] move on to questions 3-9 6 03/01/2020 [facility] - Occupational [...] Sex Assigned at Female 04/03/2024 11:56 AM PLEXIGLAS FORMER Legal Sex Female 3:13 PM CDT Gender Identity Not on file Sexual Orientation Not on file COVID-19 Exposure Response Date Recorded In the last month, have you been in contact with someone who was confirmed or suspected to have Coronavirus / COVID-19? No / Unsure 03/01/2020 10:24 AM PLEXIGLAS FORMER documented as of this encounter Functional Status * RETIRED Are you deaf or do you have serious difficulty hearing Answer Date of Assessment Author Status No 02/07/2019 10:19 AM PLEXIGLAS FORMER Acti ve * RETIRED Are you blind or do you have serious difficulty seeing, even when wearing glasses? Answer Date of Assessment Author Status No 02/07/2019 10:19 AM PLEXIGLAS FORMER Acti ve * Do you have serious difficulty walking or climbing stairs? Answer Date of Assessment Author Status No 02/07/2019 10:19 AM PLEXIGLAS FORMER Lisbeth Ramos RN Active * Do you have difficulty dressing or bathing? Answer Date of Assessment Author Status No 02/07/2019 10:19 AM Lisbeth Krueger RN Active * Because of a physical, mental, or emotional condition, do you have difficulty doing errands alone such as visiting a doctor's office or shopping? Answer Date of Assessment Author Status No 02/07/2019 10:19 AM PLEXIGLAS FORMER Lisbeth Ramos RN Active documented as of this encounter Mental Status * Because of a physical, mental, or emotional condition, do you have serious difficulty concentrating, remembering, or making decisions? Answer Entry Date Author Status No 02/07/2019 10:19 AM PLEXIGLAS FORMER Lisbeth Ramos RN Active documented in this encounter Progress Notes * Lamont Tam RN - 03/15/2020 9:59 AM CST Please see note. IGLAS FORMER documented in this encounter Plan of Treatment Not on file documented as of this encounter Visit Diagnoses Not on filedocumented in this encounter Additional Health Concerns Infection Onset Date Last Indicated Resolved Time COVID-19 Rule Out 03/29/2023 03/29/2023 03/29/2023 12:21 PM PLEXIGLAS FORMER COVID-19 Rule Out 04/10/2023 04/10/2023 04/10/2023 10:23 AM PLEXIGLAS FORMER COVID-19 Confirmed 04/10/2023 04/10/2023 12:32 AM PLEXIGLAS FORMER Assessment Noted Time PHQ-9 Depression Total Score: 19 020 10:45 AM PLEXIGLAS FORMER documented as of this encounter Care Teams Claim Specialist Relationship Specialty Start Date End Date Karrie Herman [place] [address] PCP - General NURSE PRACTITIONER 11/17/19 04/16/21 Paola Alexander PA-C [facility] Family Medicine [address] [place] [address] PCP - General PHYSICIAN BRAND DESIGNER 04/17/21 07/31/23 Noreen Stoll FNP [address] [place] [address], [address] [place] [id number] PCP - General 08/01/23 documented as of this encounter
[2024-11-11 18:30] VITALS: BP 111/86; PULSE 91; RESP 16; TEMP 36.5; O2SAT 100
[2024-11-11 18:38] LABS: Hematocrit 41.8 % (37.0-47.0); Hemoglobin 15.2 g/dL (12.0-15.0); Immature Granulocyte Percent A 0.3 % (0-0.5); Lymphocytes Absolute Auto 4.03 K/mm3 (0.9-3.2); Mean Corpuscular HGB Conc 36.4 g/dl (32-36); Mean Corpuscular Hemoglobin 32.3 pg (26-34); Mean Corpuscular Volume 88.9 fl (80-100); Nucleated Red Blood Cells Absolute Auto 0.000 K/mm3 (0.0-0.012); Nucleated Red Blood Cells Perc 0.0 % (0.0-0.2); Platelet Count Result 386 k/mm3 (150-375); Red Blood Count 4.70 M/mm3 (4.2-5.4); White Blood Count 11.9 K/mm3 (4.5-10.0)
[2024-11-11 18:48] LABS: Alanine Aminotransferase 23 U/L (6-35); Albumin Level 4.9 g/dL (3.5-5.1); Alkaline Phosphatase 61 U/L (38-126); Anion Gap 12 mmol/L (4-12); Aspartate Amino Transferase 29 U/L (14-36); Bilirubin,Total 0.7 mg/dL (0.2-1.3); Blood Urea Nitrogen 17 mg/dL (7-17); Calcium 9.6 mg/dL (8.4-10.2); Carbon Dioxide 21 mmol/L (22-30); Chloride 102 mmol/L (98-107); Estimated CRCL calculation 92 ml/min; Estimated Glomerular Filt Rate > 60; Glucose 102 mg/dL (65-110); Lipase 62 U/L (23-300); Partial Thromboplastin Time 27.6 Seconds (22.3-36.8); Potassium 3.7 mmol/L (3.4-5.0); Sodium 135 mmol/L (137-145); Total Protein 8.1 g/dL (6.3-8.2)
[2024-11-11 19:00] LABS: Troponin I < 0.012 ng/mL (0.000-0.034)
[2024-11-11 19:07] LABS: INR 1.0; Prothrombin Time 13.1 Seconds (11.1-14.7)
--- OUTSIDE RECORDS SUMMARY | 2024-11-11 20:11 | XMS_ITS | Encounter Summary ---
Author Organization [facility] Healthcare Address [address] [place] [address] Care Team Providers Care Service Center Manager Name Role Phone Paola Carrillo Primary Care Provider + Raheem Ponce MD Unavailable [phone] Unavailable [phone] Shruthi Roberts Unavailable [phone] Noreen Stoll NP Unavailable [phone] Noreen Stoll NP Primary Care Provider [phone] Encounter Details Date Type Department Care Team [...] week 09/02/2022 How often do you attend jew or scientology serv ices? Never 09/02/2022 Active Member of [...] staff should administer the PHQ-9) 6 09/02/2022 [facility] - Occupational Stress Questionnaire Answer Date [...] place to sleep or slept in a group home (including now)? 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 Gender Identity Genderqueer, neither exclusively Male nor Female 06/07/2020 6:57 AM CDT Sexual Orientation Bisexual 06/07/2020 6: 57 AM CDT documented as of this encounter Plan of Treatment Not on file documented as of this encounter Visit Diagnoses Not on filedocumented in this encounter Care Teams Service Center Manager Relationship Specialty Start Date End Date Paola Carrillo PA PCP - General Family Medicine 09/06/21 03/30/23 Noreen Stoll NP [address] [place] [address] [place] [address] PCP - General Internal Medicine 03/31/23 Raheem Ponce MD Family Medicine 09/06/21 03/30/23 Salinas Massey PA [address] [place] [address] [place] [address] Physician Special Day Class Teacher Orthopedic Surgery 01/04/20 Shruthi Roberts PA [address] [place] [address] [place] [address] Physician Special Day Class Teacher Orthopedic Surgery 04/27/20 Noreen Stoll NP [address] [facility] [address] [place] [address] Nurse Practitioner Internal Medicine 03/31/23 documented as of this encounter
--- OUTSIDE RECORDS SUMMARY | 2024-11-11 20:11 | XMS_ITS | Encounter Summary ---
Author Organization [facility] Health Address [address] [place] [address] Care Team Providers Care Hardware Assembler Name Role Phone Jb Harrington MD Primary Care Provider [phone] Dannie Mccullough DO Primary Care Provider Jb Harrington MD Primary Care Provider [phone] Dannie Mccullough DO Primary Care Provider Dannie Mccullough DO Unavailable [phone] Paola Carrillo Primary Care Provider [phone] Encounter Details Date Type Department Care Team (Late st Contact Info) Description 11/03/2013 [facility] Outpatient Visit [facility] - Family Medicine [address] [place] [address] [place] [address] [place] [address] Social History Tobacco Use Types Packs/Day Years Used Date Smoking Tobacco: Passive Smo ke Exposure - Never Smoker Cigarettes Alcohol Use Standard Drinks/Week Comments Yes 0 (1 standard drink = 0.6 oz pur e alcohol) rarely Comments No Sex and Gender Information Value Date Recorded Sex Assigned at Female 12/26/2020 9:46 AM CDT Legal Sex Female 8:30 AM CONSUMER PRODUCT ADVISOR Gender Identity Gender Non-conforming 12/26/2020 9:46 AM CDT Sexual Orientation Bisexual 12/26/2020 9: 46 AM CDT documented as of this encounter Plan of Treatment Not on file documented as of this encounter Visit Diagnoses Not on filedocumented in this encounter Care Teams Hardware Assembler Relationship Specialty Start Date End Date Jb Harrington MD PCP - General Family Medicine 11/03/13 12/02/13 Dannie Mccullough DO PCP - General Family Medicine 06/23/16 05/20/18 Jb Harrington MD PCP - General 05/21/18 06/01/18 Dannie Mccullough DO PCP - General 06/02/18 07/04/21 Paola Carrillo PA [address] [place] [address] PCP - General Physician Rn Access 07/05/21 Dannie Mccullough DO Family Medicine 05/21/18 documented as of this encounter
--- OUTSIDE RECORDS SUMMARY | 2024-11-11 20:11 | XMS_ITS | Encounter Summary ---
Author Organization [facility] Address [address] [facility] [place] [address] Care Team Providers Care Division Human Resources Manager Name Role Phone Dannie Mccullough DO Primary Care Provider Dannie Mccullough DO Unavailable [phone] Paola Carrillo Primary Care Provider [phone] Encounter Details Date Type Department Care Team (Late st Contact Info) Description 01/16/2021 Lab Requisition [facility] [address] [place] [address] Glenna Grewal MD [address] [facility] [address] [place] [address] Social History Tobacco Use Types Packs/Day Years Used Date Smoking Tobacco: Former Cigarettes Smokeless Tobacco: Never Alcohol Use Standard Drinks/Week Comments Yes 0 (1 standard drink = 0.6 oz pur e alcohol) rarely Comments No Sex and Gender Information Value Date Recorded Sex Assigned at Female 12/26/2020 9:46 AM CDT Legal Sex Female 8:30 AM COTTON AGENT Gender Identity Gender Non-conforming 12/26/2020 9:46 AM CDT Sexual Orientation Bisexual 12/26/2020 9: 46 AM CDT 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 Not on file Not on file documented as of this encounter Plan of Treatment Not on file documented as of this encounter Procedures Procedure Name Priority Date/Time Associated Diagnosis Comments HCG BETA BLOOD QUANTITATIVE STAT 01/16/2021 11:14 AM COTTON AGENT documented in this encounter Results * HCG BETA BLOOD QUANTITATIVE (01/16/2021 11:14 AM COTTON AGENT) hCG Quantitative <1.20 mIU/mL 01/17/20 21 3:09 PM COTTON AGENT [facility] Blood BLOOD SPECIMEN / Unknown Venipuncture / Unknown 01/16/2021 11:14 AM COTTON AGENT 01/16/2021 2:27 PM COTTON AGENT Narrative [facility] - 01/16/2021 3:09 PM COTTON AGENT hCG Reference Range, mIU/mL: Males 0-2.0 Non [...] MD LAB - CHEMISTRY ORDERABLES Final Result [facility] [address] [place] [address] documented in this encounter Visit Diagnoses Not on filedocumented in this encounter Care Teams Division Human Resources Manager Relationship Specialty Start Date End Date Dannie Mccullough DO PCP - General 06/02/18 07/04/21 Paola Carrillo PA [address] [facility] [place] [address] PCP - General Physician Parts Expediter 07/05/21 Dannie Mccullough DO Family Medicine 05/21/18 documented as of this encounter
--- OUTSIDE RECORDS SUMMARY | 2024-11-11 20:14 | XMS_ITS | Clinical Summary ---
Author Organization [facility] at the Medical Office Building Address [address] [place] [address] Care Team Providers Care Latex Foam Worker Name Role Phone Salinas Massey PA Unavailable [phone] Shruthi Roberts PA Unavailable [phone] Noreen Stoll NP Unavailable [phone] Noreen Stoll NP Primary Care Provider [phone] Allergies Active Allergy Reactions Criticality Noted Date [...] 04/17/23. Assessment & Plan (04/02/2023 11:36 PM HEAVY EQUIPMENT OPERATING ENGINEER): Laparoscopic incision above navel is healing well. Edges are approximated. Will continue to monitor. She denies any pain. Sinus tachycardia 11/29/2022 Palpitations 11/29/2022 Assessment & Plan (03/31/2023 4:08 PM HEAVY EQUIPMENT OPERATING ENGINEER): Managed previously by cardiology. Is on propranolol [...] stopped. Assessment & Plan (03/31/2023 4:09 PM HEAVY EQUIPMENT OPERATING ENGINEER): Daily edible use, helps with anxiety. Raynaud's phenomenon 11/01/2020 Assessment & Plan (04/02/2023 11:38 PM HEAVY EQUIPMENT OPERATING ENGINEER): Asymptomatic. PCOS (polycystic ovarian syndrome) 10/18/2020 Overview (10/27/2022): On Metformin 500mg BID Assessment & Plan (06/10/2023 3:24 PM CDT): Insulin resistant PCOS, Metformin 500mg daily. Managed by foot and ankle surgeon. Assessment & Plan (03/31/2023 4:07 PM HEAVY EQUIPMENT OPERATING ENGINEER): Insulin resistant PCO, Metformin 500mg daily. Protein C deficiency 10/18/2020 Overview (10/27/2022): no longer has per [facility] and MFM. ASA 81mg only. No lovenox. no longer has per [facility] and MFM. ASA 81mg only. No lovenox. Subclinical hypothyroidism 06/22/2018 Overview (03/31/2023): On Levothyroxine 50mcg QD 06/22: TSH 3.3 07/26: TSH 1.75 TSH 05/18 TSH 05/18 Assessment & Plan (04/02/2023 11:39 PM HEAVY EQUIPMENT OPERATING ENGINEER): Normal TSH recently. Will monitor. Major depressive [...] SI/HI. Assessment & Plan (05/06/2023 5:29 PM HEAVY EQUIPMENT OPERATING ENGINEER): PHQ has improved today. We will increase the Lexapro to 10 mg to help with patient's anxiety and overall depression. She is advised to seek treatment in the ER if she develops any SI. She currently denies any SI/HI. Assessment & Plan (03/31/2023 4:10 PM HEAVY EQUIPMENT OPERATING ENGINEER): PHQ elevated at 11. Started Lexapro 5 [...] pharmacy. Assessment & Plan (05/06/2023 5:30 PM HEAVY EQUIPMENT OPERATING ENGINEER): I discussed with patient decreasing the Vyvanse to 10 mg and seeing how she does on the lower dose. I discussed with her how stimulants can increase anxiety. We will see how she does on this medication. She will reach out if it isn't controlling her symptoms. Assessment & Plan (03/31/2023 4:13 PM HEAVY EQUIPMENT OPERATING ENGINEER): Would like to switch back to Vyvanse off of Concerta d/t anxiety. Will discuss at next appt. Migraine 10/27/2007 Assessment & Plan (03/31/2023 4:09 PM HEAVY EQUIPMENT OPERATING ENGINEER): Less than 15 per month. Reports they are few and far between. Ibuprofen or tylenol works for relief. Allergic rhinitis 07/17/1998 Overview (03/31/2023): Dust mites, cock roaches, and dogs. Had testing. Assessment & Plan (03/31/2023 4:16 PM HEAVY EQUIPMENT OPERATING ENGINEER): Chronic, controlled. Zyrtec, flonase, albuterl PRN. She [...] 10/21/2023 Assessment & Plan (04/02/2023 11:38 PM HEAVY EQUIPMENT OPERATING ENGINEER): Will repeat labs. Short cervix 07/05/2021 03/31/2023 [...] home and keep log Will call back/send [employer] message with readings in a few weeks May also bring in home BP machine to office to check accuracy of readings. Closed dislocation of right patella 04/11/2020 03/31/2023 Overview (04/11/2020): Added automatically from request for surgery [id number] Closed dislocation of left patella 12/29/2019 03/31/2023 Overview (12/29/2019): Added automatically from request for surgery [id number] Closed patellar dislocation, left, initial encounter 12/17/2019 12/18/2022 Closed patellar dislocation, right, initial encounter 12/17/2019 12/18/2022 Anxiety in in firs t trimester, antepartum 12/10/2016 03/31/2023 Depression affecting pregnan cy in first trimester, antepartum 12/10/2016 03/31/2023 Attention deficit disorder 12/10/2008 1 Encounters Date Type Department Care Team Description 10/19/2024 1:52 PM CDT - 10/19/2024 11:59 PM CDT Hospital Encounter [facility] [address] [place] [address] Kailee Ibanez MD Polyarthralgia (Primary Dx); Fibromyalgia; Generalized articular hypermobility; Chronic bilateral low back pain without sciatica Discharge Disposition: Discharge to home or self care 09/08/2024 Telephone [facility] at [address] [place] [phone] Sana Proctor RN PMC Intake Assessment 09/06/2024 Orders Only [facility] Orth[facility] Sports Medicine [address] [place] [address] [address] [place] [address] Salinas Massey PA Hypermobility syndrome (Primary Dx) 08/26/2024 Orders Only [facility] Orthopedics and Sports Medicine [address] [place] [address] [address] [place] [address] Salinas Massey PA Hypermobility syndrome (Primary Dx) 08/25/2024 Telephone [facility] [address] [place] [address] Elly Patel 08/18/2024 7:05 AM CDT - 08/18/2024 11:59 PM CDT Hospital Encounter [facility] [address] [place] [address] [address] [place] [address] Ignacio Pena NP Chronic pain syndrome (Primary Dx); Low back pain, unspecified back pain laterality, unspecified chronicity, unspecified whether sciatica present; Raynaud's phenomenon without gangrene; Cervical radiculopathy; Generalized articular hypermobility; Lumbar radiculopathy Discharge Disposition: Discharge to home or self care 08/13/2024 Orders Only [facility] [address] [place] [phone] Salinas Massey PA Low back pain, unspecified back pain laterality, unspecified chronicity, unspecified whether sciatica present (Primary Dx); Acute pain of both knees 08/13/2024 Documentation [facility] Primary Care at [address] [address] Noreen Stoll NP from Last [...] week 09/02/2022 How often do you attend congregation or pentecostalism serv ices? Never 09/02/2022 Active Member of [...] staff should administer the PHQ-9) 2 07/08/2023 [facility] - Occupational Stress [...] place to sleep or slept in a fpc (including now)? No 09/02/2022 [place] Depression Scale Answer Date Recorded [place] Depression Scale Total 5 09/16/2022 The thought [...] on file Legal Sex Female 8:16 PM HEAVY EQUIPMENT OPERATING ENGINEER Gender Identity Genderqueer, neither exclusively Male nor [...] on stairs Contact your local community or [facility] for information on exercise, fall prevention programs, or options for improving home safety. Medical Devices Implanted Type Area Class B Driver Device Identifier Shelf Expiration Date Model / Serial / Lot [employer] [id number] Swivelock Tenodesis 7mm 19.5mm Fork Eyelet Shoulder Biceps [place] - [id number] Implanted:Qty: 1 on 01/04/2020 by Geo Campbell MD at [facility] Left: Knee [employer] 05/01/2023 AR-1662BC-7 / / [id number] Allosource [id number] Frozen Aseptic Graft Soft Tissue Posterior Tibialis Tendon - [id number] Implanted:Qty: 1 on 01/04/2020 by Geo Campbell MD at [facility] Left: Knee [employer] [id number] / / Description:Single diameter 6mm, folded diameter 9.5mm Fastthread Biocomposite Interference Screw, 9 X20mm, With Disposable Sheath Implanted:Qty: 1 on 01/04/2020 by Geo Campbell MD at [facility] Left: Knee [employer] [id number] 08/01/2023 AR-4020C-09 / NA / [id number] Description:[facility] ITEM # [id number] FLAGGED IN [facility] 01/05/2020 CHARGE CODE ASSIGNED 574306 COST EA. 295.00 [facility] [id number] Graft Soft Tissue Posterior Tibialis Tendon - [id number] - [id number] Implanted:Qty: 1 on 04/27/2020 by Geo Campbell MD at [facility] Right: Knee [facility] 12/09/2020 [id number] / [id number] / [employer] Ar-1360c-Cp 4.5mm 6mm Cannulated Drill Guidepin Interference Screw Reamer - [id number] Implanted:Qty: 1 on 04/27/2020 by Geo Campbell MD at [facility] Right: Knee [employer] 01/31/2024 AR-1360C-CP / / [id number] Procedures Procedure Name Priority Date/Time Associated Diagnosis Comments LIPID PANEL Routine 08/19/2024 10:33 AM CDT Dyslipidemia EGFR STAT 08/05/2023 4:11 PM CDT HEMOGLOBIN A1C Routine 04/17/2023 7:57 AM HEAVY EQUIPMENT OPERATING ENGINEER Prediabetes ALBUMIN CREATININE RATIO, URINE Routine 04/17/2023 7:57 AM HEAVY EQUIPMENT OPERATING ENGINEER Prediabetes from Last 3 Months or Most Recently Relevant to Health Maintenance Results * (ABNORMAL) Lipid panel (08/19/2024 10:33 AM CDT) Cholesterol 201(H) <200 mg/dL [facility] HDL 53 > OR = 50 mg/dL [facility] Triglycerides 198(H) <150 mg/dL [facility] LDL 116(H) mg/dL (calc) [facility] Comment: Reference range: <100 Desirable range <100 mg/dL for primary prevention; <70 mg/dL for patients with CHD or diabetic patients with > or = 2 CHD risk factors. LDL-C is now calculated using the Frankie calculation, which is a validated novel method providing better accuracy than the Friedewald equation in the estimation of LDL-C. Isaías SS et al. DAKOTAH. 2013;310(19): 0093-4716 (http://education.FORMA Therapeutics/faq/TNX018) Chol/HDL ratio 3.8 <5.0 (calc) [facility] Non-HDL, (LDL+VLDL) 148(H) <130 mg/dL (calc) [facility] Comment: For patients with diabetes plus 1 major ASCVD risk factor, treating to a non-HDL-C goal of <100 mg/dL (LDL-C of <70 mg/dL) is considered a therapeutic option. Blood 08/19/2024 10:3 3 AM CDT 08/19/2024 10:33 AM CDT Narrative [facility] - 08/19/2024 8:28 PM CDT FASTING:YES FASTING: YES Flaca Freed NP LAB BLOOD ORDERABLES [facility] [address] [place] [address] * eGFR (08/05/2023 4:11 PM CDT) eGFR [...] LAB BLOOD ORDERABLES Fi nal Result [facility] [address] [facility] [place] [address] * Albumin Creatinine Ratio, Urine (04/17/2023 7:57 AM HEAVY EQUIPMENT OPERATING ENGINEER) Creatinine, ur 22 20 - 275 mg/dL [...] a diagnostic category. Urine 04/17/2023 7:57 AM HEAVY EQUIPMENT OPERATING ENGINEER 04/17/2023 7:59 AM HEAVY EQUIPMENT OPERATING ENGINEER Narrative [facility] - 04/18/2023 4:19 PM HEAVY EQUIPMENT OPERATING ENGINEER FASTING:YES FASTING: YES Noreen Stoll NP LAB URINE ORDERABLES Final Re sult [facility] [address] [place] [address] * Hemoglobin A1c (04/17/2023 7:57 AM HEAVY EQUIPMENT OPERATING ENGINEER) Hgb A1C 4.7 <5.7 % of total Hgb [facility] Comment: For the purpose of screening for the presence of diabetes: <5.7% Consistent with the absence of diabetes 5.7-6.4% Consistent with increased risk for diabetes (prediabetes) > or =6.5% Consistent with diabetes This assay result is consistent with a decreased risk of diabetes. Currently, no consensus exists regarding use of hemoglobin A1c for diagnosis of diabetes in children. According to [place] Diabetes Association (ADA) guidelines, hemoglobin A1c <7.0% represents optimal control in non- diabetic patients. Different metrics may apply to specific patient populations. Standards of Medical Care in Diabetes(ADA). HbA1c performed on Jaime platform. Blood 04/17/2023 7:57 AM HEAVY EQUIPMENT OPERATING ENGINEER 04/17/2023 7:59 AM HEAVY EQUIPMENT OPERATING ENGINEER Narrative [facility] - 04/18/2023 4:19 PM HEAVY EQUIPMENT OPERATING ENGINEER FASTING:YES FASTING: YES us Noreen Stoll NP LAB BLOOD ORDERABLES Final Re sult [facility] [address] [place] [address] from Last 3 Months or Most Recently Relevant to Health Maintenance Insurance [facility] Advance Directives For more information, please contact: [phone] * Full Code (Latest Code Status on File) Date Activated Date Inactivated Comments 09/02/2022 8:40 AM 09/05/2022 1:44 PM Care Teams Latex Foam Worker Relationship Specialty Start Date End Date Noreen Stoll NP [address] [place] [address] PCP - General Internal Medicine 03/31/23 Salinas Massey PA [address] [place] [address] Physician Director Business Systems Orthopedic Surgery 01/04/20 Shruthi Roberts PA [address] [address] Physician Director Business Systems Orthopedic Surgery 04/27/20 Noreen Stoll NP [address] [place] [address] [place] [address] Nurse Practitioner Internal Medicine 03/31/23
--- OUTSIDE RECORDS SUMMARY | 2024-11-11 20:16 | XMS_ITS | Clinical Summary ---
Author Organization [facility] Address [address] [place] [address] Care Team Providers Care Pasta Press Operator Name Role Phone Dannie Mccullough DO Unavailable [phone] Paola Carrillo Primary Care Provider [phone] Source Comments [facility],non-owned Affiliates and Associated Physician Practices is amultiple site organization consisting of ambulatory clinics and hospital sitesin [place], [place], [place] and [place]. This disclosure is being madepursuant to the Care Everywhere program and may not contain all information available regarding this patient. Last updated 17.[facility] Allergies Active Allergy Reactions Criticality Noted [...] on the tongue 30 tablet 2 08/17/19 Active Additional Information Patient not taking.Reported on [...] migh t be different from the original. [employer] form completed. Diapers given. 09/13/2021; [...] screening test not in patient's records from [facility]. Will ask patient to have partner check [...] on contraception 07/26 - requested labs from [place] [facility] [place] 07/26 History of PCOS 12/14/2020 07/26/2021 Pre-conception [...] [place] [facility] (including now)? 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 Not on file Not on file Not [...] C SCREENING 09/19/2009 PAP SMEAR 10/03/2023 10/02/2020 DEPRESSION SCREENING 03/03/2024 12/20/2021, 11/08/2021, 11/06/2021, Additional history exists COVID-19 VACCINE ( season) 2024 02/03/2021, 03/28/2020, 02/29/2020 INFLUENZA VACCINE (#1) 2024 , 12/02/2019, 02/05/2019, Additional history exists DTAP/TDAP/TD VACCINES [...] Reactive Non Reactive 08/30/2021 2:30 PM CDT [facility] Blood BLOOD SPECIMEN / Unknown Venipuncture / Unknown 08/30/2021 1:27 PM CDT 08/30/2021 1:39 PM CDT Narrative [facility] - 08/30/2021 2:30 PM CDT No Laboratory evidence of HIV infection. us Mark Porter MD LAB - CHEMISTRY ORDERABLES Natalie triana Result [facility] [address] [place] [address] from Last 3 Months or Most Recently Relevant to Health Maintenance Insurance MEDICAID - [place] AETNA MEDICAID - OUT OF STATE Advance Directives * Full Code (Latest Code Status on File) Date Activated Date Inactivated Comments 11/01/2021 1:24 PM 11/04/2021 1:22 PM * Full Code Date Activated Date Inactivated Comments 07/05/2021 4:45 PM 07/06/2021 5:06 PM Care Teams Pasta Press Operator Relationship Specialty Start Date End Date Paola Carrillo PA [address] [place] [address] PCP - General Physician Concrete Form Setter 07/05/21 Dannie Mccullough DO Family Medicine 05/21/18
== END 2024-11-11 21:41 | disposition left against medical advice (07) ==
PROVIDERS: Emergency Provider Student in an Organized Health Care Education/Training Program; PCP Nurse Practitioner
DX: R07.9 Chest pain, unspecified (principal)
CPT/HCPCS: 36415; 71046; 80053; 83690; 84484; 85025; 85610; 85730; 93005; 99199

== ENCOUNTER 2024-12-13 20:46 | Emergency (ER) | payer OTHER, SELFPAY ==
--- OUTSIDE RECORDS SUMMARY | 2024-05-05 05:20 | XMS_ITS | Continuity of Care Document ---
Author Organization [facility] Address [address] [facility] [address] [place] [address] Phone Care Team Providers Care Power Line Installer And Repairer Name Role Phone Devin Chisholm PT Unavailable [...] Diagnoses Date Provider Providers Copied on Encounter [facility], [id number], tel:[phone] [place] No Information 5 Kathrine Beltran. . [facility], [id number], tel:[phone] [place] No Information 5 Kathrine Beltran. . Referring Provider: Salinas Massey, [address] [facility] [address], [address]. tel:[phone] [facility] [address], [id number], tel:[phone] [place] No Information 5 Kathrine Beltran. . Referring Provider: Salinas Massey, [address] [facility] [address], [place], [address]. tel:[phone] [facility] [place], [address] [facility] [address], [place], [place], [id number], tel:[phone] [place] No Information 5 Kathrine Beltran. . Referring Provider: Salinas Massey, [address] [facility] [address], [place], [address]. tel:[phone] Family History Family Member Type Diagnosis Age At Onset No Information Payers Payer name Insurance type Covered constitution party ID Palak lira(s) Aetna CI [id number] Social History Type Description Quantity Date Captured [...]
--- OUTSIDE RECORDS SUMMARY | 2024-05-05 05:20 | XMS_ITS | Continuity of Care Document ---
Author Organization [facility] Address [address] [facility] [address] [place] [address] Phone Care Team Providers Care Fence Erector Supervisor Name Role Phone Devin Chisholm PT Unavailable [...] Diagnoses Date Provider Providers Copied on Encounter [facility], [id number], tel:[phone] [place] No Information 5 Kathrine Beltran. . [facility], [id number], tel:[phone] [place] No Information 5 Kathrine Beltran. . Referring Provider: Salinas Massey, [address] [facility] [address], [place], [address]. tel:[phone] [facility] [address], [id number], tel:[phone] [place] No Information 5 Kathrine Beltran. . Referring Provider: Salinas Massey, [address] [facility] [address], [place], [address]. tel:[phone] [facility] [place], [address] [facility] [address], [place], [place], [id number], tel:[phone] [place] No Information 5 Kathrine Beltran. . Referring Provider: Salinas Massey, [address] [facility] [address], [place], [address]. tel:[phone] Family History Family Member Type Diagnosis Age At Onset No Information Payers Payer name Insurance type Covered green party ID Palak lira(s) Aetna CI [id number] Social History Type Description Quantity Date Captured [...]
--- OUTSIDE RECORDS SUMMARY | 2024-12-13 20:49 | XMS_ITS | Encounter Summary ---
Author Organization [facility] Address [address] [place] [address] Care Team Providers Care Machine Crater Name Role Phone Jb Harrington MD Primary Care Provider Dannie Mccullough DO Primary Care Provider Jb Harrington MD Primary Care Provider [phone] Dannie Mccullough DO Primary Care Provider Dannie Mccullough DO Unavailable [phone] Paola Carrillo Primary Care Provider [phone] Encounter Details Date Type Department Care Team (Late st Contact Info) Description 11/03/2013 [facility] Outpatient Visit [facility] - Family Medicine [address] [place] [address] [place] [address] [place] [address] Social History Tobacco Use Types Packs/Day Years Used Date Smoking Tobacco: Passive Smo ke Exposure - Never Smoker Cigarettes Alcohol Use Standard Drinks/Week Comments Yes 0 (1 standard drink = 0.6 oz pur e alcohol) rarely Comments No Sex and Gender Information Value Date Recorded Sex Assigned at Female 12/26/2020 9:46 AM CDT Legal Sex Female 8:30 AM LIBRARIAN SPECIALIST Gender Identity Gender Non-conforming 12/26/2020 9:46 AM CDT Sexual Orientation Bisexual 12/26/2020 9: 46 AM CDT documented as of this encounter Plan of Treatment Not on file documented as of this encounter Visit Diagnoses Not on filedocumented in this encounter Care Teams Machine Crater Relationship Specialty Start Date End Date Jb Harrington MD PCP - General Family Medicine 11/03/13 12/02/13 Dannie Mccullough DO PCP - General Family Medicine 06/23/16 05/20/18 Jb Harrington MD PCP - General 05/21/18 06/01/18 Dannie Mccullough DO PCP - General 06/02/18 07/04/21 Paola Carrillo PA [address] [place] [address] PCP - General Physician Herbarium Worker 07/05/21 Dannie Mccullough DO Family Medicine 05/21/18 documented as of this encounter
--- OUTSIDE RECORDS SUMMARY | 2024-12-13 20:49 | XMS_ITS | Clinical Summary ---
Author Organization [facility] Address [address] [place] [id number] Care Team Providers Care Electric Meter Technician Name Role Phone Salinas Massey PA Unavailable [phone] Shruthi Roberts PA Unavailable [phone] Noreen Stoll NP Unavailable [phone] Noreen Stoll NP Primary Care Provider [phone] Allergies Active Allergy Reactions Criticality Noted Date [...] Active naltrexone (LOW DOSE) 1 mg capsule 0.1 mg compounded tabs daily 30 capsule 2 11/30/19 25 Active naltrexone (LOW DOSE) 1 mg capsule 0.5 mg compounded tabs daily 30 capsule 2 10/23/19 25 025 Discontin ued(Reord er) Active Problems Problem Noted Date Diagnosed Date [...] 04/17/23. Assessment & Plan (04/02/2023 11:36 PM MACHINE TOOL OPERATOR): Laparoscopic incision above navel is healing well. Edges are approximated. Will continue to monitor. She denies any pain. Sinus tachycardia 11/29/2022 Palpitations 11/29/2022 Assessment & Plan (03/31/2023 4:08 PM MACHINE TOOL OPERATOR): Managed previously by cardiology. Is on propranolol 20 mg daily. 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 Partners carrier screening test not in patient's records from [facility]. Will ask patient to have partner check records. Cystic fibrosis carrier 07/26/2021 Overview (10/27/2022): FOB negative Marijuana use 07/26/2021 Overview (10/27/2022): Using nightly per pt report previously - now working on cutting back Advised cessation in has stopped. Assessment & Plan (03/31/2023 4:09 PM MACHINE TOOL OPERATOR): Daily edible use, helps with anxiety. Raynaud's phenomenon 11/01/2020 Assessment & Plan (04/02/2023 11:38 PM MACHINE TOOL OPERATOR): Asymptomatic. PCOS (polycystic ovarian syndrome) 10/18/2020 Overview (10/27/2022): On Metformin 500mg BID Assessment & Plan (06/10/2023 3:24 PM CDT): Insulin resistant PCOS, Metformin 500mg daily. Managed by attendance secretary. Assessment & Plan (03/31/2023 4:07 PM MACHINE TOOL OPERATOR): Insulin resistant PCO, Metformin 500mg daily. Protein C deficiency 10/18/2020 Overview (10/27/2022): no longer has per [facility] and MFM. ASA 81mg only. No lovenox. no longer has per [facility] and MFM. ASA 81mg only. No lovenox. Subclinical hypothyroidism 06/22/2018 Overview (03/31/2023): On Levothyroxine 50mcg QD 06/22: TSH 3.3 07/26: TSH 1.75 TSH 05/18 TSH 05/18 Assessment & Plan (04/02/2023 11:39 PM MACHINE TOOL OPERATOR): Normal TSH recently. Will monitor. Major depressive [...] SI/HI. Assessment & Plan (05/06/2023 5:29 PM MACHINE TOOL OPERATOR): PHQ has improved today. We will increase the Lexapro to 10 mg to help with patient's anxiety and overall depression. She is advised to seek treatment in the ER if she develops any SI. She currently denies any SI/HI. Assessment & Plan (03/31/2023 4:10 PM MACHINE TOOL OPERATOR): PHQ elevated at 11. Started Lexapro 5 [...] pharmacy. Assessment & Plan (05/06/2023 5:30 PM MACHINE TOOL OPERATOR): I discussed with patient decreasing the Vyvanse to 10 mg and seeing how she does on the lower dose. I discussed with her how stimulants can increase anxiety. We will see how she does on this medication. She will reach out if it isn't controlling her symptoms. Assessment & Plan (03/31/2023 4:13 PM MACHINE TOOL OPERATOR): Would like to switch back to Jeff off of Concerta d/t anxiety. Will discuss at next appt. Migraine 10/27/2007 Assessment & Plan (03/31/2023 4:09 PM MACHINE TOOL OPERATOR): Less than 15 per month. Reports they are few and far between. Ibuprofen or tylenol works for relief. Allergic rhinitis 07/17/1998 Overview (03/31/2023): Dust mites, cock roaches, and dogs. Had testing. Assessment & Plan (03/31/2023 4:16 PM MACHINE TOOL OPERATOR): Chronic, controlled. Zyrtec, flonase, albuterl PRN. She [...] 10/21/2023 Assessment & Plan (04/02/2023 11:38 PM MACHINE TOOL OPERATOR): Will repeat labs. Short cervix 07/05/2021 03/31/2023 [...] home and keep log Will call back/send Flexusp[employer] message with readings in a few weeks May also bring in home BP machine to office to check accuracy of readings. Closed dislocation of right patella 04/11/2020 03/31/2023 Overview (04/11/2020): Added automatically from request for surgery [id number] Closed dislocation of left patella 12/29/2019 03/31/2023 Overview (12/29/2019): Added automatically from request for surgery [id number] Closed patellar dislocation, left, initial encounter 12/17/2019 12/18/2022 Closed patellar dislocation, right, initial encounter 12/17/2019 12/18/2022 Anxiety in in firs t trimester, antepartum 12/10/2016 03/31/2023 Depression affecting pregnan cy in first trimester, antepartum 12/10/2016 03/31/2023 Attention deficit disorder 12/10/2008 1 Encounters Date Type Department Care Team Description 12/08/2024 Telephone [facility] Medicine Ophthalmology [facility] [address]th [place] [address] Jatinder Li MD 10/19/2024 1:52 PM CDT - 10/19/2024 11:59 PM CDT Hospital Encounter [facility] [address] [place] [address] Kailee Ibanez MD Polyarthralgia (Primary Dx); Fibromyalgia; Generalized articular hypermobility; Chronic bilateral low back pain without sciatica Discharge Disposition: Discharge to home or self care from Last 3 Months Immunizations Immunization Administration [...] week 09/02/2022 How often do you attend sikhism or rastafarian serv ices? Never 09/02/2022 Active Member of [...] staff should administer the PHQ-9) 2 07/08/2023 [facility]ational Stress Questionnaire Answer Date [...] place to sleep or slept in a assisted (including now)? No 09/02/2022 [place] Depression Scale Answer Date Recorded [place] Depression Scale Total 5 09/16/2022 The thought [...] on file Legal Sex Female 8:16 PM MACHINE TOOL OPERATOR Gender Identity Genderqueer, neither exclusively Male nor [...] 07/02, 04/17/2023, Additional history exists Covid-19 Vaccine (5 - 2024-2 6 season) 2024 05/04/2022, 02/03/2021, 03/28/2020, Additional history exists Influenza Vaccine (#1) 2024 , 01/16/2022, 12/22/2019, Additional history exists Lipid Panel 08/19/2025 08/19/2024, 05/30/2023 DTaP/Tdap/Td Vaccine (8 - Td or Tdap) 08/31/2031 08/30/2021, 01/20/2019, 11/14/2004, Additional history exists Hepatitis B Screening Completed 01/26/1993 , 1991, 1991 Varicella Vaccines Completed 10/14/1996, 01/29/1993 HPV Vaccines Completed 01/04/2008, 05/2007, 09/02/2007, Additional history exists Goals Goal Patient Goal Type Associated Problems Recent Progress Patient-Stated? Author CCM Chronic Pain Care Plan Chronic Care Management No Yamile Velazco, DIONICIO Note: Problem: Chronic Pain Goals: 1. Minimize further functional decline 2. Maximize quality of life 3. Control pain Strategies: - Activity/exercise program recommendation - Conservative stepwise pain medicine strategy with multi-disciplinary approach - Recommend healthy lifestyle strategies and compensatory methods as needed Reduce the likelihood of falling Lifestyle No Yamile Velazco, DIONICIO Note: Below are four things you can [...] on stairs Contact your local community or senior center for information on exercise, fall prevention programs, or options for improving home safety. Medical Devices Implanted Type Area Pockets And Pieces Necktie Operator Device Identifier Shelf Expiration Date Model / Serial / Lot [employer] [id number] Swivelock Tenodesis 7mm 19.5mm Fork Eyelet Shoulder Biceps Lawrence - [id number] Implanted:Qty: 1 on 01/04/2020 by Geo Campbell MD at [facility] Left: Knee [employer] 05/01/2023 AR-1662BC-7 / / [id number] Allosource [id number] Frozen Aseptic Graft Soft Tissue Posterior Tibialis Tendon - [id number] Implanted:Qty: 1 on 01/04/2020 by Geo Campbell MD at [facility] Left: Knee [employer] [id number] / / Description:Single diameter 6mm, folded diameter 9.5mm Fastthread Biocomposite Interference Screw, 9 X20mm, With Disposable Sheath Implanted:Qty: 1 on 01/04/2020 by Geo Campbell MD at [facility] Left: Knee [employer] [id number] 08/01/2023 AR-4020C-09 / NA / [id number] Description:[facility] ITEM # [id number] FLAGGED IN [facility] 01/05/2020 CHARGE CODE ASSIGNED 296914 COST EA. 295.00 [facility] [id number] Graft Soft Tissue Posterior Tibialis Tendon - [id number] - [id number] Implanted:Qty: 1 on 04/27/2020 by Geo Campbell MD at [facility] Right: Knee [facility] 12/09/2020 [id number] / [id number] / [employer] Ar-1360c-Cp 4.5mm 6mm Cannulated Drill Guidepin Interference Screw Reamer - [id number] Implanted:Qty: 1 on 04/27/2020 by Geo Campbell MD at [facility] Right: Knee [employer] 01/31/2024 AR-1360C-CP / / [id number] Procedures Procedure Name Priority Date/Time Associated Diagnosis Comments LIPID PANEL Routine 08/19/2024 10:33 AM CDT Dyslipidemia EGFR STAT 08/05/2023 4:11 PM CDT HEMOGLOBIN A1C Routine 04/17/2023 7:57 AM MACHINE TOOL OPERATOR Prediabetes ALBUMIN CREATININE RATIO, URINE Routine 04/17/2023 7:57 AM MACHINE TOOL OPERATOR Prediabetes from Last 3 Months or Most Recently Relevant to Health Maintenance Results * (ABNORMAL) Lipid panel (08/19/2024 10:33 AM CDT) Cholesterol 201(H) <200 mg/dL [facility] HDL 53 > OR = 50 mg/dL [facility] Triglycerides 198(H) <150 mg/dL [facility] LDL 116(H) mg/dL (calc) [facility] Comment: Reference range: <100 Desirable range <100 mg/dL for primary prevention; <70 mg/dL for patients with CHD or diabetic patients with > or = 2 CHD risk factors. LDL-C is now calculated using the Frankie calculation, which is a validated novel method providing better accuracy than the Friedewald equation in the estimation of LDL-C. Isaías WELLINGTON et al. DAKOTAH. 2013;310(19): 0610-8575 (http://education.What's in My Handbag/faq/FFP959) Chol/HDL ratio 3.8 <5.0 (calc) [facility] Non-HDL, (LDL+VLDL) 148(H) <130 mg/dL (calc) [facility] Comment: For patients with diabetes plus 1 major ASCVD risk factor, treating to a non-HDL-C goal of <100 mg/dL (LDL-C of <70 mg/dL) is considered a therapeutic option. Blood 08/19/2024 10:3 3 AM CDT 08/19/2024 10:33 AM CDT Narrative [facility] - 08/19/2024 8:28 PM CDT FASTING:YES FASTING: YES us Flaca Freed NP LAB BLOOD ORDERABLES Final Result [facility] [address] [place] [address] * eGFR (08/05/2023 4:11 PM CDT) eGFR [...] us Ernesto Fleming MD LAB BLOOD ORDERABLES [facility] Result [facility] [address] [facility] Department [place] [address] * Albumin Creatinine Ratio, Urine (04/17/2023 7:57 AM MACHINE TOOL OPERATOR) Creatinine, ur 22 20 - 275 mg/dL [...] a diagnostic category. Urine 04/17/2023 7:57 AM MACHINE TOOL OPERATOR 04/17/2023 7:59 AM MACHINE TOOL OPERATOR Narrative [facility] - 04/18/2023 4:19 PM MACHINE TOOL OPERATOR FASTING:YES FASTING: YES Noreen Stoll BAND EDGER LAB URINE ORDERABLES Final Re sult [facility] [address] [address] * Hemoglobin A1c (04/17/2023 7:57 AM MACHINE TOOL OPERATOR) Hgb A1C 4.7 <5.7 % of total Hgb [facility] Comment: For the purpose of screening for the presence of diabetes: <5.7% Consistent with the absence of diabetes 5.7-6.4% Consistent with increased risk for diabetes (prediabetes) > or =6.5% Consistent with diabetes This assay result is consistent with a decreased risk of diabetes. Currently, no consensus exists regarding use of hemoglobin A1c for diagnosis of diabetes in children. According to [place] Diabetes Association (ADA) guidelines, hemoglobin A1c <7.0% represents optimal control in non- diabetic patients. Different metrics may apply to specific patient populations. Standards of Medical Care in Diabetes(ADA). HbA1c performed on Jaime platform. Blood 04/17/2023 7:57 AM MACHINE TOOL OPERATOR 04/17/2023 7:59 AM MACHINE TOOL OPERATOR Narrative [facility] - 04/18/2023 4:19 PM MACHINE TOOL OPERATOR FASTING:YES FASTING: YES Noreen Therleigh BAND EDGER LAB BLOOD ORDERABLES Final Re sult Performing Organization Address [facility]/ZIP Co de Phone Number [facility] [address] [place] [address] from Last 3 Months or Most Recently Relevant to Health Maintenance Insurance [facility] Advance Directives For more information, please contact: [phone] * Full Code (Latest Code Status on File) Date Activated Date Inactivated Comments 09/02/2022 8:40 AM 09/05/2022 1:44 PM Care Teams Electric Meter Technician Relationship Specialty Start Date End Date Noreen Stoll NP [address] [place] [address] [address] [address] PCP - General Internal Medicine 03/31/23 Salinas Massey PA [address] [place] [address] Physician Senior Applications Architect Orthopedic Surgery 01/04/20 Shruthi Roberts PA [address] [place] [address] Physician Senior Applications Architect Orthopedic Surgery 04/27/20 Noreen Stoll NP [address] [place] [address] Nurse Practitioner Internal Medicine 03/31/23
--- OUTSIDE RECORDS SUMMARY | 2024-12-13 20:49 | XMS_ITS | Clinical Summary ---
Author Organization [facility] Address [address] [place] [place] [address] Care Team Providers Care Manager Image Name Role Phone Dannie Mccullough DO Unavailable [phone] Paola Carrillo Primary Care Provider [phone] [facility],non-owned Affiliates and Associated Physician Practices is amultiple site organization consisting of ambulatory clinics and hospital sitesin [place], [place], [place] and [place]. This disclosure is being madepursuant to the Care Everywhere program and may not contain all information available regarding this patient. Last updated 17.[facility] Allergies Active Allergy Reactions Criticality Noted [...] migh t be different from the original. [employer] form completed. Diapers given. 09/13/2021; [...] screening test not in patient's records from [facility]. Will ask patient to have partner check [...] on contraception 07/26 - requested labs from [facility] 07/26 History of PCOS 12/14/2020 07/26/2021 Pre-conception [...] slept in a mcc (including now)? 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 us Mark Porter MD LAB - CHEMISTRY ORDERABLES Natalie triana Result [facility] [address] [place], [place] [id number] from Last 3 Months or Most Recently Relevant to Health Maintenance Insurance MEDICAID - [place] A[employer] MEDICAID - OUT OF STATE Advance Directives * Full Code (Latest Code Status on File) Date Activated Date Inactivated Comments 11/01/2021 1:24 PM 11/04/2021 1:22 PM * Full Code Date Activated Date Inactivated Comments 07/05/2021 4:45 PM 07/06/2021 5:06 PM Care Teams Manager Image Relationship Specialty Start Date End Date Paola Carrillo PA [address] [place] [address] PCP - General Physician Cbx Operator 07/05/21 Dannie Mccullough DO Family Medicine 05/21/18
--- OUTSIDE RECORDS SUMMARY | 2024-12-13 20:49 | XMS_ITS | Patient Health Record ---
Author Organization [facility] [employer] [facility] Address [address] [facility] [address] [place] [address] Care Team Providers Care Clinical Study Manager Name Role Phone OFT BLAKELY-Joe, MICHAEL Primary Care Provide r Unavailable FeliciaKim Unavailable [phone] AnuradhaAlmaz torres Unavailable [phone] Curt Wesley Unavailable [phone] Allergies No Known Allergies Results Component Value Reference Range Flag Notes HEPATIC FUNCTION PANEL (1020 6) Reviewed date:12/25/2023 08:37:32 AM Interpretation: Performing Lab:[employer], TORIA [place] [address] Administration Naima Sweeney ZiazkdiBO[address] [facility] Notes/Report: FASTING:NO FASTING: NO PROTEIN, TOTAL 7.5 [...] Reviewed date:12/25/2023 08:37:27 AM Interpretation: Performing Lab:NAKUL TORIA [id number] Administration Naima Sweeney [id number] [facility] Notes/Report: FASTING:NO FASTING: NO WHITE BLOOD CELL [...] 11.0 7.5-12.5 fL N ABSOLUTE NEUTROPHILS 4420 4114-3080 cells/uL N ABSOLUTE LYMPHOCYTES 5035 963-0612 cells/uL N ABSOLUTE MONOCYTES 415 200-950 cells/uL N ABSOLUTE EOSINOPHILS 177 15-500 cells/uL N ABSOLUTE BASOPHILS 41 0-200 cells/uL N NEUTROPHILS 65 N LYMPHOCYTES 25.7 N MONOCYTES 6.1 N EOSINOPHILS 2.6 N BASOPHILS 0.6 N HEMOGLOBIN A1c (496) Reviewed date:12/25/2023 08:37:09 AM Interpretation: Performing Lab:NAKUL [facility] Administration Naima Sweeney [id number] [facility] Notes/Report: FASTING:NO FASTING: NO HEMOGLOBIN A1c [...] diagnosis of diabetes in children. According to [place] Diabetes Association (ADA) guidelines, hemoglobin A1c <7.0% represents optimal control in non- diabetic patients. Different metrics may apply to specific patient populations. Standards of Medical Care in Diabetes(ADA). Your request to have a duplicate copy faxed has been acknowledged. Queued to: [id number] VITAMIN B12 (927) Reviewed date:12/25/2023 08:37:22 AM Interpretation: Performing Lab:Rebecca LEE-Giktxr99167 Enrike EnglandaKS[address] Anastacia Copeland MD Notes/Report: FASTING:NO FASTING: NO VITAMIN B12 056 323-4562 pg/mL N VITAMIN D,25-OH,TOTAL,IA (17 306) Reviewed date:12/25/2023 08:37:16 AM Interpretation: Performing Lab:[place]becca LEE-Rrmjbc55566 Enrike EnglandaKS[address] Anastacia Copeland MD Notes/Report: FASTING:NO [...] D, (D2,D3), LC/MS/MS is recommended: order code 23989 (patients >2yrs). See Note 1 Note 1 For additional information, please refer to http://education.Q uestDiagnostics.co m/faq/BHS633 (This link is being provided for informational/ educational purposes only.) LIPID PANEL, STANDARD (7600) Reviewed date:12/25/2023 08:33:19 AM Interpretation: Performing Lab:Rebecca [facility] HospitalFytxo48807 Administration Naima Sweeney SfitnlnNY[address] Anastacia Copeland Notes/Report: FASTING:NO FASTING: NO CHOLESTEROL, TOTAL 228 [...] LDL-C. Isaías SS et al. DAKOTAH. 2013;310(19): 0731-3398 (http://education. NeighborhoodsDiagnostics.c om/faq/GRW937) CHOL/HDLC RATIO 4.1 <5.0 (calc) N NON HDL CHOLESTEROL 173 <130 mg/dL (calc) H For patients with diabetes plus 1 major ASCVD risk factor, treating to a non-HDL-C goal of <100 mg/dL (LDL-C of <70 mg/dL) is considered a therapeutic option. COMPREHENSIVE METABOLIC PANCarole Edilberto (17190) Reviewed date:12/25/2023 05:10:59 PM Interpretation: Performing Lab:NAKUL [facility] HospitalTzyhu[address] [place] [id number] [facility] Notes/Report: FASTING:NO FASTING: NO GLUCOSE 101 65-139 [...] U/L N ALT 16 6-29 U/L N UDT Reviewed date:12/15/2023 03:56:35 PM Interpretation: Performing Lab: Notes/Report: THC p 0 - 50 ng/ml Cocaine n 0 - 300 ng/ml Amphetamine n 0 - 1000 ng/ml Buprenorphine (BUP) n 0 - 10 ng/ml Secobarbital (Bar) n 0 - 300 ng/ml Oxazepam (BZO) p 0 - 300 ng/ml 0-cnxgtywhzd-0,9-pjfrlxkl-0, 3-diphen ylpyrrolidine (EDDP) n 0 - 300 ng/ml Methamphetamine (MET) n 0 - 1000 ng/ml Methylenedioxymethamphetamine (MDMA) n 0 - 500 ng /ml Morphine (MOP 300/GII1208) n 0 - 300 ng/ml Methadone (MTD) n 0 - 300 ng/ml Phencyclidine (PCP) n 0 - 25 ng/ml Nortriptyline (TCA) n 0 - 1000 ng/ml Oxycodone n 0 - 300 ng/ml x n 0 - 300 ng/ml Reason For Referral No Information Medications Medication [...] decision-maker Yes Do you have Power of Die Lay Out Worker for Health or [facility]? 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 rec ently stopped smoking marijuana x 2 days Problems Problem Type SNOMED Code ICD Code Onset Dates Problem Status W/U Status Risk Notes Problem Generalized anxiety disorder (50830046) Generalized anxiety disorder (F41.1) Active confirmed Problem Attention deficit hyperactivity disorder, combined type (09542928) Attention-deficit hyperactivity disorder, combined type (F90.2) Active confirmed Problem Generalized anxiety disorder (57314086) STEVO (generalized anxiety disorder) (F41.1) Active confirmed Problem Moderate recurrent major depression (52235278) MDD (major depressive disorder), recurrent episode, moderate (F33.1) Active confirmed Problem Nondependent cannabis abuse (487534193) Marijuana use (F12.90) Active confirmed Problem Vitamin D deficiency (42505652) Vitamin D deficiency (E55.9) Active confirmed Problem Anxiety (75778141) Anxiety (F41.9) Active confirmed Problem Severe major depression, single episode, without psychotic features (05029630) MDD (major depressive disorder), severe (F32.2) Active confirmed Problem Suicidal thoughts (4120605) Suicidal thoughts (R45.851) Active confirmed Problem Sleep disturbance (19801595) Sleep disturbance (G47.9) Active confirmed Problem Attention deficit hyperactivity disorder (798291263) ADHD (attention deficit hyperactivity disorder) evaluation (Z13.39) Active confirmed Problem Bizarre thoughts (410066672) Bizarre thoughts (F48.9) Active confirmed Vital Signs Heart Rate 72 /min 12/25/2023 Height-cm 165.1 cm 12/25/2023 Blood pressure diastolic 82 mm Hg 12/25/2023 Weight-kg 71.3 kg 12/24/2023 Height 65 in 12/25/2023 Blood pressure systolic 105 mm Hg 12/25/2023 Weight 157.2 lbs 12/24/2023 BMI 26.16 kg/m2 12/24/2023 Encounters Encounter Location Date Provider Diagnosis [facility] [address] [address] 12/15/2023 Kim Duarte MDD (major depressiv e disorder), severe F32.2 ; STEVO (generalized anxiety disorder) F41.1 and Attention-deficit hyperactivity disorder, combined type F90.2 [employer] [address] [place] [address] 12/24/2023 Curt Clubb MDD (major depressiv e disorder), severe F32.2 ; STEVO (generalized anxiety disorder) F41.1 and Attention-deficit hyperactivity disorder, combined type F90.2 [facility] [employer] [facility], [place] [address] [place] [address] 12/25/2023 Curt Clubb Vitamin D deficiency E55.9 ; STEVO (generalized anxiety disorder) F41.1 ; MDD (major depressive disorder), severe F32.2 ; Sleep disturbance G47.9 and Marijuana use F12.90 [facility] [address] [place] [address] 01/21/2024 Kim Duarte MDD (major depressiv e disorder), severe F32.2 ; STEVO (generalized anxiety disorder) F41.1 and Attention-deficit hyperactivity disorder, combined type F90.2 [facility] [employer] [facility], [address] [address] [place] [address] 01/21/2024 Almaz Hinderliter Generalized anxiety disorder F41.1 [facility] [facility], [facility] [address] [place] [address] 02/04/2024 Almaz Hinderliter Generalized anxiety disorder F41.1 [facility] [employer] [facility], [facility] [address] [place] [address] 02/11/2024 Almaz Hinderliter Generalized anxiety disorder F41.1 [facility] [employer] [facility], [facility] [address] [place] [address] 02/18/2024 Almaz Hinderliter Generalized anxiety disorder F41.1 [facility] [facility], [facility] [address] [place] [address] 02/26/2024 Almaz Hinderliter [facility] [facility], [facility] [address] [place] [address] 03/10/2024 Almaz Hinderliter Generalized anxiety disorder F41.1 [facility] [facility], [facility] [address] [place] [address] 03/17/2024 Almaz Hinderliter Generalized anxiety disorder F41.1 [employer] [facility], [address] [address] [place] [address] 03/24/2024 Almaz Hinderliter Generalized anxiety disorder F41.1 [facility] [employer] [facility], [employer] [address] [place] [address] 03/30/2024 Almaz Hinderliter MDD (major depressiv e disorder), severe F32.2 ; Generalized anxiety disorder F41.1 and Attention-deficit hyperactivity disorder, combined type F90.2 [facility] [address] [place] [address] 04/01/2024 Kim Duarte MDD (major depressiv e disorder), severe F32.2 ; STEVO (generalized anxiety disorder) F41.1 ; Attention-deficit hyperactivity disorder, combined type F90.2 and Other fdc (current) drug therapy Z79.899 [facility] [employer] [facility], [employer] [address] [place] [address] 04/07/2024 Almaz Hinderliter Generalized anxiety disorder F41.1 [facility] [employer] [facility], [employer] [address] [place] [address] 04/08/2024 Almaz Hinderliter MDD (major depressiv e disorder), severe F32.2 ; Generalized anxiety disorder F41.1 ; Attention-deficit hyperactivity disorder, combined type F90.2 and Marijuana use F12.90 [facility] [employer] [facility], [employer] [address] [place] [address] 04/15/2024 Almaz Hinderliter MDD (major depressiv e disorder), severe F32.2 ; Generalized anxiety disorder F41.1 ; Attention-deficit hyperactivity disorder, combined type F90.2 and Marijuana use F12.90 [employer] [facility], [employer] [address] [place] [address] 04/29/2024 Almaz Hinderliter MDD (major depressiv e disorder), severe F32.2 ; Generalized anxiety disorder F41.1 ; Attention-deficit hyperactivity disorder, combined type F90.2 and Marijuana use F12.90 [employer], [employer] [address] [place] [address] 05/20/2024 Almaz Hinderliter Generalized anxiety disorder F41.1 ; MDD (major depressive disorder), severe F32.2 ; Attention-deficit hyperactivity disorder, combined type F90.2 and Encounter for screening for depression Z13.31 [facility] [address] [place] [address] 12/17/2023 Kim Duarte [facility], [facility] [address] [place] [address] 12/17/2023 Kim Duarte [facility], [facility] [address] [place] [address] 12/24/2023 Curt Clubb [facility], [facility] [address] [place] [address] 01/12/2024 Kim Duarte STEVO (generalized anxiety disorder) F41.1 [facility] [address] [place] [address] 01/28/2024 Almaz Lisa [facility], [facility] [address] [place] [address] 02/12/2024 Kim Duarte [facility], [facility] [address] [place] [address] 03/30/2024 Kim Duarte [facility], [facility] [address] [place] [address] 03/30/2024 Kim Duarte STEVO (generalized anxiety disorder) F41.1 [facility] [address] [place] [address] 03/30/2024 Kim Duarte [facility], [facility] [address] [place] [address] 12/22/2023 Kim Duarte [facility], [facility] [address] [place] [address] 12/22/2023 Kim Duarte [facility], [facility] [address] [place] [address] 01/14/2024 Kim Duarte [facility], [facility] [address] [place] [address] 02/02/2024 Kim Duarte [facility], [facility] [address] [place] [address] 02/02/2024 Kim Duarte [facility] [address] [place] [address] 02/02/2024 Kim Duarte [facility], [place] [address] [place] [address] 02/02/2024 Kim Duarte [facility], [place] [address] [place] [address] 02/05/2024 Kim Duarte [facility], [place] [address] [place] [address] 02/05/2024 Kim Duarte [facility], [place] [address] [place] [address] 04/01/2024 Almaz Lisa [facility], [place] [address] [place] [address] 04/02/2024 Kim Duarte [facility], [place] [address] [facility] [address] [place] [address] 04/02/2024 Kim Duarte [facility], [place] [address] [facility] [address] [place] [address] 04/06/2024 Kim Duarte [facility], [place] [address] [place] [address] 04/08/2024 Kim Duarte MDD (major depressiv e disorder), severe F32.2 [facility], [place] [address] [facility] [address] [place] [address] 04/26/2024 Kim Duarte [facility], [place] [address] [facility] [address] [place] [address] 04/26/2024 Kim Duarte [facility], [place] [address] [facility] [address] [place] [address] 04/26/2024 Kim Duarte Assessments Encounter Date Diagnosis (ICD Code) Assessment Notes Treatment Notes Treatment Clinical Notes Section Notes 12/15/2023 MDD (major depressive disorder), severe (ICD-10 - F32.2) Electronic Prior Authorization was requested for Caplyta 10.5 MG Capsule. Provider can order medication once approval received. 04/08/2024 MDD (major depressive disorder), severe (ICD-10 - F32.2) 12/15/2023 STEVO (generalized anxiety disorder) (ICD-10 - F41.1) 05/20/2024 MDD (major depressive disorder), severe (ICD-10 [...] Plan: - Refer to [facility] Jacobo in [place] for trauma-focused therapy, including EMDR, internal family systems, and somatic therapies - Consider alternative referral to [facility] in [place] for brain spotting therapy - Encourage patient [...] for maintaining a larger, more inclusive community 04/15/2024 Generalized anxiety disorder (ICD-10 - F41.1) [...] Suggest involvement in reputable organizations such as [employer], [employer], and [employer], to foster trust and community connection. Follow-up: A follow-up appointment is scheduled for , April 29, after 9 am to review the patient's progress and adjust the treatment plan as necessary. 03/30/2024 MDD (major depressive disorder), severe (ICD-10 [...] community resources or support groups as necessary. 04/15/2024 MDD (major depressive disorder), [...] Suggest involvement in reputable organizations such as [facility], [facility], and [employer], to foster trust and community connection. Follow-up: A follow-up appointment is scheduled for , April 29, after 9 am to review the patient's progress and adjust the treatment plan as necessary. 12/24/2023 MDD (major depressive disorder), severe (ICD-10 [...] Low vitamin D level (29). - Discontinue csll-ubu-pacdgmj vitamin D supplements. - Prescribe weekly vitamin D medication for three months. - Recheck vitamin D levels after three months of treatment. 6. Transition of Care - Patient moving to [place], [place] in three months. - Encourage scheduling [...] Low vitamin D level (29). - Discontinue dmjp-ggb-tqolikg vitamin D supplements. - Prescribe weekly vitamin D medication for three months. - Recheck vitamin D levels after three months of treatment. 6. Transition of Care - Patient moving to [place], [place] in three months. - Encourage scheduling [...] - pt requested to start mirtazapine. 01/21/2024 MDD (major depressive disorder), severe (ICD-10 - F32.2) 1. MDD stable; PHQ9=6 today -cont oxcarbazepine 150mg daily 2. STEVO worsened since weaning off of cannabis -cont propranolol PRN -cont mirtazapine 7.5mg daily -lorazepam PRN per Curt CONSERVATION TECHNICIAN 3. ADHD -start Qelbree 100mg daily, increase [...] taking the child outside during tantrums, employing temperature-based soothing techniques, and practicing deep breathing exercises [...] political issues but feels constrained by parental responsibilities. Plan: Encourage exploring alternative methods of involvement, [...] taking the child outside during tantrums, employing temperature-based soothing techniques, and practicing deep breathing exercises [...] political issues but feels constrained by parental responsibilities. Plan: Encourage exploring alternative methods of involvement, such as contacting their union president to offer support within manageable capacities. 6. Virtual Therapy Sessions The patient prefers to continue with virtual therapy sessions. Plan: Arrange for weekly virtual appointments on , preferably at 9 AM or later. 04/29/2024 Generalized anxiety disorder (ICD-10 - F41.1) [...] engages in swimming, microneedling, and uses cortisol data deliverables manager supplements as part of their self-care regimen. [...] engages in swimming, microneedling, and uses cortisol data deliverables manager supplements as part of their self-care regimen. [...] Plan: - Refer to [facility] Jacobo in [place] for trauma-focused therapy, including EMDR, internal family systems, and somatic therapies - Consider alternative referral to [facility] in [place] for brain spotting therapy - Encourage patient [...] for maintaining a larger, more inclusive community 05/20/2024 Attention-defic it hyperactivity disorder, combined type [...] Plan: - Refer to Erendira Jacobo in [place] for trauma-focused therapy, including EMDR, internal family systems, and somatic therapies - Consider alternative referral to [facility] in [place] for brain spotting therapy - Encourage patient [...] engages in swimming, microneedling, and uses cortisol data deliverables manager supplements as part of their self-care regimen. [...] may arise before the next scheduled appointment. 04/08/2024 Attention-defic it hyperactivity disorder, combined type [...] taking the child outside during tantrums, employing temperature-based soothing techniques, and practicing deep breathing exercises [...] political issues but feels constrained by parental responsibilities. Plan: Encourage exploring alternative methods of involvement, [...] mirtazapine 7.5mg daily -lorazepam PRN per Curt CONSERVATION TECHNICIAN 3. ADHD -start Qelbree 100mg daily, increase as tolerated for symptom management. LABS: 12/202303/30/2024 Attention-defic it hyperactivity disorder, combined type (ICD-10 [...] community resources or support groups as necessary. 12/25/2023 MDD (major depressive disorder), severe (ICD-10 [...] Low vitamin D level (29). - Discontinue rrps-nat-gcrtxrv vitamin D supplements. - Prescribe weekly vitamin D medication for three months. - Recheck vitamin D levels after three months of treatment. 6. Transition of Care - Patient moving to [place], [place] in three months. - Encourage scheduling [...] antipsychotic - pt requested to start mirtazapine. 12/15/2023 Attention-defic it hyperactivity disorder, combined type (ICD-10 - F90.2) Consider stimulant when off cannabis 04/15/2024 Attention-defic it hyperactivity disorder, combined type [...] Suggest involvement in reputable organizations such as [employer], [employer], and [employer], to foster trust and community connection. Follow-up: A follow-up appointment is scheduled for April 29, after 9 am to review the patient's progress and adjust the treatment plan as necessary. 04/01/2024 STEVO (generalized anxiety disorder) (ICD-10 - [...] Suggest involvement in reputable organizations such as [employer], [employer], and [employer], to foster trust and community connection. Follow-up: A follow-up appointment is scheduled for April 29, after 9 am to review the patient's progress and adjust the treatment plan as necessary. 04/01/2024 Attention-defic it hyperactivity disorder, combined type (ICD-10 - F90.2) LABS: 12/202304/01/2024 Other fdc (current) drug therapy (ICD-10 - Z79.899) LABS: [...] Low vitamin D level (29). - Discontinue upvp-obr-fvedstm vitamin D supplements. - Prescribe weekly vitamin D medication for three months. - Recheck vitamin D levels after three months of treatment. 6. Transition of Care - Patient moving to [place], [place] in three months. - Encourage scheduling [...] - pt requested to start mirtazapine. 01/21/2024 Attention-defic it hyperactivity disorder, combined type (ICD-10 - F90.2) 1. MDD stable; PHQ9=6 today -cont oxcarbazepine 150mg daily 2. STEVO worsened since weaning off of cannabis -cont propranolol PRN -cont mirtazapine 7.5mg daily -lorazepam PRN per Curt CONSERVATION TECHNICIAN 3. ADHD -start Qelbree 100mg daily, increase [...] taking the child outside during tantrums, employing temperature-based soothing techniques, and practicing deep breathing exercises [...] political issues but feels constrained by parental responsibilities. Plan: Encourage exploring alternative methods of involvement, such as contacting their union president to offer support within manageable capacities. 6. Virtual Therapy Sessions The patient prefers to continue with virtual therapy sessions. Plan: Arrange for weekly virtual appointments on , preferably at 9 AM or later. 04/29/2024 Marijuana use (ICD-10 - F12.90) Assessment [...] engages in swimming, microneedling, and uses cortisol data deliverables manager supplements as part of their self-care regimen. [...] Plan: - Refer to Erendira Jacobo in [place] for trauma-focused therapy, including EMDR, internal family systems, and somatic therapies - Consider alternative referral to [facility] in [place] for brain spotting therapy - Encourage patient [...] for maintaining a larger, more inclusive community 12/25/2023 Marijuana use (ICD-10 - F12.90) Assessment [...] 1. Anxiety - Anxiety level reported at 5/10. - Discontinue Caplyta due to side effects and patient request. - Continue lorazepam as prescribed. - Monitor anxiety levels and adjust medications as needed. - Patient reported palpitations and feeling unable to calm down, leading to hospital visit. 2. Depression - Depression level reported at 5/10. - Discontinue Caplyta due to side effects [...] Low vitamin D level (29). - Discontinue dwcc-ymd-srvklvz vitamin D supplements. - Prescribe weekly vitamin D medication for three months. - Recheck vitamin D levels after three months of treatment. 6. Transition of Care - Patient moving to [place], [place] in three months. - Encourage scheduling [...] antipsychotic - pt requested to start mirtazapine. 12/15/2023 Other Discontinue Abilify Start Caplyta 10.5mg [...] seek emergency services. discussed crisis prevention hotline [phone]. Patient had reduction in suicidal ideation and/or [...] - Patient reports improvement in symptoms, rating 2-05/10. - PHQ-9 score decreased from 19 to [...] Low vitamin D level (29). - Discontinue jzcd-pli-fzxoufu vitamin D supplements. - Prescribe weekly vitamin D medication for three months. - Recheck vitamin D levels after three months of treatment. 6. Transition of Care - Patient moving to [place], [place] in three months. - Encourage scheduling [...] mirtazapine 7.5mg daily -lorazepam PRN per Curt BAI 3. ADHD -start Qelbree 100mg daily, increase [...] with treatment plan importance discussed. -Discussed the risks/benefits of this medication -Discussed medication side effects. -Contact office if symptoms worsen. -Discussed that it can take up to 6-8 weeks to see full therapeutic effects of psychotropic medications. -Crisis prevention hotline 988. LABS: 12/2023 Plan Of Treatment Pending Test Test Name Order Date TSH+Free T4 11/27/2023 CBC 11/27/2023 Liver Function Test (LFT) 12/24/2023 LIPID PANEL, STANDARD (7600) 11/27/2023 COMPREHENSIVE METABOLIC PANEL (95931) COMPREHENSIVE METABOLIC PANEL (99400) CBC (H/H, RBC, INDICES, WBC, PLT) (1759) 04/01/2024 HEMOGLOBIN A1c (496) 04/01/2024 HEMOGLOBIN A1c (496) 11/27/2023 VITAMIN B12 (927) 11/27/2023 TSH W/REFLEX TO FT4 (70850) 04/01/2024 VITAMIN D,25-OH,TOTAL,IA (73560) 025 VITAMIN D,25-OH,TOTAL,IA (61408) 024 Insurance Providers Payer Name Payer Address Payer Phone Subscriber Number Group Number Insured Name Patient Relationship to Insured Coverage Start Date Coverage End Date [employer] [address] [place] [address] [id number] JAIR CASTILLO Self - patient is the [...]
--- OUTSIDE RECORDS SUMMARY | 2024-12-13 20:49 | XMS_ITS | Encounter Summary ---
Author Organization [facility] Address [address] [place] [address] Care Team Providers Care Stove Polisher Name Role Phone Dannie Mccullough DO Primary Care Provider Dannie Mccullough DO Unavailable [phone] Paola Carrillo Primary Care Provider [phone] Encounter Details Date Type Department Care Team (Late st Contact Info) Description 01/16/2021 Lab Requisition [facility] [address] [place] [address] Glenna Grewal MD [address] [facility] [address] [place] [address] Social History Tobacco Use Types Packs/Day Years Used Date Smoking Tobacco: Former Cigarettes Smokeless Tobacco: Never Alcohol Use Standard Drinks/Week Comments Yes 0 (1 standard drink = 0.6 oz pur e alcohol) rarely Comments No Sex and Gender Information Value Date Recorded Sex Assigned at Female 12/26/2020 9:46 AM CDT Legal Sex Female 8:30 AM OTR OWNER OPERATOR Gender Identity Gender Non-conforming 12/26/2020 9:46 AM CDT Sexual Orientation Bisexual 12/26/2020 9: 46 AM CDT 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 Not on file Not on file documented as of this encounter Plan of Treatment Not on file documented as of this encounter Procedures Procedure Name Priority Date/Time Associated Diagnosis Comments HCG BETA BLOOD QUANTITATIVE STAT 01/16/2021 11:14 AM OTR OWNER OPERATOR documented in this encounter Results * HCG BETA BLOOD QUANTITATIVE (01/16/2021 11:14 AM OTR OWNER OPERATOR) hCG Quantitative <1.20 mIU/mL 01/17/20 21 3:09 PM OTR OWNER OPERATOR [facility] Blood BLOOD SPECIMEN / Unknown Venipuncture / Unknown 01/16/2021 11:14 AM OTR OWNER OPERATOR 01/16/2021 2:27 PM OTR OWNER OPERATOR Narrative [facility] - 01/16/2021 3:09 PM OTR OWNER OPERATOR hCG Reference Range, mIU/mL: Males 0-2.0 Non [...] MD LAB - CHEMISTRY ORDERABLES Final Result [facility] [address] [place] [address] documented in this encounter Visit Diagnoses Not on filedocumented in this encounter Care Teams Stove Polisher Relationship Specialty Start Date End Date Dannie Mccullough DO PCP - General 06/02/18 07/04/21 Paola Carrillo PA [address] [place] [address] PCP - General Physician Manager New Product 07/05/21 Dannie Mccullough DO Family Medicine 05/21/18 documented as of this encounter
--- OUTSIDE RECORDS SUMMARY | 2024-12-13 20:49 | XMS_ITS | Encounter Summary ---
Author Organization [facility] Healthcare Address [address] [place] [address] Care Team Providers Care Supplier Diversity Director Name Role Phone Paola Carrillo Primary Care Provider + Raheem Ponce MD Unavailable [phone] Unavailable [phone] Shruthi Roberts Unavailable [phone] Noreen Stoll NP Unavailable [phone] Noreen Stoll NP Primary Care Provider Encounter Details Date Type Department Care Team [...] How often do you attend mosque or adventist serv ices? Never 09/02/2022 Active Member of [...] staff should administer the PHQ-9) 6 09/02/2022 [facility] Occupat ional [facility] - Occupational Stress Questionnaire Answer Date [...] place to sleep or slept in a senior care (including now)? No 09/02/2022 Calvin Depression Scale Answer Date Recorded Calvin Depression Scale Total 5 09/16/2022 The thought [...] on file Legal Sex Female 8:16 PM UMBRELLA SUPERVISOR Gender Identity Genderqueer, neither exclusively Male nor Female 06/07/2020 6:57 AM CDT Sexual Orientation Bisexual 06/07/2020 6: 57 AM CDT documented as of this encounter Plan of Treatment Not on file documented as of this encounter Visit Diagnoses Not on filedocumented in this encounter Care Teams Supplier Diversity Director Relationship Specialty Start Date End Date Paola Carrillo PA PCP - General Family Medicine 09/06/21 03/30/23 Noreen Stoll NP [address] [place] [address] [place] [address] PCP - General Internal Medicine 03/31/23 Raheem Ponce MD Family Medicine 09/06/21 03/30/23 Salinas Massey PA [address] [place] [address] [place] [address] Physician Floral Department Specialist Orthopedic Surgery 01/04/20 Shruthi Roberts PA [address] [place] [address] [place] [address] Physician Floral Department Specialist Orthopedic Surgery 04/27/20 Noreen Stoll NP [address] [place] [address] Nurse Practitioner Internal Medicine 03/31/23 documented as of this encounter
[2024-12-13 21:05] VITALS: BP 120/76; PULSE 80; RESP 20; TEMP 36.4; O2SAT 99
--- NOTE | 2024-12-13 22:40 | PC.NURSE ---
pt to desk, states she is leaving and will return tomorrow. recommended to return if symptoms get worse, verbalized understanding
--- OUTSIDE RECORDS SUMMARY | 2024-12-13 22:48 | XMS_ITS | Clinical Summary ---
Author Organization [facility] Address [address] [place] [address] Care Team Providers Care Paleontology Teacher Name Role Phone Noreen Stoll ORDER EXPEDITER Primary Care Provider [phone] Allergies Active Allergy Reactions Criticality Noted Date [...] Problem Noted Date Diagnosed Date Resolved Date 02/03/2019 11/04/2019 Immunizations Immunization Administration Dates Next Due Afluria [...] Stroke Mother pcos Mother Alzheimers Paternal Grandfather [place] Paternal Grandmother Rodriguez's Syndrome Sister 1 No [...] drink = 0.6 oz p ure alcohol) [facility] Utilities Answer Date Recorded In the past 12 months has th e [employer], gas, oil, or water [employer] threatened to shut off services in your [...] declined 04/07/2023 Social Connection and Isolation Panel Answer Date Recorded In a typical week, how many times do you talk on the phone with family, friends, or neighbors? Patient declined 04/07/2023 How often do you get togethe r with friends or relatives? Patient declined 04/07/2023 How often do you attend cheondoism or caodaism serv ices? Patient declined 04/07/2023 Do you belong to any clubs o r organizations such as cheondoism groups, unions, fraternal or athletic groups, or [...] move on to questions 3-9 6 03/01/2020 [facility] of Occupat ional [facility] - Occupational Stress Questionnaire Answer [...] place to sleep or slept in a fci (including now)? Patient declined 04/07/2023 Education Answer Date Recorded What is the highest level of school you have completed or the highest degree you have received? Bachelor's degree (e.g., BA, AB, BS) 02/03/2019 Comments No Sex and Gender Information Value Date Recorded Sex Assigned at Female 04/03/2024 11:56 AM BODY MASKER Legal Sex Female 3:13 PM CDT Gender Identity Not on file Sexual Orientation Not on file Last Filed Vital Signs Vital Sign Reading Time Taken Comments Blood Pressure 128/87 04/03/2024 11:37 AM BODY MASKER Pulse 74 04/03/2024 11:37 AM BODY MASKER Temperature 36 C (96.8 F) 04/03/2024 11:37 AM BODY MASKER Respiratory Rate 22 04/03/2024 11:37 AM BODY MASKER Oxygen Saturation 100% 04/03/2024 11:37 AM BODY MASKER Inhaled Oxygen Concentration - - Weight 74.8 kg (165 lb) 04/03/2024 11:37 AM BODY MASKER Height 165.1 cm (5' 5) 04/03/2024 11:37 AM BODY MASKER Body Mass Index 27.46 04/03/2024 11:37 AM BODY MASKER Plan of Treatment Health Maintenance Due Date Last Done Comments Annual Physical 09/23/1994 COVID-19 Vaccine ( season) 2024 03/28/2020, 02/29/2020 Influenza Adult (#1) 2024 03/06/2023, 01/16/2022, 12/22/2019, Additional history exists Cervical Cancer Screening Pap Smear (Age 31 [...] and discharge planning Lifestyle No Sangeeta Song, RESTAURANT HOST/HOSTESSinstructional material director [employer] Advance Directives * Full Code (Latest [...] 8:14 AM 02/05/2019 12:04 AM Care Teams Paleontology Teacher Relationship Specialty Start Date End Date Noreen Stoll FNP [address] [place] [address], [address] [phone] PCP - General 08/01/23
--- OUTSIDE RECORDS SUMMARY | 2024-12-13 22:48 | XMS_ITS | Encounter Summary ---
Author Organization [facility] Healthcare Address [address] [place] [address] Care Team Providers Care Senior Quantity Surveyor Name Role Phone Paola Carrillo Primary Care Provider + Raheem Ponce MD Unavailable [phone] Unavailable [phone] Shruthi Roberts Unavailable [phone] Noreen Stoll NP Unavailable [phone] Noreen Stoll NP Primary Care Provider [phone] Encounter Details Date Type Department Care Team [...] week 09/02/2022 How often do you attend nondenominational or adventist serv ices? Never 09/02/2022 Active [...] the PHQ-9) 6 09/02/2022 [facility] Occupat ional [facility] - Occupational Stress Questionnaire Answer Date [...] place to sleep or slept in a mcfp (including now)? No 09/02/2022 [place] Depression Scale Answer Date Recorded [place] Depression Scale Total 5 09/16/2022 The thought [...] on file Legal Sex Female 8:16 PM ZIGZAG APPLIQUER Gender Identity Genderqueer, neither exclusively Male nor Female 06/07/2020 6:57 AM CDT Sexual Orientation Bisexual 06/07/2020 6: 57 AM CDT documented as of this encounter Plan of Treatment Not on file documented as of this encounter Visit Diagnoses Not on filedocumented in this encounter Care Teams Senior Quantity Surveyor Relationship Specialty Start Date End Date Paola Carrillo PA PCP - General Family Medicine 09/06/21 03/30/23 Noreen Stoll NP [address] [place] [address] [place] [address] PCP - General Internal Medicine 03/31/23 Raheem Ponce MD Family Medicine 09/06/21 03/30/23 Salinas Massey PA [address] [place] [address] [place] [address] Physician Manager Of Allied Health Services Orthopedic Surgery 01/04/20 Shruthi Roberts PA [address] [place] [address] [place] [address] Physician Manager Of Allied Health Services Orthopedic Surgery 04/27/20 Noreen Stoll NP [address] [place] [address] Nurse Practitioner Internal Medicine 03/31/23 documented as of this encounter
--- OUTSIDE RECORDS SUMMARY | 2024-12-13 22:48 | XMS_ITS | Encounter Summary ---
Author Organization [facility] Address [address] [facility] [place] [address] Care Team Providers Care Instructional Materials Director Name Role Phone Dannie Mccullough DO Primary Care Provider Dannie Mccullough DO Unavailable [phone] Paola Carrillo Primary Care Provider [phone] Encounter Details Date Type Department Care Team (Late st Contact Info) Description 01/16/2021 Lab Requisition [facility] [address] [place] [address] Glenna Grewal MD [address] [facility] [address] [place] [address] Social History Tobacco Use Types Packs/Day Years Used Date Smoking Tobacco: Former Cigarettes Smokeless Tobacco: Never Alcohol Use Standard Drinks/Week Comments Yes 0 (1 standard drink = 0.6 oz pur e alcohol) rarely Comments No Sex and Gender Information Value Date Recorded Sex Assigned at Female 12/26/2020 9:46 AM CDT Legal Sex Female 8:30 AM DRY MIXER Gender Identity Gender Non-conforming 12/26/2020 9:46 AM CDT Sexual Orientation Bisexual 12/26/2020 9: 46 AM CDT 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 Not on file Not on file documented as of this encounter Plan of Treatment Not on file documented as of this encounter Procedures Procedure Name Priority Date/Time Associated Diagnosis Comments HCG BETA BLOOD QUANTITATIVE STAT 01/16/2021 11:14 AM DRY MIXER documented in this encounter Results * HCG BETA BLOOD QUANTITATIVE (01/16/2021 11:14 AM DRY MIXER) hCG Quantitative <1.20 mIU/mL 01/17/20 21 3:09 PM DRY MIXER [facility] Blood BLOOD SPECIMEN / Unknown Venipuncture / Unknown 01/16/2021 11:14 AM DRY MIXER 01/16/2021 2:27 PM DRY MIXER Narrative [facility] - 01/16/2021 3:09 PM DRY MIXER hCG Reference Range, mIU/mL: Males 0-2.0 Non [...] MD LAB - CHEMISTRY ORDERABLES Final Result [facility] [address] [place] [address] documented in this encounter Visit Diagnoses Not on filedocumented in this encounter Care Teams Instructional Materials Director Relationship Specialty Start Date End Date Dannie Mccullough DO PCP - General 06/02/18 07/04/21 Paola Carrillo PA [address] [place] [address] PCP - General Physician Agricultural Plow Operator 07/05/21 Dannie Mccullough DO Family Medicine 05/21/18 documented as of this encounter
--- OUTSIDE RECORDS SUMMARY | 2024-12-13 22:48 | XMS_ITS | Encounter Summary ---
Author Organization [facility] Health Address [address] [place] [address] Care Team Providers Care Enterprise Analyst Name Role Phone Jb [place] MD Primary Care Provider [phone] Dannie Mccullough DO Primary Care Provider Jb [place] MD Primary Care Provider [phone] Dannie Mccullough DO Primary Care Provider Dannie Mccullough DO Unavailable [phone] Paola Carrillo Primary Care Provider [phone] Encounter Details Date Type Department Care Team (Late st Contact Info) Description 11/03/2013 [facility] Outpatient Visit [facility] - Family Medicine [address] [place] [address] [place] [address] [place] [address] Social History Tobacco Use Types Packs/Day Years Used Date Smoking Tobacco: Passive Smo ke Exposure - Never Smoker Cigarettes Alcohol Use Standard Drinks/Week Comments Yes 0 (1 standard drink = 0.6 oz pur e alcohol) rarely Comments No Sex and Gender Information Value Date Recorded Sex Assigned at Female 12/26/2020 9:46 AM CDT Legal Sex Female 8:30 AM HAND FILER BALANCE WHEEL Gender Identity Gender Non-conforming 12/26/2020 9:46 AM CDT Sexual Orientation Bisexual 12/26/2020 9: 46 AM CDT documented as of this encounter Plan of Treatment Not on file documented as of this encounter Visit Diagnoses Not on filedocumented in this encounter Care Teams Enterprise Analyst Relationship Specialty Start Date End Date Jb [place] MD PCP - General Family Medicine 11/03/13 12/02/13 Dannie Mccullough DO PCP - General Family Medicine 06/23/16 05/20/18 Jb [place] MD PCP - General 05/21/18 06/01/18 Dannie Mccullough DO PCP - General 06/02/18 07/04/21 Paola Carrillo PA [address] [place] [address] PCP - General Physician Food Service Attendant 07/05/21 Dannie Mccullough DO Family Medicine 05/21/18 documented as of this encounter
--- OUTSIDE RECORDS SUMMARY | 2024-12-13 22:49 | XMS_ITS | Encounter Summary ---
Author Organization [facility] Address [address] [place] [address] Care Team Providers Care Java J2Ee Architect Name Role Phone Karrie Herman NP Primary Care Provider [phone] Paola Alexander-C Primary Care Provider + Noreen StollP Primary Care Provider [phone] Encounter Details Date Type Department Care Team (Late st Contact Info) Description 03/07/[address] [facility] Family Medicine - [place] [address] [place] [address] Karrie Herman NP [address] [place] [address] Referral Request Social History Tobacco [...] move on to questions 3-9 6 03/01/2020 [facility] of Occupat ional Health - Occupational Stress [...] Sex Assigned at Female 04/03/2024 11:56 AM CULINARY ASSISTANT Legal Sex Female 3:13 PM CDT Gender Identity Not on file Sexual Orientation Not on file COVID-19 Exposure Response Date Recorded In the last month, have you been in contact with someone who was confirmed or suspected to have Coronavirus / COVID-19? No / Unsure 03/01/2020 10:24 AM CULINARY ASSISTANT documented as of this encounter Functional Status * RETIRED Are you deaf or do you have serious difficulty hearing Answer Date of Assessment Author Status No 02/07/2019 10:19 AM CULINARY ASSISTANT Acti ve * RETIRED Are you blind or do you have serious difficulty seeing, even when wearing glasses? Answer Date of Assessment Author Status No 02/07/2019 10:19 AM CULINARY ASSISTANT Acti ve * Do you have serious difficulty walking or climbing stairs? Answer Date of Assessment Author Status No 02/07/2019 10:19 AM CULINARY ASSISTANT Lisbeth Ramos RN Active * Do you have difficulty dressing or bathing? Answer Date of Assessment Author Status No 02/07/2019 10:19 AM Lisbeth Krueger RN Active * Because of a physical, mental, or emotional condition, do you have difficulty doing errands alone such as visiting a doctor's office or shopping? Answer Date of Assessment Author Status No 02/07/2019 10:19 AM CULINARY ASSISTANT Lisbeth Ramos RN Active documented as of this encounter Mental Status * Because of a physical, mental, or emotional condition, do you have serious difficulty concentrating, remembering, or making decisions? Answer Entry Date Author Status No 02/07/2019 10:19 AM CULINARY ASSISTANT Lisbeth Ramos RN Active documented in this [...] in the afternoon F/u in 3 weeks NARY ASSISTANT * Lamont Tam RN - 03/07/2020 10:34 AM CST Please advise. Thanks NARY ASSISTANT documented in this encounter Plan of Treatment Not on file documented as of this encounter Visit Diagnoses Not on filedocumented in this encounter Additional Health Concerns Infection Onset Date Last Indicated Resolved Time COVID-19 Rule Out 03/29/2023 03/29/2023 03/29/2023 12:21 PM CULINARY ASSISTANT COVID-19 Rule Out 04/10/2023 04/10/2023 04/10/2023 10:23 AM CULINARY ASSISTANT COVID-19 Confirmed 04/10/2023 04/10/2023 12:32 AM CULINARY ASSISTANT Assessment Noted Time PHQ-9 Depression Total Score: 19 03/01/ 020 10:45 AM CULINARY ASSISTANT documented as of this encounter Care Teams Java J2Ee Architect Relationship Specialty Start Date End Date Karrie Herman [place] [address] PCP - General NURSE PRACTITIONER 11/17/19 04/16/21 Paola Alexander PA-C [facility] Family Medicine [place] [id number] [facility] [address] [facility] [address] [place] [address] PCP - General PHYSICIAN SHIP JOINER 04/17/21 07/31/23 Noreen Stoll FNP [address] [place] [address], [address] [place] [phone] PCP - General 08/01/23 documented as of this encounter
--- OUTSIDE RECORDS SUMMARY | 2024-12-13 22:50 | XMS_ITS | Encounter Summary ---
Author Organization [facility] Address [address] [place] [address] Care Team Providers Care Environmental Epidemiologist Name Role Phone Karrie Herman NP Primary Care Provider [phone] Paola Alexander PA-C Primary Care Provider + Noreen StollP Primary Care Provider [phone] Encounter Details Date Type Department Care Team (Late st Contact Info) Description 03/15/[address] [facility] [address] [facility] Family Medicine - [place] [address] [place] [address] Karrie Herman NP [address] [place] [address] RE: Medication Questions Social History [...] move on to questions 3-9 6 03/01/2020 [facility] of Occupat ional Health - [...] Sex Assigned at Female 04/03/2024 11:56 AM WOODS BOSS Legal Sex Female 3:13 PM CDT Gender Identity Not on file Sexual Orientation Not on file COVID-19 Exposure Response Date Recorded In the last month, have you been in contact with someone who was confirmed or suspected to have Coronavirus / COVID-19? No / Unsure 03/01/2020 10:24 AM WOODS BOSS documented as of this encounter Functional Status * RETIRED Are you deaf or do you have serious difficulty hearing Answer Date of Assessment Author Status No 02/07/2019 10:19 AM WOODS BOSS Acti ve * RETIRED Are you blind or do you have serious difficulty seeing, even when wearing glasses? Answer Date of Assessment Author Status No 02/07/2019 10:19 AM WOODS BOSS Acti ve * Do you have serious difficulty walking or climbing stairs? Answer Date of Assessment Author Status No 02/07/2019 10:19 AM WOODS BOSS Lisbeth Ramos RN Active * Do you have difficulty dressing or bathing? Answer Date of Assessment Author Status No 02/07/2019 10:19 AM Lisbeth Krueger RN Active * Because of a physical, mental, or emotional condition, do you have difficulty doing errands alone such as visiting a doctor's office or shopping? Answer Date of Assessment Author Status No 02/07/2019 10:19 AM WOODS BOSS Lisbeth Ramos RN Active documented as of this encounter Mental Status * Because of a physical, mental, or emotional condition, do you have serious difficulty concentrating, remembering, or making decisions? Answer Entry Date Author Status No 02/07/2019 10:19 AM WOODS BOSS Lisbeth Ramos RN Active documented in this encounter Progress Notes * Lamont Tam RN - 03/15/2020 9:59 AM CST Please see note. S BOSS documented in this encounter Plan of Treatment Not on file documented as of this encounter Visit Diagnoses Not on filedocumented in this encounter Additional Health Concerns Infection Onset Date Last Indicated Resolved Time COVID-19 Rule Out 03/29/2023 03/29/2023 03/29/2023 12:21 PM WOODS BOSS COVID-19 Rule Out 04/10/2023 04/10/2023 04/10/2023 10:23 AM WOODS BOSS COVID-19 Confirmed 04/10/2023 04/10/2023 12:32 AM WOODS BOSS Assessment Noted Time PHQ-9 Depression Total Score: 19 020 10:45 AM WOODS BOSS documented as of this encounter Care Teams Environmental Epidemiologist Relationship Specialty Start Date End Date Karrie Herman [place] [address] PCP - General NURSE PRACTITIONER 11/17/19 04/16/21 Paola Alexander PA-C [facility] Family Medicine [address] [place] [address] PCP - General PHYSICIAN LEAK DETECTION ENGINEER 04/17/21 07/31/23 Noreen Stoll FNP [address] [place] [address], [address] [place] [id number] PCP - General 08/01/23 documented as of this encounter
--- OUTSIDE RECORDS SUMMARY | 2024-12-13 22:50 | XMS_ITS | Clinical Summary ---
Author Organization [facility] at the Medical Office Building Address [address] [place] [id number] Care Team Providers Care Vp Design Name Role Phone Salinas Massey PA Unavailable [phone] Shruthi Roberts PA Unavailable [phone] Noreen Stoll NP Unavailable [phone] Noreen Stoll NP Primary Care Provider [phone] Allergies Active Allergy Reactions Criticality Noted Date [...] 04/17/23. Assessment & Plan (04/02/2023 11:36 PM RISK COMPLIANCE MANAGER): Laparoscopic incision above navel is healing well. Edges are approximated. Will continue to monitor. She denies any pain. Sinus tachycardia 11/29/2022 Palpitations 11/29/2022 Assessment & Plan (03/31/2023 4:08 PM RISK COMPLIANCE MANAGER): Managed previously by cardiology. Is on propranolol 20 mg daily. 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 Partners carrier screening test not in patient's records from [facility]. Will ask patient to have partner check records. Cystic fibrosis carrier 07/26/2021 Overview (10/27/2022): FOB negative Marijuana use 07/26/2021 Overview (10/27/2022): Using nightly per pt report previously - now working on cutting back Advised cessation in has stopped. Assessment & Plan (03/31/2023 4:09 PM RISK COMPLIANCE MANAGER): Daily edible use, helps with anxiety. Raynaud's phenomenon 11/01/2020 Assessment & Plan (04/02/2023 11:38 PM RISK COMPLIANCE MANAGER): Asymptomatic. PCOS (polycystic ovarian syndrome) 10/18/2020 Overview (10/27/2022): On Metformin 500mg BID Assessment & Plan (06/10/2023 3:24 PM CDT): Insulin resistant PCOS, Metformin 500mg daily. Managed by [facility]. Assessment & Plan (03/31/2023 4:07 PM RISK COMPLIANCE MANAGER): Insulin resistant PCO, Metformin 500mg daily. Protein C deficiency 10/18/2020 Overview (10/27/2022): no longer has per [facility] and MFM. ASA 81mg only. No lovenox. no longer has per [facility] and MFM. ASA 81mg only. No lovenox. Subclinical hypothyroidism 06/22/2018 Overview (03/31/2023): On Levothyroxine 50mcg QD 06/22: TSH 3.3 07/26: TSH 1.75 TSH 05/18 TSH 05/18 Assessment & Plan (04/02/2023 11:39 PM RISK COMPLIANCE MANAGER): Normal TSH recently. Will monitor. Major [...] SI/HI. Assessment & Plan (05/06/2023 5:29 PM RISK COMPLIANCE MANAGER): PHQ has improved today. We will increase the Lexapro to 10 mg to help with patient's anxiety and overall depression. She is advised to seek treatment in the ER if she develops any SI. She currently denies any SI/HI. Assessment & Plan (03/31/2023 4:10 PM RISK COMPLIANCE MANAGER): PHQ elevated at 11. Started Lexapro [...] pharmacy. Assessment & Plan (05/06/2023 5:30 PM RISK COMPLIANCE MANAGER): I discussed with patient decreasing the Vyvanse to 10 mg and seeing how she does on the lower dose. I discussed with her how stimulants can increase anxiety. We will see how she does on this medication. She will reach out if it isn't controlling her symptoms. Assessment & Plan (03/31/2023 4:13 PM RISK COMPLIANCE MANAGER): Would like to switch back to Jeff off of Concerta d/t anxiety. Will discuss at next appt. Migraine 10/27/2007 Assessment & Plan (03/31/2023 4:09 PM RISK COMPLIANCE MANAGER): Less than 15 per month. Reports they are few and far between. Ibuprofen or tylenol works for relief. Allergic rhinitis 07/17/1998 Overview (03/31/2023): Dust mites, cock roaches, and dogs. Had testing. Assessment & Plan (03/31/2023 4:16 PM RISK COMPLIANCE MANAGER): Chronic, controlled. Zyrtec, flonase, albuterl PRN. [...] 10/21/2023 Assessment & Plan (04/02/2023 11:38 PM RISK COMPLIANCE MANAGER): Will repeat labs. Short cervix 07/05/2021 [...] home and keep log Will call back/send [employer] message with readings in a few weeks May also bring in home BP machine to office to check accuracy of readings. Closed dislocation of right patella 04/11/2020 03/31/2023 Overview (04/11/2020): Added automatically from request for surgery [id number] Closed dislocation of left patella 12/29/2019 03/31/2023 Overview (12/29/2019): Added automatically from request for surgery [id number] Closed patellar dislocation, left, initial encounter 12/17/2019 12/18/2022 Closed patellar dislocation, right, initial encounter 12/17/2019 12/18/2022 Anxiety in in firs t trimester, antepartum 12/10/2016 03/31/2023 Depression affecting pregnan cy in first trimester, antepartum 12/10/2016 03/31/2023 Attention deficit disorder 12/10/2008 1 Encounters Date Type Department Care Team Description 12/08/[address] [facility] Medicine Ophthalmology [facility] [address]th [place] [address] Jatinder Li MD 10/19/2024 1:52 PM CDT - 10/19/2024 11:59 PM CDT Hospital Encounter [facility] [address] [place] [address] Kailee Ibanez MD Polyarthralgia (Primary [...] week 09/02/2022 How often do you attend yarsanism or orthodoxy serv ices? Never 09/02/2022 Active Member of [...] staff should administer the PHQ-9) 2 07/08/2023 [facility] Occupational Stress Questionnaire Answer Date [...] place to sleep or slept in a halfway (including now)? No 09/02/2022 Clarence Depression Scale Answer Date Recorded Clarence Depression Scale Total 5 09/16/2022 The thought [...] on file Legal Sex Female 8:16 PM RISK COMPLIANCE MANAGER Gender Identity Genderqueer, neither exclusively Male [...] home safety. Medical Devices Implanted Type Area Umbrella Tipper Hand Device Identifier Shelf Expiration Date Model / Serial / Lot [employer] [id number]-7 Swivelock Tenodesis 7mm 19.5mm Fork Eyelet Shoulder Biceps [place] - [id number] Implanted:Qty: 1 on 01/04/2020 by Geo Campbell MD at [facility] Left: Knee [employer] 05/01/2023 AR-1662BC-7 / / [id number] Allosource [id number] Frozen Aseptic Graft Soft Tissue Posterior Tibialis Tendon - [id number] Implanted:Qty: 1 on 01/04/2020 by Geo Campbell MD at [facility] Left: Knee [employer] [id number] / / Description:Single diameter 6mm, folded diameter 9.5mm Fastthread Biocomposite Interference Screw, 9 X20mm, With Disposable Sheath Implanted:Qty: 1 on 01/04/2020 by Geo Campbell MD at [facility] Left: Knee [employer] [id number] 08/01/2023 AR-4020C-09 / NA / [id number] Description:[facility] ITEM # [id number] FLAGGED IN [facility] 01/05/2020 CHARGE CODE ASSIGNED 219381 COST EA. 295.00 [facility] [id number] Graft Soft Tissue Posterior Tibialis Tendon - [id number] - [id number] Implanted:Qty: 1 on 04/27/2020 by Geo Campbell MD at [facility] Right: Knee [facility] 12/09/2020 [id number] / [id number] / [employer] Ar-1360c-Cp 4.5mm 6mm Cannulated Drill Guidepin Interference Screw Reamer - [id number] Implanted:Qty: 1 on 04/27/2020 by Geo Campbell MD at [facility] Right: Knee [employer] 01/31/2024 AR-1360C-CP / / [id number] Procedures Procedure Name Priority Date/Time Associated Diagnosis Comments LIPID PANEL Routine 08/19/2024 10:33 AM CDT Dyslipidemia EGFR STAT 08/05/2023 4:11 PM CDT HEMOGLOBIN A1C Routine 04/17/2023 7:57 AM RISK COMPLIANCE MANAGER Prediabetes ALBUMIN CREATININE RATIO, URINE Routine 04/17/2023 7:57 AM RISK COMPLIANCE MANAGER Prediabetes from Last 3 Months or Most Recently Relevant to Health Maintenance Results * (ABNORMAL) Lipid panel (08/19/2024 10:33 AM CDT) Cholesterol 201(H) <200 mg/dL [facility] [place] HDL 53 > OR = 50 mg/dL [facility] [place] Triglycerides 198(H) <150 mg/dL [facility] [place] LDL 116(H) mg/dL (calc) [facility] [place] Comment: Reference range: <100 Desirable range <100 mg/dL for primary prevention; <70 mg/dL for patients with CHD or diabetic patients with > or = 2 CHD risk factors. LDL-C is now calculated using the Frankie calculation, which is a validated novel method providing better accuracy than the Friedewald equation in the estimation of LDL-C. Isaías WELLINGTON et al. DAKOTAH. 2013;310(19): 4126-2757 (http://education.[employer]/faq/EIB132) Chol/HDL ratio 3.8 <5.0 (calc) [facility] [place] Non-HDL, (LDL+VLDL) 148(H) <130 mg/dL (calc) [facility] [place] Comment: For patients with diabetes plus 1 major ASCVD risk factor, treating to a non-HDL-C goal of <100 mg/dL (LDL-C of <70 mg/dL) is considered a therapeutic option. Blood 08/19/2024 10:3 3 AM CDT 08/19/2024 10:33 AM CDT Narrative [facility] - 08/19/2024 8:28 PM CDT FASTING:YES FASTING: YES us Flaca Freed NP LAB BLOOD ORDERABLES Final Result [facility] [address] [place] [address] * eGFR (08/05/2023 4:11 PM CDT) eGFR [...] us Ernesto Fleming MD LAB BLOOD ORDERABLES [facility] Result [place] [address] [facility] Department [place] [address] * Albumin Creatinine Ratio, Urine (04/17/2023 7:57 AM RISK COMPLIANCE MANAGER) Creatinine, ur 22 20 - 275 [...] a diagnostic category. Urine 04/17/2023 7:57 AM RISK COMPLIANCE MANAGER 04/17/2023 7:59 AM RISK COMPLIANCE MANAGER Narrative [facility] - 04/18/2023 4:19 PM RISK COMPLIANCE MANAGER FASTING:YES FASTING: YES Noreen Stoll FRONT DESK CLERK LAB URINE ORDERABLES Final Re sult [email or web address] [address] [address] * Hemoglobin A1c (04/17/2023 7:57 AM RISK COMPLIANCE MANAGER) Hgb A1C 4.7 <5.7 % of total Hgb [facility] Comment: For the purpose of screening for the presence of diabetes: <5.7% Consistent with the absence of diabetes 5.7-6.4% Consistent with increased risk for diabetes (prediabetes) > or =6.5% Consistent with diabetes This assay result is consistent with a decreased risk of diabetes. Currently, no consensus exists regarding use of hemoglobin A1c for diagnosis of diabetes in children. According to [place] Diabetes Association (ADA) guidelines, hemoglobin A1c <7.0% represents optimal control in non- diabetic patients. Different metrics may apply to specific patient populations. Standards of Medical Care in Diabetes(ADA). HbA1c performed on Jaime platform. Blood 04/17/2023 7:57 AM RISK COMPLIANCE MANAGER 04/17/2023 7:59 AM RISK COMPLIANCE MANAGER Narrative [facility] - 04/18/2023 4:19 PM RISK COMPLIANCE MANAGER FASTING:YES FASTING: YES Noreen Therleigh FRONT DESK CLERK LAB BLOOD ORDERABLES Final Re sult Performing Organization Address [facility]/ZIP Co de Phone Number [facility] [address] [place] [address] from Last 3 Months or Most Recently Relevant to Health Maintenance Insurance [facility] Advance Directives For more information, please contact: [phone] * Full Code (Latest Code Status on File) Date Activated Date Inactivated Comments 09/02/2022 8:40 AM 09/05/2022 1:44 PM Care Teams Vp Design Relationship Specialty Start Date End Date Noreen Stoll NP [address] [place] [address] [address] [address] PCP - General Internal Medicine 03/31/23 Salinas Massey PA [address] [facility] [address] [place] [address] Physician Speed Winder Orthopedic Surgery 01/04/20 Shruthi Roberts PA [address] [facility] [address] [place] [address] Physician Speed Winder Orthopedic Surgery 04/27/20 Noreen Stoll NP [address] [facility] [address] [place] [address] Nurse Practitioner Internal Medicine 03/31/23
--- OUTSIDE RECORDS SUMMARY | 2024-12-13 22:50 | XMS_ITS | Encounter Summary ---
Author Organization [facility] Address [address] [place] [address] Care Team Providers Care Bone Crusher Name Role Phone Karrie Herman NP Primary Care Provider [phone] Paola Alexander PA-C Primary Care Provider + Noreen StollP Primary Care Provider [phone] Encounter Details Date Type Department Care Team (Late st Contact Info) Description 03/06/2020 [employer] Message Enc [facility] Family Medicine - [place] [address] [place] [address] Karrie Herman NP [address] [place] [address] RE: Medication Questions Social History [...] move on to questions 3-9 6 03/01/2020 [facility] - [...] Sex Assigned at Female 04/03/2024 11:56 AM UPHOLSTERY CUTTER Legal Sex Female 3:13 PM CDT Gender Identity Not on file Sexual Orientation Not on file COVID-19 Exposure Response Date Recorded In the last month, have you been in contact with someone who was confirmed or suspected to have Coronavirus / COVID-19? No / Unsure 03/01/2020 10:24 AM UPHOLSTERY CUTTER documented as of this encounter Functional Status * RETIRED Are you deaf or do you have serious difficulty hearing Answer Date of Assessment Author Status No 02/07/2019 10:19 AM UPHOLSTERY CUTTER Acti ve * RETIRED Are you blind or do you have serious difficulty seeing, even when wearing glasses? Answer Date of Assessment Author Status No 02/07/2019 10:19 AM UPHOLSTERY CUTTER Acti ve * Do you have serious difficulty walking or climbing stairs? Answer Date of Assessment Author Status No 02/07/2019 10:19 AM UPHOLSTERY CUTTER Lisbeth Ramos RN Active * Do you have difficulty dressing or bathing? Answer Date of Assessment Author Status No 02/07/2019 10:19 AM Lisbeth Krueger RN Active * Because of a physical, mental, or emotional condition, do you have difficulty doing errands alone such as visiting a doctor's office or shopping? Answer Date of Assessment Author Status No 02/07/2019 10:19 AM UPHOLSTERY CUTTER Lisbeth Ramos RN Active documented as of [...] Rule Out 03/29/2023 03/29/2023 03/29/2023 12:21 PM UPHOLSTERY CUTTER COVID-19 Rule Out 04/10/2023 04/10/2023 04/10/2023 10:23 AM UPHOLSTERY CUTTER COVID-19 Confirmed 04/10/2023 04/10/2023 12:32 AM UPHOLSTERY CUTTER Assessment Noted Time PHQ-9 Depression Total Score: 19 020 10:45 AM UPHOLSTERY CUTTER documented as of this encounter Care Teams Bone Crusher Relationship Specialty Start Date End Date Karrie [place] [address] PCP - General NURSE PRACTITIONER 11/17/19 04/16/21 Paola Alexander PA-C [facility] Family [address] [place] [address] PCP - General PHYSICIAN MANAGER HEALTH 04/17/21 07/31/23 Noreen Stoll FNP [address] [place] [address], [address] [place] [id number] PCP - General 08/01/23 documented as of this encounter
--- OUTSIDE RECORDS SUMMARY | 2024-12-13 22:50 | XMS_ITS | Clinical Summary ---
Author Organization [facility] Address [address] [place] [address] Care Team Providers Care Motor Analyst Name Role Phone Dannie Mccullough DO Unavailable Paola Carrillo Primary Care Provider [phone] Source Comments [facility],non-owned Affiliates and Associated Physician Practices is amultiple site organization consisting of ambulatory clinics and hospital sitesin [place], [place]. This disclosure is being madepursuant to the Care Everywhere program and may not contain all information available regarding this patient. Last updated 17.[facility] Allergies Active Allergy Reactions Criticality Noted Date [...] migh t be different from the original. [employer] form completed. Diapers given. 09/13/2021; [...] screening test not in patient's records from [email or web address]. Will ask patient to have partner check [...] on contraception 07/26 - requested labs from [place] [facility] [place] 07/26 History of PCOS 12/14/2020 07/26/2021 Pre-conception [...] or slept in a fci (including now)? 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 us Mark Porter MD LAB - CHEMISTRY ORDERABLES Natalie triana Result [facility] [address] [place], [place] [id number] from Last 3 Months or Most Recently Relevant to Health Maintenance Insurance MEDICAID - [place] AETNA MEDICAID - OUT OF STATE Advance Directives * Full Code (Latest Code Status on File) Date Activated Date Inactivated Comments 11/01/2021 1:24 PM 11/04/2021 1:22 PM * Full Code Date Activated Date Inactivated Comments 07/05/2021 4:45 PM 07/06/2021 5:06 PM Care Teams Motor Analyst Relationship Specialty Start Date End Date Paola Carrillo PA [address] [place] [address] PCP - General Physician Manager [employer] 07/05/21 Dannie Mccullough DO Family Medicine 05/21/18
== END 2024-12-13 23:08 | disposition left against medical advice (07) ==
LOC: ANHED 22:45
PROVIDERS: PCP Nurse Practitioner
DX: K59.00 Constipation, unspecified (principal)
CPT/HCPCS: 99199